=== PATIENT | female | born 1960 | race Caucasian/White ===

== ENCOUNTER 2016-09-30 20:45 | Emergency (ER) | payer BC ==
[~2016-09-30] VITALS: Ht 162.6 cm; Wt 61.2 kg
[~2016-09-30 20:45] MED LIST: ALPR0.5T PO; ALPR0.5T10; ALPR1TAB6 PO; BUTA1CAP29 PO; BYSTOLIC10 MG PO; CIPR500T94 PO; CLON1TAB3; CYCL1DRO; HYDR-2672; HYDR-2672 PO; HYDR-971 PO; LISI1TAB3 PO; LISI1TAB5; LISI1TAB7; ONDA4TAB10 PO; ONDA4TAB7 PO; OXYC-323 PO; OXYC20TA; PARO20TA2; PAXIL; PROAIR HFA8.5 GM INH; TEMA30CA PO
[2016-09-30 22:22] VITALS: BP 120/69
[2016-09-30 22:34] LABS: BILIRUBIN,URINE SMALL (NEG); GLUCOSE,URINE NEGATIVE (NEG); NITRITE,URINE NEGATIVE (NEG); PROTEIN,URINE NEGATIVE (NEG-TRACE); UROBILINOGEN,URINE 0.2 mg/dL (0.2 mg/dL)
[2016-09-30] MEDS ORDERED: CYCLOBENZAPRINE 10 MG TABLET. PO ONE (22:45)
[2016-09-30] MEDS ORDERED: OXYCODONE/APAP 5/325 TABLET. PO ONE (22:45)
[2016-09-30 22:51] LABS: BACTERIA,URINE 0 /HPF (0-FEW); RBC,URINE OCC /HPF (0-2); SQUAMOUS EPITHELIAL CELL,UR FEW /LPF; WBC,URINE OCC /HPF (0-4)
--- NOTE | 2016-09-30 23:31 | PHYS DOC ---
Past Medical History Past Medical History: Anxiety, Arthritis, Depression, Hypertension, Migraines, Other Additional Past Medical Histor: Chronic pain, hep C(treated), drug seeking behavior Past Surgical History: Cholecystectomy, Hysterectomy, Tonsillectomy, Other Additional Past Surgical Histo: PARTIAL KNEE REPLACEMENT, NECK SX, COMMON BILE DUCT CUT, L ARM SX Alcohol Use: None Drug Use: None Adult General Chief Complaint Chief Complaint: BACK PAIN - NO INJURY HPI HPI Patient is a 55 year old female who presents with 3 days of right low back pain and urinary hesitancy. States she feels she is emptying her bladder fully. Pain is constant, achy, worse with movement. States yesterday she cleaned her house which exacerbated her back pain. She denies hematuria, dysuria, vaginal bleeding or discharge,saddle anesthesia, bowel or bladder dysfunction. She denies rash. She denies injury. Review of Systems Review of Systems Constitutional: Denies fever or chills [] Eyes: Denies change in visual acuity, redness, or eye pain [] HENT: Denies nasal congestion or sore throat [] Respiratory: Denies cough or shortness of breath [] Cardiovascular: No additional information not addressed in HPI [] GI: Denies abdominal pain, nausea, vomiting, bloody stools or diarrhea [] : Denies dysuria or hematuria [] Musculoskeletal: Denies joint pain [] Integument: Denies rash or skin lesions [] Neurologic: Denies headache, focal weakness or sensory changes [] Endocrine: Denies polyuria or polydipsia [] Current Medications Current Medications Current Medications Medications (Trade) Dose Ordered Sig/[facility] Start Time Stop Time Status Last Admin Dose Admin Cyclobenzaprine HCl (Flexeril) 10 mg 1X ONCE 09/30/16 22:45 09/30/16 22:46 DC 09/30/16 22:45 10 MG Oxycodone/ Acetaminophen (Percocet 5/325) 2 tab 1X ONCE 09/30/16 22:45 09/30/16 22:46 DC 09/30/16 22:45 2 TAB Allergies Allergies Allergies Coded Allergies Type Severity Reaction Last Updated Verified Penicillins Allergy Intermediate Hives 04/10/15 Yes Physical Exam Physical Exam Constitutional: Well developed, well nourished, no acute distress, non-toxic appearance. [] HENT: Normocephalic, atraumatic, bilateral external ears normal, oropharynx moist, nose normal. [] Eyes: PERRLA, EOMI. [] Neck: Normal range of motion, supple. [] Cardiovascular:Heart rate regular rhythm [] Lungs & Thorax: Bilateral breath sounds clear to auscultation [] Abdomen: Bowel sounds normal, soft, no tenderness, no pulsatile masses. [] Skin: Warm, dry, no erythema, no rash. [] Back: No midline spinal tenderness, no CVA tenderness. Has mild right lumbar paraspinal tenderness with no visual or palpable abnormality [] Extremities: ROM intact, no edema. [] Neurologic: Alert and oriented X 3, normal motor function, normal sensory function, no focal deficits noted. [] Psychologic: Affect normal, judgement normal, mood normal. [] Current Patient Data Vital Signs Vital Signs Date Time Temp Pulse Resp B/P Pulse Ox O2 Delivery O2 Flow Rate FiO2 09/30/16 22:22 102 22 120/69 95 Room Air 09/30/16 20:59 98.0 98.0 Lab Values Laboratory Tests Test 09/30/16 20:55 Urine Collection Type Unknown Urine Color Selena Urine Clarity Clear Urine pH 6.0 Urine Specific [place] 1.020 Urine Protein Negativemg/dL (NEG-TRACE) Urine Glucose (UA) Negativemg/dL (NEG) Urine Ketones (Stick) Negativemg/dL (NEG) Urine Blood Negative (NEG) Urine Nitrite Negative (NEG) Urine Bilirubin Small (NEG) Urine Urobilinogen Dipstick 0.2mg/dL (0.2 mg/dL) Urine Leukocyte Esterase Small (NEG) Urine RBC Occ/HPF (0-2) Urine WBC Occ/HPF (0-4) Urine Squamous Epithelial Cells Few/LPF Urine Bacteria 0/HPF (0-FEW) Urine Hyaline Casts Moderate/HPF Urine Mucus Mod/LPF Course & Med Decision Making Course & Med Decision Making She received pain medications, but prior to urine returning she chose to leave the emergency department AGAINST MEDICAL ADVICE. I was notified by nursing. I was unable to speak with the patient prior to her departure. Her urine results are largely unremarkable. Dragon Disclaimer Dragon Disclaimer This electronic medical record was generated, in whole or in part, using a voice recognition dictation system. Departure Departure Impression: Primary Impression: Left against medical advice Additional Impression: Back pain Disposition: AGAINST MEDICAL ADVICE Condition: STABLE Problem Qualifiers Additional Impression: Back pain Back pain location: low back pain Chronicity: acute Back pain laterality: right Sciatica presence: without sciatica Qualified Code: M54.5 - Low back pain Adin STAHL MD Sep 30, 2016 23:31
== END 2016-09-30 23:01 | disposition left against medical advice (07) ==
LOC: ER 20:45
DX: M54.5 Low back pain (principal); R39.11 Hesitancy of micturition; I10 Essential (primary) hypertension; G43.909 Migraine, unspecified, not intractable, without status migrainosus; M19.90 Unspecified osteoarthritis, unspecified site; G89.29 Other chronic pain; B19.20 Unspecified viral hepatitis C without hepatic coma; Z90.49 Acquired absence of other specified parts of digestive tract; Z90.710 Acquired absence of both cervix and uterus; Z90.89 Acquired absence of other organs; Z96.659 Presence of unspecified artificial knee joint; Z88.0 Allergy status to penicillin
CPT/HCPCS: 81001; 87086; 99284

== ENCOUNTER 2017-01-08 04:27 | Emergency (ER) | payer BC ==
[~2017-01-08] VITALS: Ht 162.6 cm; Wt 54.4 kg
[~2017-01-08 04:27] MED LIST changes: -PARO20TA2; +PARO20TA3
[2017-01-08 05:04] LABS: BASO # 0.1 x10^3/uL (0.0-0.2); BASO % 1 % (0-3); EOS % 1 % (0-3); HEMATOCRIT 41.1 % (36.0-47.0); HEMOGLOBIN 14.2 g/dL (12.0-15.5); LYMPH # 3.1 x10^3/uL (1.0-4.8); LYMPH % 24 % (24-48); MEAN CORPUSCULAR HEMOGLOBIN 33 pg (25-35); MEAN CORPUSCULAR HGB CONC 35 g/dL (31-37); MEAN CORPUSCULAR VOLUME 95 fL (79-100); MONO % 6 % (0-9); NEUT % 70 % (31-73); PLATELET COUNT 348 x10^3/uL (140-400); RED BLOOD COUNT 4.33 x10^6/uL (3.50-5.40); RED CELL DISTRIBUTION WIDTH 12.5 % (11.5-14.5)
[2017-01-08] MEDS ORDERED: IV NORMAL SALINE 1000ML BAG 1,000 ML IV ONE (05:15)
[2017-01-08] MEDS ORDERED: ONDANSETRON PF 4 MG/2 ML VIAL. IV ONE (05:15)
[2017-01-08] MEDS ORDERED: KETOROLAC 15 MG/ML VIAL. IV ONE (05:15)
[2017-01-08 05:32] LABS: ALBUMIN 4.3 g/dL (3.4-5.0); CALCIUM 9.7 mg/dL (8.5-10.1); CREATININE 0.7 mg/dL (0.6-1.0); DIRECT BILIRUBIN 0.1 mg/dL (0.0-0.2); GFR 86.9; TOTAL BILIRUBIN 0.3 mg/dL (0.2-1.0); TOTAL PROTEIN 8.5 g/dL (6.4-8.2)
[2017-01-08] MEDS ORDERED: ALPRAZOLAM 0.5 MG TABLET. PO ONE ×2 (05:45→06:15)
[2017-01-08 05:52] VITALS: BP 150/89
[2017-01-08] MEDS ORDERED: POTASSIUM CHLORIDE 20 MEQ TABLET.ER. PO ONE (06:15)
[2017-01-08] MEDS ORDERED: ONDA4TAB10 SL (06:24)
[2017-01-08] MEDS ORDERED: TRAM-29 PO (06:30)
--- NOTE | 2017-01-08 06:31 | PHYS DOC ---
Past Medical History Past Medical History: Anxiety, Arthritis, Depression, Hypertension, Migraines, Other Additional Past Medical Histor: Chronic pain, hep C(treated), drug seeking behavior Past Surgical History: Cholecystectomy, Hysterectomy, Tonsillectomy, Other Additional Past Surgical Histo: PARTIAL KNEE REPLACEMENT, NECK SX, COMMON BILE DUCT CUT, L ARM SX Alcohol Use: None Drug Use: None Adult General Chief Complaint Chief Complaint: CHEST PAIN HPI HPI Patient is a 56 year old female who presents to the ER today complaining of chest pain on the left side of started since Saturday. Patient reports that she thinks that this is most likely secondary to anxiety. Patient reports that she stopped her oxycodone that she's been taking chronically for her left shoulder and left knee pain. Patient reports that the pain is been constant since Saturday morning. Patient denies any fevers shakes chills nausea vomiting diarrhea or shortness of breath. Patient denies any diaphoresis or radiating pain. Patient reports she been nauseous and having vomiting. Patient denies any URI symptoms. Patient reports that she threw away all her oxycodone on Saturday because she wants to quit taking a narcotic because her significant other to review of her and she did not like the way she was behaving on narcotics. Patient denies any history of coronary artery disease, patient does have a history of hypertension, patient denies any diabetes or CHF. Patient reports that she does have a history of COPD. Patient has had a cholecystectomy, hysterectomy, and appendectomy. Patient denies any bypass surgery in the past. Patient does smoke. No alcohol or drugs. Patient's physical exam the ER significant for 100% reproducible tenderness to palpation to her left anterior chest wall. Patient reports pain is reproduced Wannamaker take a deep breath and her cough. Patient's heart exam was normal. Patient was regular rate and rhythm without any appreciable murmurs. Patient's lungs are clear without any wheezing rales or rhonchi. Patient's abdomen was soft nontender no rebound or guarding. Patient had no signs or symptoms that would be consistent with an acute surgical abdomen. Patient had no calf tenderness or lower from edema. Patient's ER workup was negative for cardiac etiology for chest pain. Patient's chest x-ray was normal. Patient's EKG revealed normal sinus rhythm at a heart rate of 86 without any evidence of acute ST elevation NM. A/P #1 nonspecific chest pain most likely secondary to anxiety versus narcotic withdrawal versus nonspecific chest discomfort. I do not believe that the pain is secondary to dissection, coronary artery disease, PE. Patient's presentation would be very atypical for this. Patient had been given antiemetics here in the ED as well as medication for anxiety and her pain is currently resolved. Patient will be discharged home with Ultram to assist her with her pain until she is able to follow-up with her doctor for further management of her chronic shoulder pain. Patient also be given a prescription for Zofran to assist her with her nausea and withdrawal symptoms. Patient's clinically and hemodynamically stable for discharge to home. Results and plans been discussed with the patient and she is in complete agreement with the current plan. Review of Systems Review of Systems Constitutional: Denies fever or chills [] Eyes: Denies change in visual acuity, redness, or eye pain [] HENT: Denies nasal congestion or sore throat [] All other review systems are negative except as documented in the history of present illness. Current Medications Current Medications Current Medications Medications (Trade) Dose Ordered Sig/[facility] Start Time Stop Time Status Last Admin Dose Admin Alprazolam (Xanax) 0.5 mg 1X ONCE 01/08/17 06:15 01/08/17 06:16 DC Ketorolac Tromethamine (Toradol) 15 mg 1X ONCE 01/08/17 05:15 01/08/17 05:16 DC 01/08/17 05:34 15 MG Ondansetron HCl 4 mg 4 mg 1X ONCE 01/08/17 05:15 01/08/17 05:16 DC 01/08/17 05:34 4 MG Potassium Chloride (Klor-Con) 40 meq 1X ONCE 01/08/17 06:15 01/08/17 06:16 DC Sodium Chloride (Iv Sodium Chloride 0.9% 1000ml Bag) 1,000 ml @ 1,000 mls/hr 1X ONCE 01/08/17 05:15 01/08/17 06:14 DC 01/08/17 05:34 1,000 MLS/HR Allergies Allergies Allergies Coded Allergies Type Severity Reaction Last Updated Verified Penicillins Allergy Intermediate Hives 04/10/15 Yes Physical Exam Physical Exam Constitutional: Well developed, well nourished, no acute distress, non-toxic appearance. [] HENT: Normocephalic, atraumatic, bilateral external ears normal, oropharynx moist, no oral exudates, nose normal. [] Eyes: PERRLA, EOMI, conjunctiva normal, no discharge. [] Neck: Normal range of motion, no tenderness, supple, no stridor. [] Cardiovascular:Heart rate regular rhythm, no murmur [] Lungs & Thorax: Bilateral breath sounds clear to auscultation [] Abdomen: Bowel sounds normal, soft, no tenderness, no masses, no pulsatile masses. [] Skin: Warm, dry, no erythema, no rash. [] Back: No tenderness, no CVA tenderness. [] Extremities: No tenderness, no cyanosis, no clubbing, ROM intact, no edema. [] Neurologic: Alert and oriented X 3, normal motor function, normal sensory function, no focal deficits noted. [] Psychologic: Affect normal, judgement normal, mood normal. [] Current Patient Data Vital Signs Vital Signs Date Time Temp Pulse Resp B/P Pulse Ox O2 Delivery O2 Flow Rate FiO2 01/08/17 05:52 95 150/89 96 Room Air 01/08/17 04:30 97.5 18 97.5 Lab Values Laboratory Tests Test 01/08/17 04:45 01/08/17 05:08 White Blood Count 13.0x10^3/uL (4.0-11.0) H Red Blood Count 4.33x10^6/uL (3.50-5.40) Hemoglobin 14.2g/dL (12.0-15.5) Hematocrit 41.1% (36.0-47.0) Mean Corpuscular Volume 95fL (79-100) Mean Corpuscular Hemoglobin 33pg (25-35) Mean Corpuscular Hemoglobin Concent 35g/dL (31-37) Red Cell Distribution Width 12.5% (11.5-14.5) Platelet Count 348x10^3/uL (140-400) Neutrophils (%) (Auto) 70% (31-73) Lymphocytes (%) (Auto) 24% (24-48) Monocytes (%) (Auto) 6% (0-9) Eosinophils (%) (Auto) 1% (0-3) Basophils (%) (Auto) 1% (0-3) Neutrophils # (Auto) 9.0x10^3uL (1.8-7.7) H Lymphocytes # (Auto) 3.1x10^3/uL (1.0-4.8) Monocytes # (Auto) 0.7x10^3/uL (0.0-1.1) Eosinophils # (Auto) 0.1x10^3/uL (0.0-0.7) Basophils # (Auto) 0.1x10^3/uL (0.0-0.2) Sodium Level 140mmol/L (136-145) Potassium Level 3.0mmol/L (3.5-5.1) L Chloride Level 101mmol/L (98-107) Carbon Dioxide Level 28mmol/L (21-32) Anion Gap 11 (6-14) Blood Urea Nitrogen 7mg/dL (7-20) Creatinine 0.7mg/dL (0.6-1.0) Estimated GFR (Cockcroft-Gault) 86.9 Glucose Level 117mg/dL (70-99) H Calcium Level 9.7mg/dL (8.5-10.1) Total Bilirubin 0.3mg/dL (0.2-1.0) Direct Bilirubin 0.1mg/dL (0.0-0.2) Aspartate Amino Transferase (AST) 17U/L (15-37) Alanine Aminotransferase (ALT) 19U/L (14-59) Alkaline Phosphatase 98U/L (46-116) Troponin I Quantitative < 0.017ng/mL (0.000-0.055) SS-Krh-N-Type Natriuretic Peptide 215pg/mL (0-124) H Total Protein 8.5g/dL (6.4-8.2) H Albumin 4.3g/dL (3.4-5.0) Lipase 91U/L (73-393) Laboratory Tests 01/08/17 04:45 Laboratory Tests 01/08/17 05:08 EKG EKG [] Radiology/Procedures Radiology/Procedures [] Course & Med Decision Making Course & Med Decision Making Pertinent Labs and Imaging studies reviewed. (See chart for details) [] Dragon Disclaimer Dragon Disclaimer This electronic medical record was generated, in whole or in part, using a voice recognition dictation system. Problem #2 hypokalemia. Patient was given potassium here in the ED and will be discharged home with instructions Departure Departure Impression: Primary Impression: Chest pain Additional Impressions: Hypokalemia Narcotic withdrawal Anxiety Disposition: HOME, SELF-CARE Condition: IMPROVED Referrals: NO PCP (PCP) Patient Instructions: Anxiety and Panic Attacks, Hypokalemia, Narcotic Withdrawal Scripts Tramadol Hcl (Ultram)50 Mg Tablet1 Tab PO Q6HRS #14 TAB Prov:CHRISTIAN FITZGERALD MD 01/08/17 Ondansetron (Zofran Odt)4 Mg Tab.rapdis1 Tab SL Q6HRS PRN NAUSEA #12 TAB Prov:CHRISTIAN FITZGERALD MD 01/08/17 Problem Qualifiers CHRISTIAN FITZGERALD MD Jan 08, 2017 06:31
--- NOTE | 2017-01-08 06:42 | EKG ---
[facility] [address] [place] [address] Test Date: 2017-01-08 Test Time: 04:39:58 Pat Name: ANNY FORD Department: Room: Gender: F [employer]: : 1960 Requested By: CHRISTIAN FITZGERALD Order Number: [id number] Reading MD: Measurements Intervals Agness Rate: 86 P: 66 ID: [id number] QRS: 41 QRSD: 90 T: 48 QT: 370 QTc: 446 Interpretive Statements SINUS RHYTHM LEFT ATRIAL ABNORMALITY INCOMPLETE RIGHT BUNDLE BRANCH BLOCK QRS(T) CONTOUR ABNORMALITY CONSIDER ANTEROSEPTAL MYOCARDIAL DAMAGE ABNORMAL ECG RI6.01 No previous ECG available for comparison
--- NOTE | 2017-01-08 07:08 | RAD ---
Portable chest, 01/08/2017: History: Chest pain Comparison is made to a study from 09/23/2016. The heart size and pulmonary vascularity are normal. No pulmonary infiltrates are seen. There is no evidence of pleural fluid. IMPRESSION: No acute cardiopulmonary abnormality is detected.
== END 2017-01-08 06:39 | disposition home or self-care (01) ==
LOC: ER 04:27
DX: R07.89 Other chest pain (principal); F41.9 Anxiety disorder, unspecified; E87.6 Hypokalemia; F11.23 Opioid dependence with withdrawal; G89.29 Other chronic pain; M25.562 Pain in left knee; M25.512 Pain in left shoulder; F32.9 Major depressive disorder, single episode, unspecified; I10 Essential (primary) hypertension; G43.909 Migraine, unspecified, not intractable, without status migrainosus; J44.9 Chronic obstructive pulmonary disease, unspecified; Z88.0 Allergy status to penicillin
CPT/HCPCS: 36415; 71010; 80048; 80076; 83690; 83880; 84484; 85027; 93005; 96361; 96374; 96375; 99285; J1885; J2405; J7030

== ENCOUNTER 2017-01-22 04:26 | Emergency (ER) | payer BC ==
[~2017-01-22] VITALS: Ht 162.6 cm; Wt 56.7 kg
[~2017-01-22 04:26] MED LIST changes: +ONDA4TAB10 SL; +TRAM-29 PO
[2017-01-22 04:30] VITALS: BP 139/75
--- NOTE | 2017-01-22 04:38 | PHYS DOC ---
Past Medical History Past Medical History: Anxiety, Arthritis, Depression, Hypertension, Migraines, Other Additional Past Medical Histor: Chronic pain, hep C(treated), drug seeking behavior Past Surgical History: Cholecystectomy, Hysterectomy, Tonsillectomy, Other Additional Past Surgical Histo: PARTIAL KNEE REPLACEMENT, NECK SX, COMMON BILE DUCT CUT, L ARM SX Alcohol Use: None Drug Use: None Adult General Chief Complaint Chief Complaint: ANKLE PROBLEM HPI HPI Patient is a 56 year old female who presents with left lateral ankle pain since rolling ankle while walking yesterday evening. Constant pain, worse with walking, achy. Denies numbness, tingling, weakness, swelling, discoloration, other injury. Review of Systems Review of Systems Constitutional: Denies fever or chills [] Eyes: Denies change in visual acuity, redness, or eye pain [] HENT: Denies nasal congestion or sore throat [] Respiratory: Denies cough or shortness of breath [] Cardiovascular: No additional information not addressed in HPI [] GI: Denies abdominal pain, nausea, vomiting, bloody stools or diarrhea [] : Denies dysuria or hematuria [] Musculoskeletal: Denies back pain [] Integument: Denies rash or skin lesions [] Neurologic: Denies headache, focal weakness or sensory changes [] Endocrine: Denies polyuria or polydipsia [] Allergies Allergies Allergies Coded Allergies Type Severity Reaction Last Updated Verified Penicillins Allergy Intermediate Hives 04/10/15 Yes Physical Exam Physical Exam Constitutional: Well developed, well nourished, no acute distress, non-toxic appearance. [] HENT: Normocephalic, atraumatic, bilateral external ears normal, oropharynx moist, nose normal. [] Eyes: PERRLA, EOMI, . [] Neck: Normal range of motion, supple. [] Cardiovascular: Extremities warm and well perfused [] Lungs & Thorax: Respirations even and unlabored [] Skin: Warm, dry, no erythema, no rash. [] Back: Normal ROM. [] Extremities: Ambulatory with an antalgic but steady gait. LLE with no obvious deformity or discoloration; Can flex/ex toes; Can dorsiflex/plantar flex ankle; Has some tenderness about anterior lateral soft tissues of ankle with no palpable abnormality; No medial or lateral malleolar tenderness; No 5 th metatarsal base tenderness; SILT gonzalez/sa/sp/dp/tib distributions; good dp pulses Neurologic: Alert and oriented X 3, normal motor function, normal sensory function, no focal deficits noted. [] Psychologic: Affect normal, judgement normal, mood normal. [] Course & Med Decision Making Course & Med Decision Making No clinical signs of fracture. Imaging deferred at this time. Discussed symptomatic care. Return precautions given. She understands plan. Dragon Disclaimer Dragon Disclaimer This electronic medical record was generated, in whole or in part, using a voice recognition dictation system. Departure Departure Impression: Primary Impression: Left lateral ankle pain Disposition: HOME, SELF-CARE Condition: STABLE Referrals: NO PCP (PCP) Patient Instructions: Ankle Sprain, [id number] Additional Instructions: Take Tylenol or ibuprofen as needed for pain. Ice your ankle to help with pain. Follow-up with your primary care doctor. Return for any concerns. Adin STAHL MD Jan 22, 2017 04:37
== END 2017-01-22 04:45 | disposition home or self-care (01) ==
LOC: ER 04:26
DX: M25.572 Pain in left ankle and joints of left foot (principal); M19.90 Unspecified osteoarthritis, unspecified site; I10 Essential (primary) hypertension; G43.909 Migraine, unspecified, not intractable, without status migrainosus; F32.9 Major depressive disorder, single episode, unspecified; F41.9 Anxiety disorder, unspecified; G89.29 Other chronic pain; Z96.659 Presence of unspecified artificial knee joint; Z86.19 Personal history of other infectious and parasitic diseases; Z88.0 Allergy status to penicillin
CPT/HCPCS: 99281

== ENCOUNTER 2017-01-25 21:33 | Emergency (ER) | payer BC ==
[2017-01-25 21:47] VITALS: BP 164/101
--- NOTE | 2017-01-25 22:16 | PHYS DOC ---
Past Medical History Past Medical History: Anxiety, Arthritis, Depression, Hypertension, Migraines, Other Additional Past Medical Histor: Chronic pain, hep C(treated), drug seeking behavior Past Surgical History: Cholecystectomy, Hysterectomy, Tonsillectomy, Other Additional Past Surgical Histo: PARTIAL KNEE REPLACEMENT, NECK SX, COMMON BILE DUCT CUT, L ARM SX Alcohol Use: None Drug Use: None Adult General Chief Complaint Chief Complaint: FOOT INJURY PAIN [facility] HPI Patient is a 56 year old female presents emergency department stating that 3 days ago she was chasing her dog the house when she fell. She states that she has having right foot pain and discomfort as well as right ankle pain. She does have bruising and discoloration noted to the area along with the second third fourth and fifth metatarsal area. She has tenderness noted in the right medial ankle. Peripheral pulses 2+ cap refill brisk less than 2 seconds. Review of Systems Review of Systems Constitutional: Denies fever or chills [] Eyes: Denies change in visual acuity, redness, or eye pain [] HENT: Denies nasal congestion or sore throat [] Respiratory: Denies cough or shortness of breath [] Cardiovascular: No additional information not addressed in HPI [] GI: Denies abdominal pain, nausea, vomiting, bloody stools or diarrhea [] : Denies dysuria or hematuria [] Musculoskeletal: Denies back pain. C/o right foot and ankle pain Integument: Denies rash or skin lesions [] Neurologic: Denies headache, focal weakness or sensory changes [] Allergies Allergies Allergies Coded Allergies Type Severity Reaction Last Updated Verified Penicillins Allergy Intermediate Hives 04/10/15 Yes Physical Exam Physical Exam Constitutional: Well developed, well nourished, no acute distress, non-toxic appearance. [] HENT: Normocephalic, atraumatic, bilateral external ears normal, oropharynx moist, no oral exudates, nose normal. [] Eyes: PERRLA, EOMI, conjunctiva normal, no discharge. [] Neck: Normal range of motion, no tenderness, supple, no stridor. [] Cardiovascular:Heart rate regular rhythm, no murmur [] Lungs & Thorax: Bilateral breath sounds clear to auscultation [] Skin: Warm, dry, no erythema, no rash. [] Back: No tenderness Extremities: right foot and ankle tenderness, no cyanosis, no clubbing, ROM intact, no edema. Patient noted to have black and blue areas with swelling along the second through fifth metatarsal area on the right foot. Patient was noted to have tenderness on the right medial part of the ankle. Peripheral pulses 2+ cap refill brisk less than 2 seconds. Patient capable of moving the toes without difficulty. Neurologic: Alert and oriented X 3, normal motor function, normal sensory function, no focal deficits noted. [] Psychologic: Affect normal, judgement normal, mood normal. [] Current Patient Data Vital Signs Vital Signs Date Time Temp Pulse Resp B/P Pulse Ox O2 Delivery O2 Flow Rate FiO2 01/25/17 21:47 97.9 104 16 98 Room Air 97.9 EKG EKG [] Radiology/Procedures Radiology/Procedures [] Course & Med Decision Making Course & Med Decision Making Pertinent Labs and Imaging studies reviewed. (See chart for details) Ankle x-ray was negative for any bony abnormalities. Patient was noted to have a fracture along the fifth toe area. Shunt will have the toes taped together and will be placed in a postop shoe as well as a Paulino wrap in which the patient brought with her. Patient will be discharged home in stable condition was continue to recommended ibuprofen to help with pain and inflammation. She'll be provided with a few hydrocodone for severe pain. This medication will cause drowsiness do not take any be alert and oriented. She will be provided with Drs. Alvarez's name and number to follow up with. Signs symptoms to return back to emergency department as been provided. [] Dragon Disclaimer Dragon Disclaimer This electronic medical record was generated, in whole or in part, using a voice recognition dictation system. Departure Departure Impression: Primary Impression: Fracture of fifth toe, right, closed Additional Impression: Right ankle sprain Disposition: HOME, SELF-CARE Condition: STABLE Referrals: NO PCP (PCP) IVIS ORANTES MD Patient Instructions: Ankle Sprain, [id number], Toe Fracture, [id number] Additional Instructions: Activity as tolerated. Ice packs on 20 minutes off 20 minutes several times a day. Elevation as much as possible. Keep your little toe taped to your fourth toe. Ibuprofen 600 mg every 8 hours to help with pain and discomfort. This will also help with swelling. Hydrocodone for severe pain and discomfort this medication will cause drowsiness do not take any be alert and oriented. Wear the Paulino wrap for the next 3-5 days. Follow-up with Dr. Orantes orthopedic in the next week. Return back to emergency prior signs and symptoms of become worse. Scripts Hydrocodone/Apap 5-325 ([place] 5-325 Tablet)1 Each Tablet1 Tab PO PRN Q6HRS PRN PAIN #10 TAB Prov:VIKTORIYA SOUTH APRN 01/25/17 Problem Qualifiers VIKTORIYA SOUTH APRN Jan 25, 2017 22:16
[2017-01-25] MEDS ORDERED: HYDR-971 PO (23:14)
--- NOTE | 2017-01-26 08:33 | RAD ---
Three-view right ankle study History: Tripped and fell. Right ankle pain medially. Findings: No acute fracture or dislocation or osteolytic process is seen. The mortise ankle joint is intact. IMPRESSION: No acute fracture.
--- NOTE | 2017-01-26 08:34 | RAD ---
Three-view right foot study History: Tripped and fell. Right foot pain. Findings: There is a nondisplaced Y-shaped comminuted fracture of the proximal metaphysis and epiphysis of the fifth proximal phalanx with intra-articular extension. No articular surface offset is seen. No dislocation is seen. No osteolytic process is evident. IMPRESSION: Posttraumatic fracture of the fifth proximal phalanx.
== END 2017-01-25 23:29 | disposition home or self-care (01) ==
LOC: ER 21:33
DX: S92.511A Displaced fracture of proximal phalanx of right lesser toe(s), initial encounter for closed fracture (principal); S93.401A Sprain of unspecified ligament of right ankle, initial encounter; F32.9 Major depressive disorder, single episode, unspecified; F41.9 Anxiety disorder, unspecified; G89.29 Other chronic pain; I10 Essential (primary) hypertension; G43.909 Migraine, unspecified, not intractable, without status migrainosus; M19.90 Unspecified osteoarthritis, unspecified site; Z86.19 Personal history of other infectious and parasitic diseases; Z90.710 Acquired absence of both cervix and uterus; Z90.49 Acquired absence of other specified parts of digestive tract; Z88.0 Allergy status to penicillin; W19.XXXA Unspecified fall, initial encounter; Y93.89 Activity, other specified; Y92.098 Other place in other non-institutional residence as the place of occurrence of the external cause; Y99.8 Other external cause status
CPT/HCPCS: 73610; 73630; 99284

== ENCOUNTER 2017-02-21 19:11 | Emergency (ER) | payer BC ==
[~2017-02-21] VITALS: Ht 162.6 cm; Wt 52.2 kg
[2017-02-21 19:38] VITALS: BP 117/73
[2017-02-21 20:03] LABS: BASO # 0.1 x10^3/uL (0.0-0.2); BASO % 1 % (0-3); EOS % 7 % (0-3); HEMATOCRIT 38.8 % (36.0-47.0); LYMPH # 3.4 x10^3/uL (1.0-4.8); LYMPH % 48 % (24-48); MEAN CORPUSCULAR HEMOGLOBIN 33 pg (25-35); MEAN CORPUSCULAR HGB CONC 34 g/dL (31-37); MEAN CORPUSCULAR VOLUME 99 fL (79-100); MONO % 7 % (0-9); NEUT % 38 % (31-73); PLATELET COUNT 225 x10^3/uL (140-400); RED BLOOD COUNT 3.94 x10^6/uL (3.50-5.40); RED CELL DISTRIBUTION WIDTH 13.1 % (11.5-14.5); WHITE BLOOD COUNT 7.1 x10^3/uL (4.0-11.0)
[2017-02-21 20:09] LABS: CALCIUM 9.5 mg/dL (8.5-10.1); CREATININE 0.7 mg/dL (0.6-1.0); GFR 86.9; POTASSIUM 3.4 mmol/L (3.5-5.1)
[2017-02-21 20:15] LABS: ALBUMIN 3.8 g/dL (3.4-5.0); TOTAL BILIRUBIN 0.3 mg/dL (0.2-1.0); TOTAL PROTEIN 7.6 g/dL (6.4-8.2)
[2017-02-21 20:17] LABS: BILIRUBIN,URINE NEGATIVE (NEG); GLUCOSE,URINE NEGATIVE (NEG); NITRITE,URINE NEGATIVE (NEG); PH,URINE 5.5; PROTEIN,URINE NEGATIVE (NEG-TRACE); UROBILINOGEN,URINE 0.2 mg/dL (0.2 mg/dL)
[2017-02-21 20:21] LABS: BACTERIA,URINE FEW /HPF (0-FEW); RBC,URINE 0 /HPF (0-2); SQUAMOUS EPITHELIAL CELL,UR MOD /LPF
--- NOTE | 2017-02-21 20:26 | PHYS DOC ---
Past Medical History Past Medical History: Anxiety, Arthritis, Depression, Migraines, Other Additional Past Medical Histor: Chronic pain, hep C(treated), drug seeking behavior Past Surgical History: Cholecystectomy, Hysterectomy, Tonsillectomy, Other Additional Past Surgical Histo: PARTIAL KNEE REPLACEMENT, NECK SX, COMMON BILE DUCT CUT, L ARM SX Alcohol Use: None Drug Use: None Adult General Chief Complaint Chief Complaint: LOWER EXT PAIN HPI HPI Patient is a 56 year old female presents to the emergency department with a three-day history of lower extremity edema. She states that she thinks the swelling has gotten worse, and doesn't notice that it's better in the morning. She has no complaints of shortness of breath or cough. She has had no chest pain. No abdominal pain. She reports no nausea, no vomiting, no lightheadedness. She does report that she eats processed foods and can goods. Review of Systems Review of Systems Constitutional: Denies fever or chills [] Eyes: Denies change in visual acuity, redness, or eye pain [] HENT: Denies nasal congestion or sore throat [] Respiratory: Denies cough or shortness of breath [] Cardiovascular: Lower extremity swelling, denies chest pain, shortness of breath GI: Denies abdominal pain, nausea, vomiting, bloody stools or diarrhea denies bloating [] : Denies dysuria or hematuria [] Musculoskeletal: Denies back pain or joint pain [] Integument: Denies rash or skin lesions [] Neurologic: Denies headache, focal weakness or sensory changes [] Endocrine: Denies polyuria or polydipsia [] Allergies Allergies Allergies Coded Allergies Type Severity Reaction Last Updated Verified Penicillins Allergy Intermediate Hives 04/10/15 Yes Physical Exam Physical Exam Constitutional: Well developed, well nourished, no acute distress, non-toxic appearance. [] HENT: Normocephalic, atraumatic, bilateral external ears normal, oropharynx moist, no oral exudates, nose normal. [] Eyes: PERRLA, EOMI, conjunctiva normal, no discharge. [] Neck: Normal range of motion, no tenderness, supple, no stridor. [] Cardiovascular:Heart rate regular rhythm, no murmur [] Lungs & Thorax: Bilateral breath sounds clear to auscultation [] Abdomen: Bowel sounds normal, soft, no tenderness, no masses, no pulsatile masses. [] Skin: Warm, dry, no erythema, no rash. [] Back: No tenderness, no CVA tenderness. [] Extremities: No tenderness, no cyanosis, trace edema bilateral lower extremities. The calves are supple, nontender, negative Homans sign. Neurologic: Alert and oriented X 3, normal motor function, normal sensory function, no focal deficits noted. [] Psychologic: Affect normal, judgement normal, mood normal. [] Current Patient Data Vital Signs Vital Signs Date Time Temp Pulse Resp B/P (MAP) Pulse Ox O2 Delivery O2 Flow Rate FiO2 02/21/17 19:38 98.1 94 20 92 Room Air 98.1 Lab Values Laboratory Tests Test 02/21/17 19:35 02/21/17 20:00 White Blood Count 7.1 x10^3/uL (4.0-11.0) Red Blood Count 3.94 x10^6/uL (3.50-5.40) Hemoglobin 13.0 g/dL (12.0-15.5) Hematocrit 38.8 % (36.0-47.0) Mean Corpuscular Volume 99 fL (79-100) Mean Corpuscular Hemoglobin 33 pg (25-35) Mean Corpuscular Hemoglobin Concent 34 g/dL (31-37) Red Cell Distribution Width 13.1 % (11.5-14.5) Platelet Count 225 x10^3/uL (140-400) Neutrophils (%) (Auto) 38 % (31-73) Lymphocytes (%) (Auto) 48 % (24-48) Monocytes (%) (Auto) 7 % (0-9) Eosinophils (%) (Auto) 7 % (0-3) H Basophils (%) (Auto) 1 % (0-3) Neutrophils # (Auto) 2.7 x10^3uL (1.8-7.7) Lymphocytes # (Auto) 3.4 x10^3/uL (1.0-4.8) Monocytes # (Auto) 0.5 x10^3/uL (0.0-1.1) Eosinophils # (Auto) 0.5 x10^3/uL (0.0-0.7) Basophils # (Auto) 0.1 x10^3/uL (0.0-0.2) Sodium Level 143 mmol/L (136-145) Potassium Level 3.4 mmol/L (3.5-5.1) L Chloride Level 105 mmol/L (98-107) Carbon Dioxide Level 31 mmol/L (21-32) Anion Gap 7 (6-14) Blood Urea Nitrogen 11 mg/dL (7-20) Creatinine 0.7 mg/dL (0.6-1.0) Estimated GFR (Cockcroft-Gault) 86.9 BUN/Creatinine Ratio 16 (6-20) Glucose Level 109 mg/dL (70-99) H Calcium Level 9.5 mg/dL (8.5-10.1) Total Bilirubin 0.3 mg/dL (0.2-1.0) Aspartate Amino Transferase (AST) 26 U/L (15-37) Alanine Aminotransferase (ALT) 30 U/L (14-59) Alkaline Phosphatase 112 U/L (46-116) Total Protein 7.6 g/dL (6.4-8.2) Albumin 3.8 g/dL (3.4-5.0) Albumin/Globulin Ratio 1.0 (1.0-1.7) Urine Collection Type Unknown Urine Color Yellow Urine Clarity Clear Urine pH 5.5 Urine Specific [place] 1.010 Urine Protein Negative mg/dL (NEG-TRACE) Urine Glucose (UA) Negative mg/dL (NEG) Urine Ketones (Stick) Negative mg/dL (NEG) Urine Blood Negative (NEG) Urine Nitrite Negative (NEG) Urine Bilirubin Negative (NEG) Urine Urobilinogen Dipstick 0.2 mg/dL (0.2 mg/dL) Urine Leukocyte Esterase Trace (NEG) Urine RBC 0 /HPF (0-2) Urine WBC 1-4 /HPF (0-4) Urine Squamous Epithelial Cells Mod /LPF Urine Bacteria Few /HPF (0-FEW) Laboratory Tests 02/21/17 19:35 Laboratory Tests 02/21/17 19:35 EKG EKG [] Radiology/Procedures Radiology/Procedures [] Course & Med Decision Making Course & Med Decision Making As I was discussing the patient's lab results with her in the clinic here, she asked for a Percocet. I declined this request she had no complaints of pain. In review of medical record, and appears patient has a history of drug-seeking behavior. Pertinent Labs and Imaging studies reviewed. (See chart for details) [] Carmenon Disclaimer Dragon Disclaimer This electronic medical record was generated, in whole or in part, using a voice recognition dictation system. Departure Departure Impression: Primary Impression: Dependent edema Disposition: 01 HOME, SELF-CARE Condition: STABLE Referrals: NO PCP (PCP) Patient Instructions: Diet - 1.5 Gram Low Sodium, [id number], Edema DENNY ACOSTA APRN February 21, 2017 20:26
== END 2017-02-21 20:45 | disposition home or self-care (01) ==
LOC: ER 19:11
DX: R60.0 Localized edema (principal); M19.90 Unspecified osteoarthritis, unspecified site; G43.909 Migraine, unspecified, not intractable, without status migrainosus; G89.29 Other chronic pain; Z88.0 Allergy status to penicillin
CPT/HCPCS: 36415; 80053; 81001; 85027; 87086; 99284

== ENCOUNTER 2017-04-05 16:31 | Emergency (ER) | payer BC ==
[~2017-04-05 16:31] MED LIST changes: -HYDR-2672; -HYDR-2672 PO; +HYDR-2766; +HYDR-2766 PO; -TRAM-29 PO; +TRAM-48 PO
--- NOTE | 2017-04-05 17:08 | PHYS DOC ---
Past Medical History Past Medical History: Anxiety, Arthritis, Depression, Migraines, Other Additional Past Medical Histor: Chronic pain, hep C(treated), drug seeking behavior Past Surgical History: Cholecystectomy, Hysterectomy, Tonsillectomy, Other Additional Past Surgical Histo: PARTIAL KNEE REPLACEMENT, NECK SX, COMMON BILE DUCT CUT, L ARM SX Alcohol Use: None Drug Use: None Adult General Chief Complaint Chief Complaint: BACK PAIN OR INJURY [facility] HPI Patient is a 56 year old male presents to the emergency department with request for refill on her hydrocodone or oxycodone. Patient has chronic back and knee complaints and is under the care of a chiropractor orthopedic physician. She has no new complaints. Review of Systems Review of Systems Constitutional: Denies fever or chills [] Eyes: Denies change in visual acuity, redness, or eye pain [] HENT: Denies nasal congestion or sore throat [] Respiratory: Denies cough or shortness of breath [] Cardiovascular: No additional information not addressed in HPI [] GI: Denies abdominal pain, nausea, vomiting, bloody stools or diarrhea [] : Denies dysuria or hematuria [] Musculoskeletal: Chronic back, left knee pain Integument: Denies rash or skin lesions [] Neurologic: Denies headache, focal weakness or sensory changes [] Endocrine: Denies polyuria or polydipsia [] Allergies Allergies Allergies Coded Allergies Type Severity Reaction Last Updated Verified Penicillins Allergy Intermediate Hives 04/10/15 Yes Physical Exam Physical Exam Constitutional: Well developed, well nourished, no acute distress, non-toxic appearance. [] HENT: Normocephalic, atraumatic, bilateral external ears normal, oropharynx moist, no oral exudates, nose normal. [] Eyes: PERRLA, EOMI, conjunctiva normal, no discharge. [] Neck: Normal range of motion, no tenderness, supple, no stridor. [] Cardiovascular:Heart rate regular rhythm, no murmur [] Lungs & Thorax: Bilateral breath sounds clear to auscultation [] Abdomen: Bowel sounds normal, soft, no tenderness, no masses, no pulsatile masses. [] Skin: Warm, dry, no erythema, no rash. [] Back: Diffuse tenderness without midline tenderness. Extremities: No tenderness, no cyanosis, no clubbing, ROM intact, no edema. [] Neurologic: Alert and oriented X 3, normal motor function, normal sensory function, no focal deficits noted. [] Psychologic: Affect normal, judgement normal, mood normal. [] EKG EKG [] Radiology/Procedures Radiology/Procedures [] Course & Med Decision Making Course & Med Decision Making Pertinent Labs and Imaging studies reviewed. (See chart for details) Patient made multiple attempts to negotiate for a variety of pain medications, refusing tramadol and Toradol. Patient reports no allergies medications but states "they don't work for me". She attempted to negotiate for hydrocodone, oxycodone, Percocet, Vicodin, Tylenol No. 4. I explained to her that acute conditions were treated with narcotics as appropriate by the emergency provider. I did explain to the patient that chronic conditions and medication refills for narcotics are not prescribed in the emergency department. [] spoke with the patient and/or care givers. I've explained the patient's condition, diagnosis and treatment plan based on the information available to me at this time. I've answered the patient's and/or care givers questions and a dressing concerns. The patient and/or care givers have as good an understanding of the patient's diagnosis, condition and treatment plan as can be expected at this time. Vital signs stable. The patient's condition is stable and appropriate for discharge from the emergency department. The patient will pursue further outpatient evaluation with the primary care physician or other designated or consulting physician as outlined in the discharge instructions. The patient and/or care givers are agreeable to this plan of care and follow-up instructions and explained in detail. The patient and /or care givers have received these instructions in written format and have expressed an understanding of the discharge instructions. The patient and/or caregivers are aware that any significant change in condition or worsening of symptoms should prompt immediate return to this closest emergency department or call to 911. Kimberlee Disclaimer Dragon Disclaimer This electronic medical record was generated, in whole or in part, using a voice recognition dictation system. Departure Departure Impression: Primary Impression: Back pain Additional Impression: Drug-seeking behavior Referrals: NO PCP (PCP) Patient Instructions: Chronic Pain Problem Qualifiers Primary Impression: Back pain Back pain location: low back pain Chronicity: chronic Back pain laterality : bilateral Sciatica presence: without sciatica Qualified Codes: M54.5 - Low back pain; G89.29 - Other chronic pain DENNY ACOSTA APRN Apr 05, 2017 17:08
[2017-04-05] MEDS ORDERED: ONDA4TAB7 PO (17:12)
[2017-04-05] MEDS ORDERED: ACETAMINOPHEN/CODEINE 300/30MG TABLET. PO ONE (17:15)
[2017-04-05] MEDS ORDERED: ONDANSETRON ODT 4 MG TAB.RAPDIS. PO ONE (17:45)
[2017-04-05 18:11] VITALS: BP 158/104
== END 2017-04-05 17:35 | disposition home or self-care (01) ==
LOC: ER 16:31
DX: M54.5 Low back pain (principal); M25.562 Pain in left knee; Z76.5 Malingerer [conscious simulation]; G89.29 Other chronic pain; F41.9 Anxiety disorder, unspecified; M19.90 Unspecified osteoarthritis, unspecified site; F32.9 Major depressive disorder, single episode, unspecified; G43.909 Migraine, unspecified, not intractable, without status migrainosus; Z90.710 Acquired absence of both cervix and uterus; Z96.659 Presence of unspecified artificial knee joint; Z90.49 Acquired absence of other specified parts of digestive tract; Z86.19 Personal history of other infectious and parasitic diseases; Z88.0 Allergy status to penicillin
CPT/HCPCS: 99283; Q0162

== ENCOUNTER 2017-06-03 14:46 | Emergency (ER) | payer BC ==
[~2017-06-03] VITALS: Ht 162.6 cm; Wt 52.2 kg
--- NOTE | 2017-06-03 15:13 | PHYS DOC ---
Past Medical History Past Medical History: Anxiety, Arthritis, Depression, Migraines, Seizure, Other Additional Past Medical Histor: Chronic pain, hep C(treated), drug seeking behavior Past Surgical History: Cholecystectomy, Hysterectomy, Tonsillectomy, Other Additional Past Surgical Histo: PARTIAL KNEE REPLACEMENT, NECK SX, COMMON BILE DUCT CUT, L ARM SX Alcohol Use: None Drug Use: None Adult General Chief Complaint Chief Complaint: SEIZURE HPI HPI Patient is a 56 year old F who presents with seizure. Patient states she takes Klonopin every day and write out 3 days ago and has a seizure today. Patient states she's been having seizures for the past year however does not have a history of epilepsy. Patient does admit to being addicted to benzodiazepines. Patient states she ran out of her Klonopin because he took too much this month and thought she could make it another week without it. Patient states she was walking out of a driveway when she had a seizure and fell and hit a flowerpot and sustained injury to the right side of her face. Patient denies any other injuries. Patient denies any fevers. Patient denies any chest pain returns of breath. Patient denies any nausea/vomiting/diarrhea. Patient is no other complaints. Review of Systems Review of Systems GEN: Denies fevers, chills, sweats HEENT: Denies blurred vision, sore throat CV: Denies chest pain RESP: Denies shortness of air, cough GI: Denies n/v/d NEURO: Headache MSK: Denies weakness, joint pain/swelling Current Medications Current Medications Current Medications Medications (Trade) Dose Ordered Sig/Terrance Start Time Stop Time Status Last Admin Dose Admin Clonidine HCl (Catapres) 0.1 mg 1X ONCE 06/03/17 15:15 06/03/17 15:16 DC Ibuprofen (Motrin) 800 mg 1X ONCE 06/03/17 17:15 06/03/17 17:16 DC 06/03/17 17:07 800 MG Levetiracetam 1000 mg/Sodium Chloride 110 ml @ 440 mls/hr 1X ONCE 06/03/17 16:00 06/03/17 16:14 DC 06/03/17 15:54 440 MLS/HR Sodium Chloride 1,000 ml @ 1,000 mls/hr 1X ONCE 06/03/17 15:15 06/03/17 16:14 DC 06/03/17 15:20 1,000 MLS/HR Allergies Allergies Allergies Coded Allergies Type Severity Reaction Last Updated Verified Penicillins Allergy Intermediate Hives 04/10/15 Yes Physical Exam Physical Exam GEN.: No apparent distress. Alert and oriented. HEENT: Abrasions to the right side of the face, superficial NECK: Supple. LUNGS: CTAB, chest wall tenderness palpation over the sternum HEART: Tachycardia, S1, S2 present. Peripheral pulses intact ABDOMEN: Soft, nontender. Positive bowel sounds. EXTREMITIES: Without any cyanosis. NEUROLOGIC: Normal speech, normal tone PSYCHIATRIC: Normal affect, normal mood. SKIN: No ulcerations Current Patient Data Vital Signs Vital Signs Date Time Temp Pulse Resp B/P (MAP) Pulse Ox O2 Delivery O2 Flow Rate FiO2 06/03/17 16:56 95 19 162/95 (117) 96 Room Air 06/03/17 14:49 98.7 98.7 Lab Values Laboratory Tests Test 06/03/17 15:33 06/03/17 16:45 White Blood Count 13.2 x10^3/uL (4.0-11.0) H Red Blood Count 4.24 x10^6/uL (3.50-5.40) Hemoglobin 14.7 g/dL (12.0-15.5) Hematocrit 42.8 % (36.0-47.0) Mean Corpuscular Volume 101 fL (79-100) H Mean Corpuscular Hemoglobin 35 pg (25-35) Mean Corpuscular Hemoglobin Concent 34 g/dL (31-37) Red Cell Distribution Width 14.2 % (11.5-14.5) Platelet Count 366 x10^3/uL (140-400) Neutrophils (%) (Auto) 60 % (31-73) Lymphocytes (%) (Auto) 27 % (24-48) Monocytes (%) (Auto) 6 % (0-9) Eosinophils (%) (Auto) 5 % (0-3) H Basophils (%) (Auto) 1 % (0-3) Neutrophils # (Auto) 7.9 x10^3uL (1.8-7.7) H Lymphocytes # (Auto) 3.6 x10^3/uL (1.0-4.8) Monocytes # (Auto) 0.8 x10^3/uL (0.0-1.1) Eosinophils # (Auto) 0.7 x10^3/uL (0.0-0.7) Basophils # (Auto) 0.2 x10^3/uL (0.0-0.2) Sodium Level 141 mmol/L (136-145) Potassium Level 3.3 mmol/L (3.5-5.1) L Chloride Level 102 mmol/L (98-107) Carbon Dioxide Level 27 mmol/L (21-32) Anion Gap 12 (6-14) Blood Urea Nitrogen 13 mg/dL (7-20) Creatinine 0.9 mg/dL (0.6-1.0) Estimated GFR (Cockcroft-Gault) 65.0 Glucose Level 124 mg/dL (70-99) H Calcium Level 9.9 mg/dL (8.5-10.1) Urine Collection Type Unknown Urine Color Yellow Urine Clarity Clear Urine pH 6.0 Urine Specific [place] 1.010 Urine Protein Negative mg/dL (NEG-TRACE) Urine Glucose (UA) Negative mg/dL (NEG) Urine Ketones (Stick) Negative mg/dL (NEG) Urine Blood Negative (NEG) Urine Nitrite Negative (NEG) Urine Bilirubin Negative (NEG) Urine Urobilinogen Dipstick 0.2 mg/dL (0.2 mg/dL) Urine Leukocyte Esterase Negative (NEG) Urine RBC 0 /HPF (0-2) Urine WBC 1-4 /HPF (0-4) Urine Squamous Epithelial Cells Mod /LPF Urine Bacteria Moderate /HPF (0-FEW) Urine Mucus Mod /LPF Urine Opiates Screen Neg (NEG) Urine Methadone Screen Neg (NEG) Urine Barbiturates Neg (NEG) Urine Phencyclidine Screen Neg (NEG) Urine Amphetamine/Methamphetamine Neg (NEG) Urine Benzodiazepines Screen Neg (NEG) Urine Cocaine Screen Neg (NEG) Urine Cannabinoids Screen Neg (NEG) Urine Ethyl Alcohol Neg (NEG) Laboratory Tests 06/03/17 15:33 Laboratory Tests 06/03/17 15:33 EKG EKG 1452: EKG shows sinus tach rate of 122 no STEMI[] Radiology/Procedures Radiology/Procedures [] Course & Med Decision Making Course & Med Decision Making Pertinent Labs and Imaging studies reviewed. (See chart for details) ED course: Patient was seen and examined emergency room CT scan of the head and neck, CBC, BMP, UA were ordered along with 1 L normal saline bolus 1605: KTRACs was discussed with the patient who receives 120 of clonazepam on along with 120 of hydrocodone on 05/24/2017 and 30 of temazepam on 2016, we discussed with the patient is most likely withdrawing from benzos and discussed my reluctance to keep prescribing her benzodiazepines therefore we decided on giving her 1 g of Keppra and recommend she follow up with her PCP or psychiatrist discuss further management of these seizures. 1656: Patient complains of sternal pain therefore we'll x-ray her sternum [] Dragon Disclaimer Dragon Disclaimer This electronic medical record was generated, in whole or in part, using a voice recognition dictation system. Departure Departure Impression: Primary Impression: Withdrawal seizures Additional Impressions: Closed head injury Chest wall pain Disposition: HOME, SELF-CARE Condition: IMPROVED Referrals: NON,STAFF (PCP) Patient Instructions: Seizure Disorder, Child, Generalized Tonic-Clonic Additional Instructions: Please follow up with your family physician in the next one to 2 days and return symptoms increase Problem Qualifiers KUNAL CHAWLA DO Jun 03, 2017 15:13
[2017-06-03] MEDS ORDERED: cloNIDine HCL 0.1 MG TABLET PO ONE (15:15)
[2017-06-03] MEDS ORDERED: IV NORMAL SALINE 1000ML BAG 1,000 ML IV ONE (15:15)
[2017-06-03 15:50] LABS: BASO # 0.2 x10^3/uL (0.0-0.2); BASO % 1 % (0-3); EOS % 5 % (0-3); HEMATOCRIT 42.8 % (36.0-47.0); HEMOGLOBIN 14.7 g/dL (12.0-15.5); LYMPH # 3.6 x10^3/uL (1.0-4.8); LYMPH % 27 % (24-48); MEAN CORPUSCULAR HEMOGLOBIN 35 pg (25-35); MEAN CORPUSCULAR HGB CONC 34 g/dL (31-37); MEAN CORPUSCULAR VOLUME 101 fL (79-100); MONO % 6 % (0-9); NEUT % 60 % (31-73); PLATELET COUNT 366 x10^3/uL (140-400); RED BLOOD COUNT 4.24 x10^6/uL (3.50-5.40); RED CELL DISTRIBUTION WIDTH 14.2 % (11.5-14.5); WHITE BLOOD COUNT 13.2 x10^3/uL (4.0-11.0)
--- NOTE | 2017-06-03 15:54 | EKG ---
[facility] [address] [place] [address] Test Date: 2017-06-03 Test Time: 14:48:56 Pat Name: ANNY FORD Department: Room: Gender: F [employer]: : 1960 Requested By: KUNAL CHAWLA Order Number: [id number] Reading MD: Measurements Intervals [place] Rate: 122 P: 50 NV: 122 QRS: 62 QRSD: 88 T: 72 QT: 314 QTc: 449 Interpretive Statements SINUS TACHYCARDIA LEFT ATRIAL ABNORMALITY INCOMPLETE RIGHT BUNDLE BRANCH BLOCK QRS(T) CONTOUR ABNORMALITY CONSIDER ANTEROLATERAL MYOCARDIAL DAMAGE ABNORMAL ECG RI6.01 No previous ECG available for comparison
[2017-06-03 16:00] LABS: CALCIUM 9.9 mg/dL (8.5-10.1); CREATININE 0.9 mg/dL (0.6-1.0); POTASSIUM 3.3 mmol/L (3.5-5.1)
--- NOTE | 2017-06-03 16:44 | RAD ---
Examination: CT head and cervical spine without contrast CT head without contrast History: History: Fall, seizure. Comparison: None. Procedure: Axial images are obtained of the head from the skull base through the vertex without IV contrast. Findings: The ventricles and sulci are normal for the patient's age. No mass-effect, intracranial mass, midline shift, hemorrhage or obvious acute infarction is identified. Basilar cisterns are patent. Bone windows demonstrate no significant calvarial abnormality. The visualized paranasal sinuses appear clear. Mild soft tissue swelling identified in the left lateral frontoparietal region likely scalp contusion Impression: 1. No acute intracranial process. 2. Mild soft tissue swelling identified in the left lateral frontoparietal region likely scalp contusion PQRS Compliance Statement: One or more of the following individualized dose reduction techniques were utilized for this examination: 1. Automated exposure control 2. Adjustment of the mA and/or kV according to patient size 3. Use of iterative reconstruction technique CT cervical spine without contrast Technique: Noncontrast helical CT of the cervical spine was performed, sagittal, and coronal reconstructions were obtained. Findings: Alignment of the cervical spine appears anatomic. There is no evidence of acute fracture or acute malalignment. No prevertebral soft tissue swelling is identified. Lateral masses of C1 are aligned with C2 vertebra. There is moderate intervertebral disc height loss identified at C5-C6, C6-C7 vertebral levels. The bilateral facets are well aligned. Visualized soft tissues of the neck demonstrate no significant abnormalities. Mild apical lung emphysematous changes. Impression: 1. No acute fracture the cervical spine. Correlate clinically. 2. Moderate degenerative changes cervical spine particularly at C5-C6, C6-C7 vertebral levels.
[2017-06-03 16:56] VITALS: BP 162/95
[2017-06-03] MEDS ORDERED: IBUPROFEN 800 MG TABLET. PO ONE (17:15)
[2017-06-03 17:16] LABS: BILIRUBIN,URINE NEGATIVE (NEG); GLUCOSE,URINE NEGATIVE (NEG); NITRITE,URINE NEGATIVE (NEG); PROTEIN,URINE NEGATIVE (NEG-TRACE); UROBILINOGEN,URINE 0.2 mg/dL (0.2 mg/dL)
[2017-06-03 17:23] LABS: BARBITURATES NEG (NEG); BENZODIAZEPINES NEG (NEG); CANNABINOIDS NEG (NEG); COCAINE NEG (NEG); METHADONE NEG (NEG); OPIATES NEG (NEG); PHENCYCLIDINE NEG (NEG)
[2017-06-03 17:31] LABS: BACTERIA,URINE MODERATE /HPF (0-FEW); RBC,URINE 0 /HPF (0-2); SQUAMOUS EPITHELIAL CELL,UR MOD /LPF
--- NOTE | 2017-06-03 19:31 | RAD ---
EXAM: Sternum 2 views. HISTORY: Sternal pain after a seizure. COMPARISON: None. FINDINGS: There is no displaced sternal fracture. Calcified mediastinal lymph nodes are likely secondary to old granulomatous disease. IMPRESSION: 1. No displaced sternal fracture. Electronically signed by: Madan Bowie MD (06/03/2017 7:28 PM) [facility]
== END 2017-06-03 19:55 | disposition home or self-care (01) ==
LOC: ER 14:46
DX: R56.9 Unspecified convulsions (principal); S09.90XA Unspecified injury of head, initial encounter; F13.239 Sedative, hypnotic or anxiolytic dependence with withdrawal, unspecified; F41.9 Anxiety disorder, unspecified; M19.90 Unspecified osteoarthritis, unspecified site; F32.9 Major depressive disorder, single episode, unspecified; G43.909 Migraine, unspecified, not intractable, without status migrainosus; G89.29 Other chronic pain; R07.89 Other chest pain; Z79.899 Other long term (current) drug therapy; Z88.0 Allergy status to penicillin; W01.198A Fall on same level from slipping, tripping and stumbling with subsequent striking against other object, initial encounter; Y93.01 Activity, walking, marching and hiking; Y92.89 Other specified places as the place of occurrence of the external cause; Y99.8 Other external cause status
CPT/HCPCS: 36415; 70450; 71120; 72125; 80048; 80307; 81001; 85025; 87086; 93005; 96361; 96365; 99285; J1953; J7030; G0479

== ENCOUNTER 2017-08-13 14:39 | Emergency (ER) | payer BC ==
[~2017-08-13] VITALS: Ht 162.6 cm; Wt 52.2 kg
[~2017-08-13 14:39] MED LIST changes: +ACET-1550 PO
[2017-08-13 15:05] VITALS: BP 116/78
[2017-08-13 15:31] LABS: GLUCOSE,URINE NEGATIVE (NEG); PROTEIN,URINE NEGATIVE (NEG-TRACE)
[2017-08-13 15:52] LABS: RBC,URINE OCC /HPF (0-2)
[2017-08-13 15:53] LABS: BACTERIA,URINE FEW /HPF (0-FEW); SQUAMOUS EPITHELIAL CELL,UR MOD /LPF
[2017-08-13] MEDS ORDERED: CIPR500T94 PO (16:04)
--- NOTE | 2017-08-13 16:05 | PHYS DOC ---
Past Medical History Past Medical History: Anxiety, Arthritis, Depression, Hypertension, Hepatitis, Migraines, Seizure, Other Additional Past Medical Histor: Chronic pain, hep C(treated), drug seeking behavior Past Surgical History: Cholecystectomy, Hysterectomy, Knee Replacement, Tonsillectomy, Other Additional Past Surgical Histo: BX KNEE REPLACEMENT, NECK SX, COMMON BILE DUCT CUT, L ARM SX Alcohol Use: None Drug Use: None Adult General Chief Complaint Chief Complaint: PAIN ON URINATION [facility] HPI Patient is a 56 year old female presents to the emergency department with a history of dysuria for the last 8 days. Patient states she was seen 8 days ago at and was placed on Macrobid with no relief. Patient states she has been taking azos and hydrocodone with out relief. She states she has left flank pain. Denies fever, chills, nausea or vomiting. Review of Systems Review of Systems Constitutional: Denies fever or chills [] Eyes: Denies change in visual acuity, redness, or eye pain [] HENT: Denies nasal congestion or sore throat [] Respiratory: Denies cough or shortness of breath [] Cardiovascular: No additional information not addressed in HPI [] GI: Denies abdominal pain, nausea, vomiting, bloody stools or diarrhea [] : dysuria denies hematuria [] Musculoskeletal: Denies back pain or joint pain [] Integument: Denies rash or skin lesions [] Neurologic: Denies headache, focal weakness or sensory changes [] Endocrine: Denies polyuria or polydipsia [] All other systems were reviewed and found to be within normal limits, except as documented in this note. Allergies Allergies Allergies Coded Allergies Type Severity Reaction Last Updated Verified Penicillins Allergy Intermediate Hives 04/10/15 Yes Physical Exam Physical Exam Constitutional: Well developed, well nourished, no acute distress, non-toxic appearance. [] HENT: Normocephalic, atraumatic, bilateral external ears normal, oropharynx moist, no oral exudates, nose normal. [] Eyes: PERRLA, EOMI, conjunctiva normal, no discharge. [] Neck: Normal range of motion, no tenderness, supple, no stridor. [] Cardiovascular:Heart rate regular rhythm, no murmur [] Lungs & Thorax: Bilateral breath sounds clear to auscultation [] Skin: Warm, dry, no erythema, no rash. [] Back: No tenderness, left CVA tenderness. [] Extremities: No tenderness, no cyanosis, no clubbing, ROM intact, no edema. [] Neurologic: Alert and oriented X 3, normal motor function, normal sensory function, no focal deficits noted. [] Psychologic: Affect normal, judgement normal, mood normal. [] Current Patient Data Vital Signs Vital Signs Date Time Temp Pulse Resp B/P (MAP) Pulse Ox O2 Delivery O2 Flow Rate FiO2 08/13/17 15:05 98.1 120 18 92 Room Air 98.1 Lab Values Laboratory Tests Test 08/13/17 15:00 Urine Collection Type Unknown Urine Color Red Urine Clarity Clear Urine pH 5.0 Urine Specific [place] 1.025 Urine Protein Negative mg/dL (NEG-TRACE) Urine Glucose (UA) Negative mg/dL (NEG) Urine Ketones (Stick) 40 mg/dL (NEG) Urine Blood Negative (NEG) Urine Nitrite Positive (NEG) Urine Bilirubin Large (NEG) Urine Urobilinogen Dipstick 4.0 mg/dL (0.2 mg/dL) Urine Leukocyte Esterase Moderate (NEG) Urine RBC Occ /HPF (0-2) Urine WBC 1-4 /HPF (0-4) Urine Squamous Epithelial Cells Mod /LPF Urine Bacteria Few /HPF (0-FEW) EKG EKG [] Radiology/Procedures Radiology/Procedures [] Course & Med Decision Making Course & Med Decision Making Pertinent Labs and Imaging studies reviewed. (See chart for details) Patient urine was positive for nitrates and leukocyte esterase. Culture and sensitivity will be obtained. Patient will be discharged home on Cipro with recommendations to drink plenty of fluids such as water and cranberry juice. Recommended avoiding [place]'s cocktail, coronary beverages, citrus fruits of alcohol and is a considered urgency of the bladder. Recommended that she follow up with her primary care physician in the next 7-10 days. [I've spoken with the patient and/or caregivers. I've explained the patient's condition, diagnosis and treatment plan based on information available to me at this time. I've answered the patient's and/or caregivers questions and addressed any concerns. The patient and/or caregivers have a good understanding the patient's diagnosis, condition and treatment plan as can be expected at this point. Vital signs have been stabilized. The patient's condition is stable for discharge from the emergency department. The patient will pursue further outpatient evaluation with her primary care provider or other designated consulting physician as outlined in the discharge instructions. Patient and/or caregivers are agreeable to this plan of care and follow-up instructions have been explained in detail. The patient and/or caregivers have received these instructions in written format and expressed understanding of these discharge instructions. The patient and her caregivers are aware that if any significant change in condition or worsening of symptoms should prompt him to immediately return to this of the closest emergency department. If an emergent department is not readily available I would encourage him to call 911.] Dragon Disclaimer Dragon Disclaimer This electronic medical record was generated, in whole or in part, using a voice recognition dictation system. Departure Departure Impression: Primary Impression: Urinary tract infection Disposition: HOME, SELF-CARE Condition: STABLE Referrals: NO PCP (PCP) Patient Instructions: Urinary Tract Infection, [id number] Additional Instructions: Activity as tolerated Medication as directed Drink plenty of fluids such as water and cranberry Followup with primary care provider in 7-10 days to make sure you have cleared the infection Return to emergency department for signs and symptoms that become worse. Scripts Ciprofloxacin Hcl (CIPRO) 500 Mg Tablet 1 TAB PO BID, #14 TAB Prov: VIKTORIYA SOUTH APRN 08/13/17 Problem Qualifiers Primary Impression: Urinary tract infection Urinary tract infection type: site unspecified Hematuria presence: without hematuria Qualified Codes: N39.0 - Urinary tract infection, site not specified VIKTORIYA SOUTH APRN Aug 13, 2017 16:05
[2017-08-13] MEDS ORDERED: KETOROLAC TROMETHAMINE 10 MG TABLET PO ONE (16:15)
== END 2017-08-13 16:25 | disposition home or self-care (01) ==
LOC: ER 14:39
DX: N39.0 Urinary tract infection, site not specified (principal); G89.29 Other chronic pain; I10 Essential (primary) hypertension; G43.909 Migraine, unspecified, not intractable, without status migrainosus; M19.90 Unspecified osteoarthritis, unspecified site; Z86.19 Personal history of other infectious and parasitic diseases; Z90.710 Acquired absence of both cervix and uterus; Z90.49 Acquired absence of other specified parts of digestive tract; Z88.0 Allergy status to penicillin
CPT/HCPCS: 81001; 87086; 99284

== ENCOUNTER 2017-08-17 14:18 | Emergency (ER) | payer BC ==
[~2017-08-17] VITALS: Ht 162.6 cm; Wt 52.2 kg
[2017-08-17 14:25] VITALS: BP 113/70
[2017-08-17 14:53] LABS: GLUCOSE,URINE NEGATIVE (NEG); PH,URINE 5.5; PROTEIN,URINE NEGATIVE (NEG-TRACE)
[2017-08-17 15:01] LABS: BILIRUBIN,URINE NEGATIVE (NEG); NITRITE,URINE NEGATIVE (NEG)
[2017-08-17 15:03] LABS: BACTERIA,URINE MODERATE /HPF (0-FEW); RBC,URINE RARE /HPF (0-2)
[2017-08-17 15:04] LABS: SQUAMOUS EPITHELIAL CELL,UR MANY /LPF
[2017-08-17] MEDS ORDERED: SULF1TAB24 PO (15:19)
--- NOTE | 2017-08-17 15:19 | PHYS DOC ---
Past Medical History Past Medical History: Anxiety, Arthritis, Depression, Hypertension, Hepatitis, Migraines, Seizure, UTI, Other Additional Past Medical Histor: Chronic pain, hep C(treated), drug seeking behavior Past Surgical History: Cholecystectomy, Hysterectomy, Knee Replacement, Tonsillectomy, Other Additional Past Surgical Histo: BX KNEE REPLACEMENT, NECK SX, COMMON BILE DUCT CUT, L ARM SX Alcohol Use: None Drug Use: None Adult General Chief Complaint Chief Complaint: FEMALE UROGENTIAL PROBLEMS HPI HPI Patient is a 56 year old female presents to the emergency department with complaints of dysuria. Patient states this is her fourth round of antibiotics that she has been on. She states that she has been on Macrobid, Cipro, and Levaquin without any relief. She states that she was placed on Macrobid approximately 2 weeks ago. On the she was placed on the Cipro and on the she was placed on Levaquin. Patient presents today stating that she has completed the full dose of the Cipro and has taken 3 doses of the Levaquin until it has caused her to be nauseated. She states that she still has pain with urination is complaining of lower back pain and discomfort. She denies any vaginal discharge. Patient states she has not taken anything for pain and discomfort. Patient then states I have left knee pain and discomfort and some chronic knee pain and I have. She states that I'm supposed to have a knee replacement however my daughter had a baby and I cannot make arrangements to have the knee replacement completed. Patient is requesting Tylenol 3 prescription for the pain and discomfort. Review of Systems Review of Systems Constitutional: Denies fever or chills [] Eyes: Denies change in visual acuity, redness, or eye pain [] HENT: Denies nasal congestion or sore throat [] Respiratory: Denies cough or shortness of breath [] Cardiovascular: No additional information not addressed in HPI [] GI: Denies abdominal pain, nausea, vomiting, bloody stools or diarrhea [] : dysuria denies hematuria [] Musculoskeletal: Denies back pain. C/o left knee pain Integument: Denies rash or skin lesions [] Neurologic: Denies headache, focal weakness or sensory changes [] Endocrine: Denies polyuria or polydipsia [] All other systems were reviewed and found to be within normal limits, except as documented in this note. Allergies Allergies Allergies Coded Allergies Type Severity Reaction Last Updated Verified Penicillins Allergy Intermediate Hives 04/10/15 Yes Physical Exam Physical Exam Constitutional: Well developed, well nourished, no acute distress, non-toxic appearance. [] HENT: Normocephalic, atraumatic, bilateral external ears normal, oropharynx moist, no oral exudates, nose normal. [] Eyes: PERRLA, EOMI, conjunctiva normal, no discharge. [] Neck: Normal range of motion, no tenderness, supple, no stridor. [] Cardiovascular:Heart rate regular rhythm, no murmur [] Lungs & Thorax: Bilateral breath sounds clear to auscultation []] Skin: Warm, dry, no erythema, no rash. [] Back: No tenderness, no CVA tenderness. [] Extremities: No tenderness, no cyanosis, no clubbing, ROM intact, no edema. [] Neurologic: Alert and oriented X 3, normal motor function, normal sensory function, no focal deficits noted. [] Psychologic: Affect normal, judgement normal, mood normal. [] Current Patient Data Vital Signs Vital Signs Date Time Temp Pulse Resp B/P (MAP) Pulse Ox O2 Delivery O2 Flow Rate FiO2 08/17/17 14:25 97.7 102 16 113/70 (84) 96 Room Air 97.7 Lab Values Laboratory Tests Test 08/17/17 14:49 Urine Collection Type Unknown Urine Color [place] Urine Clarity Clear Urine pH 5.5 Urine Specific [place] 1.015 Urine Protein Negative mg/dL (NEG-TRACE) Urine Glucose (UA) Negative mg/dL (NEG) Urine Ketones (Stick) Negative mg/dL (NEG) Urine Blood Negative (NEG) Urine Nitrite Negative (NEG) Urine Bilirubin Negative (NEG) Urine Urobilinogen Dipstick 1.0 mg/dL (0.2 mg/dL) Urine Leukocyte Esterase Small (NEG) Urine RBC Rare /HPF (0-2) Urine WBC 1-4 /HPF (0-4) Urine Squamous Epithelial Cells Many /LPF Urine Bacteria Moderate /HPF (0-FEW) EKG EKG [] Radiology/Procedures Radiology/Procedures [] Course & Med Decision Making Course & Med Decision Making Pertinent Labs and Imaging studies reviewed. (See chart for details) Spoke with the patient regards to dysuria and cystitis. Spoke with her in regards to following up with urologist as she has been on multiple different antibiotics with no relief. Urine culture that was obtained on the when she was here was negative for any growth. Provided patient with this result as well. Explained to patient that we should try Bactrim however with there not being any growth in the urine I suspect this will not provide any relief either. Patient has requested to try the Bactrim. She is then requested Tylenol for her knee pain. I offered to prescribe her Tylenol here in the emergency department when she stated no she wanted Tylenol No. 3 instead. Patient continues to state that she needs to have a knee replacement, left. Explained to patient with chronic pain she would need to contact her PCP for pain management. Patient was encouraged to followup with urology either at [facility] or [facility]. Patient was being discharged when she requested Toradol for her knee pain. Toradol PO was provided. I've spoken with the patient and/or caregivers. I've explained the patient's condition, diagnosis and treatment plan based on information available to me at this time. I've answered the patient's and/or caregivers questions and addressed any concerns. The patient and/or caregivers have a good understanding the patient's diagnosis, condition and treatment plan as can be expected at this point. Vital signs have been stabilized. The patient's condition is stable for discharge from the emergency department. The patient will pursue further outpatient evaluation with her primary care provider or other designated consulting physician as outlined in the discharge instructions. Patient and/or caregivers are agreeable to this plan of care and follow-up instructions have been explained in detail. The patient and/or caregivers have received these instructions in written format and expressed understanding of these discharge instructions. The patient and her caregivers are aware that if any significant change in condition or worsening of symptoms should prompt him to immediately return to this of the closest emergency department. If an emergent department is not readily available I would encourage him to call 911. [] [place] Disclaimer Dragon Disclaimer This electronic medical record was generated, in whole or in part, using a voice recognition dictation system. Departure Departure Impression: Primary Impression: Cystitis Disposition: HOME, SELF-CARE Condition: STABLE Referrals: NO PCP (PCP) Patient Instructions: Interstitial Cystitis Additional Instructions: Activity as tolerated Medication as prescribed Tylenol or ibuprofen for your knee pain Drink plenty of fluids, water, cranberry juice Avoid cranberry juice cocktail, carbonated beverages, citrus fruits, caffeine and alcohol Followup with Urology either at or [facility] Return to emergency department as needed for signs and symptoms that become worse. Scripts Sulfamethoxazole/Trimethoprim (BACTRIM DS TABLET) 1 Each Tablet 1 TAB PO BID, #6 TAB Prov: VIKTORIYA SOUTH APRN 08/17/17 VIKTORIYA SOUTH APRN Aug 17, 2017 15:19
[2017-08-17] MEDS ORDERED: KETOROLAC TROMETHAMINE 10 MG TABLET PO ONE (15:30)
== END 2017-08-17 15:25 | disposition home or self-care (01) ==
LOC: ER 14:18
DX: N30.90 Cystitis, unspecified without hematuria (principal); G89.29 Other chronic pain; I10 Essential (primary) hypertension; G43.909 Migraine, unspecified, not intractable, without status migrainosus; Z87.440 Personal history of urinary (tract) infections; Z90.49 Acquired absence of other specified parts of digestive tract; Z90.710 Acquired absence of both cervix and uterus; Z96.653 Presence of artificial knee joint, bilateral; Z88.0 Allergy status to penicillin
CPT/HCPCS: 81001; 87086; 99284

== ENCOUNTER 2017-09-02 08:16 | Emergency (ER) | payer BC ==
[~2017-09-02] VITALS: Ht 162.6 cm; Wt 49.9 kg
[~2017-09-02 08:16] MED LIST changes: +SULF1TAB24 PO
--- NOTE | 2017-09-02 08:34 | PHYS DOC ---
Past Medical History Past Medical History: Anxiety, Arthritis, Depression, Hypertension, Hepatitis, Migraines, Seizure, UTI, Other Additional Past Medical Histor: Chronic pain, hep C(treated), drug seeking behavior Past Surgical History: Cholecystectomy, Hysterectomy, Knee Replacement, Tonsillectomy, Other Additional Past Surgical Histo: BX KNEE REPLACEMENT, NECK SX, COMMON BILE DUCT CUT, L ARM SX Alcohol Use: None Drug Use: None Adult General Chief Complaint Chief Complaint: FLANK PAIN HPI HPI Patient is a 56 year old female presents to the ED complaining of dysuria x 3 days. States last week she was discharged from after receiving IV antibiotics for a UTI. States she was discharged with bactrim and she has since then had a yeast infection. Describes the pain as burning and rates the pain as 6/10. Associated symptoms include mild left flank pain. Denies fever, hematuria , n/v, dizziness, weakness, chest pain, shortness of breath, dizziness or syncope. Review of Systems Review of Systems Constitutional: Denies fever or chills [] Eyes: Denies change in visual acuity, redness, or eye pain [] HENT: Denies nasal congestion or sore throat [] Respiratory: Denies cough or shortness of breath [] Cardiovascular: No additional information not addressed in HPI [] GI: Denies abdominal pain, nausea, vomiting, bloody stools or diarrhea [] : Complains of dysuria. Denies hematuria [] Musculoskeletal: Denies back pain or joint pain [] Integument: Denies rash or skin lesions [] Neurologic: Denies headache, focal weakness or sensory changes [] Endocrine: Denies polyuria or polydipsia [] All other systems were reviewed and found to be within normal limits, except as documented in this note. Allergies Allergies Allergies Coded Allergies Type Severity Reaction Last Updated Verified Penicillins Allergy Intermediate Hives 04/10/15 Yes Physical Exam Physical Exam Constitutional: Well developed, well nourished, no acute distress, non-toxic appearance. [] HENT: Normocephalic, atraumatic [] Eyes: PERRLA, EOMI, conjunctiva normal, no discharge. [] Cardiovascular:Heart rate regular rhythm, no murmur [] Lungs & Thorax: Bilateral breath sounds clear to auscultation [] Abdomen: Bowel sounds normal, soft, no tenderness, no masses, no pulsatile masses. [] Skin: Warm, dry, no erythema, no rash. [] Back: No tenderness, no CVA tenderness. [] Neurologic: Alert and oriented X 3, normal motor function, normal sensory function, no focal deficits noted. [] Psychologic: Affect normal, judgement normal, mood normal. [] Current Patient Data Vital Signs Vital Signs Date Time Temp Pulse Resp B/P (MAP) Pulse Ox O2 Delivery O2 Flow Rate FiO2 09/02/17 09:55 98 14 122/81 (95) 98 Room Air 09/02/17 08:35 98.0 98.0 Lab Values Laboratory Tests Test 09/02/17 08:21 09/02/17 09:00 Urine Collection Type Unknown Urine Color [place] Urine Clarity [place] Urine pH 6.0 Urine Specific [place] 1.025 Urine Protein Negative mg/dL (NEG-TRACE) Urine Glucose (UA) Negative mg/dL (NEG) Urine Ketones (Stick) Trace mg/dL (NEG) Urine Blood Small (NEG) Urine Nitrite Negative (NEG) Urine Bilirubin Small (NEG) Urine Urobilinogen Dipstick 1.0 mg/dL (0.2 mg/dL) Urine Leukocyte Esterase Trace (NEG) Urine RBC Occ /HPF (0-2) Urine WBC 1-4 /HPF (0-4) Urine Squamous Epithelial Cells Mod /LPF Urine Bacteria Few /HPF (0-FEW) Urine Mucus Marked /LPF White Blood Count 9.8 x10^3/uL (4.0-11.0) Red Blood Count 3.80 x10^6/uL (3.50-5.40) Hemoglobin 13.3 g/dL (12.0-15.5) Hematocrit 38.8 % (36.0-47.0) Mean Corpuscular Volume 102 fL (79-100) H Mean Corpuscular Hemoglobin 35 pg (25-35) Mean Corpuscular Hemoglobin Concent 34 g/dL (31-37) Red Cell Distribution Width 13.8 % (11.5-14.5) Platelet Count 390 x10^3/uL (140-400) Sodium Level 139 mmol/L (136-145) Potassium Level 3.8 mmol/L (3.5-5.1) Chloride Level 102 mmol/L (98-107) Carbon Dioxide Level 29 mmol/L (21-32) Anion Gap 8 (6-14) Blood Urea Nitrogen 13 mg/dL (7-20) Creatinine 0.7 mg/dL (0.6-1.0) Estimated GFR (Cockcroft-Gault) 86.9 BUN/Creatinine Ratio 19 (6-20) Glucose Level 123 mg/dL (70-99) H Calcium Level 10.0 mg/dL (8.5-10.1) Total Bilirubin 0.4 mg/dL (0.2-1.0) Aspartate Amino Transferase (AST) 15 U/L (15-37) Alanine Aminotransferase (ALT) 18 U/L (14-59) Alkaline Phosphatase 116 U/L (46-116) Total Protein 8.8 g/dL (6.4-8.2) H Albumin 4.3 g/dL (3.4-5.0) Albumin/Globulin Ratio 1.0 (1.0-1.7) Lipase 80 U/L (73-393) Laboratory Tests 09/02/17 09:00 Laboratory Tests 09/02/17 09:00 EKG EKG [] Radiology/Procedures Radiology/Procedures [] Course & Med Decision Making Course & Med Decision Making Pertinent Labs and Imaging studies reviewed. (See chart for details) []Normal exam. Patient laying in bed comfortably. Discussed lab findings with patient. With patients symptoms and history will treat patient with antibiotics , cipro (states she has taken with improvement in the past). Requesting prescription for Diflucan because it gives her yeast infections. On reexamination, abdomen is soft nontender nondistended. No peritoneal signs. Tolerating by mouth. Patient has a history of opioid abuse. No narcotics prescribed for patient. Discussed follow-up with PCP this week. Discussed reasons to return to the ED. Patient understands and agrees with plan. Dragon Disclaimer Dragon Disclaimer This electronic medical record was generated, in whole or in part, using a voice recognition dictation system. Departure Departure Impression: Primary Impression: Urinary tract infection Disposition: 01 HOME, SELF-CARE Condition: STABLE Referrals: NO PCP (PCP) BRIANA RAPP MD Patient Instructions: Urinary Tract Infection Scripts Ondansetron (ZOFRAN ODT) 4 Mg Tab.rapdis 1 TAB SL Q8HRS, #10 TAB Prov: ISAIAH GARCIA 09/02/17 Fluconazole (DIFLUCAN) 150 Mg Tablet 1 TAB PO ONCE, #2 TAB 1 Refill Prov: ISAIAH GARCIA 09/02/17 Ciprofloxacin Hcl (CIPRO) 500 Mg Tablet 1 TAB PO BID, #14 TAB Prov: ISAIAH GARCIA 09/02/17 Phenazopyridine Hcl (PYRIDIUM) 100 Mg Tablet 100 MG PO TID, #14 TAB Prov: ISAIAH GARCIA 09/02/17 ISAIAH GARCIA Sep 02, 2017 08:33
[2017-09-02 08:44] LABS: BILIRUBIN,URINE SMALL (NEG); GLUCOSE,URINE NEGATIVE (NEG); NITRITE,URINE NEGATIVE (NEG); PROTEIN,URINE NEGATIVE (NEG-TRACE)
[2017-09-02 08:57] LABS: BACTERIA,URINE FEW /HPF (0-FEW); RBC,URINE OCC /HPF (0-2); SQUAMOUS EPITHELIAL CELL,UR MOD /LPF
[2017-09-02 09:18] LABS: HEMATOCRIT 38.8 % (36.0-47.0); HEMOGLOBIN 13.3 g/dL (12.0-15.5); RED BLOOD COUNT 3.8 x10^6/uL (3.50-5.40); RED CELL DISTRIBUTION WIDTH 13.8 % (11.5-14.5); WHITE BLOOD COUNT 9.8 x10^3/uL (4.0-11.0)
[2017-09-02 09:23] LABS: CREATININE 0.7 mg/dL (0.6-1.0); GFR 86.9; POTASSIUM 3.8 mmol/L (3.5-5.1)
[2017-09-02 09:29] LABS: ALBUMIN 4.3 g/dL (3.4-5.0); TOTAL BILIRUBIN 0.4 mg/dL (0.2-1.0); TOTAL PROTEIN 8.8 g/dL (6.4-8.2)
[2017-09-02] MEDS ORDERED: PHEN100T82 PO (09:41)
[2017-09-02] MEDS ORDERED: CIPR500T94 PO (09:41)
[2017-09-02] MEDS ORDERED: ONDA4TAB10 SL (09:51)
[2017-09-02] MEDS ORDERED: FLUC150T PO (09:51)
[2017-09-02 09:55] VITALS: BP 122/81
== END 2017-09-02 09:56 | disposition home or self-care (01) ==
LOC: ER 08:16
DX: N39.0 Urinary tract infection, site not specified (principal); F41.9 Anxiety disorder, unspecified; F32.9 Major depressive disorder, single episode, unspecified; G89.29 Other chronic pain; G43.909 Migraine, unspecified, not intractable, without status migrainosus; B19.20 Unspecified viral hepatitis C without hepatic coma; I10 Essential (primary) hypertension; Z90.49 Acquired absence of other specified parts of digestive tract; Z90.710 Acquired absence of both cervix and uterus; Z88.0 Allergy status to penicillin
CPT/HCPCS: 36415; 80053; 81001; 83690; 85027; 99284

== ENCOUNTER 2017-09-25 15:42 | Emergency (ER) | payer BC ==
[2017-09-25 16:26] LABS: POC GLUCOSE 92 mg/dL (70-99)
[2017-09-25] MEDS: LORazepam 1 MG TABLET PO (16:34)
== END 2017-09-25 17:00 | disposition home or self-care (01) ==
LOC: ER 15:42
DX: F13.239 Sedative, hypnotic or anxiolytic dependence with withdrawal, unspecified (principal); R56.9 Unspecified convulsions; R00.0 Tachycardia, unspecified; T42.4X5A Adverse effect of benzodiazepines, initial encounter; F41.9 Anxiety disorder, unspecified; M19.90 Unspecified osteoarthritis, unspecified site; F32.9 Major depressive disorder, single episode, unspecified; I10 Essential (primary) hypertension; G89.29 Other chronic pain; G43.909 Migraine, unspecified, not intractable, without status migrainosus; Z88.0 Allergy status to penicillin; Z96.653 Presence of artificial knee joint, bilateral; Z90.49 Acquired absence of other specified parts of digestive tract; Z90.710 Acquired absence of both cervix and uterus; Y92.89 Other specified places as the place of occurrence of the external cause
CPT/HCPCS: 82962; 93005; 99283; 99285-25

== ENCOUNTER 2017-10-28 17:13 | Emergency (ER) | payer BC, OTHER ==
[2017-10-28] MEDS: NAPROXEN 500 MG TABLET PO ×2 (18:15)
[2017-10-28] MEDS: HYDROcodone/APAP 5/325MG 1 TAB TABLET PO ×2 (18:27)
== END 2017-10-28 18:25 | disposition home or self-care (01) ==
LOC: ER 17:13
DX: M25.562 Pain in left knee (principal); F11.20 Opioid dependence, uncomplicated; F41.9 Anxiety disorder, unspecified; M19.90 Unspecified osteoarthritis, unspecified site; F32.9 Major depressive disorder, single episode, unspecified; I10 Essential (primary) hypertension; G43.909 Migraine, unspecified, not intractable, without status migrainosus; G89.29 Other chronic pain; Z96.653 Presence of artificial knee joint, bilateral; Z90.49 Acquired absence of other specified parts of digestive tract; Z90.710 Acquired absence of both cervix and uterus; Z87.440 Personal history of urinary (tract) infections; Z88.0 Allergy status to penicillin; W18.39XA Other fall on same level, initial encounter; Y93.89 Activity, other specified; Y92.89 Other specified places as the place of occurrence of the external cause; Y99.8 Other external cause status
CPT/HCPCS: 99282

== ENCOUNTER → 2017-11-05 | Outpatient (CLI) | payer OTHER ==
[2017-11-05] MEDS: ALBUTEROL SULFATE 2.5 MG/3 ML NEBU. NEB ×2 (10:16)
== END | disposition home or self-care (01) ==
LOC: PF 09:37
DX: J44.9 Chronic obstructive pulmonary disease, unspecified (principal); Z87.891 Personal history of nicotine dependence
CPT/HCPCS: 94060; 94640; J7613

== ENCOUNTER 2018-01-21 00:51 | Emergency (ER) | payer BC, OTHER ==
[2018-01-21 01:22] LABS: ADD MAN DIFF? NO
[2018-01-21 01:26] LABS: BASO # 0.1 x10^3/uL (0.0-0.2); BASO % 1 % (0-3); EOS # 0.3 x10^3/uL (0.0-0.7); EOS % 2 % (0-3); HEMATOCRIT 39.1 % (36.0-47.0); HEMOGLOBIN 13.6 g/dL (12.0-15.5); LYMPH % 33 % (24-48); MEAN CORPUSCULAR HEMOGLOBIN 34 pg (25-35); MEAN CORPUSCULAR HGB CONC 35 g/dL (31-37); MEAN CORPUSCULAR VOLUME 98 fL (79-100); MONO # 0.6 x10^3/uL (0.0-1.1); MONO % 5 % (0-9); NEUT # 7.1 x10^3uL (1.8-7.7); NEUT % 58 % (31-73); PLATELET COUNT 410 x10^3/uL (140-400); RED BLOOD COUNT 3.98 x10^6/uL (3.50-5.40); RED CELL DISTRIBUTION WIDTH 14.5 % (11.5-14.5); WHITE BLOOD COUNT 12.2 x10^3/uL (4.0-11.0)
[2018-01-21] MEDS: IPRATRPIUM/ALBUTEROL 0.5/2.5MG 3 ML NEBU. NEB (01:26)
[2018-01-21 01:35] LABS: D-DIMER < 0.27 ug/mlFEU (0.00-0.50)
[2018-01-21] MEDS: ASPIRIN CHEWABLE 81 MG TABLET. PO (01:37)
[2018-01-21 01:42] LABS: ALBUMIN 3.8 g/dL (3.4-5.0); ALK PHOS 98 U/L (46-116); ALT (SGPT) 28 U/L (14-59); ANION GAP 8 (6-14); AST (SGOT) 21 U/L (15-37); BLOOD UREA NITROGEN 17 mg/dL (7-20); BUN/CREATININE RATIO 24 (6-20); CALCIUM 9.3 mg/dL (8.5-10.1); CARBON DIOXIDE 27 mmol/L (21-32); CHLORIDE 104 mmol/L (98-107); CREATININE 0.7 mg/dL (0.6-1.0); GFR 86.6; GLUCOSE 126 mg/dL (70-99); LIPASE 63 U/L (73-393); SODIUM 139 mmol/L (136-145); TOTAL BILIRUBIN 0.3 mg/dL (0.2-1.0); TOTAL PROTEIN 7.8 g/dL (6.4-8.2)
[2018-01-21 01:44] LABS: TROPONINI < 0.017 ng/mL (0.000-0.055)
[2018-01-21 01:44] LABS: POTASSIUM 2.9 mmol/L (3.5-5.1)
[2018-01-21 01:49] LABS: CKMB INDEX 1.1 % (0-4); CKMB MASS 0.9 ng/mL (0.0-3.6); CREATINE KINASE 82 U/L (26-192)
[2018-01-21] MEDS: ONDANSETRON PF 4 MG/2 ML VIAL. IV (02:23)
[2018-01-21] MEDS: POTASSIUM CHLORIDE 20 MEQ TABLET.ER. PO (02:23)
[2018-01-21] MEDS: AZITHROMYCIN 250 MG TABLET. PO (02:23)
[2018-01-21] MEDS ORDERED: KETOROLAC 30 MG/ML INJ. (02:33)
[2018-01-21] MEDS: KETOROLAC 30 MG/ML INJ. IV (02:34)
== END 2018-01-21 03:32 | disposition home or self-care (01) ==
LOC: ER 00:51
DX: J44.1 Chronic obstructive pulmonary disease with (acute) exacerbation (principal); F41.9 Anxiety disorder, unspecified; F32.9 Major depressive disorder, single episode, unspecified; M19.90 Unspecified osteoarthritis, unspecified site; I10 Essential (primary) hypertension; F17.210 Nicotine dependence, cigarettes, uncomplicated; G43.909 Migraine, unspecified, not intractable, without status migrainosus; G89.29 Other chronic pain; Z90.49 Acquired absence of other specified parts of digestive tract; Z90.710 Acquired absence of both cervix and uterus; Z86.19 Personal history of other infectious and parasitic diseases; Z96.653 Presence of artificial knee joint, bilateral; Z88.0 Allergy status to penicillin
CPT/HCPCS: 36415; 71045; 80053; 82553; 83690; 84484; 85025; 85379; 93005; 94640; 96365; 96375; 99285-25; J0690; J1885; J2405; J7620; Q0144

== ENCOUNTER 2019-03-16 21:44 | Emergency (ER) | payer BC ==
[~2019-03-16] VITALS: Ht 162.6 cm; Wt 47.6 kg
[~2019-03-16 21:44] MED LIST changes: +ALBU2.5V8 INH; +AZIT250T6 PO; +CLON1TAB11; -CLON1TAB3; +FLUC150T PO; -HYDR-2766; -HYDR-2766 PO; +HYDR-2769; +HYDR-2769 PO; +HYDR-3164 PO; -HYDR-971 PO; +METH4TAB2 PO; -OXYC-323 PO; +OXYC1TAB15 PO; +PHEN100T82 PO; -PROAIR HFA8.5 GM INH
--- NOTE | 2019-03-16 22:51 | PHYS DOC ---
Past Medical History Past Medical History: Anxiety, Arthritis, COPD, Depression, Hypertension, Hepatitis, Migraines, Seizure, UTI, Other Additional Past Medical Histor: Chronic pain, hep C(treated), drug seeking behavior (ISAIAH SMITH APRN) Past Surgical History: Cholecystectomy, Hysterectomy, Knee Replacement, Tonsillectomy, Other Additional Past Surgical Histo: BX KNEE REPLACEMENT, NECK SX, COMMON BILE DUCT CUT, L ARM SX (ISAIAH SMITH APRN) Alcohol Use: None Drug Use: None (ISAIAH SMITH APRN) Adult General Chief Complaint Chief Complaint: NAUSEA/VOMITING/DIARRHA HPI HPI Patient is a 58 year old [female] who presents with [nausea, vomiting, patient reports she did feel nauseous, and vomiting constantly for the last 1-2 days. Patient reports that she has been taking Suboxone for the past several months, after withdrawing from her hydrocodone. States she does have a follow-up with her psychiatrist on Saturday to refill her Suboxone, later says it is Saturday. Also states she has a follow-up with her primary care provider next Saturday. Reports she had been taking hydrocodone and oxycodone for her left knee discomfort. Reports she had surgery on that knee pressing one year ago, she was concerned because it does not seem to be functioning properly. Reports she had followed up with [facility] and this fondled her primary care provider to have additional testing done on her knee. Reports today she thinks she just withdrawing from her Suboxone feels nauseous and anxious and vomiting.] (ISAIAH SMITH APRN) Review of Systems Review of Systems Constitutional: Denies fever or chills [] Eyes: Denies change in visual acuity, redness, or eye pain [] HENT: Denies nasal congestion or sore throat [] Respiratory: Denies cough or shortness of breath [] Cardiovascular: No additional information not addressed in HPI [] GI: Denies abdominal pain, Reports nausea & vomiting, Denies bloody stools or diarrhea [] : Denies dysuria or hematuria [] Musculoskeletal: Denies back pain or joint pain [] Integument: Denies rash or skin lesions [] Neurologic: Denies headache, focal weakness or sensory changes [] Endocrine: Denies polyuria or polydipsia [] All other systems were reviewed and found to be within normal limits, except as documented in this note. (ISAIAH SMITH APRN) Current Medications Current Medications Current Medications Medications (Trade) Dose Ordered Sig/Terrance Start Time Stop Time Status Last Admin Dose Admin Hydroxyzine HCl (Atarax) 10 mg 1X ONCE 03/17/19 00:20 03/17/19 00:21 DC 03/17/19 00:25 10 MG Ondansetron HCl (Zofran) 4 mg 1X ONCE 03/16/19 23:00 03/16/19 23:01 DC 03/16/19 23:08 4 MG Sodium Chloride 1,000 ml @ 1,000 mls/hr 1X ONCE 03/16/19 23:00 03/16/19 23:59 DC 03/16/19 23:00 1,000 MLS/HR (BRIANA MIRANDA DO) Allergies Allergies Allergies Coded Allergies Type Severity Reaction Last Updated Verified Penicillins Allergy Intermediate Hives 04/10/15 Yes (BRIANA MIRANDA DO) Physical Exam Physical Exam Constitutional: Well developed, frail, no acute distress, non-toxic appearance. [] HENT: Normocephalic, atraumatic, bilateral external ears normal, oropharynx moist, no oral exudates, nose normal. [] Eyes: PERRLA, EOMI, conjunctiva normal, no discharge. [] Neck: Normal range of motion, no tenderness, supple, no stridor. [] Cardiovascular:Heart rate regular rhythm, no murmur [] Lungs & Thorax: Bilateral breath sounds clear to auscultation [] Abdomen: Bowel sounds normal, soft, no tenderness, no masses, no pulsatile masses. [] Skin: Warm, dry, no erythema, no rash. [] Back: No tenderness, no CVA tenderness. [] Extremities: No tenderness, no cyanosis, no clubbing, ROM intact, no edema. Left knee old surgical incision, well healed, no erythema, no tenderness, no mass, no decreased ROM, no warmth noted.[] Neurologic: Alert and oriented X 3, normal motor function, normal sensory function, no focal deficits noted. [] Psychologic: Affect normal, judgement normal, mood normal. [] (ISAIAH SMITH APRN) Current Patient Data Vital Signs Vital Signs Date Time Temp Pulse Resp B/P (MAP) Pulse Ox O2 Delivery O2 Flow Rate FiO2 03/17/19 00:15 98.0 98 18 166/83 (110) 98 Room Air 98.0 (MIRANDA,BRIANA R DO) Lab Values Laboratory Tests Test 03/16/19 23:20 White Blood Count 14.3 x10^3/uL (4.0-11.0) H Red Blood Count 4.26 x10^6/uL (3.50-5.40) Hemoglobin 14.7 g/dL (12.0-15.5) Hematocrit 42.0 % (36.0-47.0) Mean Corpuscular Volume 99 fL (79-100) Mean Corpuscular Hemoglobin 34 pg (25-35) Mean Corpuscular Hemoglobin Concent 35 g/dL (31-37) Red Cell Distribution Width 13.3 % (11.5-14.5) Platelet Count 309 x10^3/uL (140-400) Neutrophils (%) (Auto) 73 % (31-73) Lymphocytes (%) (Auto) 19 % (24-48) L Monocytes (%) (Auto) 6 % (0-9) Eosinophils (%) (Auto) 1 % (0-3) Basophils (%) (Auto) 1 % (0-3) Neutrophils # (Auto) 10.5 x10^3uL (1.8-7.7) H Lymphocytes # (Auto) 2.7 x10^3/uL (1.0-4.8) Monocytes # (Auto) 0.8 x10^3/uL (0.0-1.1) Eosinophils # (Auto) 0.2 x10^3/uL (0.0-0.7) Basophils # (Auto) 0.1 x10^3/uL (0.0-0.2) Sodium Level 141 mmol/L (136-145) Potassium Level 4.0 mmol/L (3.5-5.1) Chloride Level 103 mmol/L (98-107) Carbon Dioxide Level 27 mmol/L (21-32) Anion Gap 11 (6-14) Blood Urea Nitrogen 13 mg/dL (7-20) Creatinine 0.6 mg/dL (0.6-1.0) Estimated GFR (Cockcroft-Gault) 103.0 Glucose Level 126 mg/dL (70-99) H Calcium Level 9.6 mg/dL (8.5-10.1) Laboratory Tests 03/16/19 23:20 Laboratory Tests 03/16/19 23:20 (BRIANA MIRANDA DO) Lab Values Laboratory Tests Test 03/16/19 23:20 White Blood Count 14.3 x10^3/uL (4.0-11.0) H Red Blood Count 4.26 x10^6/uL (3.50-5.40) Hemoglobin 14.7 g/dL (12.0-15.5) Hematocrit 42.0 % (36.0-47.0) Mean Corpuscular Volume 99 fL (79-100) Mean Corpuscular Hemoglobin 34 pg (25-35) Mean Corpuscular Hemoglobin Concent 35 g/dL (31-37) Red Cell Distribution Width 13.3 % (11.5-14.5) Platelet Count 309 x10^3/uL (140-400) Neutrophils (%) (Auto) 73 % (31-73) Lymphocytes (%) (Auto) 19 % (24-48) L Monocytes (%) (Auto) 6 % (0-9) Eosinophils (%) (Auto) 1 % (0-3) Basophils (%) (Auto) 1 % (0-3) Neutrophils # (Auto) 10.5 x10^3uL (1.8-7.7) H Lymphocytes # (Auto) 2.7 x10^3/uL (1.0-4.8) Monocytes # (Auto) 0.8 x10^3/uL (0.0-1.1) Eosinophils # (Auto) 0.2 x10^3/uL (0.0-0.7) Basophils # (Auto) 0.1 x10^3/uL (0.0-0.2) Sodium Level 141 mmol/L (136-145) Potassium Level 4.0 mmol/L (3.5-5.1) Chloride Level 103 mmol/L (98-107) Carbon Dioxide Level 27 mmol/L (21-32) Anion Gap 11 (6-14) Blood Urea Nitrogen 13 mg/dL (7-20) Creatinine 0.6 mg/dL (0.6-1.0) Estimated GFR (Cockcroft-Gault) 103.0 Glucose Level 126 mg/dL (70-99) H Calcium Level 9.6 mg/dL (8.5-10.1) Laboratory Tests 03/16/19 23:20 Laboratory Tests 03/16/19 23:20 (ISAIAH SMITH APRN) EKG EKG [] (ISAIAH SMITH APRN) Radiology/Procedures Radiology/Procedures [] (ISAIAH SMITH APRN) Course & Med Decision Making Course & Med Decision Making Pertinent Labs and Imaging studies reviewed. (See chart for details) [@ 0010 Patient reports she feels much better at this time, Does state she has some anxiety because her PCP has cut her back on her anxiety medications. Advise patient we will not be administering controlled anxiety medications here. will offer her a Hydroxyzine, which she accepts. discussed follow up with PCP, patient in agreement with plan with no further questions or concerns (ISAIAH SMITH APRN) Dragon Disclaimer Dragon Disclaimer This electronic medical record was generated, in whole or in part, using a voice recognition dictation system. (ISAIAH SMITH APRN) Departure Departure Impression: Primary Impression: Nausea & vomiting Additional Impression: Narcotic withdrawal Disposition: HOME, SELF-CARE Condition: GOOD Referrals: GERALDINE HINOJOSA (PCP) Patient Instructions: Nausea and Vomiting Additional Instructions: Follow up with your primary care provider and your psychologist to get back on your medications as you need Attending Signature Attending Signature I have reviewed the PA/FORENSIC EXAMINER's note and plan of care. I was available for consultation as needed during the patient's visit in the emergency department. I agree with the clinical impression, plan, and disposition. (BRIANA MIRANDA DO) Problem Qualifiers Primary Impression: Nausea & vomiting Vomiting type: unspecified Vomiting Intractability: non-intractable Qualified Codes: R11.2 - Nausea with vomiting, unspecified ISAIAH SMITH APRN Mar 16, 2019 22:51 BRIANA MIRANDA DO Mar 18, 2019 20:36
[2019-03-16] MEDS ORDERED: IV NORMAL SALINE 1000ML BAG 1,000 ML IV ONE (23:00)
[2019-03-16] MEDS ORDERED: ONDANSETRON PF 4 MG/2 ML VIAL. IV ONE (23:00)
[2019-03-16 23:35] LABS: BASO # 0.1 x10^3/uL (0.0-0.2); BASO % 1 % (0-3); EOS # 0.2 x10^3/uL (0.0-0.7); EOS % 1 % (0-3); HEMOGLOBIN 14.7 g/dL (12.0-15.5); LYMPH # 2.7 x10^3/uL (1.0-4.8); LYMPH % 19 % (24-48); MEAN CORPUSCULAR HEMOGLOBIN 34 pg (25-35); MEAN CORPUSCULAR HGB CONC 35 g/dL (31-37); MEAN CORPUSCULAR VOLUME 99 fL (79-100); MONO # 0.8 x10^3/uL (0.0-1.1); MONO % 6 % (0-9); NEUT # 10.5 x10^3uL (1.8-7.7); NEUT % 73 % (31-73); PLATELET COUNT 309 x10^3/uL (140-400); RED BLOOD COUNT 4.26 x10^6/uL (3.50-5.40); RED CELL DISTRIBUTION WIDTH 13.3 % (11.5-14.5); WHITE BLOOD COUNT 14.3 x10^3/uL (4.0-11.0)
[2019-03-16 23:43] LABS: CALCIUM 9.6 mg/dL (8.5-10.1); CREATININE 0.6 mg/dL (0.6-1.0)
[2019-03-17 00:15] VITALS: BP 166/83
[2019-03-17] MEDS ORDERED: hydrOXYzine 10 MG TABLET PO ONE (00:20)
--- NOTE | 2019-03-19 11:31 | NUR ---
Late entry made to Medical Record. IV Stop time transcribed from eMAR to IV spreadsheet
== END 2019-03-17 00:28 | disposition home or self-care (01) ==
LOC: ER 21:44
DX: R11.2 Nausea with vomiting, unspecified (principal); F11.23 Opioid dependence with withdrawal; F41.9 Anxiety disorder, unspecified; M19.90 Unspecified osteoarthritis, unspecified site; J44.9 Chronic obstructive pulmonary disease, unspecified; I10 Essential (primary) hypertension; G43.909 Migraine, unspecified, not intractable, without status migrainosus; G89.29 Other chronic pain; Z90.49 Acquired absence of other specified parts of digestive tract; Z90.710 Acquired absence of both cervix and uterus; Z90.89 Acquired absence of other organs; Z96.659 Presence of unspecified artificial knee joint; Z88.0 Allergy status to penicillin
CPT/HCPCS: 36415; 80048; 85025; 96361; 96374; 99284; J2405; J7030

== ENCOUNTER 2019-05-20 21:39 | Inpatient (IN) | payer BC, MEDICARE ==
[~2019-05-20] VITALS: Ht 162.6 cm; Wt 47.6 kg
[2019-05-20 22:09] LABS: BASO # 0.2 x10^3/uL (0.0-0.2); BASO % 1 % (0-3); EOS # 0.3 x10^3/uL (0.0-0.7); EOS % 2 % (0-3); HEMATOCRIT 43.9 % (36.0-47.0); HEMOGLOBIN 15.3 g/dL (12.0-15.5); LYMPH # 3.8 x10^3/uL (1.0-4.8); LYMPH % 27 % (24-48); MEAN CORPUSCULAR HEMOGLOBIN 34 pg (25-35); MEAN CORPUSCULAR HGB CONC 35 g/dL (31-37); MEAN CORPUSCULAR VOLUME 98 fL (79-100); MONO % 7 % (0-9); NEUT % 63 % (31-73); PLATELET COUNT 403 x10^3/uL (140-400); RED BLOOD COUNT 4.47 x10^6/uL (3.50-5.40); WHITE BLOOD COUNT 14.4 x10^3/uL (4.0-11.0)
[2019-05-20] MEDS ORDERED: NITROGLYCERIN SUBLINGUAL 0.4 MG BOTTLE OF 25. SL PRN (22:15)
[2019-05-20] MEDS ORDERED: ASPIRIN CHEWABLE 81 MG TABLET. PO ONE (22:15)
--- NOTE | 2019-05-20 22:22 | PHYS DOC ---
Past Medical History Past Medical History: Anxiety, Arthritis, COPD, Depression, Hypertension, Hepatitis, Migraines, Seizure, UTI, Other Additional Past Medical Histor: Chronic pain, hep C(treated), drug seeking behavior Past Surgical History: Cholecystectomy, Hysterectomy, Knee Replacement, Tonsillectomy, Other Additional Past Surgical Histo: BX KNEE REPLACEMENT, NECK SX, COMMON BILE DUCT CUT, L ARM SX Alcohol Use: None Drug Use: None Adult General Chief Complaint Chief Complaint: CHEST PAIN-CARDIAC NATURE HPI HPI Patient is a 58 year old female who presents with complaining of chest pain. Patient complaining of sudden onset of substernal pressure pain 4 days ago as a constant pain with radiation to her back and associated with shortness of breath, dizziness, palpitation, nausea and one episode of vomiting this afternoon. She rated her pain 8/10 and states he did not get better with taking baby aspirin and [id number] Tylenol. Patient denies new cough, fever and chills, diarrhea and constipation, urinary symptom, history of PE and DVT, recent immobilization. Patient states she had history of mild chest pain but never had chest pain like time. Patient states she had a ct of chest and was told she had clogged heart vessel. Patient had elevation of blood pressure without diagnosis of hypertension and currently recording her blood pressure per recommendation of her primary care physician and had blood pressure of 170s. Review of Systems Review of Systems Constitutional: Denies fever or chills [] Eyes: Denies change in visual acuity, redness, or eye pain [] HENT: Denies nasal congestion or sore throat [] Respiratory: Reports cough and shortness of breath Cardiovascular: No additional information not addressed in HPI [] GI: Denies abdominal pain, bloody stools or diarrhea, reports nausea and vomiting[] : Denies dysuria or hematuria [] Musculoskeletal: Denies back pain or joint pain [] Integument: Denies rash or skin lesions [] Neurologic: Denies headache, focal weakness or sensory changes [] Endocrine: Denies polyuria or polydipsia [] All other systems were reviewed and found to be within normal limits, except as documented in this note. Current Medications Current Medications Allergies Allergies Allergies Coded Allergies Type Severity Reaction Last Updated Verified Penicillins Allergy Intermediate Hives 04/10/15 Yes Physical Exam Physical Exam Constitutional: Well developed, well nourished, mild distress, non-toxic appe arance. [] HENT: Normocephalic, atraumatic. Eyes: PERRLA, EOMI, conjunctiva normal, no discharge. [] Neck: Normal range of motion, no tenderness, supple, no stridor. [] Cardiovascular: Cardiac, no murmur [] Lungs & Thorax: Bilateral breath sounds clear to auscultation, reproducible substernal pain [] Abdomen: Bowel sounds normal, soft, no tenderness, no masses, no pulsatile masses. [] Skin: Warm, dry, no erythema, no rash. [] Back: No tenderness, no CVA tenderness. [] Extremities: No tenderness, no cyanosis, no clubbing, ROM intact, no edema. [] Neurologic: Alert and oriented X 3, no focal deficits noted. [] Psychologic: Affect anxious, judgement normal, mood normal. [] Current Patient Data Vital Signs Vital Signs Date Time Temp Pulse Resp B/P (MAP) Pulse Ox O2 Delivery O2 Flow Rate FiO2 05/20/19 21:42 102 20 205/110 (141) 96 Room Air 05/20/19 21:40 98.0 98.0 Lab Values Laboratory Tests Test 05/20/19 21:50 White Blood Count 14.4 x10^3/uL (4.0-11.0) H Red Blood Count 4.47 x10^6/uL (3.50-5.40) Hemoglobin 15.3 g/dL (12.0-15.5) Hematocrit 43.9 % (36.0-47.0) Mean Corpuscular Volume 98 fL (79-100) Mean Corpuscular Hemoglobin 34 pg (25-35) Mean Corpuscular Hemoglobin Concent 35 g/dL (31-37) Red Cell Distribution Width 13.0 % (11.5-14.5) Platelet Count 403 x10^3/uL (140-400) H Neutrophils (%) (Auto) 63 % (31-73) Lymphocytes (%) (Auto) 27 % (24-48) Monocytes (%) (Auto) 7 % (0-9) Eosinophils (%) (Auto) 2 % (0-3) Basophils (%) (Auto) 1 % (0-3) Neutrophils # (Auto) 9.0 x10^3/uL (1.8-7.7) H Lymphocytes # (Auto) 3.8 x10^3/uL (1.0-4.8) Monocytes # (Auto) 1.0 x10^3/uL (0.0-1.1) Eosinophils # (Auto) 0.3 x10^3/uL (0.0-0.7) Basophils # (Auto) 0.2 x10^3/uL (0.0-0.2) Laboratory Tests 05/20/19 21:50 EKG EKG EKG interpreted by me. EKG at 105 showed sinus tachycardia at rate of 105, bi atrial enlargement, right bundle branch block, no acute ST and T-wave elevation. Radiology/Procedures Radiology/Procedures [][facility] [address] [place] [address] IMAGING REPORT Signed PATIENT: ANNY FORD ACCOUNT: [id number] : 1960 LOCATION: [address] [place] [address] AGE: 58 SEX: F EXAM STATUS: ADM IN ORD. PHYSICIAN: JEWELS OVGT MD REASON: chest pain PROCEDURE: PORTABLE CHEST 1V Exam: Chest one view INDICATION: Chest pain TECHNIQUE: Frontal view of the chest Comparisons: 09/19/2018 FINDINGS: The cardiomediastinal silhouette and pulmonary vessels are within normal limits. The lung and pleural spaces are clear. IMPRESSION: No acute cardiopulmonary process. Electronically signed by: Gilmer Mullen MD (05/20/2019 11:09 PM) [facility] DICTATED and SIGNED BY: GILMER MULLEN MD DATE: 05/20/19 3318 Course & Med Decision Making Course & Med Decision Making Pertinent Labs and Imaging studies reviewed. (See chart for details) Evaluation of patient in ER showed 58-year-old female patient with history of COPD and narcotic dependency and complaining of constant pressure chest pain for 4 days. Patient didn't want to have nitroglycerin complaining of severe pain and asking for stronger pain medication. Patient had morphine and felt better. Heart score was 5 and patient was admitted for more evaluation but patient refused admission and signed AGAINST MEDICAL ADVICE. Dragon Disclaimer Dragon Disclaimer This electronic medical record was generated, in whole or in part, using a voice recognition dictation system. Departure Departure Impression: Primary Impression: Acute chest pain Additional Impressions: Tobacco abuse Left against medical advice Anxiety Drug-seeking behavior Disposition: AGAINST MEDICAL ADVICE Condition: IMPROVED Referrals: GERALDINE HINOJOSA (PCP) The HEART Score for CP Pts HEART Score for Chest Pain: HEART Score for Chest Pain Response (Comments) Value History Moderately Suspicious 1 ECG Nonspecific Repolarizatio 1 Age >45 - < 65 1 Risk Factors >3 Risk Factors or Hx CAD 2 Troponin < Normal Limit 0 Total 5 Risk Factors: Risk Factors: DM, Current or recent (<one month) smoker, HTN, HLP, family history of CAD, obesity. Risk Scores: Score 0 - 3: 2.5% MACE over next 6 weeks - Discharge Home Score 4 - 6: 20.3% MACE over next 6 weeks - Admit for Clinical Observation Score 7 - 10: 72.7% MACE over next 6 weeks - Early Invasive Strategies Problem Qualifiers JEWELS VOGT MD May 20, 2019 22:21
[2019-05-20 22:57] LABS: CALCIUM 9.4 mg/dL (8.5-10.1); CREATININE 1.1 mg/dL (0.6-1.0); GFR 51.2; POTASSIUM 3.3 mmol/L (3.5-5.1)
[2019-05-20] MEDS ORDERED: MORPHINE SULFATE 4 MG/ML VIAL. IV ONE (23:00)
[2019-05-20] MEDS ORDERED: ONDANSETRON PF 4 MG/2 ML VIAL. IV ONE (23:00)
[2019-05-20 23:03] LABS: ALBUMIN 3.8 g/dL (3.4-5.0); ALBUMIN/GLOBULIN RATIO 0.9 (1.0-1.7); MAGNESIUM 1.9 mg/dL (1.8-2.4); TOTAL BILIRUBIN 0.2 mg/dL (0.2-1.0); TOTAL PROTEIN 8.2 g/dL (6.4-8.2)
[2019-05-20 23:12] VITALS: BP 151/92
--- NOTE | 2019-05-20 23:12 | RAD ---
Exam: Chest one view INDICATION: Chest pain TECHNIQUE: Frontal view of the chest Comparisons: 09/19/2018 FINDINGS: The cardiomediastinal silhouette and pulmonary vessels are within normal limits. The lung and pleural spaces are clear. IMPRESSION: No acute cardiopulmonary process. Electronically signed by: Gilmer Bowden MD (05/20/2019 11:09 PM) [facility]
--- NOTE | 2019-05-21 06:14 | EKG ---
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
== END 2019-05-20 23:30 | disposition left against medical advice (07) | DRG 313 ==
LOC: ER 21:39 → 2 SOUTH 22:09
PROVIDERS: ADMIT Internal Medicine; ATTEND Internal Medicine
DX: R07.89 Other chest pain (principal); F41.9 Anxiety disorder, unspecified; M19.90 Unspecified osteoarthritis, unspecified site; G43.909 Migraine, unspecified, not intractable, without status migrainosus; F32.9 Major depressive disorder, single episode, unspecified; G89.29 Other chronic pain; I10 Essential (primary) hypertension; J44.9 Chronic obstructive pulmonary disease, unspecified; Z53.21 Procedure and treatment not carried out due to patient leaving prior to being seen by health care provider; Z96.659 Presence of unspecified artificial knee joint; Z90.710 Acquired absence of both cervix and uterus; Z90.49 Acquired absence of other specified parts of digestive tract; Z88.0 Allergy status to penicillin; Z72.0 Tobacco use; Z76.5 Malingerer [conscious simulation]; I45.10 Unspecified right bundle-branch block
CPT/HCPCS: 36415; 71045; 80053; 82550; 83690; 83735; 83880; 84484; 85025; 85379; 93005; J2270; J2405; G0378

== ENCOUNTER 2019-06-12 11:30 | Emergency (ER) | payer BC, MEDICARE ==
[~2019-06-12] VITALS: Ht 162.6 cm; Wt 47.6 kg
[~2019-06-12 11:30] MED LIST changes: -CLON1TAB11; +CLONAZEPAM1 MG; +LISI1TAB19; +LISI1TAB20; +LISI1TAB23 PO; -LISI1TAB3 PO; -LISI1TAB5; -LISI1TAB7
--- NOTE | 2019-06-12 11:56 | PHYS DOC ---
Past Medical History Past Medical History: Anxiety, Arthritis, COPD, Depression, Hypertension, Hepatitis, Migraines, Seizure, UTI, Other Additional Past Medical Histor: Chronic pain, hep C(treated), drug seeking behavior Past Surgical History: Cholecystectomy, Hysterectomy, Knee Replacement, Tonsillectomy, Other Additional Past Surgical Histo: BX KNEE REPLACEMENT, NECK SX, COMMON BILE DUCT CUT, L ARM SX Alcohol Use: None Drug Use: None Adult General Chief Complaint Chief Complaint: DIZZY/LIGHT HEADED HPI HPI Patient is a 58 year old female that presents with chest pain and dizziness that is worse when she stands his been ongoing for 6-7 weeks. The patient states she took an 81 mg aspirin this morning and states her blood pressure is also been running high. The patient's been seen by her primary care doctor for blood pressure however he is not started on any medicine yet disease just wanted record her blood pressure at home. The patient states her pain is 8 out of 10 in severity and sharp. Denies fever, vomiting, nausea. Her blood pressure on arrival was 185/117. Review of Systems Review of Systems Constitutional: Reports dizziness/lightheadedness. Denies fever or chills [] Eyes: Denies change in visual acuity, redness, or eye pain [] HENT: Denies nasal congestion or sore throat [] Respiratory: Denies cough or shortness of breath [] Cardiovascular: No additional information not addressed in HPI [] GI: Denies abdominal pain, nausea, vomiting, bloody stools or diarrhea [] : Denies dysuria or hematuria [] Musculoskeletal: Denies back pain or joint pain [] Integument: Denies rash or skin lesions [] Neurologic: Denies headache, focal weakness or sensory changes [] Endocrine: Denies polyuria or polydipsia [] Complete systems were reviewed and found to be within normal limits, except as documented in this note. Current Medications Current Medications Current Medications Medications (Trade) Dose Ordered Sig/Terrance Start Time Stop Time Status Last Admin Dose Admin Aspirin (Children'S Aspirin) 243 mg 1X ONCE 06/12/19 12:00 06/12/19 12:01 DC 06/12/19 12:34 243 MG Labetalol HCl (Normodyne Iv Push) 10 mg 1X ONCE 06/12/19 12:00 06/12/19 12:01 DC 06/12/19 12:34 10 MG Nitroglycerin (Nitrostat) 0.4 mg PRN Q5MIN PRN 06/12/19 13:15 06/12/19 13:32 0.4 MG Sodium Chloride 1,000 ml @ 1,000 mls/hr 1X ONCE 06/12/19 13:15 06/12/19 14:14 DC Allergies Allergies Allergies Coded Allergies Type Severity Reaction Last Updated Verified Penicillins Allergy Intermediate Hives 04/10/15 Yes Physical Exam Physical Exam Constitutional: Well developed, well nourished, no acute distress, non-toxic appearance. [] HENT: Normocephalic, atraumatic, bilateral external ears normal, oropharynx moist, no oral exudates, nose normal. [] Eyes: PERRLA, EOMI, conjunctiva normal, no discharge. [] Neck: Normal range of motion, no tenderness, supple, no stridor. [] Cardiovascular:Heart rate regular rhythm, no murmur [] Lungs & Thorax: Bilateral breath sounds clear to auscultation [] Abdomen: Bowel sounds normal, soft, no tenderness, no masses, no pulsatile masses. [] Skin: Warm, dry, no erythema, no rash. [] Back: No tenderness, no CVA tenderness. [] Extremities: No tenderness, no cyanosis, no clubbing, ROM intact, no edema. [] Neurologic: Alert and oriented X 3, normal motor function, normal sensory function, no focal deficits noted. [] Psychologic: Affect normal, judgement normal, mood normal. [] Current Patient Data Vital Signs Vital Signs Date Time Temp Pulse Resp B/P (MAP) Pulse Ox O2 Delivery O2 Flow Rate FiO2 06/12/19 13:32 81 163/91 06/12/19 12:26 20 96 06/12/19 11:35 98.4 Room Air 98.4 Lab Values Laboratory Tests Test 06/12/19 11:50 06/12/19 12:25 White Blood Count 12.0 x10^3/uL (4.0-11.0) H Red Blood Count 4.68 x10^6/uL (3.50-5.40) Hemoglobin 16.0 g/dL (12.0-15.5) H Hematocrit 45.6 % (36.0-47.0) Mean Corpuscular Volume 98 fL (79-100) Mean Corpuscular Hemoglobin 34 pg (25-35) Mean Corpuscular Hemoglobin Concent 35 g/dL (31-37) Red Cell Distribution Width 14.4 % (11.5-14.5) Platelet Count 567 x10^3/uL (140-400) H Neutrophils (%) (Auto) 72 % (31-73) Lymphocytes (%) (Auto) 21 % (24-48) L Monocytes (%) (Auto) 5 % (0-9) Eosinophils (%) (Auto) 1 % (0-3) Basophils (%) (Auto) 1 % (0-3) Neutrophils # (Auto) 8.7 x10^3/uL (1.8-7.7) H Lymphocytes # (Auto) 2.5 x10^3/uL (1.0-4.8) Monocytes # (Auto) 0.6 x10^3/uL (0.0-1.1) Eosinophils # (Auto) 0.1 x10^3/uL (0.0-0.7) Basophils # (Auto) 0.1 x10^3/uL (0.0-0.2) Sodium Level 141 mmol/L (136-145) Potassium Level 3.5 mmol/L (3.5-5.1) Chloride Level 102 mmol/L (98-107) Carbon Dioxide Level 28 mmol/L (21-32) Anion Gap 11 (6-14) Blood Urea Nitrogen 11 mg/dL (7-20) Creatinine 0.7 mg/dL (0.6-1.0) Estimated GFR (Cockcroft-Gault) 86.2 BUN/Creatinine Ratio 16 (6-20) Glucose Level 104 mg/dL (70-99) H Calcium Level 9.9 mg/dL (8.5-10.1) Total Bilirubin 0.6 mg/dL (0.2-1.0) Aspartate Amino Transferase (AST) 35 U/L (15-37) Alanine Aminotransferase (ALT) 215 U/L (14-59) H Alkaline Phosphatase 158 U/L (46-116) H Troponin I Quantitative < 0.017 ng/mL (0.000-0.055) Total Protein 8.9 g/dL (6.4-8.2) H Albumin 4.1 g/dL (3.4-5.0) Albumin/Globulin Ratio 0.9 (1.0-1.7) L Laboratory Tests 06/12/19 11:50 Laboratory Tests 06/12/19 12:25 EKG EKG EKG interpreted by Dr. Yasmine Mcgee with rate of 96. No STEMI.[] Radiology/Procedures Radiology/Procedures [][facility] [address] [place] [address] IMAGING REPORT Signed PATIENT: ANNY FORD ACCOUNT: [id number] : 1960 LOCATION: ER AGE: 58 SEX: F EXAM STATUS: REG ER ORD. PHYSICIAN: BRIANA STEARNS APRN REASON: elevated liver enzymes with upper abdominal pain. PROCEDURE: ABDOMEN LTD ABDOMEN LTD History: Elevated liver enzymes, elevated liver function tests Comparison: None. Findings: Multiple sonographic images of the abdomen are submitted. There is segmental visualization of the inferior vena cava. There has been cholecystectomy. Hepatic echotexture is within normal limits, no focal hepatic lesion demonstrated. Right lobe of liver measured 15 cm longitudinal. Right kidney measured 11.5 x 4.7 x 4.4 cm, no hydronephrosis. Common bile duct is within normal limits at 0.2 cm. There is no abnormality of the visualized pancreas. Impression: 1. No significant abnormality is demonstrated. There has been cholecystectomy. Electronically signed by: Bud Foreman MD (06/12/2019 2:04 PM) [facility] DICTATED and SIGNED BY: BUD FOREMAN MD DATE: 06/12/19 1404 Course & Med Decision Making Course & Med Decision Making Pertinent Labs and Imaging studies reviewed. (See chart for details) Will get ekg, chest x-ray, labs, ua. Will also give 243 mg ASA. Patient had 81 mg this AM. Will give Labetalol for blood pressure (HR is 96) as blood pressure is high in room. I am concerned that patient is having Hypertensive Urgency. After Labetalol patient BP is still 166/102. Patient is still complaining of Chest Pain, will give Nitro to evaluate CP. Patient states that nitro relieved the CP "some". Liver enzymes are elevated. Patient does not have Gallbladder but still states she has RUQ pain sometimes. Will obtain ultrasound. Will page Dr. Lau for admission. Discussed with Dr. Lau who agrees to admission ([id number]). Dragon Disclaimer Dragon Disclaimer This electronic medical record was generated, in whole or in part, using a voice recognition dictation system. Departure Departure Impression: Primary Impression: Acute chest pain Additional Impression: Hypertensive urgency Disposition: ADMITTED INPATIENT Admitting Physician: HIMS Condition: GUARDED Referrals: GERALDINE HINOJOSA (PCP) The HEART Score for CP Pts HEART Score for Chest Pain: HEART Score for Chest Pain Response (Comments) Value History Slighlty/Non-Suspicious 0 ECG Nonspecific Repolarizatio 1 Age >45 - < 65 1 Risk Factors >3 Risk Factors or Hx CAD 2 Troponin < Normal Limit 0 Total 4 Risk Factors: Risk Factors: DM, Current or recent (<one month) smoker, HTN, HLP, family history of CAD, obesity. Risk Scores: Score 0 - 3: 2.5% MACE over next 6 weeks - Discharge Home Score 4 - 6: 20.3% MACE over next 6 weeks - Admit for Clinical Observation Score 7 - 10: 72.7% MACE over next 6 weeks - Early Invasive Strategies Problem Qualifiers BRIANA STEARNS APRN Jun 12, 2019 11:56
[2019-06-12 12:00] LABS: BASO # 0.1 x10^3/uL (0.0-0.2); BASO % 1 % (0-3); EOS # 0.1 x10^3/uL (0.0-0.7); EOS % 1 % (0-3); HEMATOCRIT 45.6 % (36.0-47.0); LYMPH # 2.5 x10^3/uL (1.0-4.8); LYMPH % 21 % (24-48); MEAN CORPUSCULAR HEMOGLOBIN 34 pg (25-35); MEAN CORPUSCULAR HGB CONC 35 g/dL (31-37); MEAN CORPUSCULAR VOLUME 98 fL (79-100); MONO # 0.6 x10^3/uL (0.0-1.1); MONO % 5 % (0-9); NEUT # 8.7 x10^3/uL (1.8-7.7); NEUT % 72 % (31-73); PLATELET COUNT 567 x10^3/uL (140-400); RED BLOOD COUNT 4.68 x10^6/uL (3.50-5.40); RED CELL DISTRIBUTION WIDTH 14.4 % (11.5-14.5)
[2019-06-12] MEDS ORDERED: ASPIRIN CHEWABLE 81 MG TABLET. PO ONE (12:00)
[2019-06-12] MEDS ORDERED: LABETALOL 20 MG/4 ML DISP.SYRIN. IVP ONE (12:00)
--- NOTE | 2019-06-12 12:59 | RAD ---
CHEST PA LATERAL History: Dizziness, chest pain Comparison: 05/20/2019 portable chest x-ray exam. Findings: The cardiomediastinal silhouette is normal. Pulmonary vasculature is normal. The lungs are clear. No pleural effusion or pneumothorax is seen. There is no acute bone abnormality. IMPRESSION: No acute cardiopulmonary process. Electronically signed by: Constantin Lara MD (06/12/2019 12:56 PM) [facility]
[2019-06-12 13:13] LABS: ALBUMIN 4.1 g/dL (3.4-5.0); ALBUMIN/GLOBULIN RATIO 0.9 (1.0-1.7); CALCIUM 9.9 mg/dL (8.5-10.1); CREATININE 0.7 mg/dL (0.6-1.0); GFR 86.2; POTASSIUM 3.5 mmol/L (3.5-5.1); TOTAL BILIRUBIN 0.6 mg/dL (0.2-1.0); TOTAL PROTEIN 8.9 g/dL (6.4-8.2)
[2019-06-12] MEDS ORDERED: IV NORMAL SALINE 1000ML BAG 1,000 ML IV ONE (13:15)
[2019-06-12] MEDS ORDERED: NITROGLYCERIN SUBLINGUAL 0.4 MG BOTTLE OF 25. SL PRN ×2 (13:15→14:30)
--- NOTE | 2019-06-12 13:37 | EKG ---
[facility] [address] [place] [address] Test Date: 2019-06-12 Test Time: 11:38:12 Pat Name: ANNY FORD Department: Room: Gender: F Registered Nurse Nursery: : 1960 Requested By: BRIANA STEARNS Order Number: [id number] Reading MD: Measurements Intervals [place] Rate: 96 P: 73 [place]: 164 QRS: 48 QRSD: 88 T: 61 QT: 346 QTc: 438 Interpretive Statements SINUS RHYTHM BIATRIAL ENLARGEMENT INCOMPLETE RIGHT BUNDLE BRANCH BLOCK ABNORMAL ECG RI6.01 Unconfirmed report No previous ECG available for comparison
--- NOTE | 2019-06-12 14:07 | RAD ---
ABDOMEN LTD History: Elevated liver enzymes, elevated liver function tests Comparison: None. Findings: Multiple sonographic images of the abdomen are submitted. There is segmental visualization of the inferior vena cava. There has been cholecystectomy. Hepatic echotexture is within normal limits, no focal hepatic lesion demonstrated. Right lobe of liver measured 15 cm longitudinal. Right kidney measured 11.5 x 4.7 x 4.4 cm, no hydronephrosis. Common bile duct is within normal limits at 0.2 cm. There is no abnormality of the visualized pancreas. Impression: 1. No significant abnormality is demonstrated. There has been cholecystectomy. Electronically signed by: Dm Baker MD (06/12/2019 2:04 PM) [facility]
[2019-06-12 14:18] VITALS: BP 141/80
[2019-06-12] MEDS ORDERED: KETOROLAC 15 MG/ML VIAL. IV STA (14:22)
[2019-06-12] MEDS ORDERED: ONDANSETRON PF 4 MG/2 ML VIAL. IV PRN (14:30)
[2019-06-12] MEDS ORDERED: ACETAMINOPHEN 325 MG TABLET. PO PRN (14:30)
== END 2019-06-12 14:36 | disposition other institution (70) ==
LOC: ER 11:30
DX: I16.0 Hypertensive urgency (principal); R07.89 Other chest pain; R42 Dizziness and giddiness; F41.9 Anxiety disorder, unspecified; M19.90 Unspecified osteoarthritis, unspecified site; J44.9 Chronic obstructive pulmonary disease, unspecified; F32.9 Major depressive disorder, single episode, unspecified; I10 Essential (primary) hypertension; G43.909 Migraine, unspecified, not intractable, without status migrainosus; G89.29 Other chronic pain; Z90.49 Acquired absence of other specified parts of digestive tract; Z90.710 Acquired absence of both cervix and uterus; Z96.653 Presence of artificial knee joint, bilateral; Z79.82 Long term (current) use of aspirin; Z88.0 Allergy status to penicillin
CPT/HCPCS: 36415; 71046; 76705; 80053; 84484; 85025; 93005; 96361; 96374; 99285; J3490; J7030

== ENCOUNTER 2019-08-10 17:44 | Emergency (ER) | payer BC ==
[~2019-08-10] VITALS: Ht 162.6 cm; Wt 47.6 kg
[~2019-08-10 17:44] MED LIST changes: -ACET-1550 PO; +ACET-1797 PO
[2019-08-10 18:33] VITALS: BP 143/95
[2019-08-10] MEDS ORDERED: HYDR-2765 PO (19:02)
[2019-08-10] MEDS ORDERED: KETOROLAC 30 MG/ML VIAL. IM ONE (19:15)
--- NOTE | 2019-08-10 19:15 | RAD ---
Exam: Left foot 3 views INDICATION: Hallux trauma TECHNIQUE: Frontal, lateral and oblique views of the left foot Comparisons: None FINDINGS: Comminuted fracture involving the distal phalanx of the first digit. Surrounding soft tissue swelling is noted. Bone mineralization is normal. Joint spaces are well-maintained. IMPRESSION: Comminuted fracture of the distal phalanx of the first digit. Electronically signed by: Gilmer Bowden MD (08/10/2019 7:12 PM) [facility]
--- NOTE | 2019-08-10 19:49 | PHYS DOC ---
Past Medical History Past Medical History: Anxiety, Arthritis, COPD, Depression, Hypertension, Hepatitis, Migraines, Seizure, UTI, Other Additional Past Medical Histor: Chronic pain,hep C(treated),drug seeking behavior Past Surgical History: Cholecystectomy, Hysterectomy, Knee Replacement, Tonsillectomy, Other Additional Past Surgical Histo: BX KNEE REPLACEMENT, NECK SX, COMMON BILE DUCT CUT, L ARM SX Additional Information: 0.5 PPD Alcohol Use: None Drug Use: None Adult General Chief Complaint Chief Complaint: TOE PROBLEM HPI HPI Patient is a 58 year old female presents with chief complaint of toe problem. great toe 40 pound thing fell on it while she was moving something at home. Moderate pain nonradiating also feels pain in the affected second toe as well. Has not tried anything for relief denies any past medical history Current Medications Current Medications Current Medications Medications (Trade) Dose Ordered Sig/Terrance Start Time Stop Time Status Last Admin Dose Admin Ketorolac Tromethamine (Toradol 30mg Vial) 30 mg 1X ONCE 08/10/19 19:15 08/10/19 19:16 DC 08/10/19 19:32 30 MG Allergies Allergies Allergies Coded Allergies Type Severity Reaction Last Updated Verified Penicillins Allergy Intermediate Hives 04/10/15 Yes Physical Exam Physical Exam Constitutional: Well developed, well nourished, no acute distress, non-toxic appearance. [] HENT: Normocephalic, atraumatic, bilateral external ears normal, oropharynx moist, no oral exudates, nose normal. [] Eyes: PERRLA, EOMI, conjunctiva normal, no discharge. [] Neck: Normal range of motion, no tenderness, supple, no stridor. [] Normal respiratory effort no increased work of breathing. There is no significant some ungual hematoma Abdomen: Bowel sounds normal, soft, no tenderness, no masses, no pulsatile masses. [] Skin: Warm, dry, no erythema, no rash. [] Back: No tenderness, no CVA tenderness. [] Extremities there is tenderness to palpation ecchymosis noted to the great toe. Current Patient Data Vital Signs Vital Signs Date Time Temp Pulse Resp B/P (MAP) Pulse Ox O2 Delivery O2 Flow Rate FiO2 08/10/19 18:33 97.5 98 18 143/95 (111) 98 Room Air 97.5 EKG EKG [] Radiology/Procedures Radiology/Procedures [] Impressions: Comparisons: None FINDINGS: Comminuted fracture involving the distal phalanx of the first digit. Surrounding soft tissue swelling is noted. Bone mineralization is normal. Joint spaces are well-maintained. IMPRESSION: Comminuted fracture of the distal phalanx of the first digit. Electronically signed by: Gilmer Mullen MD (08/10/2019 7:12 PM) [facility] DICTATED and SIGNED BY: GILMER MULLEN MD DATE: 08/10/191911 Course & Med Decision Making Course & Med Decision Making Pertinent Labs and Imaging studies reviewed. (See chart for details) []Toes were farrah tape her prescription was provided for temporary dose of pain medication recommend a follow-up as needed in 2 weeks with orthopedics if symptoms are not improving. Dragon Disclaimer Dragon Disclaimer This electronic medical record was generated, in whole or in part, using a voice recognition dictation system. Departure Departure Impression: Primary Impression: Toe fracture Disposition: 01 HOME, SELF-CARE Condition: STABLE Patient Instructions: Toe Fracture-Brief Scripts Hydrocodone Bit/Acetaminophen (HYDROCODONE-APAP 7.5-325 ) 1 Tab Tablet 1 TAB PO PRN Q6HRS PRN for PAIN, #8 TAB 0 Refills Prov: MARCELO JARRETT MD 08/10/19 MARCELO JARRETT MD Aug 10, 2019 19:49
== END 2019-08-10 19:35 | disposition home or self-care (01) ==
LOC: ER 17:44
DX: S92.422A Displaced fracture of distal phalanx of left great toe, initial encounter for closed fracture (principal); F41.9 Anxiety disorder, unspecified; M19.90 Unspecified osteoarthritis, unspecified site; J44.9 Chronic obstructive pulmonary disease, unspecified; F32.9 Major depressive disorder, single episode, unspecified; I10 Essential (primary) hypertension; K75.9 Inflammatory liver disease, unspecified; G43.909 Migraine, unspecified, not intractable, without status migrainosus; G89.29 Other chronic pain; W19.XXXA Unspecified fall, initial encounter; Y93.01 Activity, walking, marching and hiking; Y92.009 Unspecified place in unspecified non-institutional (private) residence as the place of occurrence of the external cause; Y99.8 Other external cause status; Z96.659 Presence of unspecified artificial knee joint; Z90.49 Acquired absence of other specified parts of digestive tract; Z90.710 Acquired absence of both cervix and uterus
CPT/HCPCS: 73630; 96372; 99284; J1885

== ENCOUNTER 2019-09-22 10:54 | Emergency (ER) | payer BC, MEDICARE ==
[~2019-09-22] VITALS: Ht 162.6 cm; Wt 45.9 kg
[~2019-09-22 10:54] MED LIST changes: +HYDR-2765 PO
[2019-09-22] MEDS ORDERED: ASPIRIN CHEWABLE 81 MG TABLET. PO ONE (11:15)
[2019-09-22] MEDS ORDERED: fentaNYL PF VIAL 100 MCG/2 ML VIAL IVP ONE ×2 (11:15→12:30)
--- NOTE | 2019-09-22 11:22 | PHYS DOC ---
Past Medical History Past Medical History: Anxiety, Arthritis, COPD, Depression, Hypertension, Hepatitis, Migraines, Seizure, UTI, Other Additional Past Medical Histor: Chronic pain,hep C(treated),drug seeking behavior Past Surgical History: Cholecystectomy, Hysterectomy, Knee Replacement, Tonsillectomy, Other Additional Past Surgical Histo: BX KNEE REPLACEMENT, NECK SX, COMMON BILE DUCT CUT, L ARM SX Alcohol Use: None Drug Use: None Adult General Chief Complaint Chief Complaint: CHEST PAIN HPI HPI Patient is a 58 year old female patient with history of hypertension, COPD without home oxygen, anxiety, hepatitis C, chronic pain, migraine headache, drug-seeking behavior who presents with chest pain. Patient complaining of sudden onset of left-sided chest pain that woke her up at 5 AM as a constant pain with radiation to left shoulder and associated with shortness of breath, nausea and dizziness and rated her pain as severe pain. Patient denies increasing chronic cough, fever and chills, URI symptoms, vomiting. Patient complaining of one episode of diarrhea today. Patient states she has had episodes of the same pain frequently. According to EMR patient had frequent emergency room visits and drug-seeking behavior. Review of Systems Review of Systems Constitutional: Denies fever or chills [] Eyes: Denies change in visual acuity, redness, or eye pain [] HENT: Denies nasal congestion or sore throat [] Respiratory: Reports cough and shortness of breath Cardiovascular: No additional information not addressed in HPI [] GI: Denies abdominal pain, vomiting, bloody stools , reports nausea and diarr hea : Denies dysuria or hematuria [] Musculoskeletal: Denies back pain or joint pain [] Integument: Denies rash or skin lesions [] Neurologic: Denies headache, focal weakness or sensory changes [] Endocrine: Denies polyuria or polydipsia [] All other systems were reviewed and found to be within normal limits, except as documented in this note. Current Medications Current Medications Current Medications Medications (Trade) Dose Ordered Sig/Terrance Start Time Stop Time Status Last Admin Dose Admin Aspirin (Children'S Aspirin) 324 mg 1X ONCE 09/22/19 11:15 09/22/19 11:20 DC 09/22/19 11:35 162 MG Fentanyl Citrate (Fentanyl 2ml Vial) 50 mcg 1X ONCE 09/22/19 12:30 09/22/19 12:31 DC 09/22/19 12:36 50 MCG Lorazepam (Ativan Inj) 1 mg 1X ONCE 09/22/19 11:30 09/22/19 11:31 DC 09/22/19 11:35 1 MG Allergies Allergies Allergies Coded Allergies Type Severity Reaction Last Updated Verified Penicillins Allergy Intermediate Hives 04/10/15 Yes Physical Exam Physical Exam Constitutional: Well nourished, mild distress, non-toxic appearance, very anxious. [] HENT: Normocephalic, atraumatic. Eyes: PERRLA, EOMI, conjunctiva normal, no discharge. [] Neck: Normal range of motion, no tenderness, supple, no stridor. [] Cardiovascular: Tachycardia, no murmur [] Lungs & Thorax: Bilateral breath sounds clear to auscultation [] Abdomen: Bowel sounds normal, soft, no tenderness, no masses, no pulsatile masses. [] Skin: Warm, dry, no erythema, no rash. [] Back: No tenderness, no CVA tenderness. [] Extremities: No tenderness, no cyanosis, no clubbing, ROM intact, no edema. [] Neurologic: Alert and oriented X 3, no focal deficits noted. [] Psychologic: Affect anxious,, mood normal. [] Current Patient Data Vital Signs Vital Signs Date Time Temp Pulse Resp B/P (MAP) Pulse Ox O2 Delivery O2 Flow Rate FiO2 09/22/19 12:36 18 97 Room Air 09/22/19 12:32 108 130/77 (94) 09/22/19 10:57 98.7 98.7 Lab Values Laboratory Tests Test 09/22/19 11:10 White Blood Count 11.1 x10^3/uL (4.0-11.0) H Red Blood Count 4.67 x10^6/uL (3.50-5.40) Hemoglobin 16.3 g/dL (12.0-15.5) H Hematocrit 47.5 % (36.0-47.0) H Mean Corpuscular Volume 102 fL (79-100) H Mean Corpuscular Hemoglobin 35 pg (25-35) Mean Corpuscular Hemoglobin Concent 34 g/dL (31-37) Red Cell Distribution Width 13.0 % (11.5-14.5) Platelet Count 490 x10^3/uL (140-400) H Neutrophils (%) (Auto) 51 % (31-73) Lymphocytes (%) (Auto) 39 % (24-48) Monocytes (%) (Auto) 6 % (0-9) Eosinophils (%) (Auto) 2 % (0-3) Basophils (%) (Auto) 2 % (0-3) Neutrophils # (Auto) 5.6 x10^3/uL (1.8-7.7) Lymphocytes # (Auto) 4.4 x10^3/uL (1.0-4.8) Monocytes # (Auto) 0.7 x10^3/uL (0.0-1.1) Eosinophils # (Auto) 0.2 x10^3/uL (0.0-0.7) Basophils # (Auto) 0.2 x10^3/uL (0.0-0.2) Prothrombin Time 13.1 SEC (11.7-14.0) Prothrombin Time INR 1.0 (0.8-1.1) D-Dimer (Hazel) 0.29 ug/mlFEU (0.00-0.50) Sodium Level 138 mmol/L (136-145) Potassium Level 3.9 mmol/L (3.5-5.1) Chloride Level 97 mmol/L (98-107) L Carbon Dioxide Level 27 mmol/L (21-32) Anion Gap 14 (6-14) Blood Urea Nitrogen 15 mg/dL (7-20) Creatinine 0.9 mg/dL (0.6-1.0) Estimated GFR (Cockcroft-Gault) 64.5 BUN/Creatinine Ratio 17 (6-20) Glucose Level 105 mg/dL (70-99) H Calcium Level 10.8 mg/dL (8.5-10.1) H Magnesium Level 1.9 mg/dL (1.8-2.4) Total Bilirubin 0.5 mg/dL (0.2-1.0) Aspartate Amino Transferase (AST) 17 U/L (15-37) Alanine Aminotransferase (ALT) 16 U/L (14-59) Alkaline Phosphatase 112 U/L (46-116) Creatine Kinase 51 U/L (26-192) Troponin I Quantitative < 0.017 ng/mL (0.000-0.055) CF-Hgg-M-Type Natriuretic Peptide 52 pg/mL (0-124) Total Protein 9.1 g/dL (6.4-8.2) H Albumin 4.9 g/dL (3.4-5.0) Albumin/Globulin Ratio 1.2 (1.0-1.7) Lipase 128 U/L (73-393) Laboratory Tests 09/22/19 11:10 Laboratory Tests 09/22/19 11:10 EKG EKG EKG interpreted by me. EKG at 1102 showed sinus tachycardia at rate of 118, bilateral atrial enlargement, normal CT and QT intervals, no acute ST and T-wave elevation Radiology/Procedures Radiology/Procedures [][facility] [address] [place] [address] IMAGING REPORT Signed PATIENT: ANNY FORD ACCOUNT: [id number] : 1960 LOCATION: ER AGE: 58 SEX: F EXAM STATUS: REG ER ORD. PHYSICIAN: JEWELS VOGT MD REASON: chest pain PROCEDURE: PORTABLE CHEST 1V EXAM: CHEST ONE VIEW. HISTORY: Chest pain. COMPARISON: 06/12/2019. FINDINGS: A frontal view of the chest is obtained. The lungs are expanded to the 11th posterior ribs. There are no confluent infiltrates. There is no pneumothorax or pleural effusion. The heart is not enlarged. Calcified lymph nodes likely reflect old granulomatous disease. IMPRESSION: 1. Hyperinflation. Correlate for air trapping. No confluent infiltrates. Electronically signed by: Madan Bowie MD (09/22/2019 11:46 AM) [facility] DICTATED and SIGNED BY: MOIRA BOWIE MD DATE: 09/22/19 1146 Course & Med Decision Making Course & Med Decision Making Pertinent Labs and Imaging studies reviewed. (See chart for details) Evaluation of patient in ER showed 58-year-old male patient with heart score of 4 and history of frequent emergency room visits with chest pain and drug-seeking behavior presented with complaining of chest pain patient was very anxious and treated with Ativan and asking for pain medication and treated with fentanyl with improvement of her condition. Cardiac enzyme and d-dimer was negative. Patient ambulated without problem. Patient was advised to follow up with her primary care physician and quit smoking. I've spoken with the patient and/or caregivers. I've explained the patient's condition, diagnosis and treatment plan based on information available to me at this time. I've answered the patient's and/or caregivers questions and addressed any concerns. The patient and/or caregivers have a good understanding the patient's diagnosis, condition and treatment plan as can be expected at this point. Vital signs have been stabilized. The patient's condition is stable for discharge from the emergency department. The patient will pursue further outpatient evaluation with her primary care provider or other designated consulting physician as outlined in the discharge instructions. Patient and/or caregivers are agreeable to this plan of care and follow-up instructions have been explained in detail. The patient and/or caregivers have received these instructions in written format and expressed understanding of these discharge instructions. The patient and her caregivers are aware that if any significant change in condition or worsening of symptoms should prompt him to immediately return to this of the closest emergency department. If an emergent department is not readily available I would encourage him to call 911. Kimberlee Disclaimer Carmenon Disclaimer This electronic medical record was generated, in whole or in part, using a voice recognition dictation system. Departure Departure Impression: Primary Impression: Non-cardiac chest pain Additional Impressions: Anxiety about health Tobacco abuse Tobacco abuse counseling Disposition: HOME, SELF-CARE (131) Referrals: ANGELITA WINCHESTER (PCP) Patient Instructions: Anxiety and Panic Attacks, Chest Wall Pain, Smoking Cessation, Tips For Success Additional Instructions: Drink plenty of liquids Follow-up with your primary care physician in 3-5 days Return to ER if not getting better Continue home medication Thank you for visiting [facility]. We appreciate you trusting us with your care. If any additional problems come up don't hesitate to return to visit us. Please follow up with your primary care provider so they can plan additional care if needed and know about the problem that you had. If symptoms w orsen come back to the Emergency Department. Any concerning symptoms that start such as chest pain, shortness of air, weakness or numbness on one side of the body, running high fevers or any other concerning symptoms return to the ER. The HEART Score for CP Pts HEART Score for Chest Pain: HEART Score for Chest Pain Response (Comments) Value History Moderately Suspicious 1 ECG Normal 0 Age >45 - < 65 1 Risk Factors >3 Risk Factors or Hx CAD 2 Troponin < Normal Limit 0 Total 4 Risk Factors: Risk Factors: DM, Current or recent (<one month) smoker, HTN, HLP, family history of CAD, obesity. Risk Scores: Score 0 - 3: 2.5% MACE over next 6 weeks - Discharge Home Score 4 - 6: 20.3% MACE over next 6 weeks - Admit for Clinical Observation Score 7 - 10: 72.7% MACE over next 6 weeks - Early Invasive Strategies Critical Care Time Critical care time was 60 minutes exclusive of procedures. Problem Qualifiers JEWELS VOGT MD Sep 22, 2019 11:22
--- NOTE | 2019-09-22 11:29 | EKG ---
[facility] [address] [place] [address] Test Date: 2019-09-22 Test Time: 11:02:23 Pat Name: ANNY FORD Department: Room: Gender: F [place] Re[employer]: : 1960 Requested By: JEWELS VOGT Order Number: [id number] Reading MD: Measurements Intervals [place] Rate: 118 P: 94 WI: 158 QRS: 64 QRSD: 84 T: 70 QT: 314 QTc: 442 Interpretive Statements SINUS TACHYCARDIA BIATRIAL ENLARGEMENT ABNORMAL ECG No previous ECG available for comparison
[2019-09-22 11:32] LABS: BASO # 0.2 x10^3/uL (0.0-0.2); BASO % 2 % (0-3); EOS # 0.2 x10^3/uL (0.0-0.7); EOS % 2 % (0-3); HEMATOCRIT 47.5 % (36.0-47.0); HEMOGLOBIN 16.3 g/dL (12.0-15.5); LYMPH # 4.4 x10^3/uL (1.0-4.8); LYMPH % 39 % (24-48); MEAN CORPUSCULAR HEMOGLOBIN 35 pg (25-35); MEAN CORPUSCULAR HGB CONC 34 g/dL (31-37); MEAN CORPUSCULAR VOLUME 102 fL (79-100); MONO # 0.7 x10^3/uL (0.0-1.1); MONO % 6 % (0-9); NEUT # 5.6 x10^3/uL (1.8-7.7); NEUT % 51 % (31-73); PLATELET COUNT 490 x10^3/uL (140-400); RED BLOOD COUNT 4.67 x10^6/uL (3.50-5.40); WHITE BLOOD COUNT 11.1 x10^3/uL (4.0-11.0)
[2019-09-22 11:46] LABS: CALCIUM 10.8 mg/dL (8.5-10.1); CREATININE 0.9 mg/dL (0.6-1.0); GFR 64.5; POTASSIUM 3.9 mmol/L (3.5-5.1)
--- NOTE | 2019-09-22 11:48 | RAD ---
EXAM: CHEST ONE VIEW. HISTORY: Chest pain. COMPARISON: 06/12/2019. FINDINGS: A frontal view of the chest is obtained. The lungs are expanded to the 11th posterior ribs. There are no confluent infiltrates. There is no pneumothorax or pleural effusion. The heart is not enlarged. Calcified lymph nodes likely reflect old granulomatous disease. IMPRESSION: 1. Hyperinflation. Correlate for air trapping. No confluent infiltrates. Electronically signed by: Madan Bowie MD (09/22/2019 11:46 AM) [facility]
[2019-09-22 11:52] LABS: ALBUMIN 4.9 g/dL (3.4-5.0); ALBUMIN/GLOBULIN RATIO 1.2 (1.0-1.7); MAGNESIUM 1.9 mg/dL (1.8-2.4); TOTAL BILIRUBIN 0.5 mg/dL (0.2-1.0); TOTAL PROTEIN 9.1 g/dL (6.4-8.2)
[2019-09-22 11:53] LABS: PROTHROMBIN TIME PATIENT 13.1 SEC (11.7-14.0)
[2019-09-22 12:16] LABS: D-DIMER 0.29 ug/mlFEU (0.00-0.50)
[2019-09-22 12:32] VITALS: BP 130/77
== END 2019-09-22 13:30 | disposition home or self-care (01) ==
LOC: ER 10:54
DX: R07.89 Other chest pain (principal); R11.0 Nausea; R42 Dizziness and giddiness; R19.7 Diarrhea, unspecified; F41.9 Anxiety disorder, unspecified; M19.90 Unspecified osteoarthritis, unspecified site; F32.9 Major depressive disorder, single episode, unspecified; I10 Essential (primary) hypertension; G43.909 Migraine, unspecified, not intractable, without status migrainosus; J44.9 Chronic obstructive pulmonary disease, unspecified; G89.29 Other chronic pain; F17.200 Nicotine dependence, unspecified, uncomplicated; Z90.49 Acquired absence of other specified parts of digestive tract; Z90.89 Acquired absence of other organs; Z90.710 Acquired absence of both cervix and uterus; Z98.890 Other specified postprocedural states; Z79.82 Long term (current) use of aspirin; Z79.899 Other long term (current) drug therapy; Z88.0 Allergy status to penicillin
CPT/HCPCS: 36415; 71045; 80053; 82550; 83690; 83735; 83880; 84484; 85025; 85379; 85610; 93005; 96374; 96375; 99285; J2060; J3010

== ENCOUNTER 2019-10-17 12:16 | Emergency (ER) | payer BC, MEDICARE ==
[2019-10-17] MEDS ORDERED: IV NORMAL SALINE 1000ML BAG 1,000 ML IV SCH (12:30)
[2019-10-17] MEDS ORDERED: ASPIRIN CHEWABLE 81 MG TABLET. PO ONE (12:30)
--- NOTE | 2019-10-17 12:34 | PHYS DOC ---
Past Medical History Past Medical History: Anxiety, Arthritis, COPD, Depression, Hypertension, Hepatitis, Migraines, Seizure, UTI, Other Additional Past Medical Histor: Chronic pain,hep C(treated),drug seeking behavior Past Surgical History: Cholecystectomy, Hysterectomy, Knee Replacement, Tonsillectomy, Other Additional Past Surgical Histo: BX KNEE REPLACEMENT, NECK SX, COMMON BILE DUCT CUT, L ARM SX Alcohol Use: None Drug Use: None Adult General Chief Complaint Chief Complaint: CHEST PAIN HPI HPI Patient is a 58-year-old female who presents with complaint of left-sided chest discomfort that started this morning at about 9 to 9:30 AM. She states the pain is sharp and stabbing in nature and rates it at a 7 out of 10. Patient states that it is worsened with deep respirations. She does admit some nausea but is had no vomiting. She denies any diaphoresis. Patient states that pain is present at rest. She denies any recent increasing cough and has no shortness of perla ath.[] Review of Systems Review of Systems Constitutional: Denies fever or chills [] Respiratory: Denies cough or shortness of breath [] Cardiovascular: No additional information not addressed in HPI [] Integument: Denies rash or skin lesions [] Neurologic: Denies headache, focal weakness or sensory changes [] All other systems were reviewed and found to be within normal limits, except as documented in this note. Current Medications Current Medications Current Medications Medications (Trade) Dose Ordered Sig/[facility] Start Time Stop Time Status Last Admin Dose Admin Aspirin (Children'S Aspirin) 243 mg 1X ONCE 10/17/19 12:30 10/17/19 12:38 DC 10/17/19 12:40 243 MG Ketorolac Tromethamine (Toradol 30mg Vial) 30 mg 1X ONCE 10/17/19 13:45 10/17/19 13:46 DC 10/17/19 13:56 30 MG Morphine Sulfate (Morphine Sulfate) 4 mg 1X ONCE 10/17/19 15:00 10/17/19 15:01 DC 10/17/19 15:09 4 MG Nitroglycerin (Nitrostat) 0.4 mg PRN Q5MIN PRN 10/17/19 12:30 10/18/19 12:29 10/17/19 13:02 0.4 MG Sodium Chloride 1,000 ml @ 1,000 mls/hr Q1H 10/17/19 12:30 10/17/19 13:29 DC 10/17/19 12:42 1,000 MLS/HR Allergies Allergies Allergies Coded Allergies Type Severity Reaction Last Updated Verified Penicillins Allergy Intermediate Hives 10/17/19 Yes Physical Exam Physical Exam Constitutional: Well developed, well nourished, no acute distress, non-toxic a ppearance. [] HENT: Normocephalic, atraumatic, bilateral external ears normal, oropharynx moist, no oral exudates, nose normal. [] Eyes: PERRLA, EOMI, conjunctiva normal, no discharge. [] Neck: Normal range of motion, no tenderness, supple. [] Cardiovascular: Regular rate and rhythm. Pain is reproducible along the left sternal border[] Lungs & Thorax: Bilateral breath sounds clear to auscultation [] Abdomen: Bowel sounds normal, soft, no tenderness. [] Skin: Warm, dry, no erythema, no rash. [] Extremities: No tenderness, no cyanosis, no clubbing, ROM intact, no edema. [] Neurologic: Alert and oriented X 3, no focal deficits noted. [] Current Patient Data Vital Signs Vital Signs Date Time Temp Pulse Resp B/P (MAP) Pulse Ox O2 Delivery O2 Flow Rate FiO2 10/17/19 15:09 Room Air 10/17/19 13:02 96 136/78 10/17/19 12:26 18 98 Lab Values Laboratory Tests Test 10/17/19 12:47 White Blood Count 8.4 x10^3/uL (4.0-11.0) Red Blood Count 4.39 x10^6/uL (3.50-5.40) Hemoglobin 15.3 g/dL (12.0-15.5) Hematocrit 44.0 % (36.0-47.0) Mean Corpuscular Volume 100 fL (79-100) Mean Corpuscular Hemoglobin 35 pg (25-35) Mean Corpuscular Hemoglobin Concent 35 g/dL (31-37) Red Cell Distribution Width 12.8 % (11.5-14.5) Platelet Count 357 x10^3/uL (140-400) Neutrophils (%) (Auto) 58 % (31-73) Lymphocytes (%) (Auto) 33 % (24-48) Monocytes (%) (Auto) 5 % (0-9) Eosinophils (%) (Auto) 4 % (0-3) H Basophils (%) (Auto) 0 % (0-3) Neutrophils # (Auto) 4.8 x10^3/uL (1.8-7.7) Lymphocytes # (Auto) 2.8 x10^3/uL (1.0-4.8) Monocytes # (Auto) 0.4 x10^3/uL (0.0-1.1) Eosinophils # (Auto) 0.3 x10^3/uL (0.0-0.7) Basophils # (Auto) 0.0 x10^3/uL (0.0-0.2) D-Dimer (Hazel) < 0.27 ug/mlFEU Sodium Level 141 mmol/L (136-145) Potassium Level 3.5 mmol/L (3.5-5.1) Chloride Level 100 mmol/L (98-107) Carbon Dioxide Level 29 mmol/L (21-32) Anion Gap 12 (6-14) Blood Urea Nitrogen 15 mg/dL (7-20) Creatinine 0.6 mg/dL (0.6-1.0) Estimated GFR (Cockcroft-Gault) 103.0 BUN/Creatinine Ratio 25 (6-20) H Glucose Level 135 mg/dL (70-99) H Calcium Level 9.3 mg/dL (8.5-10.1) Magnesium Level 2.0 mg/dL (1.8-2.4) Total Bilirubin 0.6 mg/dL (0.2-1.0) Aspartate Amino Transferase (AST) 24 U/L (15-37) Alanine Aminotransferase (ALT) 16 U/L (14-59) Alkaline Phosphatase 93 U/L (46-116) Troponin I Quantitative < 0.017 ng/mL (0.000-0.055) GR-Dgi-E-Type Natriuretic Peptide 37 pg/mL (0-124) Total Protein 7.9 g/dL (6.4-8.2) Albumin 4.2 g/dL (3.4-5.0) Albumin/Globulin Ratio 1.1 (1.0-1.7) Lipase 100 U/L (73-393) Laboratory Tests 10/17/19 12:47 Laboratory Tests 10/17/19 12:47 EKG EKG EKG demonstrates normal sinus rhythm with rate of 89.[] Radiology/Procedures Radiology/Procedures [] Impressions: PROCEDURE: PORTABLE CHEST 1V Single view chest dated 10/17/2019: Comparison: 09/22/2019 Clinical Indication: Chest pain. Findings: Single upright portable exam of the chest was performed. Heart size and mediastinal contours are within normal limits given technique. The lungs are clear without evidence of focal consolidation. Vascular interstitium is within normal limits. Impression:: No acute radiographic abnormality. Electronically signed by: Francis Andres MD (10/17/2019 1:01 PM) [facility] Course & Med Decision Making Course & Med Decision Making Pertinent Labs and Imaging studies reviewed. (See chart for details) [] Dragon Disclaimer Dragon Disclaimer This electronic medical record was generated, in whole or in part, using a voice recognition dictation system. Departure Departure Impression: Primary Impression: Costochondritis Disposition: 01 HOME, SELF-CARE Condition: STABLE Referrals: ANGELITA WINCHESTER (PCP) Patient Instructions: Costochondritis Scripts Methylprednisolone (MEDROL) 4 Mg Tab.ds.pk 1 PKG PO UD, #1 PKG Prov: JUDY PAYNE Jr. DO 10/17/19 Diclofenac Sodium (DICLOFENAC SODIUM) 50 Mg Tablet.dr 1 TAB PO BID PRN for PAIN, #20 TAB Prov: JUDY PAYNE Jr. DO 10/17/19 JUDY PAYNE Jr. DO Oct 17, 2019 12:34
[2019-10-17] MEDS: NITROGLYCERIN SUBLINGUAL 0.4 MG BOTTLE OF 25. SL PRN ×3 (12:43→13:02)
[2019-10-17 13:04] LABS: BASO % 0 % (0-3); EOS # 0.3 x10^3/uL (0.0-0.7); EOS % 4 % (0-3); HEMOGLOBIN 15.3 g/dL (12.0-15.5); LYMPH # 2.8 x10^3/uL (1.0-4.8); LYMPH % 33 % (24-48); MEAN CORPUSCULAR HEMOGLOBIN 35 pg (25-35); MEAN CORPUSCULAR HGB CONC 35 g/dL (31-37); MEAN CORPUSCULAR VOLUME 100 fL (79-100); MONO # 0.4 x10^3/uL (0.0-1.1); MONO % 5 % (0-9); NEUT # 4.8 x10^3/uL (1.8-7.7); NEUT % 58 % (31-73); PLATELET COUNT 357 x10^3/uL (140-400); RED BLOOD COUNT 4.39 x10^6/uL (3.50-5.40); RED CELL DISTRIBUTION WIDTH 12.8 % (11.5-14.5); WHITE BLOOD COUNT 8.4 x10^3/uL (4.0-11.0)
--- NOTE | 2019-10-17 13:04 | RAD ---
Single view chest dated 10/17/2019: Comparison: 09/22/2019 Clinical Indication: Chest pain. Findings: Single upright portable exam of the chest was performed. Heart size and mediastinal contours are within normal limits given technique. The lungs are clear without evidence of focal consolidation. Vascular interstitium is within normal limits. Impression:: No acute radiographic abnormality. Electronically signed by: Francis Andres MD (10/17/2019 1:01 PM) [facility]
[2019-10-17 13:16] LABS: CALCIUM 9.3 mg/dL (8.5-10.1); CREATININE 0.6 mg/dL (0.6-1.0); POTASSIUM 3.5 mmol/L (3.5-5.1)
[2019-10-17 13:22] LABS: ALBUMIN 4.2 g/dL (3.4-5.0); ALBUMIN/GLOBULIN RATIO 1.1 (1.0-1.7); TOTAL BILIRUBIN 0.6 mg/dL (0.2-1.0); TOTAL PROTEIN 7.9 g/dL (6.4-8.2)
[2019-10-17] MEDS ORDERED: KETOROLAC 30 MG/ML VIAL. IVP ONE (13:45)
[2019-10-17] MEDS ORDERED: MORPHINE SULFATE 4 MG/ML VIAL. IV ONE (15:00)
[2019-10-17 15:50] VITALS: BP 160/90
[2019-10-17] MEDS ORDERED: METH4TAB2 PO (15:53)
[2019-10-17] MEDS ORDERED: DICL50TA4 PO (15:53)
--- NOTE | 2019-10-19 11:08 | EKG ---
[facility] [address] [place] [address] Test Date: 2019-10-17 Test Time: 12:26:58 Pat Name: ANNY FORD Department: Room: Gender: F [employer] Developer: : 1960 Requested By: JUDY PAYNE Order Number: [id number] Reading MD: Measurements Intervals Lena Rate: 88 P: 74 MI: 152 QRS: 70 QRSD: 98 T: 76 QT: 376 QTc: 458 Interpretive Statements SINUS RHYTHM RIGHT ATRIAL ENLARGEMENT POSSIBLY ABNORMAL ECG No previous ECG available for comparison
== END 2019-10-17 16:00 | disposition home or self-care (01) ==
LOC: ER 12:16
DX: M94.0 Chondrocostal junction syndrome [Tietze] (principal); R07.89 Other chest pain; R11.0 Nausea; F41.9 Anxiety disorder, unspecified; M19.90 Unspecified osteoarthritis, unspecified site; J44.9 Chronic obstructive pulmonary disease, unspecified; F32.9 Major depressive disorder, single episode, unspecified; I10 Essential (primary) hypertension; G43.909 Migraine, unspecified, not intractable, without status migrainosus; G89.29 Other chronic pain; Z90.710 Acquired absence of both cervix and uterus; Z90.49 Acquired absence of other specified parts of digestive tract; Z90.89 Acquired absence of other organs; Z98.890 Other specified postprocedural states; Z88.0 Allergy status to penicillin
CPT/HCPCS: 36415; 71045; 80053; 83690; 83735; 83880; 84484; 85025; 85379; 93005; 96374; 96375; 99285; J1885; J2270; J7030

== ENCOUNTER → 2019-11-03 | Outpatient (CLI) | payer BC, MEDICARE ==
[2019-10-17 15:50] VITALS: BP 160/90
[~2019-11-03] MED LIST changes: +DICL50TA4 PO
--- NOTE | 2019-11-03 14:52 | RAD ---
NM SCANNING RESOURCE, NM INJECTION, BONE SCAN 3 PHASE Clinical Indication: Left knee replacement. Left knee pain x2 years. Comparison: Left knee radiographs October 22, 2019. TECHNIQUE: Patient is injected with 25.5 mCi of technetium 99m MDP. Angiographic phase images of the knees. Immediate static images of the knees. After routine delay, multiple projection static images of the knees. Findings: No hyperemia is identified on the angiographic phase images. Faint tracer uptake of the left knee joint is seen on the blood pool image. Unexpected increased tracer uptake on the delay image near the left knee prosthesis is not appreciated. Correlate to time since surgery. There is mild tracer uptake that may be normal. IMPRESSION: Scintigraphic findings are not suggestive of loosening. Electronically signed by: Jonnie Johnston MD (11/03/2019 2:49 PM) [id number]
== END | disposition home or self-care (01) ==
LOC: NM 09:41
PROVIDERS: ATTEND Orthopaedic Surgery
DX: Z96.652 Presence of left artificial knee joint (principal)
CPT/HCPCS: 78315; A9503

== ENCOUNTER 2019-11-21 11:04 | Emergency (ER) | payer BC, MEDICARE ==
[~2019-11-21] VITALS: Ht 162.6 cm; Wt 47.7 kg
[2019-11-21 11:29] VITALS: BP 158/100
[2019-11-21] MEDS ORDERED: HYDROcodone/APAP 5/325MG 1 TAB TABLET PO ONE (11:45)
--- NOTE | 2019-11-21 11:46 | PHYS DOC ---
Past Medical History Past Medical History: Anxiety, Arthritis, COPD, Depression, Hypertension, Hepatitis, Migraines, Seizure, UTI, Other Additional Past Medical Histor: Chronic pain,hep C(treated),drug seeking behavior Past Surgical History: Cholecystectomy, Hysterectomy, Knee Replacement, Tonsillectomy, Other Additional Past Surgical Histo: BX KNEE REPLACEMENT, NECK SX, COMMON BILE DUCT CUT, L ARM SX Smoking Status: Current Every Day Smoker Alcohol Use: None Drug Use: None Adult General Chief Complaint Chief Complaint: PAIN CONTROL HPI HPI Patient is a 58 year old female well known to this ED for chronic pain presenting today complaining of chronic left knee pain rated at 9 out of 10. Patient reports she was seen by Dr. Orantes on November 12, 2019 and was given oxycodone. She states she is allergic to the oxycodone and would like hydrocodone. She states when she takes the oxycodone she has a rash. She states she already reported this to Dr. Orantes who requested her to take the oxycodone with Benadryl. She states it's not working she would like to be switched to hydrocodone. Review of Systems Review of Systems Constitutional: Denies fever or chills [] Musculoskeletal: Reports chronic left knee pain Integument: Denies rash or skin lesions [] Neurologic: Denies headache, focal weakness or sensory changes [] All other systems were reviewed and found to be within normal limits, except as documented in this note. Current Medications Current Medications Current Medications Medications (Trade) Dose Ordered Sig/Terrance Start Time Stop Time Status Last Admin Dose Admin Acetaminophen/ Hydrocodone Bitart (Lortab 5/325) 1 tab 1X ONCE 11/21/19 11:45 11/21/19 11:46 DC 11/21/19 11:45 1 TAB Allergies Allergies Allergies Coded Allergies Type Severity Reaction Last Updated Verified Penicillins Allergy Intermediate Hives 10/17/19 Yes Physical Exam Physical Exam Constitutional: Well developed, well nourished, no acute distress, non-toxic appearance. [] Skin: Warm, dry, no erythema, no rash. [] Back: No tenderness, no CVA tenderness. [] Extremities: No tenderness, no cyanosis, no clubbing, ROM intact, no edema. [] Neurologic: Alert and oriented X 3, normal motor function, normal sensory function, no focal deficits noted. [] Psychologic: Affect normal, judgement normal, mood normal. [] Current Patient Data Vital Signs Vital Signs Date Time Temp Pulse Resp B/P (MAP) Pulse Ox O2 Delivery O2 Flow Rate FiO2 11/21/19 11:45 14 Room Air 11/21/19 11:29 98.0 109 158/100 (119) 98 98.0 EKG EKG [] Radiology/Procedures Radiology/Procedures [] Course & Med Decision Making Course & Med Decision Making Pertinent Labs and Imaging studies reviewed. (See chart for details) This is a 58-year-old female patient presenting to the ED today requesting hydrocodone. Patient has chronic left knee pain. Was seen by Dr. Orantes and given 80 tablets of oxycodone 11/12/2019 to last for 2 weeks. She is reporting the oxycodone is making her have an itch and would like to switch to hydrocodone. Patient is well known to this ED for drug seeking behavior. Ktracs shows her overdose risk score is 930 (range 000-999). She is also on Tamezapam, clonazepam and Gabapentin. Informed patient we will not give her any prescription for narcotic medicine. Requested her to contact her orthopedic doctor's office and follow-up with them as soon as she can. Dragon Disclaimer Dragon Disclaimer This electronic medical record was generated, in whole or in part, using a voice recognition dictation system. Departure Departure Impression: Primary Impression: Left knee pain Additional Impression: Drug-seeking behavior Disposition: HOME, SELF-CARE Condition: STABLE Referrals: NO PCP (PCP) IVIS ORANTES MD follow up with your doctor on Saturday Patient Instructions: Knee Pain, [id number] Additional Instructions: You were seen for chronic left knee pain. We will not give you a prescription for hydrocodone considering you filled a prescription of oxycodone 02/21 a total of 80 tablets on November 12, 2019 14 day supply. Please follow-up with your doctor on Saturday. Problem Qualifiers Primary Impression: Left knee pain Chronicity: acute Qualified Codes: M25.562 - Pain in left knee ANIL RICHARDSON ROZINA Nov 21, 2019 11:46
== END 2019-11-21 11:55 | disposition home or self-care (01) ==
LOC: ER 11:04
DX: M25.562 Pain in left knee (principal); F41.9 Anxiety disorder, unspecified; M19.90 Unspecified osteoarthritis, unspecified site; J44.9 Chronic obstructive pulmonary disease, unspecified; F32.9 Major depressive disorder, single episode, unspecified; I10 Essential (primary) hypertension; G43.909 Migraine, unspecified, not intractable, without status migrainosus; G89.29 Other chronic pain; F17.200 Nicotine dependence, unspecified, uncomplicated; Z90.49 Acquired absence of other specified parts of digestive tract; Z90.89 Acquired absence of other organs; Z90.710 Acquired absence of both cervix and uterus; Z98.890 Other specified postprocedural states; Z88.0 Allergy status to penicillin; Z76.5 Malingerer [conscious simulation]
CPT/HCPCS: 99282; 99283

== ENCOUNTER 2019-11-29 11:31 | Emergency (ER) | payer BC, MEDICARE ==
[~2019-11-29] VITALS: Ht 157.5 cm; Wt 47.0 kg
[2019-11-29] MEDS ORDERED: IV NORMAL SALINE 1000ML BAG 1,000 ML IV SCH (12:21)
[2019-11-29] MEDS ORDERED: IPRATRPIUM/ALBUTEROL 0.5/2.5MG 3 ML NEBU. NEB ONE (12:30)
[2019-11-29 12:34] LABS: BASO # 0.1 x10^3/uL (0.0-0.2); BASO % 1 % (0-3); EOS % 0 % (0-3); HEMATOCRIT 43.1 % (36.0-47.0); HEMOGLOBIN 15.3 g/dL (12.0-15.5); LYMPH # 1.1 x10^3/uL (1.0-4.8); LYMPH % 12 % (24-48); MEAN CORPUSCULAR HEMOGLOBIN 35 pg (25-35); MEAN CORPUSCULAR HGB CONC 36 g/dL (31-37); MEAN CORPUSCULAR VOLUME 99 fL (79-100); MONO # 0.7 x10^3/uL (0.0-1.1); MONO % 7 % (0-9); NEUT # 7.6 x10^3/uL (1.8-7.7); NEUT % 81 % (31-73); PLATELET COUNT 264 x10^3/uL (140-400); RED BLOOD COUNT 4.36 x10^6/uL (3.50-5.40); RED CELL DISTRIBUTION WIDTH 13.5 % (11.5-14.5); WHITE BLOOD COUNT 9.4 x10^3/uL (4.0-11.0)
[2019-11-29] MEDS ORDERED: ONDANSETRON PF 4 MG/2 ML VIAL. IVP ONE (12:45)
[2019-11-29 12:46] LABS: CALCIUM 9.9 mg/dL (8.5-10.1); CREATININE 0.8 mg/dL (0.6-1.0); GFR 73.7
[2019-11-29 12:48] VITALS: BP 134/73
[2019-11-29 12:59] LABS: INFLUENZA A PATIENT NEGATIVE (NEGATIVE); INFLUENZA B PATIENT NEGATIVE (NEGATIVE)
[2019-11-29 13:00] LABS: ALBUMIN/GLOBULIN RATIO 0.9 (1.0-1.7); TOTAL BILIRUBIN 0.4 mg/dL (0.2-1.0); TOTAL PROTEIN 8.4 g/dL (6.4-8.2)
[2019-11-29 13:03] LABS: BILIRUBIN,URINE SMALL (NEG); CLARITY,URINE CLEAR; COLOR,URINE YELLOW; NITRITE,URINE NEGATIVE (NEG); PH,URINE 5.5; PROTEIN,URINE NEGATIVE (NEG-TRACE); UROBILINOGEN,URINE 0.2 mg/dL (0.2 mg/dL)
--- NOTE | 2019-11-29 13:03 | RAD ---
PA and lateral chest x-ray HISTORY: Cough and fever. COMPARISON: Chest x-ray October 17, 2019. FINDINGS: Heart size is normal. Mediastinal silhouette is normal. Left hilar calcified granuloma stable. No pneumothorax, pulmonary opacities or pleural effusions. Bones are unremarkable. IMPRESSION: No acute process. Electronically signed by: Enrico Hall MD (11/29/2019 1:00 PM) [id number]
[2019-11-29] MEDS ORDERED: METOCLOPRAMIDE HCL 10 MG/2 ML VIAL. IVP ONE (13:30)
[2019-11-29] MEDS ORDERED: BENZONATATE 100 MG CAPSULE. PO ONE (13:30)
[2019-11-29] MEDS ORDERED: methylPREDNISolone SOD SUCC PF 125 MG/2 ML VIAL. IV ONE (13:30)
[2019-11-29 13:39] LABS: HYALINE CASTS, URINE MODERATE /HPF; SQUAMOUS EPITHELIAL CELL,UR MOD /LPF
[2019-11-29 13:40] LABS: BACTERIA,URINE FEW /HPF (0-FEW); WBC,URINE 0 /HPF (0-4)
--- NOTE | 2019-11-29 13:52 | PHYS DOC ---
Past Medical History Past Medical History: Anxiety, Arthritis, COPD, Depression, Hypertension, Hepatitis, Migraines, Seizure, UTI, Other Additional Past Medical Histor: Chronic pain,hep C(treated),drug seeking behavior Past Surgical History: Cholecystectomy, Hysterectomy, Knee Replacement, Tonsillectomy, Other Additional Past Surgical Histo: BX KNEE REPLACEMENT, NECK SX, COMMON BILE DUCT CUT, L ARM SX Smoking Status: Current Every Day Smoker Alcohol Use: None Drug Use: None Adult General Chief Complaint Chief Complaint: NAUSEA/VOMITING/DIARRHA HPI HPI Patient is a 59 year old smoker female with history of hypertension, arthritis, anxiety and depression, Chronic pain,hep C(treated),drug seeking behavior who presents with complaint of nausea and vomiting. Patient complaining of nonproductive cough that started since yesterday associated with nausea and several episodes of vomiting that started today. Patient complaining of temperature of 102 last night and generalized weakness, nasal congestion, sore throat and denies myalgia, diarrhea, urinary symptoms, sick contact, abdominal pain. Review of Systems Review of Systems Constitutional: Reports fever Eyes: Denies change in visual acuity, redness, or eye pain [] HENT: Force nasal congestion or sore throat Respiratory: Reports cough, denies shortness of breath Cardiovascular: No additional information not addressed in HPI [] GI: Denies abdominal pain, bloody stools or diarrhea, reports nausea and vomiting [] : Denies dysuria or hematuria [] Musculoskeletal: Denies back pain or joint pain [] Integument: Denies rash or skin lesions [] Neurologic: Denies headache, focal weakness or sensory changes [] Endocrine: Denies polyuria or polydipsia [] All other systems were reviewed and found to be within normal limits, except as documented in this note. Current Medications Current Medications Current Medications Medications (Trade) Dose Ordered Sig/Terrance Start Time Stop Time Status Last Admin Dose Admin Albuterol/ Ipratropium (Duoneb) 3 ml 1X ONCE 11/29/19 12:30 11/29/19 12:31 DC 11/29/19 12:29 3 ML Benzonatate (Tessalon Perle) 100 mg 1X ONCE 11/29/19 13:30 11/29/19 13:31 DC 11/29/19 13:29 100 MG Methylprednisolone Sodium Succinate (SOLU-Medrol 125MG VIAL) 125 mg 1X ONCE 11/29/19 13:30 3/1/20 13:31 DC 11/29/19 13:29 125 MG Metoclopramide HCl (Reglan Vial) 10 mg 1X ONCE 11/29/19 13:30 11/29/19 13:31 DC 11/29/19 13:29 10 MG Ondansetron HCl (Zofran) 4 mg 1X ONCE 11/29/19 12:45 11/29/19 12:46 DC 11/29/19 12:47 4 MG Sodium Chloride 1,000 ml @ 1,000 mls/hr Q1H 11/29/19 12:21 11/29/19 13:20 DC 11/29/19 12:48 1,000 MLS/HR Allergies Allergies Allergies Coded Allergies Type Severity Reaction Last Updated Verified Penicillins Allergy Intermediate Hives 10/17/19 Yes Physical Exam Physical Exam Constitutional: Well developed, mild distress, non-toxic appearance. [] HENT: Normocephalic, atraumatic, bilateral external ears normal, oropharynx dry, no oral exudates, nose normal. [] Eyes: PERRLA, EOMI, conjunctiva normal, no discharge. [] Neck: Normal range of motion, no tenderness, supple, no stridor. [] Cardiovascular: Tachycardia, no murmur [] Lungs & Thorax: No respiratory distress, bilateral rhonchi. Abdomen: Bowel sounds normal, soft, no tenderness, no masses, no pulsatile masses. [] Skin: Warm, dry, no erythema, no rash. [] Back: No tenderness, no CVA tenderness. [] Extremities: No tenderness, no cyanosis, no clubbing, ROM intact, no edema. [] Neurologic: Alert and oriented X 3, normal motor function, normal sensory function, no focal deficits noted. [] Psychologic: Affect anxious, judgement normal, mood normal. [] Current Patient Data Vital Signs Vital Signs Date Time Temp Pulse Resp B/P (MAP) Pulse Ox O2 Delivery O2 Flow Rate FiO2 11/29/19 12:48 116 18 134/73 (93) 98 Room Air 11/29/19 12:05 98.2 98.2 Lab Values Laboratory Tests Test 11/29/19 11:50 11/29/19 12:24 11/29/19 12:30 Urine Collection Type Unknown Urine Color Yellow Urine Clarity Clear Urine pH 5.5 Urine Specific [place] 1.015 Urine Protein Negative mg/dL (NEG-TRACE) Urine Glucose (UA) Negative mg/dL (NEG) Urine Ketones (Stick) 40 mg/dL (NEG) Urine Blood Moderate (NEG) Urine Nitrite Negative (NEG) Urine Bilirubin Small (NEG) Urine Urobilinogen Dipstick 0.2 mg/dL (0.2 mg/dL) Urine Leukocyte Esterase Negative (NEG) Urine RBC 1-2 /HPF (0-2) Urine WBC 0 /HPF (0-4) Urine Squamous Epithelial Cells Mod /LPF Urine Bacteria Few /HPF (0-FEW) Urine Hyaline Casts Moderate /HPF Urine Mucus Mod /LPF White Blood Count 9.4 x10^3/uL (4.0-11.0) Red Blood Count 4.36 x10^6/uL (3.50-5.40) Hemoglobin 15.3 g/dL (12.0-15.5) Hematocrit 43.1 % (36.0-47.0) Mean Corpuscular Volume 99 fL (79-100) Mean Corpuscular Hemoglobin 35 pg (25-35) Mean Corpuscular Hemoglobin Concent 36 g/dL (31-37) Red Cell Distribution Width 13.5 % (11.5-14.5) Platelet Count 264 x10^3/uL (140-400) Neutrophils (%) (Auto) 81 % (31-73) H Lymphocytes (%) (Auto) 12 % (24-48) L Monocytes (%) (Auto) 7 % (0-9) Eosinophils (%) (Auto) 0 % (0-3) Basophils (%) (Auto) 1 % (0-3) Neutrophils # (Auto) 7.6 x10^3/uL (1.8-7.7) Lymphocytes # (Auto) 1.1 x10^3/uL (1.0-4.8) Monocytes # (Auto) 0.7 x10^3/uL (0.0-1.1) Eosinophils # (Auto) 0.0 x10^3/uL (0.0-0.7) Basophils # (Auto) 0.1 x10^3/uL (0.0-0.2) Sodium Level 138 mmol/L (136-145) Potassium Level 4.0 mmol/L (3.5-5.1) Chloride Level 98 mmol/L (98-107) Carbon Dioxide Level 28 mmol/L (21-32) Anion Gap 12 (6-14) Blood Urea Nitrogen 15 mg/dL (7-20) Creatinine 0.8 mg/dL (0.6-1.0) Estimated GFR (Cockcroft-Gault) 73.7 BUN/Creatinine Ratio 19 (6-20) Glucose Level 142 mg/dL (70-99) H Lactic Acid Level 1.5 mmol/L (0.4-2.0) Calcium Level 9.9 mg/dL (8.5-10.1) Total Bilirubin 0.4 mg/dL (0.2-1.0) Aspartate Amino Transferase (AST) 66 U/L (15-37) H Alanine Aminotransferase (ALT) 98 U/L (14-59) H Alkaline Phosphatase 155 U/L (46-116) H Total Protein 8.4 g/dL (6.4-8.2) H Albumin 4.0 g/dL (3.4-5.0) Albumin/Globulin Ratio 0.9 (1.0-1.7) L Influenza Type A Antigen Negative (NEGATIVE) Influenza Type B Antigen Negative (NEGATIVE) Laboratory Tests 11/29/19 12:24 Laboratory Tests 11/29/19 12:24 EKG EKG [] Radiology/Procedures Radiology/Procedures [facility] [id number] [facility] [place], [place] [id number] IMAGING REPORT Signed PATIENT: ANNY FORD ACCOUNT: [id number] : 1960 LOCATION: ER AGE: 59 SEX: F EXAM STATUS: REG ER ORD. PHYSICIAN: JEWELS VOGT MD REASON: cough and fever PROCEDURE: CHEST PA & LATERAL PA and lateral chest x-ray HISTORY: Cough and fever. COMPARISON: Chest x-ray October 17, 2019. FINDINGS: Heart size is normal. Mediastinal silhouette is normal. Left hilar calcified granuloma stable. No pneumothorax, pulmonary opacities or pleural effusions. Bones are unremarkable. IMPRESSION: No acute process. Electronically signed by: Jeanie Hall MD (11/29/2019 1:00 PM) [id number] DICTATED and SIGNED BY: JEANIE HALL MD DATE: 11/29/19 1300 Course & Med Decision Making Course & Med Decision Making Pertinent Labs and Imaging studies reviewed. (See chart for details) Evolution of patient in ER showed 59-year-old female patient with complaining of cough and congestion and nausea and vomiting and fever since yesterday. Patient was afebrile in ER. Patient did not have ptosis, elevation of lactic acid, positive for a test of chest x-ray. Patient treated with IV fluid and Solu- Medrol and Tessalon and Zofran with improvement of her condition. Plan discharge patient home with diagnose of bronchitis. I've spoken with the patient and/or caregivers. I've explained the patient's condition, diagnosis and treatment plan based on information available to me at this time. I've answered the patient's and/or caregivers questions and addressed any concerns. The patient and/or caregivers have a good understanding the patient's diagnosis, condition and treatment plan as can be expected at this point. Vital signs have been stabilized. The patient's condition is stable for discharge from the emergency department. The patient will pursue further outpatient evaluation with her primary care provider or other designated consulting physician as outlined in the discharge instructions. Patient and/or caregivers are agreeable to this plan of care and follow-up instructions have been explained in detail. The patient and/or caregivers have received these instructions in written format and expressed understanding of these discharge instructions. The patient and her caregivers are aware that if any significant change in condition or worsening of symptoms should prompt him to immediately return to this of the closest emergency department. If an emergent department is not readily available I would encourage him to call 911. Kimberlee Disclaimer Dragon Disclaimer This electronic medical record was generated, in whole or in part, using a voice recognition dictation system. Departure Departure Impression: Primary Impression: Acute bronchitis Additional Impressions: Nausea and vomiting Elevated liver function tests Tobacco abuse Tobacco abuse counseling Disposition: HOME, SELF-CARE (at 1408) Condition: IMPROVED Referrals: NO PCP (PCP) Patient Instructions: Acute Bronchitis, Nausea and Vomiting, Smoking Cessation, Tips For Success Additional Instructions: Drink plenty of liquids Follow-up with your primary care physician in 3-5 days Return to ER if not getting better Continue home inhaler Thank you for visiting [facility]. We appreciate you trusting us with your care. If any additional problems come up don't hesitate to return to visit us. Please follow up with your primary care provider so they can plan additional care if needed and know about the problem that you had. If symptoms worsen come back to the Emergency Department. Any concerning symptoms that start such as chest pain, shortness of air, weakness or numbness on one side of the body, running high fevers or any other concerning symptoms return to the ER. Scripts Ondansetron Hcl (ZOFRAN) 4 Mg Tablet 1 TAB PO PRN Q6-8HRS for nausea, #12 TAB Prov: JEWELS VOGT MD 11/29/19 Azithromycin (ZITHROMAX) 250 Mg Tablet 250 MG PO as directed for ANTI-BIOTIC, #6 TAB 0 Refills Take 2 PO x 1 days Then take 1 PO q 24 hour for the next 4 days Prov: JEWELS VOGT MD 11/29/19 Benzonatate (TESSALON PERLE) 100 Mg Capsule 1 CAP PO TID for cough, #21 CAP Prov: JEWELS VOGT MD 11/29/19 Methylprednisolone (MEDROL) 4 Mg Tab.ds.pk 1 PKG PO UD for inflammation, #1 PKG Prov: JEWELS VOGT MD 11/29/19 Problem Qualifiers Primary Impression: Acute bronchitis Bronchitis organism: unspecified organism Qualified Codes: J20.9 - Acute bronchitis, unspecified Additional Impressions: Nausea and vomiting Vomiting type: unspecified Vomiting Intractability: non-intractable Qual ified Codes: R11.2 - Nausea with vomiting, unspecified JEWELS VOGT MD Nov 29, 2019 13:52
[2019-11-29] MEDS ORDERED: AZIT250T PO (14:12)
[2019-11-29] MEDS ORDERED: METH4TAB2 PO (14:12)
[2019-11-29] MEDS ORDERED: BENZ100C PO (14:12)
[2019-11-29] MEDS ORDERED: ONDA4TAB7 PO (14:14)
== END 2019-11-29 14:20 | disposition home or self-care (01) ==
LOC: ER 11:31
DX: J20.9 Acute bronchitis, unspecified (principal); R11.2 Nausea with vomiting, unspecified; R79.89 Other specified abnormal findings of blood chemistry; R05 Cough; R50.9 Fever, unspecified; F41.9 Anxiety disorder, unspecified; J44.9 Chronic obstructive pulmonary disease, unspecified; M19.90 Unspecified osteoarthritis, unspecified site; F32.9 Major depressive disorder, single episode, unspecified; I10 Essential (primary) hypertension; G43.909 Migraine, unspecified, not intractable, without status migrainosus; G89.29 Other chronic pain; Z90.49 Acquired absence of other specified parts of digestive tract; Z90.710 Acquired absence of both cervix and uterus; Z90.89 Acquired absence of other organs; Z98.890 Other specified postprocedural states; Z87.891 Personal history of nicotine dependence; Z88.0 Allergy status to penicillin
CPT/HCPCS: 36415; 71046; 80053; 81001; 83605; 85025; 87040; 87804; 94640; 96361; 96374; 96375; 99284; J2405; J2765; J2930; J7030

== ENCOUNTER 2019-12-22 21:49 | Emergency (ER) | payer BC, MEDICARE ==
[~2019-12-22] VITALS: Ht 162.6 cm; Wt 50.0 kg
[~2019-12-22 21:49] MED LIST changes: +AZIT250T PO; +BENZ100C PO
[2019-12-22 22:10] VITALS: BP 150/93
[2019-12-22] MEDS ORDERED: DICL50TA4 PO (22:26)
--- NOTE | 2019-12-22 22:26 | PHYS DOC ---
Past Medical History Past Medical History: Anxiety, Arthritis, COPD, Depression, Hypertension, Hepatitis, Migraines, Seizure, UTI, Other Additional Past Medical Histor: Chronic pain,hep C(treated),drug seeking behavior Past Surgical History: Cholecystectomy, Hysterectomy, Knee Replacement, Tonsillectomy, Other Additional Past Surgical Histo: BX KNEE REPLACEMENT, NECK SX, COMMON BILE DUCT CUT, L ARM SX Smoking Status: Current Every Day Smoker Alcohol Use: None Drug Use: None Adult General Chief Complaint Chief Complaint: [facility] HPI Patient is a 59 year old female who presents with complaint of chronic left knee pain. Patient indicates that she had a full replacement in the past and states that she needs to have a revision done on her replacement. She states that the majority of the pain is on the lateral aspect of the knee. She denies any recent injury. Patient states that she does not have a primary care doctor and is here just for the pain.[] Review of Systems Review of Systems Constitutional: Denies fever or chills [] Respiratory: Denies cough or shortness of breath [] Cardiovascular: No additional information not addressed in HPI [] Musculoskeletal: Complains of chronic left knee pain [] Integument: Denies rash or skin lesions [] Allergies Allergies Allergies Coded Allergies Type Severity Reaction Last Updated Verified Penicillins Allergy Intermediate Hives 10/17/19 Yes Physical Exam Physical Exam Constitutional: Well developed, well nourished, no acute distress, non-toxic appearance. [] Cardiovascular:Heart rate regular rhythm, no murmur [] Lungs & Thorax: Bilateral breath sounds clear to auscultation [] Extremities: Examination of left knee demonstrates tenderness to palpation just lateral to the patella. There is no soft tissue swelling, joint effusion or other visible abnormalities.. [] Neurologic: Alert and oriented X 3, no focal deficits noted. [] EKG EKG [] Radiology/Procedures Radiology/Procedures [] Course & Med Decision Making Course & Med Decision Making Pertinent Labs and Imaging studies reviewed. (See chart for details) [] Dragon Disclaimer Dragon Disclaimer This electronic medical record was generated, in whole or in part, using a voice recognition dictation system. Departure Departure Impression: Primary Impression: Chronic pain of left knee Disposition: 01 HOME, SELF-CARE Condition: STABLE Referrals: NO PCP (PCP) Patient Instructions: Chronic Pain, Knee Pain Scripts Diclofenac Sodium (DICLOFENAC SODIUM) 50 Mg Tablet. 1 TAB PO BID PRN for PAIN, #20 TAB Prov: JUDY PAYNE Jr. DO 12/22/19 JUDY PAYNE Jr. DO Dec 22, 2019 22:26
== END 2019-12-22 22:38 | disposition home or self-care (01) ==
LOC: ER 21:49
DX: G89.29 Other chronic pain (principal); M25.562 Pain in left knee; I10 Essential (primary) hypertension; F41.9 Anxiety disorder, unspecified; M19.90 Unspecified osteoarthritis, unspecified site; J44.9 Chronic obstructive pulmonary disease, unspecified; F32.9 Major depressive disorder, single episode, unspecified; G43.909 Migraine, unspecified, not intractable, without status migrainosus; F17.200 Nicotine dependence, unspecified, uncomplicated; K73.9 Chronic hepatitis, unspecified; Z90.49 Acquired absence of other specified parts of digestive tract; Z90.710 Acquired absence of both cervix and uterus; Z98.890 Other specified postprocedural states
CPT/HCPCS: 99284

== ENCOUNTER 2019-12-27 19:26 | Emergency (ER) | payer BC, MEDICARE ==
[~2019-12-27] VITALS: Ht 162.6 cm; Wt 47.7 kg
[2019-12-27 20:57] LABS: BILIRUBIN,URINE NEGATIVE (NEG); CLARITY,URINE CLEAR; COLOR,URINE YELLOW; NITRITE,URINE NEGATIVE (NEG); PROTEIN,URINE NEGATIVE (NEG-TRACE); UROBILINOGEN,URINE 0.2 mg/dL (0.2 mg/dL)
--- NOTE | 2019-12-27 21:03 | PHYS DOC ---
Past Medical History Past Medical History: Anxiety, Arthritis, COPD, Depression, Hypertension, Hepatitis, Migraines, Seizure, UTI, Other Additional Past Medical Histor: Chronic pain,hep C(treated),drug seeking behavior (NILDA LARSEN) Past Surgical History: Cholecystectomy, Hysterectomy, Knee Replacement, Tonsillectomy, Other Additional Past Surgical Histo: BX KNEE REPLACEMENT, NECK SX, COMMON BILE DUCT CUT, L ARM SX (NILDA LARSEN) Smoking Status: Current Every Day Smoker Alcohol Use: None Drug Use: None (NILDA LARSEN) Adult General Chief Complaint Chief Complaint: ABDOMINAL PAIN HPI HPI Patient is a 59 year old F who comes in with pain in her R groin and states she "thinks she has a hernia". Pt had a hernia on the left side that she had repaired in the past and states this pain on the R side started 3 days ago. She is nauseated without vomiting and states she hasn't had a BM in several days. She didn't want to come to the ER tonight due to the CoVid scare but states the pain became too severe. (NILDA ALRSEN) Review of Systems Review of Systems Constitutional: Denies fever or chills HENT: Denies nasal congestion or sore throat Respiratory: Denies cough or shortness of breath Cardiovascular: Denies chest pain GI: Reports R low groin pain, nausea and constipation. : Denies dysuria or hematuria. Musculoskeletal: Denies back pain or joint pain Integument: Denies rash or skin lesions Neurologic: Denies headache, focal weakness or sensory changes All other systems were reviewed and found to be within normal limits, except as documented in this note. (NILDA LARSEN) Current Medications Current Medications Current Medications Medications (Trade) Dose Ordered Sig/Terrance Start Time Stop Time Status Last Admin Dose Admin Fentanyl Citrate (Fentanyl 2ml Vial) 75 mcg 1X ONCE 12/27/19 23:30 12/27/19 23:31 DC 12/27/19 23:21 75 MCG Info (CONTRAST GIVEN -- Rx MONITORING) 1 each PRN DAILY PRN 12/27/19 22:15 12/27/19 23:45 DC Iohexol (Omnipaque 300 Mg/ml) 75 ml 1X ONCE 12/27/19 22:30 12/27/19 22:31 DC 12/27/19 22:52 75 ML Morphine Sulfate (Morphine Sulfate) 4 mg 1X ONCE 12/27/19 21:30 12/27/19 21:31 DC 12/27/19 21:31 4 MG Ondansetron HCl (Zofran) 4 mg 1X ONCE 12/27/19 21:30 12/27/19 21:31 DC 12/27/19 21:29 4 MG Sodium Chloride 1,000 ml @ 1,000 mls/hr 1X ONCE 12/27/19 21:30 12/27/19 22:29 DC 12/27/19 21:28 1,000 MLS/HR (BRIANA MIRANDA DO) Allergies Allergies Allergies Coded Allergies Type Severity Reaction Last Updated Verified Penicillins Allergy Intermediate Hives 10/17/19 Yes (BRIANA MIRANDA DO) Physical Exam Physical Exam Constitutional: Well developed, well nourished, no acute distress, non-toxic appearance. Appears uncomfortable. HENT: Normocephalic, atraumatic, bilateral external ears normal, oropharynx moist, no oral exudates, nose normal. Neck: Normal range of motion, no tenderness, supple, no stridor. Cardiovascular:Heart rate regular rhythm, no murmur Lungs & Thorax: Bilateral breath sounds clear to auscultation Abdomen: Bowel sounds normal, soft, no pulsatile masses. R inguinal fullness that is tender to touch. No discoloration noted. Skin: Warm, dry, no erythema, no rash. Back: No tenderness, no CVA tenderness. Extremities: No tenderness, no cyanosis, no clubbing, ROM intact, no edema. Neurologic: Alert and oriented X 3, normal motor function, normal sensory f unction, no focal deficits noted. Psychologic: Affect normal, judgement normal, mood normal. (NILDA LARSEN) Physical Exam Constitutional: Well developed, well nourished, no acute distress, non-toxic appearance HENT: Normocephalic, atraumatic, oropharynx moist Eyes: Conjunctiva normal, no discharge Skin: Warm, dry, no erythema, no rash Abdomen: Soft, R lower quadrant tenderness on palpation Neurologic: Alert and oriented X 3, speech normal Psychologic: Affect normal, judgment normal (BRIANA MIRANDA DO) Current Patient Data Vital Signs Vital Signs Date Time Temp Pulse Resp B/P (MAP) Pulse Ox O2 Delivery O2 Flow Rate FiO2 12/27/19 23:24 91 16 158/98 (118) 96 Room Air 12/27/19 20:43 97.7 97.7 (BRIANA MIRANDA DO) Lab Values Laboratory Tests Test 12/27/19 20:40 12/27/19 21:15 12/27/19 22:03 Urine Collection Type Unknown Urine Color Yellow Urine Clarity Clear Urine pH 6.0 (<5.0-8.0) Urine Specific [place] >=1.030 (1.000-1.030) Urine Protein Negative mg/dL (NEG-TRACE) Urine Glucose (UA) Negative mg/dL (NEG) Urine Ketones (Stick) Trace mg/dL (NEG) Urine Blood Negative (NEG) Urine Nitrite Negative (NEG) Urine Bilirubin Negative (NEG) Urine Urobilinogen Dipstick 0.2 mg/dL (0.2 mg/dL) Urine Leukocyte Esterase Negative (NEG) Urine RBC Occ /HPF (0-2) Urine WBC Occ /HPF (0-4) Urine Squamous Epithelial Cells Few /LPF Urine Bacteria 0 /HPF (0-FEW) Urine Mucus Marked /LPF White Blood Count 5.9 x10^3/uL (4.0-11.0) Red Blood Count 4.28 x10^6/uL (3.50-5.40) Hemoglobin 14.4 g/dL (12.0-15.5) Hematocrit 42.7 % (36.0-47.0) Mean Corpuscular Volume 100 fL (79-100) Mean Corpuscular Hemoglobin 34 pg (25-35) Mean Corpuscular Hemoglobin Concent 34 g/dL (31-37) Red Cell Distribution Width 13.4 % (11.5-14.5) Platelet Count 279 x10^3/uL (140-400) Neutrophils (%) (Auto) 31 % (31-73) Lymphocytes (%) (Auto) 54 % (24-48) H Monocytes (%) (Auto) 8 % (0-9) Eosinophils (%) (Auto) 7 % (0-3) H Basophils (%) (Auto) 1 % (0-3) Neutrophils # (Auto) 1.8 x10^3/uL (1.8-7.7) Lymphocytes # (Auto) 3.2 x10^3/uL (1.0-4.8) Monocytes # (Auto) 0.4 x10^3/uL (0.0-1.1) Eosinophils # (Auto) 0.4 x10^3/uL (0.0-0.7) Basophils # (Auto) 0.1 x10^3/uL (0.0-0.2) Sodium Level 138 mmol/L (136-145) Potassium Level 3.5 mmol/L (3.5-5.1) Chloride Level 103 mmol/L (98-107) Carbon Dioxide Level 28 mmol/L (21-32) Anion Gap 7 (6-14) Blood Urea Nitrogen 17 mg/dL (7-20) Creatinine 0.7 mg/dL (0.6-1.0) Estimated GFR (Cockcroft-Gault) 85.9 BUN/Creatinine Ratio 24 (6-20) H Glucose Level 103 mg/dL (70-99) H Calcium Level 9.0 mg/dL (8.5-10.1) Total Bilirubin 0.3 mg/dL (0.2-1.0) Aspartate Amino Transferase (AST) 30 U/L (15-37) Alanine Aminotransferase (ALT) 26 U/L (14-59) Alkaline Phosphatase 83 U/L (46-116) Total Protein 7.2 g/dL (6.4-8.2) Albumin 3.6 g/dL (3.4-5.0) Albumin/Globulin Ratio 1.0 (1.0-1.7) Laboratory Tests 12/27/19 21:15 Laboratory Tests 12/27/19 22:03 (BRIANA MIRANDA DO) Lab Values Laboratory Tests Test 12/27/19 20:40 12/27/19 21:15 12/27/19 22:03 Urine Collection Type Unknown Urine Color Yellow Urine Clarity Clear Urine pH 6.0 (<5.0-8.0) Urine Specific [place] >=1.030 (1.000-1.030) Urine Protein Negative mg/dL (NEG-TRACE) Urine Glucose (UA) Negative mg/dL (NEG) Urine Ketones (Stick) Trace mg/dL (NEG) Urine Blood Negative (NEG) Urine Nitrite Negative (NEG) Urine Bilirubin Negative (NEG) Urine Urobilinogen Dipstick 0.2 mg/dL (0.2 mg/dL) Urine Leukocyte Esterase Negative (NEG) Urine RBC Occ /HPF (0-2) Urine WBC Occ /HPF (0-4) Urine Squamous Epithelial Cells Few /LPF Urine Bacteria 0 /HPF (0-FEW) Urine Mucus Marked /LPF White Blood Count 5.9 x10^3/uL (4.0-11.0) Red Blood Count 4.28 x10^6/uL (3.50-5.40) Hemoglobin 14.4 g/dL (12.0-15.5) Hematocrit 42.7 % (36.0-47.0) Mean Corpuscular Volume 100 fL (79-100) Mean Corpuscular Hemoglobin 34 pg (25-35) Mean Corpuscular Hemoglobin Concent 34 g/dL (31-37) Red Cell Distribution Width 13.4 % (11.5-14.5) Platelet Count 279 x10^3/uL (140-400) Neutrophils (%) (Auto) 31 % (31-73) Lymphocytes (%) (Auto) 54 % (24-48) H Monocytes (%) (Auto) 8 % (0-9) Eosinophils (%) (Auto) 7 % (0-3) H Basophils (%) (Auto) 1 % (0-3) Neutrophils # (Auto) 1.8 x10^3/uL (1.8-7.7) Lymphocytes # (Auto) 3.2 x10^3/uL (1.0-4.8) Monocytes # (Auto) 0.4 x10^3/uL (0.0-1.1) Eosinophils # (Auto) 0.4 x10^3/uL (0.0-0.7) Basophils # (Auto) 0.1 x10^3/uL (0.0-0.2) Sodium Level 138 mmol/L (136-145) Potassium Level 3.5 mmol/L (3.5-5.1) Chloride Level 103 mmol/L (98-107) Carbon Dioxide Level 28 mmol/L (21-32) Anion Gap 7 (6-14) Blood Urea Nitrogen 17 mg/dL (7-20) Creatinine 0.7 mg/dL (0.6-1.0) Estimated GFR (Cockcroft-Gault) 85.9 BUN/Creatinine Ratio 24 (6-20) H Glucose Level 103 mg/dL (70-99) H Calcium Level 9.0 mg/dL (8.5-10.1) Total Bilirubin 0.3 mg/dL (0.2-1.0) Aspartate Amino Transferase (AST) 30 U/L (15-37) Alanine Aminotransferase (ALT) 26 U/L (14-59) Alkaline Phosphatase 83 U/L (46-116) Total Protein 7.2 g/dL (6.4-8.2) Albumin 3.6 g/dL (3.4-5.0) Albumin/Globulin Ratio 1.0 (1.0-1.7) Laboratory Tests 12/27/19 21:15 Laboratory Tests 12/27/19 22:03 (NILDA LARSEN) EKG EKG [] (NILDA LARSEN) Radiology/Procedures Radiology/Procedures [] (NILDA LARSEN) Radiology/Procedures PROCEDURE: CT ABD PELV W/ IV CONTRST ONLY INDICATION: Right groin pain COMPARISON: February 2013 TECHNIQUE: Axial CT images obtained through the abdomen and pelvis with contrast. One or more of the following individualized dose reduction techniques were utilized for this examination: 1. Automated exposure control; 2. Adjustment of the mA and/or kV according to patient size; 3. Use of iterative reconstruction technique. FINDINGS: There is either some prominent vessels or regions of nodularity adjacent to the distal esophagus. Moderate atherosclerotic disease. Postcholecystectomy changes with prominent bile ducts. Focal low density adjacent to falciform ligament. Nonspecific but can be from fatty infiltration. No peripancreatic fluid collection. Splenic calcified granuloma. Urinary bladder somewhat distended at time of exam. Mild prominence bilateral extrarenal pelvis. Appendix is not well seen. Small fat-containing right inguinal. No dilated loops of bowel to suggest obstruction. Degenerative changes of spine with multilevel central canal and neural foraminal stenosis. Multiple Schmorl's nodes. IMPRESSION: * Small fat-containing right inguinal hernia without evidence of bowel obstruction. * Dilatation of the biliary tree postcholecystectomy which is a commonly seen finding postoperatively. * Calcific atherosclerosis. * Urinary bladder somewhat distended at time of exam with mild prominence of bilateral extrarenal pelvis. Could be from the patient not urinating recently however would correlate with symptoms to ensure there is not a pathologic cause such as partial bladder outlet obstruction. * Degenerative changes of the bilateral hip with suspected right hip joint effusion. Electronically signed by: Darrel Agee MD (12/27/2019 11:14 PM) [id number] (BRIANA MIRANDA DO) Course & Med Decision Making Course & Med Decision Making Labs and CT pending, care transferred to Dr. Miranda at 0. (NILDA LARSEN) Course & Med Decision Making 2199- Sign out received from Brigitte CHONG for patient with history of RLQ pain and concern for possible inguinal hernia. Pain previously addressed. Labs reviewed. CT abd/pelvis pending at time of sign out. Patient seen and evaluated by myself. CT without acute process. Fat containing right inguinal hernia noted. Rx for pain and nausea meds given with referral to general surgery. [facility] report obtained. Last controlled pain meds were given in Oct 2019 of [place]. Patient reported [place] does not control pain well. Patient stable for discharge with outpatient follow-up with PCP/General surgery. Discussed findings and plan with patient, who acknowledges understanding and agreement. (BRIANA MIRANDA DO) Dragon Disclaimer Dragon Disclaimer This electronic medical record was generated, in whole or in part, using a voice recognition dictation system. (NILDA LARSEN) Departure Departure Impression: Primary Impression: Abdominal pain Additional Impression: Inguinal hernia Disposition: HOME, SELF-CARE Condition: STABLE Referrals: NO PCP (PCP) NOAM HAMMOND MD Patient Instructions: Abdominal Pain (Nonspecific), Hernia, [id number] Scripts Ondansetron (ONDANSETRON ODT) 4 Mg Tab.rapdis 1 TAB PO PRN Q6-8HRS PRN for NAUSEA, #16 TAB Prov: BRIANA MIRANDA DO 12/27/19 Oxycodone/Apap 5-325 (PERCOCET 5-325 MG TABLET ) 1 Each Tablet 0.5-1 TAB PO PRN Q6HRS PRN for PAIN, #10 TAB 0 Refills Prov: BRIANA MIRANDA DO 12/27/19 Attending Signature Attending Signature I have personally interviewed and examined the patient. All charts, labs, and imaging studies were reviewed. I agree with the PA/WAREHOU[employer]PER[employer]OCIATE's findings, exam, and plan. (BRIANA MIRANDA DO) Attending Signature I have participated in the care of this patient and I have reviewed and agree with all pertinent clinical information above including history, exam, and recommendations. (NILDA LARSEN) Problem Qualifiers Primary Impression: Abdominal pain Abdominal location: generalized Qualified Codes: R10.84 - Generalized abdominal pain Additional Impression: Inguinal hernia Obstruction and gangrene presence: without obstruction or gangrene Latera lity: unilateral Recurrence: not specified as recurrent Qualified Codes: K40.90 - Unilateral inguinal hernia, without obstruction or gangrene, not specified as recurrent NILDA LARSEN Dec 27, 2019 21:03 BRIANA MIRANDA DO Dec 27, 2019 23:30
[2019-12-27 21:07] LABS: BACTERIA,URINE 0 /HPF (0-FEW); RBC,URINE OCC /HPF (0-2); SQUAMOUS EPITHELIAL CELL,UR FEW /LPF; WBC,URINE OCC /HPF (0-4)
[2019-12-27] MEDS ORDERED: IV NORMAL SALINE 1000ML BAG 1,000 ML IV ONE (21:30)
[2019-12-27] MEDS ORDERED: ONDANSETRON PF 4 MG/2 ML VIAL. IVP ONE (21:30)
[2019-12-27] MEDS ORDERED: MORPHINE SULFATE 4 MG/ML VIAL. IV ONE (21:30)
[2019-12-27 21:36] LABS: BASO # 0.1 x10^3/uL (0.0-0.2); BASO % 1 % (0-3); EOS # 0.4 x10^3/uL (0.0-0.7); EOS % 7 % (0-3); HEMATOCRIT 42.7 % (36.0-47.0); HEMOGLOBIN 14.4 g/dL (12.0-15.5); LYMPH # 3.2 x10^3/uL (1.0-4.8); LYMPH % 54 % (24-48); MEAN CORPUSCULAR HEMOGLOBIN 34 pg (25-35); MEAN CORPUSCULAR HGB CONC 34 g/dL (31-37); MEAN CORPUSCULAR VOLUME 100 fL (79-100); MONO # 0.4 x10^3/uL (0.0-1.1); MONO % 8 % (0-9); NEUT # 1.8 x10^3/uL (1.8-7.7); NEUT % 31 % (31-73); PLATELET COUNT 279 x10^3/uL (140-400); RED BLOOD COUNT 4.28 x10^6/uL (3.50-5.40); RED CELL DISTRIBUTION WIDTH 13.4 % (11.5-14.5); WHITE BLOOD COUNT 5.9 x10^3/uL (4.0-11.0)
[2019-12-27] MEDS ORDERED: CONTRAST GIVEN. MC PRN (22:15)
[2019-12-27 22:19] LABS: CREATININE 0.7 mg/dL (0.6-1.0); GFR 85.9; POTASSIUM 3.5 mmol/L (3.5-5.1)
[2019-12-27 22:25] LABS: ALBUMIN 3.6 g/dL (3.4-5.0); TOTAL BILIRUBIN 0.3 mg/dL (0.2-1.0); TOTAL PROTEIN 7.2 g/dL (6.4-8.2)
[2019-12-27] MEDS ORDERED: IOHEXOL 300 MG/ML 100ML VIAL. IV ONE (22:30)
--- NOTE | 2019-12-27 23:16 | RAD ---
INDICATION: Right groin pain COMPARISON: February 2013 TECHNIQUE: Axial CT images obtained through the abdomen and pelvis with contrast. One or more of the following individualized dose reduction techniques were utilized for this examination: 1. Automated exposure control; 2. Adjustment of the mA and/or kV according to patient size; 3. Use of iterative reconstruction technique. FINDINGS: There is either some prominent vessels or regions of nodularity adjacent to the distal esophagus. Moderate atherosclerotic disease. Postcholecystectomy changes with prominent bile ducts. Focal low density adjacent to falciform ligament. Nonspecific but can be from fatty infiltration. No peripancreatic fluid collection. Splenic calcified granuloma. Urinary bladder somewhat distended at time of exam. Mild prominence bilateral extrarenal pelvis. Appendix is not well seen. Small fat-containing right inguinal. No dilated loops of bowel to suggest obstruction. Degenerative changes of spine with multilevel central canal and neural foraminal stenosis. Multiple Schmorl's nodes. IMPRESSION: * Small fat-containing right inguinal hernia without evidence of bowel obstruction. * Dilatation of the biliary tree postcholecystectomy which is a commonly seen finding postoperatively. * Calcific atherosclerosis. * Urinary bladder somewhat distended at time of exam with mild prominence of bilateral extrarenal pelvis. Could be from the patient not urinating recently however would correlate with symptoms to ensure there is not a pathologic cause such as partial bladder outlet obstruction. * Degenerative changes of the bilateral hip with suspected right hip joint effusion. Electronically signed by: Darrel Agee MD (12/27/2019 11:14 PM) [id number]
[2019-12-27 23:24] VITALS: BP 158/98
[2019-12-27] MEDS ORDERED: ONDA4TAB12 PO (23:30)
[2019-12-27] MEDS ORDERED: OXYC1TAB15 PO (23:30)
[2019-12-27] MEDS ORDERED: fentaNYL PF VIAL 100 MCG/2 ML VIAL IV ONE (23:30)
== END 2019-12-27 23:42 | disposition home or self-care (01) ==
LOC: ER 19:26
DX: K40.90 Unilateral inguinal hernia, without obstruction or gangrene, not specified as recurrent (principal); K59.00 Constipation, unspecified; R10.31 Right lower quadrant pain; F41.9 Anxiety disorder, unspecified; M19.90 Unspecified osteoarthritis, unspecified site; J44.9 Chronic obstructive pulmonary disease, unspecified; I10 Essential (primary) hypertension; F32.9 Major depressive disorder, single episode, unspecified; G43.909 Migraine, unspecified, not intractable, without status migrainosus; G89.29 Other chronic pain; F17.200 Nicotine dependence, unspecified, uncomplicated; Z90.89 Acquired absence of other organs; Z90.49 Acquired absence of other specified parts of digestive tract; Z90.710 Acquired absence of both cervix and uterus; Z98.890 Other specified postprocedural states; Z88.0 Allergy status to penicillin
CPT/HCPCS: 36415; 74177; 80053; 81001; 85025; 96374; 96375; 99285; J2270; J2405; J3010; J7030; Q9967

== ENCOUNTER 2020-01-15 00:15 | Emergency (ER) | payer BC, MEDICARE ==
[~2020-01-15] VITALS: Ht 162.6 cm; Wt 47.7 kg
[~2020-01-15 00:15] MED LIST changes: +ONDA4TAB12 PO
--- NOTE | 2020-01-15 01:45 | RAD ---
EXAM: CT Head without IV contrast CLINICAL HISTORY: COMPARISON: None. TECHNIQUE: Routine CT of the head without contrast. Soft tissues and bone windows were reviewed. PQRS compliance statement - One or more of the following individualized dose reduction techniques were utilized for this study: 1. Automated exposure control 2. Adjustment of the mA and/or kV according to patient size 3. Use of iterative reconstruction technique FINDINGS: There is no evidence of hemorrhage, mass or extra-axial fluid collection. Yeager-white differentiation is maintained with no evidence of edema. There is no mass effect or shift of the intracranial structures. The ventricles, basilar cisterns and cortical sulci are normal in size and configuration for the patients stated age. The cerebellum and brainstem are unremarkable. The calvarium demonstrates no evidence of fracture or focal lesion. There is normal aeration of the visualized paranasal sinuses and mastoid air cells. The visualized portions of the orbits are normal. Marked soft tissue swelling overlying the left orbit. IMPRESSION: No evidence for acute intracranial process. Soft tissue swelling about the left orbit, please see CT facial bone report below for full details. EXAM: CT facial bones without contrast CLINICAL HISTORY: Head trauma, facial injury COMPARISON: None available. TECHNIQUE: Helical CT of the face/paranasal sinuses was acquired and axial, coronal and sagittal reformatted images were generated. ---PQRS compliance statement - One or more of the following individualized dose reduction techniques were utilized for this study: 1. Automated exposure control 2. Adjustment of the mA and/or kV according to patient size 3. Use of iterative reconstruction technique--- FINDINGS: No acute facial bone fracture. Changes of prior maxillary sinus surgery. Diffuse opacification of the maxillary sinuses, likely sinusitis. No acute facial bone fracture is seen. Marked soft tissue swelling seen about the left orbit. Focal high density within the soft tissue swelling likely small hematoma. Lamina papyracea are intact. The mastoids are unremarkable. The globes, extraocular muscles, optic nerves and retrobulbar fat are normal. Visualized upper aerodigestive tract is normal. Mandible and bilateral temporomandibular joints are normal. Severe C5-6 disc height loss. IMPRESSION: 1. No evidence for acute facial bone fracture. 2. Thickening and opacification of the maxillary sinuses, likely sinusitis. 3. Marked soft tissue with small hematoma overlying the left orbit. Electronically signed by: Sav Howe MD (01/15/2020 1:43 AM) [facility]
[2020-01-15] MEDS ORDERED: HYDR-3135 PO (01:51)
[2020-01-15] MEDS ORDERED: HYDROcodone/APAP 5/325MG 1 TAB TABLET ONE (01:57)
[2020-01-15] MEDS ORDERED: HYDROcodone/APAP 5/325MG 1 TAB TABLET PO ONE (02:00)
[2020-01-15 02:12] VITALS: BP 144/86
--- NOTE | 2020-01-15 05:35 | PHYS DOC ---
Past Medical History Past Medical History: Anxiety, Arthritis, COPD, Depression, Hypertension, Hepatitis, Migraines, Seizure, UTI, Other Additional Past Medical Histor: Chronic pain,hep C(treated),drug seeking behavior Past Surgical History: Cholecystectomy, Hysterectomy, Knee Replacement, Tonsillectomy, Other Additional Past Surgical Histo: BX KNEE REPLACEMENT, NECK SX, COMMON BILE DUCT CUT, L ARM SX Smoking Status: Current Every Day Smoker Alcohol Use: None Drug Use: None General Adult EDM: Chief Complaint: SYNCOPE HPI: HPI: Patient is a 59 year old female who presents with fall from standing, head injury, with contusion over left lateral orbital rim. Injury occurred earlier today. Patient is felt dizzy and lightheaded throughout the evening. No nausea vomiting or neck pain. Patient is not on anticoagulation therapy. Denies domestic abuse.[] Review of Systems: Review of Systems: ROS as per HPI Heart Score: Risk Factors: Risk Factors: DM, Current or recent (<one month) smoker, HTN, HLP, family history of CAD, obesity. Risk Scores: Score 0 - 3: 2.5% MACE over next 6 weeks - Discharge Home Score 4 - 6: 20.3% MACE over next 6 weeks - Admit for Clinical Observation Score 7 - 10: 72.7% MACE over next 6 weeks - Early Invasive Strategies Current Medications: Current Medications Medications (Trade) Dose Ordered Sig/Terrance Start Time Stop Time Status Last Admin Dose Admin Acetaminophen/ Hydrocodone Bitart (Lortab 5/325) 1 tab STK-MED ONCE 01/15/20 01:57 01/15/20 01:57 DC Allergies: Allergies: Allergies Coded Allergies Type Severity Reaction Last Updated Verified Penicillins Allergy Intermediate Hives 10/17/19 Yes Physical Exam: PE: Constitutional: Well developed, well nourished, no acute distress, non-toxic appearance. [] HENT: Normocephalic, left lateral upper orbital contusion, bilateral external ears normal, oropharynx moist, no oral exudates, nose normal. [] Eyes: PERRLA, EOMI, conjunctiva normal, no discharge. [] Neck: Normal range of motion, no tenderness. [] Cardiovascular:Heart rate regular rhythm, no murmur [] Lungs & Thorax: Bilateral breath sounds clear to auscultation [] Abdomen: Bowel sounds normal, soft, no tenderness,. [] Skin: Warm, dry, no erythema. [] Back: No tenderness [] Extremities: No tenderness, no cyanosis, no clubbing, ROM intact, no edema. [] Neurologic: Alert and oriented X 3, normal motor function, normal sensory function, no focal deficits noted. [] Psychologic: Affect normal, judgement normal, mood normal. [] Current Patient Data: Vital Signs: Vital Signs Date Time Temp Pulse Resp B/P (MAP) Pulse Ox O2 Delivery O2 Flow Rate FiO2 01/15/20 02:12 94 20 144/86 (105) 98 Room Air 01/15/20 00:25 97.7 97.7 EKG: EKG: [] Radiology/Procedures: Radiology/Procedures: [CT head/maxilofacial bones: no fx, or ICH] Course & Med Decision Making: Course & Med Decision Making Pertinent Labs and Imaging studies reviewed. (See chart for details) [Concussion syndrome with orbital contusion] Dragon Disclaimer: Dragon Disclaimer: This electronic medical record was generated, in whole or in part, using a voice recognition dictation system. Departure Departure Impression: Primary Impression: Concussion Additional Impression: Contusion, orbital rim Disposition: 01 HOME, SELF-CARE Condition: GOOD Patient Instructions: Facial or Scalp Contusion, [id number], Concussion and Brain Injury Additional Instructions: Please go home and rest. Take ibuprofen for pain and hydrocodone as needed for additional relief. Driving or performing any potentially dangerous activities while in the medic were taking pain medication. Follow-up with your PCP in 3-5 days for reevaluation. Return to the ED if new or worsening symptoms. Scripts Hydrocodone/Apap 10-325 (NORCO 10-325 TABLET) 1 Each Tablet 1 TAB PO Q8HRS PRN for PAIN MDD 6, #10 TAB 0 Refills Prov: SOPHIE FORD DO 01/15/20 SOPHIE FORD DO Jan 15, 2020 05:35
== END 2020-01-15 02:33 | disposition home or self-care (01) ==
LOC: ER 00:15
DX: S05.12XA Contusion of eyeball and orbital tissues, left eye, initial encounter (principal); F07.81 Postconcussional syndrome; G43.909 Migraine, unspecified, not intractable, without status migrainosus; J44.9 Chronic obstructive pulmonary disease, unspecified; I10 Essential (primary) hypertension; G89.29 Other chronic pain; Z76.5 Malingerer [conscious simulation]; F17.200 Nicotine dependence, unspecified, uncomplicated; Z88.0 Allergy status to penicillin; W18.39XA Other fall on same level, initial encounter; Y93.89 Activity, other specified; Y92.89 Other specified places as the place of occurrence of the external cause; Y99.8 Other external cause status
CPT/HCPCS: 70450; 70486; 99285-25

== ENCOUNTER 2020-02-05 19:48 | Emergency (ER) | payer BC, MEDICARE ==
[~2020-02-05] VITALS: Ht 162.6 cm; Wt 50.0 kg
[~2020-02-05 19:48] MED LIST changes: +HYDR-3135 PO
[2020-02-05] MEDS ORDERED: IV NORMAL SALINE 1000ML BAG 1,000 ML IV SCH (19:57)
[2020-02-05] MEDS ORDERED: clonazePAM 0.5 MG TABLET PO STA (20:13)
[2020-02-05 20:20] LABS: BILIRUBIN,URINE NEGATIVE (NEG); CLARITY,URINE CLEAR; COLOR,URINE YELLOW; NITRITE,URINE NEGATIVE (NEG); PH,URINE 6.5 (<5.0-8.0); PROTEIN,URINE NEGATIVE (NEG-TRACE); UROBILINOGEN,URINE 0.2 mg/dL (0.2 mg/dL)
[2020-02-05 20:26] LABS: RBC,URINE 0 /HPF (0-2); WBC,URINE RARE /HPF (0-4)
[2020-02-05 20:27] LABS: AMPHETAMINE/METHAMPHETAMINE NEG (NEG); BARBITURATES NEG (NEG); BENZODIAZEPINES NEG (NEG); CANNABINOIDS NEG (NEG); COCAINE NEG (NEG); METHADONE NEG (NEG); OPIATES POS (NEG); PHENCYCLIDINE NEG (NEG)
--- NOTE | 2020-02-05 20:27 | RAD ---
CT HEAD WO CONTRAST History: Dizziness Comparison: January 15, 2020 Technique: Noncontrast CT imaging was performed of the head. Exposure: One or more of the following individualized dose reduction techniques were utilized for this examination: 1. Automated exposure control 2. Adjustment of the mA and/or kV according to patient size 3. Use of iterative reconstruction technique. Findings: No acute extra-axial or parenchymal hemorrhage is identified. There is no significant intra-axial mass effect, midline shift, or extra-axial fluid collection. The rodriguez-white differentiation of the major vascular territories is preserved. The ventricles, sulci, and cisterns are within normal limits in size and configuration. The mastoid air cells and the visualized paranasal sinuses are aerated. No acute calvarial abnormality is identified. Impression: 1. No acute intracranial abnormality is identified. Electronically signed by: Dm Baker MD (02/05/2020 8:24 PM) [facility]
[2020-02-05 20:30] LABS: BASO % 0 % (0-3); EOS # 0.5 x10^3/uL (0.0-0.7); EOS % 4 % (0-3); HEMATOCRIT 44.5 % (36.0-47.0); HEMOGLOBIN 15.1 g/dL (12.0-15.5); LYMPH # 5.4 x10^3/uL (1.0-4.8); LYMPH % 40 % (24-48); MEAN CORPUSCULAR HEMOGLOBIN 34 pg (25-35); MEAN CORPUSCULAR HGB CONC 34 g/dL (31-37); MEAN CORPUSCULAR VOLUME 100 fL (79-100); MONO # 0.6 x10^3/uL (0.0-1.1); MONO % 5 % (0-9); NEUT # 6.9 x10^3/uL (1.8-7.7); NEUT % 51 % (31-73); PLATELET COUNT 477 x10^3/uL (140-400); RED BLOOD COUNT 4.45 x10^6/uL (3.50-5.40); RED CELL DISTRIBUTION WIDTH 13.8 % (11.5-14.5); WHITE BLOOD COUNT 13.4 x10^3/uL (4.0-11.0)
[2020-02-05] MEDS ORDERED: cloNIDine HCL 0.1 MG TABLET PO ONE (20:30)
[2020-02-05 20:31] LABS: CALCIUM 9.2 mg/dL (8.5-10.1); CREATININE 0.8 mg/dL (0.6-1.0); GFR 73.7; POTASSIUM 3.9 mmol/L (3.5-5.1)
--- NOTE | 2020-02-05 20:36 | RAD ---
AP portable chest radiograph 02/05/2020 Clinical History: History of chest pain. An AP erect portable digital radiograph of the chest was obtained. Comparison study is dated 11/29/2019. The cardiac silhouette is normal in size. The thoracic aorta is mildly tortuous. No acute pulmonary infiltrate is seen. No pleural effusion or pneumothorax is noted. Degenerative changes are seen involving the thoracic spine and both shoulders. IMPRESSION: No acute abnormality is seen. Electronically signed by: Edin Ngo MD (02/05/2020 8:34 PM) [id number]
[2020-02-05 20:37] LABS: ALBUMIN 4.1 g/dL (3.4-5.0); ALBUMIN/GLOBULIN RATIO 1.1 (1.0-1.7); MAGNESIUM 1.9 mg/dL (1.8-2.4); TOTAL BILIRUBIN 0.3 mg/dL (0.2-1.0)
[2020-02-05 20:41] LABS: BACTERIA,URINE 0 /HPF (0-FEW)
[2020-02-05] MEDS ORDERED: CLON-77 PO (21:18)
--- NOTE | 2020-02-05 21:18 | PHYS DOC ---
Past Medical History Past Medical History: Anxiety, COPD, Depression Additional Past Medical Histor: Chronic pain,hep C(treated),drug seeking be havior Past Surgical History: Cholecystectomy, Hysterectomy, Knee Replacement, Tonsillectomy, Other Additional Past Surgical Histo: BX KNEE REPLACEMENT, NECK SX, COMMON BILE DUCT CUT, L ARM SX Smoking Status: Current Every Day Smoker Alcohol Use: None Drug Use: None General Adult EDM: Chief Complaint: DIZZY/LIGHT HEADED HPI: HPI: Patient is a 59 year old female who presents with complaint of feeling a little bit off and lightheaded today. Patient states that she is concerned that she may have taken too much of her hydrocodone, stating that she took 3 tablets throughout the day. She denies any chest pain or shortness of breath. She does indicate she has a history of chronic pain that she takes the hydrocodone for. She denies any headache. She denies syncope. Patient does indicate that she ran out of her clonazepam 2 days ago and has not had any further doses since that time. [] Review of Systems: Review of Systems: Constitutional: Denies fever or chills. [] Eyes: Denies change in visual acuity. [] Respiratory: Denies cough or shortness of breath. [] Cardiovascular: Denies chest pain or edema. [] GI: Denies abdominal pain, nausea, vomiting or diarrhea. [] Neurologic: Denies headache, focal weakness or sensory changes. Complains of dizziness/lightheadedness [] A full 10 point review of systems has been reviewed and is otherwise negative. Heart Score: Risk Factors: Risk Factors: DM, Current or recent (<one month) smoker, HTN, HLP, family history of CAD, obesity. Risk Scores: Score 0 - 3: 2.5% MACE over next 6 weeks - Discharge Home Score 4 - 6: 20.3% MACE over next 6 weeks - Admit for Clinical Observation Score 7 - 10: 72.7% MACE over next 6 weeks - Early Invasive Strategies Current Medications: Current Medications Medications (Trade) Dose Ordered Sig/Terrance Start Time Stop Time Status Last Admin Dose Admin Clonazepam (KlonoPIN) 0.5 mg 1X STAT 02/05/20 20:13 02/05/20 20:15 DC 02/05/20 20:13 0.5 MG Clonidine HCl (Catapres) 0.2 mg 1X ONCE 02/05/20 20:30 02/05/20 20:14 DC Sodium Chloride 1,000 ml @ 1,000 mls/hr Q1H 02/05/20 19:57 02/05/20 20:56 DC 02/05/20 20:41 1,000 MLS/HR Allergies: Allergies: Allergies Coded Allergies Type Severity Reaction Last Updated Verified Penicillins Allergy Intermediate Hives 10/17/19 Yes Physical Exam: PE: Constitutional: Well developed, well nourished, no acute distress, non-toxic appearance. [] HENT: Normocephalic, atraumatic, bilateral external ears normal, oropharynx moist, no oral exudates, nose normal. [] Eyes: PERRLA, EOMI, conjunctiva normal, no discharge. [] Neck: Normal range of motion, no tenderness, supple, no stridor. [] Cardiovascular: Regular rate and rhythm [] Lungs & Thorax: Bilateral breath sounds clear to auscultation [] Abdomen: Bowel sounds normal, soft, no tenderness. [] Skin: Warm, dry, no erythema, no rash. [] Extremities: No tenderness, no cyanosis, no clubbing, ROM intact, no edema. [] Neurologic: Alert and oriented X 3, normal motor function, normal sensory function, no focal deficits noted. [] Current Patient Data: Labs: Laboratory Tests Test 02/05/20 20:05 02/05/20 20:07 Urine Collection Type Unknown Urine Color Yellow Urine Clarity Clear Urine pH 6.5 (<5.0-8.0) Urine Specific [place] 1.010 (1.000-1.030) Urine Protein Negative mg/dL (NEG-TRACE) Urine Glucose (UA) Negative mg/dL (NEG) Urine Ketones (Stick) Negative mg/dL (NEG) Urine Blood Negative (NEG) Urine Nitrite Negative (NEG) Urine Bilirubin Negative (NEG) Urine Urobilinogen Dipstick 0.2 mg/dL (0.2 mg/dL) Urine Leukocyte Esterase Negative (NEG) Urine RBC 0 /HPF (0-2) Urine WBC Rare /HPF (0-4) Urine Squamous Epithelial Cells None /LPF Urine Bacteria 0 /HPF (0-FEW) Urine Opiates Screen Pos (NEG) Urine Methadone Screen Neg (NEG) Urine Barbiturates Neg (NEG) Urine Phencyclidine Screen Neg (NEG) Urine Amphetamine/Methamphetamine Neg (NEG) Urine Benzodiazepines Screen Neg (NEG) Urine Cocaine Screen Neg (NEG) Urine Cannabinoids Screen Neg (NEG) Urine Ethyl Alcohol Neg (NEG) White Blood Count 13.4 x10^3/uL (4.0-11.0) H Red Blood Count 4.45 x10^6/uL (3.50-5.40) Hemoglobin 15.1 g/dL (12.0-15.5) Hematocrit 44.5 % (36.0-47.0) Mean Corpuscular Volume 100 fL (79-100) Mean Corpuscular Hemoglobin 34 pg (25-35) Mean Corpuscular Hemoglobin Concent 34 g/dL (31-37) Red Cell Distribution Width 13.8 % (11.5-14.5) Platelet Count 477 x10^3/uL (140-400) H Neutrophils (%) (Auto) 51 % (31-73) Lymphocytes (%) (Auto) 40 % (24-48) Monocytes (%) (Auto) 5 % (0-9) Eosinophils (%) (Auto) 4 % (0-3) H Basophils (%) (Auto) 0 % (0-3) Neutrophils # (Auto) 6.9 x10^3/uL (1.8-7.7) Lymphocytes # (Auto) 5.4 x10^3/uL (1.0-4.8) H Monocytes # (Auto) 0.6 x10^3/uL (0.0-1.1) Eosinophils # (Auto) 0.5 x10^3/uL (0.0-0.7) Basophils # (Auto) 0.0 x10^3/uL (0.0-0.2) Sodium Level 139 mmol/L (136-145) Potassium Level 3.9 mmol/L (3.5-5.1) Chloride Level 101 mmol/L (98-107) Carbon Dioxide Level 30 mmol/L (21-32) Anion Gap 8 (6-14) Blood Urea Nitrogen 20 mg/dL (7-20) Creatinine 0.8 mg/dL (0.6-1.0) Estimated GFR (Cockcroft-Gault) 73.7 BUN/Creatinine Ratio 25 (6-20) H Glucose Level 103 mg/dL (70-99) H Calcium Level 9.2 mg/dL (8.5-10.1) Magnesium Level 1.9 mg/dL (1.8-2.4) Total Bilirubin 0.3 mg/dL (0.2-1.0) Aspartate Amino Transferase (AST) 15 U/L (15-37) Alanine Aminotransferase (ALT) 14 U/L (14-59) Alkaline Phosphatase 86 U/L (46-116) Total Protein 8.0 g/dL (6.4-8.2) Albumin 4.1 g/dL (3.4-5.0) Albumin/Globulin Ratio 1.1 (1.0-1.7) Ethyl Alcohol Level < 10 mg/dL (0-10) Laboratory Tests 02/05/20 20:07 Laboratory Tests 02/05/20 20:07 Vital Signs: Vital Signs Date Time Temp Pulse Resp B/P (MAP) Pulse Ox O2 Delivery O2 Flow Rate FiO2 02/05/20 20:00 98.4 84 17 134/98 (110) 99 Room Air 98.4 EKG: EKG: [] Radiology/Procedures: Radiology/Procedures: [] Impression: PROCEDURE: CT HEAD WO CONTRAST CT HEAD WO CONTRAST History: Dizziness Comparison: January 15, 2020 Technique: Noncontrast CT imaging was performed of the head. Exposure: One or more of the following individualized dose reduction techniques were utilized for this examination: 1. Automated exposure control 2. Adjustment of the mA and/or kV according to patient size 3. Use of iterative reconstruction technique. Findings: No acute extra-axial or parenchymal hemorrhage is identified. There is no significant intra-axial mass effect, midline shift, or extra-axial fluid collection. The rodriguez-white differentiation of the major vascular territories is preserved. The ventricles, sulci, and cisterns are within normal limits in size and configuration. The mastoid air cells and the visualized paranasal sinuses are aerated. No acute calvarial abnormality is identified. Impression: 1. No acute intracranial abnormality is identified. Electronically signed by: Dm Baker MD (02/05/2020 8:24 PM) [facility] PROCEDURE: PORTABLE CHEST 1V AP portable chest radiograph 02/05/2020 Clinical History: History of chest pain. An AP erect portable digital radiograph of the chest was obtained. Comparison study is dated 11/29/2019. The cardiac silhouette is normal in size. The thoracic aorta is mildly tortuous. No acute pulmonary infiltrate is seen. No pleural effusion or pneumothorax is noted. Degenerative changes are seen involving the thoracic spine and both shoulders. IMPRESSION: No acute abnormality is seen. Electronically signed by: Edin Ngo MD (02/05/2020 8:34 PM) [id number] Course & Med Decision Making: Course & Med Decision Making Pertinent Labs and Imaging studies reviewed. (See chart for details) [] Dragon Disclaimer: Dragon Disclaimer: This electronic medical record was generated, in whole or in part, using a voice recognition dictation system. Departure Departure Impression: Primary Impression: Benzodiazepine withdrawal Qualified Codes: F13.230 - Sedative, hypnotic or anxiolytic dependence with withdrawal, uncomplicated Disposition: 01 HOME, SELF-CARE Condition: STABLE Referrals: NO PCP (PCP) Patient Instructions: Benzodiazepine Withdrawal Scripts Clonazepam (CLONAZEPAM ) 0.5 Mg Tablet 0.5 MG PO TID PRN for ANXIETY, #9 TAB Prov: JUDY PAYNE Jr. DO 02/05/20 JUDY PAYNE Jr. DO February 05, 2020 21:18
[2020-02-05 21:22] VITALS: BP 138/83
--- NOTE | 2020-02-08 08:36 | EKG ---
[facility] [address] [place] [address] Test Date: 2020-02-05 Test Time: 20:27:18 Pat Name: ANNY FORD Department: Room: Gender: F [employer]: : 1960 Requested By: JUDY PAYNE Order Number: [id number] Reading MD: Isaac Magallon Measurements Intervals [place] Rate: 68 P: 73 AR: 170 QRS: 65 QRSD: 86 T: 68 QT: 416 QTc: 443 Interpretive Statements SINUS RHYTHM INCOMPLETE RIGHT BUNDLE BRANCH BLOCK Electronically Signed On 02-08-2020 10:58:09 CDT by Isaac Magallon
== END 2020-02-05 21:40 | disposition home or self-care (01) ==
LOC: ER 19:48
DX: F13.230 Sedative, hypnotic or anxiolytic dependence with withdrawal, uncomplicated (principal); R42 Dizziness and giddiness; J44.9 Chronic obstructive pulmonary disease, unspecified; G89.29 Other chronic pain; F41.9 Anxiety disorder, unspecified; F32.9 Major depressive disorder, single episode, unspecified; F17.200 Nicotine dependence, unspecified, uncomplicated; Z76.5 Malingerer [conscious simulation]; Z88.0 Allergy status to penicillin
CPT/HCPCS: 36415; 70450; 71045; 80053; 80307; 81001; 83735; 85025; 93005; 96360; 99285; G0480; J7030

== ENCOUNTER 2020-02-14 21:42 | Emergency (ER) | payer BC, MEDICARE ==
[~2020-02-14] VITALS: Ht 162.6 cm; Wt 48.0 kg
[~2020-02-14 21:42] MED LIST changes: +CLON-77 PO
[2020-02-14 22:35] VITALS: BP 141/94
--- NOTE | 2020-02-14 23:32 | PHYS DOC ---
Past Medical History Past Medical History: Anxiety Additional Past Medical Histor: Chronic pain,hep C(treated),drug seeking behavior Past Surgical History: Cholecystectomy, Hysterectomy, Knee Replacement, Tonsillectomy, Other Additional Past Surgical Histo: BILATERAL KNEE REPLACEMENT Smoking Status: Current Every Day Smoker Alcohol Use: None Drug Use: None General Adult EDM: Chief Complaint: KNEE SWELLING HPI: HPI: Patient is a 59 year old female presents with report of chronic left knee pain. Reports has orthopedic appointment in 2 weeks. Reports history of prior arthroplasty and requires a revision surgery. Reports her last prescription for pain medication was 2 weeks ago. Denies trauma. Denies fever/chills. Review of Systems: Review of Systems: Constitutional: Denies fever or chills Eyes: Denies redness or eye pain HENT: Denies nasal congestion or sore throat Respiratory: Denies cough or shortness of breath Cardiovascular: Denies chest pain or palpitations GI: Denies abdominal pain, nausea, or vomiting : Denies dysuria or hematuria Musculoskeletal: Denies back pain; reports left knee pain Integument: Denies rash or skin lesions Neurologic: Denies headache, focal weakness or sensory changes Complete systems were reviewed and found to be within normal limits, except as documented in this note. Allergies: Allergies: Allergies Coded Allergies Type Severity Reaction Last Updated Verified Penicillins Allergy Intermediate Hives 10/17/19 Yes Physical Exam: PE: Constitutional: Well developed, well nourished, anxious, non-toxic appearance HENT: Normocephalic, atraumatic, oropharynx moist Eyes: Conjunctiva normal, no discharge Neck: Normal range of motion, no tenderness, supple Cardiovascular: Right DP and PT +2 Lungs & Thorax: No respiratory distress, equal chest rise and fall Skin: Warm, dry, no erythema, no rash Extremities: No tenderness, ROM intact, no edema Neurologic: Alert and oriented X 3, no focal deficits noted Psychologic: Affect anxious, judgment normal Current Patient Data: Vital Signs: Vital Signs Date Time Temp Pulse Resp B/P (MAP) Pulse Ox O2 Delivery O2 Flow Rate FiO2 02/14/20 22:35 97.5 94 14 141/94 (110) 95 Room Air 97.5 EKG: EKG: [] Radiology/Procedures: Radiology/Procedures: [] Course & Med Decision Making: Course & Med Decision Making Patient presents with report of chronic left knee pain. Patient reports orthopedic appointment in 2 weeks. Patient does report she had previously received a prescription for narcotic pain medication 2 weeks ago. Denies recent trauma. KTRA report obtained and found patient recently received 120 tabs of Hydrocodone/APAP 7.5/325mg on 02/02/20. Given amount and timing advised patient I would be unable to provide further pain medications. Patient's discharge paperwork printed and RN attempted to provided discharge papers. Patient reports "well this was a waste of my time" and stormed out of department without signing papers. Dragon Disclaimer: Dragtrista Disclaimer: This electronic medical record was generated, in whole or in part, using a voice recognition dictation system. Departure Departure Impression: Primary Impression: Chronic knee pain Qualified Codes: M25.562 - Pain in left knee; G89.29 - Other chronic pain Disposition: HOME, SELF-CARE Condition: STABLE Referrals: NO PCP (PCP) CHINTAN HUFFMAN MD Patient Instructions: Chronic Pain, Chronic Pain Management Additional Instructions: Unfortunately we are unable to provide you with more pain medication. You just recently received 120 tabs of Hydrocodone/APAP 7.5/325mg on 02/02/20. Please f ollow with your doctor or pain specialist if your pain is not well controlled. BRIANA MIRANDA DO February 14, 2020 23:32
== END 2020-02-14 23:52 | disposition home or self-care (01) ==
LOC: ER 21:42
DX: G89.29 Other chronic pain (principal); M25.562 Pain in left knee; F41.9 Anxiety disorder, unspecified; F17.200 Nicotine dependence, unspecified, uncomplicated; Z90.710 Acquired absence of both cervix and uterus; Z90.49 Acquired absence of other specified parts of digestive tract; Z98.890 Other specified postprocedural states; Z90.89 Acquired absence of other organs; Z88.0 Allergy status to penicillin; Z86.19 Personal history of other infectious and parasitic diseases
CPT/HCPCS: 99282

== ENCOUNTER 2020-03-28 07:50 | Inpatient (IN) | payer BC, MEDICARE ==
[~2020-03-28] VITALS: Ht 157.5 cm; Wt 46.0 kg
[2020-03-28] VITALS (11 sets, daily range): BP systolic 82–176; BP diastolic 53–105
[~2020-03-28 07:50] MED LIST changes: -LISI1TAB19; +LISI1TAB37; -PARO20TA3; +PARO20TA3 PO
[2020-03-28] MEDS ORDERED: LIDO:MAALOX 1:1 20 ML SINGLE DOSE. SWSW ONE (08:15)
[2020-03-28] MEDS ORDERED: IV NORMAL SALINE 1000ML BAG 1,000 ML IV ONE (08:15)
[2020-03-28] MEDS ORDERED: FAMOTIDINE 20 MG/2 ML VIAL IVP ONE (08:15)
[2020-03-28] MEDS ORDERED: ONDANSETRON PF 4 MG/2 ML VIAL. IVP ONE (08:15)
[2020-03-28 08:36] LABS: BASO # 0.1 x10^3/uL (0.0-0.2); BASO % 1 % (0-3); EOS # 0.1 x10^3/uL (0.0-0.7); EOS % 1 % (0-3); HEMATOCRIT 44.8 % (36.0-47.0); HEMOGLOBIN 15.5 g/dL (12.0-15.5); LYMPH # 2.4 x10^3/uL (1.0-4.8); LYMPH % 27 % (24-48); MEAN CORPUSCULAR HEMOGLOBIN 33 pg (25-35); MEAN CORPUSCULAR HGB CONC 35 g/dL (31-37); MEAN CORPUSCULAR VOLUME 96 fL (79-100); MONO # 0.4 x10^3/uL (0.0-1.1); MONO % 4 % (0-9); NEUT # 5.8 x10^3/uL (1.8-7.7); NEUT % 67 % (31-73); PLATELET COUNT 348 x10^3/uL (140-400); RED BLOOD COUNT 4.69 x10^6/uL (3.50-5.40); RED CELL DISTRIBUTION WIDTH 12.8 % (11.5-14.5); WHITE BLOOD COUNT 8.7 x10^3/uL (4.0-11.0)
[2020-03-28 08:38] LABS: BILIRUBIN,URINE NEGATIVE (NEG); CLARITY,URINE CLEAR; COLOR,URINE YELLOW; NITRITE,URINE NEGATIVE (NEG); PROTEIN,URINE NEGATIVE (NEG-TRACE); UROBILINOGEN,URINE 0.2 mg/dL (0.2 mg/dL)
--- NOTE | 2020-03-28 08:39 | RAD ---
Chest radiograph 03/28/2020 8:12 AM INDICATION: Chest pain COMPARISON: 02/05/2020 TECHNIQUE: Frontal and lateral views of the chest are provided. FINDINGS: The cardiomediastinal silhouette is within normal limits. There are no pleural effusions. There is no pulmonary vascular congestion. There is no pneumothorax. The lungs are clear. No significant osseous abnormality is identified. IMPRESSION: No acute cardiopulmonary process. Electronically signed by: Annetta Krishnamurthy MD (03/28/2020 8:36 AM) [id number]
[2020-03-28 08:46] LABS: ALBUMIN 3.9 g/dL (3.4-5.0); CALCIUM 9.2 mg/dL (8.5-10.1); CREATININE 0.8 mg/dL (0.6-1.0); GFR 73.7; TOTAL BILIRUBIN 0.2 mg/dL (0.2-1.0); TOTAL PROTEIN 7.8 g/dL (6.4-8.2)
[2020-03-28 08:49] LABS: POTASSIUM 2.8 mmol/L (3.5-5.1)
[2020-03-28 08:51] LABS: BACTERIA,URINE FEW /HPF (0-FEW); HYALINE CASTS, URINE FEW /HPF; RBC,URINE 0 /HPF (0-2); SQUAMOUS EPITHELIAL CELL,UR OCC /LPF; WBC,URINE OCC /HPF (0-4)
--- NOTE | 2020-03-28 08:56 | PHYS DOC ---
Past Medical History Past Medical History: Anxiety Additional Past Medical Histor: Chronic pain,hep C(treated),drug seeking behavior Past Surgical History: Cholecystectomy, Hysterectomy, Knee Replacement, Tonsillectomy, Other Additional Past Surgical Histo: BILATERAL KNEE REPLACEMENT Smoking Status: Current Every Day Smoker Alcohol Use: None Drug Use: None General Adult EDM: Chief Complaint: NAUSEA/VOMITING/DIARRHA HPI: HPI: Patient is a 59 year old female presenting to the ED with a chief complaint of epigastric abdominal pain. Patient states that the pain is been present for the last 3 days. Patient also complains of dizziness. Patient does state that she has a GI history including hepatitis C and a stent in her bile duct. Patient does state that the pain in her epigastric region is not radiating anywhere patient does complain of nausea and vomiting. Review of Systems: Review of Systems: Constitutional: Denies fever or chills. [] Eyes: Denies change in visual acuity. [] HENT: Denies nasal congestion or sore throat. [] Respiratory: Denies cough or shortness of breath. [] Cardiovascular: Denies chest pain or edema. [] GI: Complains of epigastric abdominal enma. Complains of nausea and vomiting [] : Denies dysuria. [] Neurologic: Denies headache, focal weakness or sensory changes. [] Heart Score: HEART Score for Chest Pain: HEART Score for Chest Pain Response (Comments) Value History Slighlty/Non-Suspicious [address] Depression 2 Age >45 - < 65 1 Risk Factors 1 or 2 Risk Factors 1 Troponin >1-<3x Normal Limit 1 Total 5 Risk Factors: Risk Factors: DM, Current or recent (<one month) smoker, HTN, HLP, family history of CAD, obesity. Risk Scores: Score 0 - 3: 2.5% MACE over next 6 weeks - Discharge Home Score 4 - 6: 20.3% MACE over next 6 weeks - Admit for Clinical Observation Score 7 - 10: 72.7% MACE over next 6 weeks - Early Invasive Strategies Current Medications: Current Medications Medications (Trade) Dose Ordered Sig/Terrance Start Time Stop Time Status Last Admin Dose Admin Famotidine (Pepcid Vial) 20 mg 1X ONCE 03/28/20 08:15 03/28/20 08:28 DC Multi-Ingredient Mouthwash/Gargle (Gi Cocktail) 20 ml 1X ONCE 03/28/20 08:15 03/28/20 08:28 DC Ondansetron HCl (Zofran) 4 mg 1X ONCE 03/28/20 08:15 03/28/20 08:28 DC Sodium Chloride 1,000 ml @ 1,000 mls/hr 1X ONCE 03/28/20 08:15 03/28/20 09:14 Allergies: Allergies: Allergies Coded Allergies Type Severity Reaction Last Updated Verified Penicillins Allergy Intermediate Hives 10/17/19 Yes Physical Exam: PE: Constitutional: Well developed, well nourished, no acute distress, non-toxic appearance. [] HENT: Normocephalic, atraumatic Eyes: EOMI Neck: Normal range of motion, Supple Cardiovascular:Heart rate regular rhythm Lungs & Thorax: Bilateral breath sounds clear to auscultation [] Abdomen: Bowel sounds normal, soft, no tenderness Extremities: No tenderness, ROM intact Neurologic: Alert and oriented X 3 Current Patient Data: Labs: Laboratory Tests Test 03/28/20 08:15 White Blood Count 8.7 x10^3/uL (4.0-11.0) Red Blood Count 4.69 x10^6/uL (3.50-5.40) Hemoglobin 15.5 g/dL (12.0-15.5) Hematocrit 44.8 % (36.0-47.0) Mean Corpuscular Volume 96 fL (79-100) Mean Corpuscular Hemoglobin 33 pg (25-35) Mean Corpuscular Hemoglobin Concent 35 g/dL (31-37) Red Cell Distribution Width 12.8 % (11.5-14.5) Platelet Count 348 x10^3/uL (140-400) Neutrophils (%) (Auto) 67 % (31-73) Lymphocytes (%) (Auto) 27 % (24-48) Monocytes (%) (Auto) 4 % (0-9) Eosinophils (%) (Auto) 1 % (0-3) Basophils (%) (Auto) 1 % (0-3) Neutrophils # (Auto) 5.8 x10^3/uL (1.8-7.7) Lymphocytes # (Auto) 2.4 x10^3/uL (1.0-4.8) Monocytes # (Auto) 0.4 x10^3/uL (0.0-1.1) Eosinophils # (Auto) 0.1 x10^3/uL (0.0-0.7) Basophils # (Auto) 0.1 x10^3/uL (0.0-0.2) Sodium Level 141 mmol/L (136-145) Potassium Level 2.8 mmol/L (3.5-5.1) *L Chloride Level 100 mmol/L (98-107) Carbon Dioxide Level 29 mmol/L (21-32) Anion Gap 12 (6-14) Blood Urea Nitrogen 6 mg/dL (7-20) L Creatinine 0.8 mg/dL (0.6-1.0) Estimated GFR (Cockcroft-Gault) 73.7 BUN/Creatinine Ratio 8 (6-20) Glucose Level 134 mg/dL (70-99) H Calcium Level 9.2 mg/dL (8.5-10.1) Total Bilirubin 0.2 mg/dL (0.2-1.0) Aspartate Amino Transferase (AST) 24 U/L (15-37) Alanine Aminotransferase (ALT) 29 U/L (14-59) Alkaline Phosphatase 99 U/L (46-116) Troponin I Quantitative 0.278 ng/mL (0.000-0.055) Total Protein 7.8 g/dL (6.4-8.2) Albumin 3.9 g/dL (3.4-5.0) Albumin/Globulin Ratio 1.0 (1.0-1.7) Lipase 43 U/L (73-393) L Laboratory Tests 03/28/20 08:15 Laboratory Tests 03/28/20 08:15 EKG: EKG: EKG interpretation: 8: 22 AM on 03/28/2020 HR 101 Sinus tachycardia Regular intervals Normal axis Diffuse T wave inversions in V3 V4 V5 V6 EKG is changed from previous on 02/05/2020 Radiology/Procedures: Radiology/Procedures: [] Impression: CXR IMPRESSION: No acute cardiopulmonary process. Course & Med Decision Making: Course & Med Decision Making Pertinent Labs and Imaging studies reviewed. (See chart for details) Ordered labs, chest x-ray, EKG, troponin, IV Zofran 4 mg. EKG shows T wave inversions in V3 V4 V5 V6 Troponin is elevated at 0.278. Ordered aspirin for patient. We will page scraper meat on-call. We will also discuss case with hospitalist service for admission. Discussed results and plan of care with patient. At 9 AM I have discussed patient presentation, lab results and plan of care with Dr. Hernandez who is said that he will come in to the ER to evaluate patient. I also discussed case with Dr. Urena who accepts admission. Patient started on heparin Dragon Disclaimer: Dragon Disclaimer: This electronic medical record was generated, in whole or in part, using a voice recognition dictation system. Departure Departure Impression: Primary Impression: NSTEMI (non-ST elevated myocardial infarction) Disposition: ADMITTED INPATIENT Condition: IMPROVED Referrals: NO PCP (PCP) Justicifation of Admission Dx: Justifications for Admission: Justification of Admission Dx: Yes [place]: Acute NSTEMI LEESA RINALDI DO Mar 28, 2020 08:56
[2020-03-28] MEDS ORDERED: ASPIRIN CHEWABLE 81 MG TABLET. PO ONE (09:00)
--- NOTE | 2020-03-28 09:29 | PDOC1 ---
History and Physical Date of Admission Date of Admission DATE: 03/28/20 TIME: :28 Identification/Chief Complaint Chief Complaint Chest pain Source Source: Patient History of Present Illness History of Present Illness Ms Velazquez is a 59yo F w/ PMHx Anxiety, chronic pain,hep C(treated),drug seeking behavior, smoker who presents to ED c/o epigastric abdominal pain. Patient states that the pain is been present for the last 3 days. Has associated nausea, vomiting, and dizziness. No radiation. 8/10, constant. CXR clear. Labs in ED show WBC 8.7, Hb 15.5, Platelets 348, Na 141, Na 2.8, BUN 6, Cr 0.8, glucose 134 and troponin 0.278 with EKG findings HR 101 with diffuse T wave inversions in V3 V4 V5 V6 Cardiology consulted, started on heparin GTT and to manager cardiac cath urgently for NSTEMI. Past Medical History Cardiovascular: No pertinent hx Pulmonary: No pertinent hx GI: No pertinent hx Heme/Onc: No pertinent hx Hepatobiliary: No pertinent hx Psych: Addictions, Other Musculoskeletal: low back pain Renal/: No pertinent hx Endocrine: No pertinent hx Past Surgical History Past Surgical History: No pertinent history Family History Family History: Family History Unknown Social History Smoke: 1 pack per day ALCOHOL: none Drugs: None Current Medications Current Medications Current Medications Sodium Chloride 1,000 ml @ 1,000 mls/hr 1X ONCE IV Last administered on 03/28/20at 09:19; Start 03/28/20 at 08:15; Stop 03/28/20 at 09:14; Status DC Ondansetron HCl (Zofran) 4 mg 1X ONCE IVP Last administered on 03/28/20at 09:16; Start 03/28/20 at 08:15; Stop 03/28/20 at 08:28; Status DC Famotidine (Pepcid Vial) 20 mg 1X ONCE IVP Last administered on 03/28/20at 09:16; Start 03/28/20 at 08:15; Stop 03/28/20 at 08:28; Status DC Multi-Ingredient Mouthwash/Gargle (Gi Cocktail) 20 ml 1X ONCE SWSW Last administered on 03/28/20at 09:17; Start 03/28/20 at 08:15; Stop 03/28/20 at 08:28; Status DC Aspirin (Aspirin Chewable) 324 mg 1X ONCE PO Last administered on 03/28/20at 09:17; Start 03/28/20 at 09:00; Stop 03/28/20 at 09:01; Status DC Active Scripts Active Clonazepam (Clonazepam) 0.5 Mg Tablet 0.5 Mg PO TID PRN [place] 10-325 Tablet (Acetaminophen/Hydrocodone Bitart) 1 Each Tablet 1 Tab PO Q8HRS PRN MDD 6 Ondansetron Odt (Ondansetron) 4 Mg Tab.rapdis 1 Tab PO PRN Q6-8HRS PRN Percocet 5-325 Mg Tablet (Oxycodone/Acetaminophen) 1 Each Tablet 0.5-1 Tab PO PRN Q6HRS PRN Diclofenac Sodium 50 Mg Tablet.dr 1 Tab PO BID PRN Zofran (Ondansetron Hcl) 4 Mg Tablet 1 Tab PO PRN Q6-8HRS Zithromax (Azithromycin) 250 Mg Tablet 250 Mg PO DIRECTED Take 2 PO x 1 days Then take 1 PO q 24 hour for the next 4 days Tessalon Perle (Benzonatate) 100 Mg Capsule 1 Cap PO TID Medrol (Methylprednisolone) 4 Mg Tab.ds.pk 1 Pkg PO UD Medrol (Methylprednisolone) 4 Mg Tab.ds.pk 1 Pkg PO UD Diclofenac Sodium 50 Mg Tablet.dr 1 Tab PO BID PRN Hydrocodone-Apap 7.5-325 (Hydrocodone Bit/Acetaminophen) 1 Tab Tablet 1 Tab PO PRN Q6HRS PRN Medrol (Methylprednisolone) 4 Mg Tab.ds.pk 1 Pkg PO UD Azithromycin Tablet (Azithromycin) 250 Mg Tablet 250 Mg PO DAILY Zofran Odt (Ondansetron) 4 Mg Tab.rapdis 1 Tab SL Q8HRS Diflucan (Fluconazole) 150 Mg Tablet 1 Tab PO ONCE Cipro (Ciprofloxacin Hcl) 500 Mg Tablet 1 Tab PO BID Pyridium (Phenazopyridine Hcl) 100 Mg Tablet 100 Mg PO TID Bactrim Ds Tablet (Sulfamethoxazole/Trimethoprim) 1 Each Tablet 1 Tab PO BID Cipro (Ciprofloxacin Hcl) 500 Mg Tablet 1 Tab PO BID Acetaminophen-Diphenhyd 500-25 (Acetaminophen/Diphenhydramine) 1 Each Tablet 1 Each PO Q6-8HRS PRN Zofran (Ondansetron Hcl) 4 Mg Tablet 1 Tab PO Q6HRS PRN [place] 5-325 Tablet (Acetaminophen/Hydrocodone Bitart) 1 Each Tablet 1 Tab PO PRN Q6HRS PRN Ultram (Tramadol Hcl) 50 Mg Tablet 1 Tab PO Q6HRS Zofran Odt (Ondansetron) 4 Mg Tab.rapdis 1 Tab SL Q6HRS PRN [place] 5-325 Tablet (Acetaminophen/Hydrocodone Bitart) 1 Each Tablet 1 Tab PO PRN Q6HRS PRN Proair Hfa Inhaler (Albuterol Sulfate) 8.5 Gm Hfa.aer.ad 1 Puff INH PRN Q6HRS PRN Percocet 5-325 Mg Tablet (Oxycodone/Acetaminophen) 1 Each Tablet 1 Tab PO PRN Q6HRS PRN Fioricet 50-300-40 Mg Capsule (Butalb/Acetaminophen/Caffeine) 1 Each Capsule 1 Each PO PRN Q4HRS PRN Xanax (Alprazolam) 0.5 Mg Tablet 0.5 Mg PO PRN Q6HRS PRN Zofran Odt (Ondansetron) 4 Mg Tab.rapdis 4 Mg PO BID PRN Reported Cipro (Ciprofloxacin Hcl) 500 Mg Tablet 500 Mg PO BID PRN 7 Days Lisinopril-Hctz 20-12.5 Mg Tab (Lisinopril/Hydrochlorothiazide) 1 Each Tablet Restasis (Cyclosporine) 1 Each Droperette Paroxetine Hcl 20 Mg Tablet Oxycodone Hcl 20 Mg Tablet Clonazepam 1 Mg Tablet Bystolic (Nebivolol) 10 Mg Tablet 1 Tab PO DAILY Temazepam 30 Mg Capsule 30 Mg PO HS Allergies Allergies: Coded Allergies: Penicillins (Verified Allergy, Intermediate, Hives, 10/17/19) ROS General: YES: Fatigue, Malaise; No: Chills, Night Sweats, Appetite, Other PSYCHOLOGICAL ROS: YES: Anxiety; No: Behavioral Disorder, Concentration difficultie, Decreased libido, Depression, Disorientation, Hallucinations, Hostility, Irritablity, Memory difficulties, Mood Swings, Obsessive thoughts, Physical abuse, Sexual abuse, Sleep disturbances, Suicidal ideation, Other Eyes: No Blurry vision, No Decreased vision, No Double vision, No Dry eyes, No Excessive tearing, No Eye Pain, No Itchy Eyes, No Loss of vision, No Photophobia, No Scotomata, No Uses contacts, No Uses glasses, No Other HEENT: No: Heacaches, Visual Changes, Hearing change, Nasal congestion, Nasal discharge, Oral lesions, Sinus pain, Sore Throat, Epistaxis, Sneezing, Snoring, Tinnitus, Vertigo, Vocal changes, Other ALLERGY AND IMMUNOLOGY: No: Hives, Insect Bite Sensitivity, Itchy/Watery Eyes, Nasal Congestion, Post Nasal Drip, Seasonal Allergies, Other Hematological and Lymphatic: No: Bleeding Problems, Blood Clots, Blood Transfusions, Brusing, Night Sweats, Pallor, Swollen Lymph Nodes, Other ENDOCRINE: No: Breast Changes, Galactorrhea, Hair Pattern Changes, Hot Flashes, Malaise/lethargy, Mood Swings, Palpitations, Polydipsia/polyuria, Skin Changes, Temperature Intolerance, Unexpected Weight Changes, Other Breast: No New/Changing Breast Lumps, No Nipple changes, No Nipple discharge, No Other Respiratory: No: Cough, Hemoptysis, Orthopnea, Pleuritic Pain, Shortness of breath, SOB with excertion, Sputum Changes, Stridor, Tachypnea, Wheezing, Other Cardiovascular: yes Chest Pain; No Palpitations, No Orthopnea, No Paroxysmal Noc. Dyspnea, No Edema, No Lt Headedness, No Other Gastrointestinal: Yes Nausea, Yes Abdominal Pain; No Vomiting, No Diarrhea, No Constipation, No Melena, No Hematochezia, No Other Genitourinary: No Dysuria, No Frequency, No Incontinence, No Hematuria, No Retention, No Discharge, No Urgency, No Pain, No Flank Pain, No Other, No , No , No , No , No , No , No Musculoskeletal: No Gait Disturbance, No Joint Pain, No Joint Stiffness, No Joint Swelling, No Muscle Pain, No Muscular Weakness, No Pain In:, No Swelling In:, No Other Neurological: No Behavorial Changes, No Bowel/Bladder ControlChng, No Confusion, No Dizziness, No Gait Disturbance, No Headaches, No Impaired Coord/balance, No Memory Loss, No Numbness/Tingling, No Seizures, No Speech Problems, No Tremors, No Visual Changes, No Weakness, No Other Skin: No Dry Skin, No Eczema, No Hair Changes, No Lumps, No Mole Changes, No Mottling, No Nail Changes, No Pruritus, No Rash, No Skin Lesion Changes, No Other, No Acne Physical Exam General: Alert, Oriented X3, Cooperative, moderate distress HEENT: Atraumatic, PERRLA, EOMI, Mucous membr. moist/pink Lungs: Clear to auscultation, Normal air movement Heart: S1S2, RRR, no thrills, no rubs, no gallops Abdomen: Normal bowel sounds, Soft, No hepatosplenomegaly, No masses, Other (epigastric pain) Rectal Exam: not examined Extremities: No clubbing, No cyanosis, No edema, Normal pulses, No tenderness/swelling Skin: No rashes, No breakdown, No significant lesion Neuro: Normal gait, Normal speech, Strength at 5/5 X4 ext, Normal tone, Sensation intact, Cranial nerves 3-12 NL, Reflexes 2+ Psych/Mental Status: Mental status NL, Mood NL Labs Labs Laboratory Tests Test 03/28/20 08:10 03/28/20 08:15 Urine Collection Type Void Urine Color Yellow Urine Clarity Clear Urine pH 7.0 (<5.0-8.0) Urine Specific Penrose 1.010 (1.000-1.030) Urine Protein Negative mg/dL (NEG-TRACE) Urine Glucose (UA) Negative mg/dL (NEG) Urine Ketones (Stick) Negative mg/dL (NEG) Urine Blood Negative (NEG) Urine Nitrite Negative (NEG) Urine Bilirubin Negative (NEG) Urine Urobilinogen Dipstick 0.2 mg/dL (0.2 mg/dL) Urine Leukocyte Esterase Negative (NEG) Urine RBC 0 /HPF (0-2) Urine WBC Occ /HPF (0-4) Urine Squamous Epithelial Cells Occ /LPF Urine Bacteria Few /HPF (0-FEW) Urine Hyaline Casts Few /HPF Urine Mucus Slight /LPF White Blood Count 8.7 x10^3/uL (4.0-11.0) Red Blood Count 4.69 x10^6/uL (3.50-5.40) Hemoglobin 15.5 g/dL (12.0-15.5) Hematocrit 44.8 % (36.0-47.0) Mean Corpuscular Volume 96 fL (79-100) Mean Corpuscular Hemoglobin 33 pg (25-35) Mean Corpuscular Hemoglobin Concent 35 g/dL (31-37) Red Cell Distribution Width 12.8 % (11.5-14.5) Platelet Count 348 x10^3/uL (140-400) Neutrophils (%) (Auto) 67 % (31-73) Lymphocytes (%) (Auto) 27 % (24-48) Monocytes (%) (Auto) 4 % (0-9) Eosinophils (%) (Auto) 1 % (0-3) Basophils (%) (Auto) 1 % (0-3) Neutrophils # (Auto) 5.8 x10^3/uL (1.8-7.7) Lymphocytes # (Auto) 2.4 x10^3/uL (1.0-4.8) Monocytes # (Auto) 0.4 x10^3/uL (0.0-1.1) Eosinophils # (Auto) 0.1 x10^3/uL (0.0-0.7) Basophils # (Auto) 0.1 x10^3/uL (0.0-0.2) Sodium Level 141 mmol/L (136-145) Potassium Level 2.8 mmol/L (3.5-5.1) Chloride Level 100 mmol/L (98-107) Carbon Dioxide Level 29 mmol/L (21-32) Anion Gap 12 (6-14) Blood Urea Nitrogen 6 mg/dL (7-20) Creatinine 0.8 mg/dL (0.6-1.0) Estimated GFR (Cockcroft-Gault) 73.7 BUN/Creatinine Ratio 8 (6-20) Glucose Level 134 mg/dL (70-99) Calcium Level 9.2 mg/dL (8.5-10.1) Total Bilirubin 0.2 mg/dL (0.2-1.0) Aspartate Amino Transf (AST/SGOT) 24 U/L (15-37) Alanine Aminotransferase (ALT/SGPT) 29 U/L (14-59) Alkaline Phosphatase 99 U/L (46-116) Troponin I Quantitative 0.278 ng/mL (0.000-0.055) Total Protein 7.8 g/dL (6.4-8.2) Albumin 3.9 g/dL (3.4-5.0) Albumin/Globulin Ratio 1.0 (1.0-1.7) Lipase 43 U/L (73-393) Laboratory Tests Test 03/28/20 08:10 03/28/20 08:15 Urine Collection Type Void Urine Color Yellow Urine Clarity Clear Urine pH 7.0 (<5.0-8.0) Urine Specific Penrose 1.010 (1.000-1.030) Urine Protein Negative mg/dL (NEG-TRACE) Urine Glucose (UA) Negative mg/dL (NEG) Urine Ketones (Stick) Negative mg/dL (NEG) Urine Blood Negative (NEG) Urine Nitrite Negative (NEG) Urine Bilirubin Negative (NEG) Urine Urobilinogen Dipstick 0.2 mg/dL (0.2 mg/dL) Urine Leukocyte Esterase Negative (NEG) Urine RBC 0 /HPF (0-2) Urine WBC Occ /HPF (0-4) Urine Squamous Epithelial Cells Occ /LPF Urine Bacteria Few /HPF (0-FEW) Urine Hyaline Casts Few /HPF Urine Mucus Slight /LPF White Blood Count 8.7 x10^3/uL (4.0-11.0) Red Blood Count 4.69 x10^6/uL (3.50-5.40) Hemoglobin 15.5 g/dL (12.0-15.5) Hematocrit 44.8 % (36.0-47.0) Mean Corpuscular Volume 96 fL (79-100) Mean Corpuscular Hemoglobin 33 pg (25-35) Mean Corpuscular Hemoglobin Concent 35 g/dL (31-37) Red Cell Distribution Width 12.8 % (11.5-14.5) Platelet Count 348 x10^3/uL (140-400) Neutrophils (%) (Auto) 67 % (31-73) Lymphocytes (%) (Auto) 27 % (24-48) Monocytes (%) (Auto) 4 % (0-9) Eosinophils (%) (Auto) 1 % (0-3) Basophils (%) (Auto) 1 % (0-3) Neutrophils # (Auto) 5.8 x10^3/uL (1.8-7.7) Lymphocytes # (Auto) 2.4 x10^3/uL (1.0-4.8) Monocytes # (Auto) 0.4 x10^3/uL (0.0-1.1) Eosinophils # (Auto) 0.1 x10^3/uL (0.0-0.7) Basophils # (Auto) 0.1 x10^3/uL (0.0-0.2) Sodium Level 141 mmol/L (136-145) Potassium Level 2.8 mmol/L (3.5-5.1) Chloride Level 100 mmol/L (98-107) Carbon Dioxide Level 29 mmol/L (21-32) Anion Gap 12 (6-14) Blood Urea Nitrogen 6 mg/dL (7-20) Creatinine 0.8 mg/dL (0.6-1.0) Estimated GFR (Cockcroft-Gault) 73.7 BUN/Creatinine Ratio 8 (6-20) Glucose Level 134 mg/dL (70-99) Calcium Level 9.2 mg/dL (8.5-10.1) Total Bilirubin 0.2 mg/dL (0.2-1.0) Aspartate Amino Transf (AST/SGOT) 24 U/L (15-37) Alanine Aminotransferase (ALT/SGPT) 29 U/L (14-59) Alkaline Phosphatase 99 U/L (46-116) Troponin I Quantitative 0.278 ng/mL (0.000-0.055) Total Protein 7.8 g/dL (6.4-8.2) Albumin 3.9 g/dL (3.4-5.0) Albumin/Globulin Ratio 1.0 (1.0-1.7) Lipase 43 U/L (73-393) Images Images CXR: The cardiomediastinal silhouette is within normal limits. There are no pleural effusions. There is no pulmonary vascular congestion. There is no pneumothorax. The lungs are clear. No significant osseous abnormality is identified. IMPRESSION: No acute cardiopulmonary process. VTE Prophylaxis Ordered VTE Prophylaxis Devices: Yes VTE Pharmacological Prophylaxi: Yes Assessment/Plan Assessment/Plan A/P: NSTEMI - heparini GTT, consult cardiology. ASA, NTG Abdominal pain -likely coronary equivalent vs electrolyte mediated, will try to minimize opioids given her history of substance use disorder Hypokalemia - will replace IV and po, check mag. Telemetry Anxiety - will keep on meds Chronic pain - requesting hydrocodone 10mg for knee pain. Hep C(treated) - will monitor LFTs Drug seeking behavior - counseled on cutting dose down as quickly as possible and opioid scripts not to last longer than 5 days Smoker - offered nicotine patch FEN - Cardiac diet PPX - heparin FULL CODE Dispo - inpatient for above Justicifation of Admission Dx: Justifications for Admission: Justification of Admission Dx: Yes ROSY ARENAS MD Mar 28, 2020 09:29
[2020-03-28] MEDS ORDERED: HEPARIN 25,000UTS/250ML PREMIX 250 ML IV PRN (09:30)
[2020-03-28] MEDS ORDERED: HEPARIN for IV BOLUS 10,000 UNIT/10 ML VIAL. IV PRN (09:30)
[2020-03-28] MEDS ORDERED: NITROGLYCERIN SUBLINGUAL 0.4 MG BOTTLE OF 25. SL ONE (10:06)
[2020-03-28] MEDS ORDERED: HEPARIN for IV BOLUS 10,000 UNIT/10 ML VIAL. IV ONE (10:15)
--- NOTE | 2020-03-28 10:40 | NUR ---
The patient, ANNY FORD, 59 y/o, F admitted by ROSY ARENAS MD, was given written information regarding hospital policies, unit procedures and contact persons. Valuables were checked and left at bedside with patient. Patient appeared teary eyed and stated she was concerned about getting heart cath but wanted to proceed. This RN educated patient on heart cath procedure. Patient verbalized understanding and signed consents. Pgd and spoke to cardiology to advise of patient decision.
[2020-03-28] MEDS ORDERED: IOHEXOL 300 MG/ML 100ML VIAL. ONE (10:53)
[2020-03-28] MEDS ORDERED: LIDOCAINE 1% PF 2 ML VIAL. ONE (10:53)
--- NOTE | 2020-03-28 10:53 | CONS ---
DATE OF CONSULTATION: 03/28/2020 REASON FOR CONSULTATION: Elevated troponin. CONSULTING PHYSICIAN: Dr. Snyder in the ER. HISTORY OF PRESENT ILLNESS: The patient is a pleasant 59-year-old woman who came into the hospital in the setting of 3 days of epigastric discomfort with some dizziness. She reports that she had some exertional dyspnea and occasional chest discomfort as well. She currently is quite anxious about her situation. Initial evaluation in the ER revealed stable vital signs with mild tachycardia and an elevated troponin and abnormal EKG suggestive of underlying cardiovascular ischemia as a source of her discomfort. A trial dose of GI cocktail did not improve her symptoms. In speaking with the patient currently, she reports some mild chest pressure and her blood pressure is currently 140/80 with a heart rate of 100. She has previously been seen in the hospital with a history of benzodiazepine withdrawal as well as recent history of dizziness and a CT scan of the head at that time did not reveal any pathology. PAST MEDICAL HISTORY: 1. Hepatitis C, in remission. 2. Hypertension. 3. Prior history of alcohol abuse. 4. Benzodiazepine withdrawal issues in the past. SOCIAL HISTORY: The patient smokes 1 pack per day. She denies any current alcohol use or illicit drug use. She lives with her . ALLERGIES: PENICILLIN. CURRENT CARDIOVASCULAR MEDICATIONS: 1. Heparin drip. 2. Nitroglycerin sublingual p.r.n. 3. Aspirin 324 mg 1 time p.o. FAMILY HISTORY: Notable for coronary artery disease. REVIEW OF SYSTEMS: Negative for 10 out of 14 systems reviewed, unless otherwise mentioned above in HPI. PHYSICAL EXAMINATION: VITAL SIGNS: Afebrile, pulse 100, respirations 20, blood pressure 145/89, and saturating 97% on room air. GENERAL: She is moderately anxious and tearful. HEAD AND NECK: Unremarkable. CARDIAC: Regular rate and rhythm without murmurs, rubs, or gallops. LUNGS: Notable for decreased breath sounds bilaterally. ABDOMEN: Mildly tender to palpation, but no rebound or guarding. EXTREMITIES: No clubbing, cyanosis, or edema. 1+ radial and dorsalis pedis pulses. NEUROLOGIC: No focal deficits. MUSCULOSKELETAL: No obvious trauma. DIAGNOSTIC STUDIES: CT scan of the head in 01/2020 was unremarkable. Chest x-ray today reveals no acute cardiopulmonary process. EKG is suggestive of [id number] anterolateral ischemia with T-wave inversions. IMPRESSION: Non-ST elevation myocardial infarction. RECOMMENDATIONS: I had a thorough discussion with the patient regarding options for management of her elevated troponin and symptoms suspicious of underlying coronary ischemia. I discussed with her conservative management including heparin and aspirin therapy with close monitoring of her EKG and cardiac enzymes. We also discussed invasive approaches including expedited cardiac catheterization. The patient wishes to think about her options with her family and will notify us. For now, continue aspirin, beta-los, initiate statin, and continue heparin drip. We will follow along closely and anticipate cardiac catheterization in the next 24-48 hours unless her enzymes and symptoms improve remarkably. HATTIE CATHERINE MD DR: DEDE/kole JOB#: [id number] / [id number]
[2020-03-28] MEDS ORDERED: POTASSIUM CHLORIDE 20 MEQ TABLET.ER. PO ONE ×3 (11:00→16:00)
[2020-03-28] MEDS ORDERED: fentaNYL PF VIAL 100 MCG/2 ML VIAL ONE (11:35)
[2020-03-28] MEDS ORDERED: MIDAZOLAM HCL/PF 2 MG/2 ML VIAL. ONE (11:36)
[2020-03-28] MEDS ORDERED: NITROGLYCERIN 200 MCG/2 ML SYRINGE FOR CATH/VASC LAB. ONE (11:36)
[2020-03-28] MEDS ORDERED: HEPARIN for IV BOLUS 10,000 UNIT/10 ML VIAL. ONE (11:36)
[2020-03-28] MEDS ORDERED: VERAPAMIL 5 MG/2 ML VIAL. ONE (11:36)
[2020-03-28] MEDS: POTASSIUM CHLORIDE 10MEQ 100 ML IV SCH ×4 (11:38→15:29)
[2020-03-28] MEDS ORDERED: IOHEXOL 300 MG/ML 100ML VIAL. IART ONE (12:00)
[2020-03-28] MEDS ORDERED: LIDOCAINE 1% PF 2 ML VIAL. INJ ONE (12:00)
[2020-03-28] MEDS ORDERED: MIDAZOLAM HCL/PF 2 MG/2 ML VIAL. IV ONE (12:00)
[2020-03-28] MEDS ORDERED: fentaNYL PF VIAL 100 MCG/2 ML VIAL IV ONE (12:00)
[2020-03-28] MEDS ORDERED: HEPARIN for IV BOLUS 10,000 UNIT/10 ML VIAL. IART ONE (12:00)
[2020-03-28] MEDS ORDERED: NITROGLYCERIN 200 MCG/2 ML SYRINGE FOR CATH/VASC LAB. IART ONE (12:00)
[2020-03-28] MEDS ORDERED: VERAPAMIL 5 MG/2 ML VIAL. IART ONE (12:00)
--- NOTE | 2020-03-28 12:12 | EKG ---
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
[2020-03-28] MEDS ORDERED: NITROGLYCERIN SUBLINGUAL 0.4 MG BOTTLE OF 25. SL PRN (13:00)
[2020-03-28] MEDS ORDERED: FLUT12HF3 INH (13:18)
[2020-03-28] MEDS ORDERED: LISI1TAB23 PO (13:18)
[2020-03-28] MEDS: METOPROLOL TART IMMED RELEASE 25 MG TABLET. PO SCH ×3 (13:24→22:20)
[2020-03-28] MEDS ORDERED: clonazePAM 0.5 MG TABLET PO PRN (14:15)
[2020-03-28] MEDS: PARoxetine 20 MG TABLET PO SCH ×2 (15:00→15:29)
--- NOTE | 2020-03-28 15:41 | CARD ---
MR#: [id number] Date of Study: 03/28/2020 Ordering Physician: HATTIE CATHERINE, Referring Physician: HATTIE CATHERINE, Tech: Mireille Green APPROVED REPORT Technologist: Mireille Green Nurse: Elena Candelario RN Procedure(s) performed: fl time: 2.8 mins dose: 16 gycm2 contrast: 89 ml moderate sedation: 25 MINS LHC, Coronary angiography, Left ventriculography HISTORY : The patient is a 59 year-old female with a history of . INDICATION The indication(s) include : non-STEMI . CSHA Clinical Frailty Scale CSHA Clinical Frailty Scale: Moderately Frail Heart Failure Heart Failure: No PROCEDURE NARRATIVE INFORMED CONSENT: After explaining the risks and benefits of the procedure and alternatives, informed consent was obtained. The patient was brought electively to the cardiac catheterization lab. A timeout was performed confi rming the patient's name, date of , procedure, and site of procedure. All necessary personnel w ere wearing the appropriate protective equipment and radiation monitor devices. (See nursing notes for medications administered). ACCESS: The right wrist was sterilely prepped and draped in the usual fashion. The right wrist was infiltrat ed with 1 mL of 2% lidocaine for subcutaneous anesthesia. A 6 Persian Terumo glide sheath was inserte d into the right radial artery without difficulty. CORONARY ANGIOGRAPHY: Right and left coronary angiography was performed using a 6Fr TIG 4.0 catheter. Left ventricular en d diastolic pressure was obtained with a pigtail catheter and pullback was performed after left ventr iculography. All catheter exchanges and advancements were performed over a guidewire. CLOSURE: At case completion the right radial sheath was removed and a Terumo radial band was applied with 13 m l of air. COMPLICATIONS: The patient tolerated the procedure well and there were no immediate complications. FINDINGS: HEMODYNAMICS: LVEDP 14 mm Hg No gradient on LV to aortic pullback. AO: 128/78 LEFT VENTRICULOGRAM: EF 55% Anterobasal: Normal. Anterolateral: Mild hypokinesis Apical:Akinetic Diaphragmatic: Mild hypokinesis. Posterobasal: Normal CORONARY ANGIOGRAPHY: LM is a large caliber vessel with normal angiographic appearance. LAD is a large caliber vessel with normal angiographic appearance. Ramus is a moderate caliber vessel with normal angiographic apeparance. LCx is a moderate caliber non-dominant vessel with distal 40% stenosis. OM1 is a moderate caliber vessel with normal angiographic appearance. RCA is a large caliber dominant vessel with normal angiographic appearance. RPDA and RPL are moderate caliber vessels with normal angiographic appearance. Conclusion 1. Normal left sided filling pressures. 2. Normal LV systolic function with apical akinesis suggestive of stress induced cardiomyopathy 3. Mild non-obstructive coronary disease. Recommendations Aggressive medical therapy Signed by : Hattie Catherine, Electronically Approved : 03/28/2020 15:40:37
[2020-03-28] MEDS ORDERED: ALBUTEROL SULFATE 2.5 MG/3 ML NEBU. NEB PRN (16:00)
[2020-03-28] MEDS ORDERED: ALBUTEROL SULFATE 2.5 MG/3 ML NEBU. NEB SCH (16:00)
[2020-03-28] MEDS ORDERED: HYDR-2161 PO (16:58)
[2020-03-28] MEDS: HYDROcodone/APAP 7.5/325MG 1 TAB TABLET PO PRN (17:10)
[2020-03-28] MEDS ORDERED: BUDESONIDE 0.5 MG/2 ML NEBU. NEB SCH (20:00)
[2020-03-28] MEDS ORDERED: BUDESONIDE 0.5 MG/2 ML NEBU. NEB PRN (20:00)
[2020-03-28] MEDS ORDERED: TEMAZEPAM 15 MG CAPSULE PO SCH (21:00)
[2020-03-29 02:55] VITALS: BP 103/64
[2020-03-29 04:52] LABS: HEMATOCRIT 39.5 % (36.0-47.0); HEMOGLOBIN 13.3 g/dL (12.0-15.5); RED BLOOD COUNT 4.08 x10^6/uL (3.50-5.40); RED CELL DISTRIBUTION WIDTH 13.1 % (11.5-14.5); WHITE BLOOD COUNT 9.2 x10^3/uL (4.0-11.0)
[2020-03-29 05:00] LABS: CALCIUM 8.5 mg/dL (8.5-10.1); CREATININE 0.8 mg/dL (0.6-1.0); GFR 73.7; POTASSIUM 4.5 mmol/L (3.5-5.1)
[2020-03-29] MEDS: METOPROLOL TART IMMED RELEASE 25 MG TABLET. PO SCH (06:01)
[2020-03-29] MEDS: HYDROcodone/APAP 7.5/325MG 1 TAB TABLET PO PRN (06:01)
[2020-03-29 07:00] VITALS: BP 118/65
[2020-03-29] MEDS: PARoxetine 20 MG TABLET PO SCH (07:56)
[2020-03-29] MEDS ORDERED: FLUTICASONE INH SCH (09:00)
[2020-03-29] MEDS ORDERED: SALMETEROL INH SCH (09:00)
[2020-03-29] MEDS ORDERED: ANTI-COAG MONITOR BY PHARMACY. MC PRN (11:15)
[2020-03-29] MEDS ORDERED: METO25TA4 PO (11:43)
--- NOTE | 2020-03-29 12:02 | PDOC ---
CARDIO Progress Notes Date and Time Date of Service 03/29/2020 Time of Evaluation 1130 Subjective Subjective: No Chest Pain, No shortness of breath, No Palpitations Vitals Vitals Vital Signs Date Time Temp Pulse Resp B/P (MAP) Pulse Ox O2 Delivery O2 Flow Rate FiO2 03/29/20 08:00 Room Air 03/29/20 07:00 71 16 118/65 (82) 96 03/29/20 02:55 98.6 98.6 03/28/20 14:48 2.0 Weight Weight [ ] Input and Output Intake and Output Intake and Output 03/29/20 07:00 Intake Total 1660 ml Balance 1660 ml Intake Oral 660 ml IV Total 1000 ml # Voids 4 Laboratory Labs Laboratory Tests Test 03/28/20 19:30 03/29/20 04:20 Magnesium Level 1.5 mg/dL (1.8-2.4) 1.8 mg/dL (1.8-2.4) White Blood Count 9.2 x10^3/uL (4.0-11.0) Red Blood Count 4.08 x10^6/uL (3.50-5.40) Hemoglobin 13.3 g/dL (12.0-15.5) Hematocrit 39.5 % (36.0-47.0) Mean Corpuscular Volume 97 fL (79-100) Mean Corpuscular Hemoglobin 33 pg (25-35) Mean Corpuscular Hemoglobin Concent 34 g/dL (31-37) Red Cell Distribution Width 13.1 % (11.5-14.5) Platelet Count 260 x10^3/uL (140-400) Sodium Level 142 mmol/L (136-145) Potassium Level 4.5 mmol/L (3.5-5.1) Chloride Level 107 mmol/L (98-107) Carbon Dioxide Level 30 mmol/L (21-32) Anion Gap 5 (6-14) Blood Urea Nitrogen 16 mg/dL (7-20) Creatinine 0.8 mg/dL (0.6-1.0) Estimated GFR (Cockcroft-Gault) 73.7 Glucose Level 90 mg/dL (70-99) Calcium Level 8.5 mg/dL (8.5-10.1) Physical Exam Chest: Symmetric LUNGS: Other (LSCTA per RN) Heart: RRR (SR) Abdomen: Other (soft) Extremities: No Edema, No Calf Tenderness Neurology: alert, oriented, follow commands Other Exams discussed with retail loss prevention investigator Assessment 1. NSTEMI: LHC revelaed distal lesion to LCx. No PCI. Currently no CP. trop elevation possible from microvascular disease and uncontrolled HTN 2. HLP: on home statin 3. HTN: labile initially but now controlled 4. Tobaccoism 5. Possible stress induced CM: EF 55% with mild apical akinesis 6. anxiety 7. Hypokalemia/hypomagnesemia: resolved Recommendations 1. 81 mg ECASA. resume home statin. Covid pending 2. Metoprolol/lisinopril/HCTZ HBPM 3. Follow up in office in 2-3 months 4. Smoking cessation Justicifation of Admission Dx: Justifications for Admission: Justification of Admission Dx: Yes OR: Acute NSTEMI CORINNE DUFFY APRN Mar 29, 2020 12:02
[2020-03-29] MEDS ORDERED: ASPI-630 PO (12:04)
[2020-03-29 12:17] LABS: CHOLESTEROL/HDL RATIO 3.3
--- NOTE | 2020-03-29 12:30 | NUR ---
Discharge Note: ANNY FORD [address] [place] [address] Discharge instructions and discharge home medications reviewed with Patient and a copy given. All questions have been answered and understanding verbalized. The following instructions and handouts were given: smoking cessation info, post cath site instructions, prescription for metoprolol, discharge instructions. Discontinued lines and drains: Peripheral IV intact. Patient discharged to Home or Self Care with Spouse via Ambulated at 1230.
--- NOTE | 2020-03-29 12:33 | DS ---
DATE OF DISCHARGE: 03/29/2020 ADMISSION DIAGNOSIS: Chest pain. DISCHARGE DIAGNOSIS: Atypical chest pain (her cardiac cath was clean). HOSPITAL COURSE: The patient is a pleasant middle-aged female who presented with chest pain and had a slight change in her EKG. There was some concern she could have had an acute myocardial infarction. She was taken to the bed laborer, it was clean. Today, I saw and examined her, she is at her baseline. Heart tones are normal. Lungs are clear. She wants to go home. We plan to discharge. I am going to give her a prescription for metoprolol, atorvastatin and aspirin. DISPOSITION: Home. ACTIVITY: As tolerated. DIET: Low sodium. MEDICATIONS: Please see the MRAD. TOTAL TIME: 32 minutes. SCOTT CARRERA DO DR: POOJA/kole JOB#: [id number] / [id number]
--- NOTE | 2020-03-29 16:36 | NUR ---
SW following. Reviewed chart and spoke with RN. RN stated no SW needs at this time. Pt to discharge home with spouse today on room air and oral medications. Pt COVID negative. No further SW needs at this time.
== END 2020-03-29 12:30 | disposition home or self-care (01) | DRG 287 ==
LOC: ER 07:50 → 2 SOUTH 09:25 → 6 SOUTH 14:09
PROVIDERS: ADMIT Internal Medicine; ATTEND Internal Medicine
PROC: 4A023N7 Measurement of Cardiac Sampling and Pressure, Left Heart, Percutaneous Approach (ICD-10-PCS; principal; 2020-03-28)
PROC: B2111ZZ Fluoroscopy of Multiple Coronary Arteries using Low Osmolar Contrast (ICD-10-PCS; 2020-03-28)
PROC: B2151ZZ Fluoroscopy of Left Heart using Low Osmolar Contrast (ICD-10-PCS; 2020-03-28)
DX: I25.10 Atherosclerotic heart disease of native coronary artery without angina pectoris (principal); R07.89 Other chest pain; B19.20 Unspecified viral hepatitis C without hepatic coma; E78.5 Hyperlipidemia, unspecified; E83.42 Hypomagnesemia; E87.6 Hypokalemia; Z96.653 Presence of artificial knee joint, bilateral; M25.569 Pain in unspecified knee; F17.210 Nicotine dependence, cigarettes, uncomplicated; Z20.828 Contact with and (suspected) exposure to other viral communicable diseases; F41.9 Anxiety disorder, unspecified; G89.29 Other chronic pain; I10 Essential (primary) hypertension; Z79.899 Other long term (current) drug therapy; Z90.710 Acquired absence of both cervix and uterus; Z90.89 Acquired absence of other organs; Z82.49 Family history of ischemic heart disease and other diseases of the circulatory system; Z76.5 Malingerer [conscious simulation]
CPT/HCPCS: 36415; 71046; 80048; 80053; 80061; 81001; 83690; 83735; 84484; 85025; 85027; 93005; 93458; 96361; 96374; 96375; 99152; 99153; C1769; C1892; J1644; J2250; J2405; J3010; J3480; J3490; J7030; Q9967; 99285-25; G0378; U0003-CS

== ENCOUNTER 2020-04-14 02:41 | Emergency (ER) | payer BC, MEDICARE ==
[~2020-04-14] VITALS: Ht 162.6 cm; Wt 50.0 kg
[~2020-04-14 02:41] MED LIST changes: +ASPI-630 PO; +FLUT12HF3 INH; +HYDR-2161 PO; +METO25TA4 PO
[2020-04-14 03:09] VITALS: BP 126/84
[2020-04-14] MEDS: IV NORMAL SALINE 1000ML BAG 1,000 ML IV ONE ×2 (04:30→05:02)
[2020-04-14] MEDS: KETOROLAC 15 MG/ML VIAL. IVP ONE ×2 (04:30→05:02)
[2020-04-14 04:32] LABS: BASO # 0.1 x10^3/uL (0.0-0.2); BASO % 1 % (0-3); EOS # 0.4 x10^3/uL (0.0-0.7); EOS % 5 % (0-3); LYMPH % 46 % (24-48); MEAN CORPUSCULAR HEMOGLOBIN 33 pg (25-35); MEAN CORPUSCULAR HGB CONC 34 g/dL (31-37); MEAN CORPUSCULAR VOLUME 98 fL (79-100); MONO # 0.5 x10^3/uL (0.0-1.1); MONO % 5 % (0-9); NEUT # 3.7 x10^3/uL (1.8-7.7); NEUT % 43 % (31-73); PLATELET COUNT 241 x10^3/uL (140-400); RED CELL DISTRIBUTION WIDTH 14.4 % (11.5-14.5); WHITE BLOOD COUNT 8.7 x10^3/uL (4.0-11.0)
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
[2020-04-14 04:40] LABS: CALCIUM 8.8 mg/dL (8.5-10.1); CREATININE 0.8 mg/dL (0.6-1.0); GFR 73.7; POTASSIUM 3.6 mmol/L (3.5-5.1)
[2020-04-14 04:46] LABS: ALBUMIN 3.6 g/dL (3.4-5.0); ALBUMIN/GLOBULIN RATIO 0.9 (1.0-1.7); TOTAL BILIRUBIN 0.2 mg/dL (0.2-1.0); TOTAL PROTEIN 7.6 g/dL (6.4-8.2)
[2020-04-14 05:02] LABS: BILIRUBIN,URINE NEGATIVE (NEG); CLARITY,URINE CLEAR; COLOR,URINE YELLOW; NITRITE,URINE NEGATIVE (NEG); PROTEIN,URINE NEGATIVE (NEG-TRACE)
--- NOTE | 2020-04-14 05:02 | RAD ---
Three-view bilateral knee radiographs 04/14/2020 CLINICAL HISTORY: Injury to both knees. AP, lateral and oblique digital radiographs of both knees were obtained. Comparison study is dated 02/01/2020. The patient is post left TKA and right patellofemoral joint replacement, unchanged. No fracture or dislocation of either knee is seen. Moderate degenerative changes are seen involving the medial compartment of the right knee. IMPRESSION: No fracture or dislocation of either knee is seen. Electronically signed by: Edin Ngo MD (04/14/2020 4:59 AM) [id number]
[2020-04-14 05:08] LABS: BACTERIA,URINE FEW /HPF (0-FEW); RBC,URINE 0 /HPF (0-2); SQUAMOUS EPITHELIAL CELL,UR MANY /LPF
[2020-04-14 05:09] LABS: AMORPHOUS SEDIMENT,UR PRESENT /HPF
== END 2020-04-14 05:14 | disposition left against medical advice (07) ==
LOC: ER 02:41
DX: S19.9XXA Unspecified injury of neck, initial encounter (principal); R10.30 Lower abdominal pain, unspecified; M25.561 Pain in right knee; M25.562 Pain in left knee; R42 Dizziness and giddiness; J44.9 Chronic obstructive pulmonary disease, unspecified; I25.2 Old myocardial infarction; G89.29 Other chronic pain; F17.200 Nicotine dependence, unspecified, uncomplicated; Z76.5 Malingerer [conscious simulation]; Z88.0 Allergy status to penicillin; Y04.0XXA Assault by unarmed brawl or fight, initial encounter; Y93.89 Activity, other specified; Y92.89 Other specified places as the place of occurrence of the external cause; Y99.8 Other external cause status
CPT/HCPCS: 36415; 73562; 80053; 81001; 85025; 99284; J1885; J7030

== ENCOUNTER 2020-05-07 02:47 | Emergency (ER) | payer BC, MEDICARE ==
[~2020-05-07] VITALS: Ht 162.6 cm; Wt 47.7 kg
[2020-05-07] MEDS ORDERED: TEMA15CA PO (03:40)
[2020-05-07] MEDS ORDERED: CLON-77 PO (03:40)
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
[2020-05-07] MEDS ORDERED: HYDROmorphone 2 MG/ML VIAL SQ ONE (03:45)
[2020-05-07 03:53] VITALS: BP 133/87
== END 2020-05-07 03:57 | disposition home or self-care (01) ==
LOC: ER 02:47
DX: R10.31 Right lower quadrant pain (principal); M25.562 Pain in left knee; F41.9 Anxiety disorder, unspecified; J44.9 Chronic obstructive pulmonary disease, unspecified; I25.2 Old myocardial infarction; F17.200 Nicotine dependence, unspecified, uncomplicated; Z90.89 Acquired absence of other organs; Z90.710 Acquired absence of both cervix and uterus; Z98.890 Other specified postprocedural states; Z88.0 Allergy status to penicillin
CPT/HCPCS: 96372; 99283; J1170

== ENCOUNTER 2020-10-03 01:11 | Emergency (ER) | payer BC, MEDICARE ==
[~2020-10-03] VITALS: Ht 162.6 cm; Wt 47.7 kg
[~2020-10-03 01:11] MED LIST changes: -HYDR-2161 PO; +HYDR-3072 PO; +TEMA15CA PO
[2020-10-03 01:33] LABS: BILIRUBIN,URINE NEGATIVE (NEG); CLARITY,URINE CLEAR; COLOR,URINE YELLOW; NITRITE,URINE NEGATIVE (NEG); PROTEIN,URINE NEGATIVE (NEG-TRACE)
[2020-10-03 01:42] LABS: BACTERIA,URINE FEW /HPF (0-FEW); RBC,URINE OCC /HPF (0-2)
[2020-10-03 01:57] VITALS: BP 173/92
[2020-10-03] MEDS ORDERED: TRAM-48 PO (02:04)
--- NOTE | 2020-10-03 02:04 | PHYS DOC ---
Past Medical History Past Medical History: Anxiety, COPD, [place] Additional Past Medical Histor: Chronic pain,hep C(treated),drug seeking behavior Past Surgical History: Cholecystectomy, Hysterectomy, Knee Replacement, Tonsillectomy, Other Additional Past Surgical Histo: BILATERAL KNEE REPLACEMENT Smoking Status: Current Every Day Smoker Alcohol Use: None Drug Use: None General Adult EDM: Chief Complaint: ABDOMINAL PAIN HPI: HPI: Patient is a 59 year old female past medical history of COPD presents with a chief complaint of hernia. Patient states she was diagnosed with a hernia approximately 8 months ago. She states she followed up with a general surgeon but was advised that they were unable to perform the surgery due to Covid. Patient has no associated nausea or vomiting. Patient states pain is been getting progressively worse over the last 2 days. Review of Systems: Review of Systems: Constitutional: Denies fever or chills. [] Eyes: Denies change in visual acuity. [] HENT: Denies nasal congestion or sore throat. [] Respiratory: Denies cough or shortness of breath. [] Cardiovascular: Denies chest pain or edema. [] GI: Denies nausea, vomiting, bloody stools or diarrhea. [Positive abdominal pain,] : Denies dysuria. [] Musculoskeletal: Denies back pain or joint pain. [] Integument: Denies rash. [] Neurologic: Denies headache, focal weakness or sensory changes. [] Endocrine: Denies polyuria or polydipsia. [] Lymphatic: Denies swollen glands. [] Psychiatric: Denies depression or anxiety. [] Heart Score: Risk Factors: Risk Factors: DM, Current or recent (<one month) smoker, HTN, HLP, family history of CAD, obesity. Risk Scores: Score 0 - 3: 2.5% MACE over next 6 weeks - Discharge Home Score 4 - 6: 20.3% MACE over next 6 weeks - Admit for Clinical Observation Score 7 - 10: 72.7% MACE over next 6 weeks - Early Invasive Strategies Allergies: Allergies: Allergies Coded Allergies Type Severity Reaction Last Updated Verified Penicillins Allergy Intermediate Hives 10/17/19 Yes Physical Exam: PE: Constitutional: Well developed, well nourished, no acute distress, non-toxic appearance. [] HENT: Normocephalic, atraumatic, bilateral external ears normal, oropharynx moist, no oral exudates, nose normal. [] Eyes: PERRLA, EOMI, conjunctiva normal, no discharge. [] Neck: Normal range of motion, no tenderness, supple, no stridor. [] Cardiovascular:Heart rate regular rhythm, no murmur [] Lungs & Thorax: Bilateral breath sounds clear to auscultation [] Abdomen: Bowel sounds normal, soft, no tenderness, no masses, no pulsatile masses. [Tenderness palpation right groin area is not incarcerated no palpable masses] Skin: Warm, dry, no erythema, no rash. [] Back: No tenderness, no CVA tenderness. [] Extremities: No tenderness, no cyanosis, no clubbing, ROM intact, no edema. [] Neurologic: Alert and oriented X 3, normal motor function, normal sensory function, no focal deficits noted. [] Psychologic: Affect normal, judgement normal, mood normal. [] Current Patient Data: Labs: Laboratory Tests Test 10/03/20 01:25 Urine Collection Type Unknown Urine Color Yellow Urine Clarity Clear Urine pH 6.0 (<5.0-8.0) Urine Specific [place] 1.025 (1.000-1.030) Urine Protein Negative mg/dL (NEG-TRACE) Urine Glucose (UA) Negative mg/dL (NEG) Urine Ketones (Stick) Negative mg/dL (NEG) Urine Blood Negative (NEG) Urine Nitrite Negative (NEG) Urine Bilirubin Negative (NEG) Urine Urobilinogen Dipstick 1.0 mg/dL (0.2 mg/dL) Urine Leukocyte Esterase Small (NEG) Urine RBC Occ /HPF (0-2) Urine WBC 1-4 /HPF (0-4) Urine Squamous Epithelial Cells Many /LPF Urine Bacteria Few /HPF (0-FEW) Urine Mucus Marked /LPF EKG: EKG: [] Radiology/Procedures: Radiology/Procedures: [] Course & Med Decision Making: Course & Med Decision Making Pertinent Labs and Imaging studies reviewed. (See chart for details) [] Patient was treated with Ultram discharged home on Ultram. Patient advised nursing that ultram affects her heart and can not take. Changed to norco po x 1 .No Rx for home. Will need to follow up outpatient. Kimberlee Disclaimer: Kimberlee Disclaimer: This electronic medical record was generated, in whole or in part, using a voice recognition dictation system. Departure Departure Impression: Primary Impression: Abdominal pain Additional Impression: Hernia Disposition: 01 DC HOME SELF CARE/HOMELESS Condition: STABLE Referrals: UNKNOWN PCP NAME (PCP) Patient Instructions: Hernia GERHARD SZYMANSKI DO Oct 03, 2020 02:04
[2020-10-03] MEDS ORDERED: traMADol 50 MG TABLET PO ONE (02:30)
[2020-10-03] MEDS ORDERED: HYDROcodone/APAP 5/325MG 1 TAB TABLET PO ONE (03:00)
== END 2020-10-03 02:33 | disposition home or self-care (01) ==
LOC: ER 01:11
DX: K45.8 Other specified abdominal hernia without obstruction or gangrene (principal); R10.84 Generalized abdominal pain; F41.9 Anxiety disorder, unspecified; J44.9 Chronic obstructive pulmonary disease, unspecified; I25.2 Old myocardial infarction; G89.29 Other chronic pain; F17.200 Nicotine dependence, unspecified, uncomplicated; Z90.49 Acquired absence of other specified parts of digestive tract; Z90.710 Acquired absence of both cervix and uterus; Z98.890 Other specified postprocedural states; Z88.0 Allergy status to penicillin
CPT/HCPCS: 81001; 87086; 99283

== ENCOUNTER 2020-11-14 15:20 | Emergency (ER) | payer BC, MEDICARE ==
--- NOTE | 2020-11-14 16:54 | RAD ---
Pelvis and Two View right hip: Clinical History: Right hand pain status post fall. Technique: AP view the pelvis AP and frog leg views of the right hip were obtained. Comparison: None. Findings: There is obscuration of bony detail of sacrum due to overlying bowel gas. There is marked degenerativ e changes the right hip with eburnation and marginal spurring. There is no interruption of cortex to suggest a fracture. The femoral acetabular relationship is normal. Impression: Marked degenerative changes of the right hip consistent with osteoarthrosis. No acute findings. Electronically signed by: Reggie Mathias III, MD (11/14/2020 4:51 PM) [id number]
--- NOTE | 2020-11-14 17:31 | PHYS DOC ---
Past Medical History Past Medical History: Anxiety, COPD, [place] Additional Past Medical Histor: Chronic pain,hep C(treated),drug seeking behavior (ANIL RICHARDSON APRN) Past Surgical History: Cholecystectomy, Hysterectomy, Knee Replacement, Tonsillectomy, Other Additional Past Surgical Histo: BILATERAL KNEE REPLACEMENT (ANIL RICHARDSON APRN) Smoking Status: Current Every Day Smoker Alcohol Use: None Drug Use: None (ANIL RICHARDSON APRN) General Adult EDM: Chief Complaint: HIP PAIN HPI: HPI: Patient is a 59 year old female who presents to the ED today complaining of moderate pain to the right hip that began yesterday after she fell. Patient denies any loss of consciousness. Describes the pain as sharp and constant. Requesting fentanyl for her pain. (ANIL RICHARDSON APRN) Review of Systems: Review of Systems: Constitutional: Denies fever or chills. [] Musculoskeletal: Reports right hip pain Integument: Denies rash. [] Neurologic: Denies headache, focal weakness or sensory changes. [] Psychiatric: Denies depression or anxiety. [] (ANIL RICHARDSON APRN) Heart Score: Risk Factors: Risk Factors: DM, Current or recent (<one month) smoker, HTN, HLP, family history of CAD, obesity. Risk Scores: Score 0 - 3: 2.5% MACE over next 6 weeks - Discharge Home Score 4 - 6: 20.3% MACE over next 6 weeks - Admit for Clinical Observation Score 7 - 10: 72.7% MACE over next 6 weeks - Early Invasive Strategies (ANIL RICHARDSON APRN) Allergies: Allergies: Allergies Coded Allergies Type Severity Reaction Last Updated Verified Penicillins Allergy Intermediate Hives 10/17/19 Yes (ANIL RICHARDSON APRN) Physical Exam: PE: Constitutional: Well developed, well nourished, no acute distress, non-toxic appearance. [] Skin: Warm, dry, no erythema, no rash. [] Back: No tenderness, no CVA tenderness. [] Extremities: Right hip with no obvious deformity. No tenderness, no cyanosis, no clubbing, ROM intact, no edema. [] Neurologic: Alert and oriented X 3, normal motor function, normal sensory function, no focal deficits noted. [] Psychologic: Affect normal, judgement normal, mood normal. [] (ANIL RICHARDSON APRN) EKG: EKG: [] (ANIL RICHARDSON APRN) Radiology/Procedures: Radiology/Procedures: [] (ANIL RICHARDSON APRN) Course & Med Decision Making: Course & Med Decision Making Pertinent Labs and Imaging studies reviewed. (See chart for details) This is a 59-year-old female patient well-known to this ED for chronic pain related complaints presenting today complaining of right hip pain, symptoms began yesterday after she fell. Right hip x-rays also noted for DJD otherwise no acute findings. Patient asked for fentanyl. Informed her she does not have any reason to be given fentanyl in the ED. She has no broken bone. Recommended Toradol. She eloped (ANIL RICHARDSON APRN) Dragon Disclaimer: Dragon Disclaimer: This electronic medical record was generated, in whole or in part, using a voice recognition dictation system. (ANIL RICHARDSON APRN) Departure Departure Impression: Primary Impression: Fall from standing Qualified Codes: W19.XXXA - Unspecified fall, initial encounter Additional Impression: Right hip pain Disposition: 07 AMA/ELOPED/LWBS Condition: STABLE Referrals: NO PCP (PCP) Attending Signature Attending Signature I have reviewed the PA/FREELANCE PATTERNMAKER's note and plan of care. I was available for consultation as needed during the patient's visit in the emergency department. I agree with the clinical impression, plan, and disposition. (BRIANA MIRANDA DO) ANIL RICHARDSON APRN Nov 14, 2020 17:31 BRIANA MIRANDA DO Nov 17, 2020 10:42
== END 2020-11-14 17:32 | disposition left against medical advice (07) ==
LOC: ER 15:20
DX: M25.551 Pain in right hip (principal); G89.11 Acute pain due to trauma; G89.29 Other chronic pain; J44.9 Chronic obstructive pulmonary disease, unspecified; I25.2 Old myocardial infarction; Z76.5 Malingerer [conscious simulation]; F17.200 Nicotine dependence, unspecified, uncomplicated; Z90.49 Acquired absence of other specified parts of digestive tract; Z90.710 Acquired absence of both cervix and uterus; Z88.0 Allergy status to penicillin; W18.39XA Other fall on same level, initial encounter; Y93.89 Activity, other specified; Y92.89 Other specified places as the place of occurrence of the external cause; Y99.8 Other external cause status
CPT/HCPCS: 73502; 99283

== ENCOUNTER 2020-12-16 04:04 | Emergency (ER) | payer BC, MEDICARE ==
[~2020-12-16] VITALS: Ht 162.6 cm; Wt 49.0 kg
[2020-12-16 04:15] VITALS: BP 185/97
[2020-12-16] MEDS ORDERED: HYDR-2761 PO (04:42)
--- NOTE | 2020-12-16 04:42 | PHYS DOC ---
Past Medical History Past Medical History: Anxiety, COPD, [place] Additional Past Medical Histor: Chronic pain,hep C(treated),drug seeking behavior Past Surgical History: Cholecystectomy, Hysterectomy, Knee Replacement, Tonsillectomy, Other Additional Past Surgical Histo: BILATERAL KNEE REPLACEMENT Smoking Status: Current Every Day Smoker Alcohol Use: None Drug Use: None General Adult EDM: Chief Complaint: FLANK PAIN HPI: HPI: Patient is a 60 year old male presents with a chief complaint of hernia. Patient has pain in her right groin. Patient states current pain is been ongoing on and off for the last 10 months. Patient states over the last 3 weeks pain is progressively increased. Patient states she is taken Tylenol for pain with minimal relief. Patient denies any associated nausea or vomiting. Review of Systems: Review of Systems: Review of systems: Constitutional symptoms- No fever, no chills. Eyes- No Discharge, No Visual Loss Respiratory symptoms- No shortness of breath, No wheezing, No Dyspnea on Exertion Cardiovascular Systems; No chest pain, No Palpitations, No syncope Gastrointestinal symptoms: NO abdominal pain, no nausea, no vomiting or diarrhea. Genitourinary symptoms: No dysuria. Musculoskeletal symptoms: No back pain No extremity pain. NEUROLOGICAL Symptoms: No headache, no generalized weakness; No focal Weakness Heart Score: C/O Chest Pain: No Risk Factors: Risk Factors: DM, Current or recent (<one month) smoker, HTN, HLP, family history of CAD, obesity. Risk Scores: Score 0 - 3: 2.5% MACE over next 6 weeks - Discharge Home Score 4 - 6: 20.3% MACE over next 6 weeks - Admit for Clinical Observation Score 7 - 10: 72.7% MACE over next 6 weeks - Early Invasive Strategies Allergies: Allergies: Allergies Coded Allergies Type Severity Reaction Last Updated Verified Penicillins Allergy Intermediate Hives 10/17/19 Yes Physical Exam: PE: General: alert, no acute distress. Skin: warm, dry and intact. Head:: Normocephalic, atraumatic. Neck: Trachea midline. Eyes: EOMI, Normal conjunctiva, No drainage CARDIOVASCULAR: Regular rate and rhythm RESPIRATORY: No respiratory distress Back: Full range of motion. MUSCULOSKELETAL: Full range of motion of bilateral upper and lower extremities. GASTROINTESTINAL: Abdomen soft without rebound or guarding. NEUROLOGICAL: Alert and noted to person, place and time. No neurological deficits observed Psychiatric: Cooperative. Normal judgment Groin I do not appreciate any right femoral hernia or masses EKG: EKG: [] Radiology/Procedures: Radiology/Procedures: [] Course & Med Decision Making: Course & Med Decision Making Pertinent Labs and Imaging studies reviewed. (See chart for details) [] Patient with known history of hernia. Patient was previously advised to follow-up with general surgery but has not done so. Patient has a history of hernia on the left and states current pain is similar. Patient will be treated with the [place]. Patient is requesting a prescription of 5 hydrocodone's. Patient will be referred to general surgery. Dragon Disclaimer: Dragon Disclaimer: This electronic medical record was generated, in whole or in part, using a voice recognition dictation system. Departure Departure Impression: Primary Impression: Concern about hernia without diagnosis Disposition: 01 DC HOME SELF CARE/HOMELESS Condition: STABLE Referrals: NO PCP (PCP) Patient Instructions: Hernia Scripts Hydrocodone Bit/Acetaminophen (HYDROCODONE-APAP 5-325 ) 1 Tab Tablet 1 TAB PO PRN Q6HRS PRN for PAIN, #5 TAB 0 Refills Prov: GERHARD SZYMANSKI I DO 12/16/20 GERHARD SZYMANSKI I DO Dec 16, 2020 04:42
[2020-12-16] MEDS ORDERED: HYDROcodone/APAP 5/325MG 1 TAB TABLET PO ONE ×2 (04:45→05:00)
== END 2020-12-16 05:09 | disposition home or self-care (01) ==
LOC: ER 04:04
DX: R10.31 Right lower quadrant pain (principal); J44.9 Chronic obstructive pulmonary disease, unspecified; F41.9 Anxiety disorder, unspecified; I25.2 Old myocardial infarction; G89.29 Other chronic pain; F17.200 Nicotine dependence, unspecified, uncomplicated; Z90.49 Acquired absence of other specified parts of digestive tract; Z90.710 Acquired absence of both cervix and uterus; Z88.0 Allergy status to penicillin; Z90.89 Acquired absence of other organs; Z98.890 Other specified postprocedural states
CPT/HCPCS: 99283

== ENCOUNTER → 2021-01-30 | Outpatient (CLI) | payer BC, MEDICARE ==
[~2021-01-30] MED LIST changes: +HYDR-2761 PO
== END ==
LOC: LAB 12:44
PROVIDERS: ATTEND Surgery
DX: Z01.812 Encounter for preprocedural laboratory examination (principal); K40.90 Unilateral inguinal hernia, without obstruction or gangrene, not specified as recurrent; Z88.0 Allergy status to penicillin; Z88.5 Allergy status to narcotic agent; Z20.822 Contact with and (suspected) exposure to COVID-19
CPT/HCPCS: U0003; U0005

== ENCOUNTER 2021-02-02 09:24 | Day surgery (SDC) | payer BC, MEDICARE ==
[~2021-02-02] VITALS: Ht 162.6 cm; Wt 47.5 kg
[~2021-02-02 09:24] MED LIST changes: +ACETAMINOPHEN 500 MG TABLET PO PRN; +IV RINGERS,LACTATED 1000ML 1,000 ML IV SCH; +MORPHINE SULFATE 2 MG/ML VIAL. IVP PRN; +PROCHLORPERAZINE 10 MG/2 ML VIAL. IVP PRN; +fentaNYL PF VIAL 100 MCG/2 ML VIAL IVP PRN
--- NOTE | 2021-02-02 10:44 | PDOC1 ---
History and Physical Date of Admission Date of Admission DATE: 02/02/21 TIME: 10:41 Identification/Chief Complaint Chief Complaint Right lower quadrant abdominal pain Source Source: Chart review, Patient History of Present Illness History of Present Illness 60-year-old female with complaints of a painful bulge in the right groin CT scan was performed for evaluation shows a small inguinal hernia with incarcerated fat Past Medical History Cardiovascular: No pertinent hx, HTN Pulmonary: No pertinent hx GI: No pertinent hx Heme/Onc: No pertinent hx Hepatobiliary: No pertinent hx Psych: Addictions, Depression, Other Musculoskeletal: low back pain Renal/: No pertinent hx Endocrine: No pertinent hx Past Surgical History Past Surgical History: Cholecystectomy, Total knee replacement, Hysterectomy Family History Family History: No Significant, Family History Unknown Social History Smoke: 1 pack per day ALCOHOL: none Drugs: None Current Medications Current Medications Current Medications Fentanyl Citrate (Fentanyl 2ml Vial) 25 mcg PRN Q5MIN PRN IVP MILD PAIN 1-3; Start 02/02/21 at 06:00; Stop 02/03/21 at 05:59 Fentanyl Citrate (Fentanyl 2ml Vial) 50 mcg PRN Q5MIN PRN IVP MODERATE PAIN 4- 6; Start 02/02/21 at 06:00; Stop 02/03/21 at 05:59 Morphine Sulfate (Morphine Sulfate) 1 mg PRN Q10MIN PRN IVP SEVERE PAIN 7-10; Start 02/02/21 at 06:00; Stop 02/03/21 at 05:59 Ringer's Solution 1,000 ml @ 30 mls/hr Q24H IV Last administered on 02/02/21at 10:10; Start 02/02/21 at 06:00; Stop 02/02/21 at 17:59 Hydromorphone HCl (Dilaudid) 0.5 mg PRN Q10MIN PRN IVP SEVERE PAIN 7-10, 2nd CHOICE; Start 02/02/21 at 06:00; Stop 02/03/21 at 05:59 Prochlorperazine Edisylate (Compazine) 5 mg PACU PRN PRN IVP NAUSEA, MRX1; Start 02/02/21 at 06:00; Stop 02/03/21 at 05:59 Levofloxacin/ Dextrose 100 ml @ 100 mls/hr 1X PREOP PRN IV PRIOR TO PROCEDURE; Start 02/02/21 at 06:00; Stop 02/02/21 at 18:00 Acetaminophen (Tylenol) 1,000 mg OC PROC PRN PO PRE-OP Last administered on 02/02/21at 10:10; Start 02/02/21 at 06:00; Stop 02/02/21 at 18:00 Active Scripts Active Hydrocodone-Apap 5-325 (Hydrocodone Bit/Acetaminophen) 1 Tab Tablet 1 Tab PO PRN Q6HRS PRN Clonazepam (Clonazepam) 0.5 Mg Tablet 0.5 Mg PO TID PRN Reported Metoprolol Tartrate 25 Mg Tablet 1 Tab PO BID Hydrocodone-Apap 10-300 (Hydrocodone Bit/Acetaminophen) 1 Each Tablet 1 Tab PO PRN TID PRN MDD 4 Tablet(s) 30 Days Advair Hfa 230-21 Mcg Inhaler (Fluticasone/Salmeterol) 12 Gm Hfa.aer.ad 1 Inh INH DAILY Paroxetine Hcl 20 Mg Tablet 20 Mg PO DAILY Temazepam 30 Mg Capsule 30 Mg PO HS Allergies Allergies: Coded Allergies: Penicillins (Verified Allergy, Intermediate, Hives, 02/02/21) oxycodone (Verified Adverse Reaction, Severe, Unknown, 02/02/21) pt went into coma" tramadol (Verified Adverse Reaction, Severe, Anxiety, 02/02/21) ROS Genitourinary: YES Pain Physical Exam General: Alert, Oriented X3, Cooperative, No acute distress HEENT: Atraumatic, EOMI Lungs: Clear to auscultation, Normal air movement Heart: RRR, no murmurs Abdomen: Normal bowel sounds, Soft, No tenderness Male Genitals Exam: inguinal tenderness Rectal Exam: deferred Extremities: No edema Skin: No significant lesion Neuro: Normal speech Psych/Mental Status: Mental status NL Vitals Vitals Vital Signs Date Time Temp Pulse Resp B/P (MAP) Pulse Ox O2 Delivery O2 Flow Rate FiO2 02/02/21 10:07 97.7 64 20 118/59 96 Room Air 97.7 VTE Prophylaxis Ordered VTE Prophylaxis Devices: Yes VTE Pharmacological Prophylaxi: Contraindicated Assessment/Plan Assessment/Plan Right inguinal hernia plan robotic assisted laparoscopic repair with mesh Justifications for Admission Other Justification SALVADOR RICHARDS MD February 02, 2021 10:44
[2021-02-02] MEDS ORDERED: DEXAMETHASONE SOD PHOS 4 MG/ML VIAL ONE ×2 (10:57)
[2021-02-02] MEDS ORDERED: ROCURONIUM 50 MG/5 ML VIAL. ONE (10:57)
[2021-02-02] MEDS ORDERED: PROPOFOL 10 MG/ML (20ML) VIAL. IV ONE (10:57)
[2021-02-02] MEDS ORDERED: ONDANSETRON PF 4 MG/2 ML VIAL. ONE (10:57)
[2021-02-02] MEDS ORDERED: LIDOCAINE 2% PF 5 ML VIAL. ONE (10:57)
[2021-02-02] MEDS ORDERED: MIDAZOLAM HCL/PF 2 MG/2 ML VIAL. ONE (10:57)
[2021-02-02] MEDS ORDERED: fentaNYL PF VIAL 250 MCG/5 ML VIAL ONE (10:57)
[2021-02-02] MEDS ORDERED: KETOROLAC 30 MG/ML VIAL. ONE (10:58)
[2021-02-02] MEDS ORDERED: BUPIVACAINE-EPI 0.25% 30 ML VIAL KIT. ONE (11:15)
[2021-02-02] MEDS ORDERED: MINERAL OIL for SURGERY 10 ML VIAL. MC ONE (11:30)
[2021-02-02] MEDS ORDERED: GLYCOPYRROLATE 1 MG/5 ML VIAL. ONE (12:03)
[2021-02-02] MEDS ORDERED: NEOSTIGMINE METHYLSULFATE 5 MG/5 ML SYRINGE. ONE (12:03)
--- NOTE | 2021-02-02 12:08 | PDOC4 ---
Operative Note Operative Note Date: February 02, 2021 at 1205 Preoperative diagnosis: Right inguinal hernia Postoperative diagnosis: Same Procedure: Robotic assisted laparoscopic right inguinal hernia repair with mesh Surgeon: Ty Specimen: None Dictation: Patient is a 60-year-old female with complaints of a painful bulge in her right groin ultrasound showed a small right inguinal hernia with incarcerated fat. Procedure of robotic assisted laparoscopic right inguinal hernia repair with mesh was explained to the patient detail risk benefits were also discussed including bleeding infection injury to intra-abdominal contents possible necessitating further open operations alternatives to this procedure also discussed with patient who seemed to understand and gave both verbal and written consent to have the procedure performed. Patient was taken to the opera tin room placed in the supine position general anesthesia was initiated once patient was sleeping intubated her abdomen was prepped and draped usual sterile fashion using ChloraPrep. She was placed in low lithotomy positioning area just above the umbilicus was injected with quarter percent Marcaine with epinephrine incision was made with a blade scalpel and a varies needle was placed within the abdomen creating pneumoperitoneum once this was complete 8 mm da Carmelo port was placed and the da Carmelo camera was placed within the abdomen which was inspected no other abnormalities were noted. A 8 mm da Carmelo port was placed in the right midabdomen and an 8 mm da Carmelo port in the left midabdomen all under direct visualization the da Carmelo robot was brought and docked all port sites surgeon went to the robotic console using a grasper and Endo Pauly scissors the peritoneum on the right side was incised and a window propagated inferiorly reducing the hernia sac and contents. A Bard 3D max mesh for the right side medium sized was placed over the hernia defect and the peritoneum was then closed with a running 2 OV lock absorbable suture. Suture needle removed the repair was complete the da Carmelo robot was undocked from all port sites port sites were all removed pneumoperitoneum reduced all port sites were closed with 4-0 subcuticular Monocryl Mastisol Steri-Strips and island dressings were applied. Patient was awakened and extubated in the operating room taken to recovery in stable condition all sponge instrument needle counts listed as correct estimated blood loss 5 mL SALVADOR RICHARDS MD February 02, 2021 12:08
--- NOTE | 2021-02-02 12:10 | DISCH ---
DISCHARGE INSTRUCTIONS Condition on Discharge Condition on Discharge: Stable Activity After Discharge Activity Instructions for Disc: Avoid exertion Other activity instructions: No lifting more than 20 pounds for 2 weeks Lifting Instructions after Dis: No heavy lifting Diet after Discharge Diet after Discharge: Cardiac Liquid Texture: Thin Liquid Wound Incision Care Other wound/incision instructi: [place] shower in 24 hours Contacting the after DC Call your doctor for: If your condition worsens Follow-Up Follow up with: Dr. Richards in 2 weeks Treatment/Equipment after DC Adaptive Equipment Issued: None SALVADOR RICHARDS MD February 02, 2021 12:10
[2021-02-02] MEDS ORDERED: SEVOFLURANE 61 TO 120 MINUTES. IH ONE (12:24)
[2021-02-02] MEDS ORDERED: fentaNYL PF VIAL 100 MCG/2 ML VIAL ONE (12:35)
[2021-02-02] MEDS: fentaNYL PF VIAL 100 MCG/2 ML VIAL IVP PRN ×2 (12:38→12:51)
[2021-02-02] MEDS ORDERED: MORPHINE SULFATE 2 MG/ML VIAL. ONE (13:42)
[2021-02-02] MEDS ORDERED: HYDROmorphone 2 MG/ML VIAL ONE (13:53)
[2021-02-02] MEDS: HYDROmorphone 2 MG/ML VIAL IVP PRN ×2 (14:00→14:12)
[2021-02-02 14:09] VITALS: BP 125/76
[2021-02-02] MEDS ORDERED: HYDROcodone/APAP 5/325MG 1 TAB TABLET PO ONE (14:15)
== END 2021-02-02 14:45 | disposition home or self-care (01) ==
LOC: SURG 09:24
PROVIDERS: ATTEND Surgery
DX: K40.30 Unilateral inguinal hernia, with obstruction, without gangrene, not specified as recurrent (principal); I25.10 Atherosclerotic heart disease of native coronary artery without angina pectoris; J44.9 Chronic obstructive pulmonary disease, unspecified; I10 Essential (primary) hypertension; M19.90 Unspecified osteoarthritis, unspecified site; F41.9 Anxiety disorder, unspecified; F32.9 Major depressive disorder, single episode, unspecified; F17.210 Nicotine dependence, cigarettes, uncomplicated; Z90.710 Acquired absence of both cervix and uterus; Z90.49 Acquired absence of other specified parts of digestive tract; Z98.890 Other specified postprocedural states; Z79.899 Other long term (current) drug therapy; Z87.440 Personal history of urinary (tract) infections; Z88.0 Allergy status to penicillin; Z88.8 Allergy status to other drugs, medicaments and biological substances
CPT/HCPCS: 49650; A4364; A4930; A6219; C1781; J1100; J1170; J1885; J1956; J2250; J2270; J2405; J2704; J2710; J3010; J3490; S2900; A4223; A4657

== ENCOUNTER 2021-02-06 00:03 | Emergency (ER) | payer BC, MEDICARE ==
[~2021-02-06] VITALS: Ht 162.6 cm; Wt 48.0 kg
[~2021-02-06 00:03] MED LIST changes: -ACETAMINOPHEN 500 MG TABLET PO PRN; -IV RINGERS,LACTATED 1000ML 1,000 ML IV SCH; -MORPHINE SULFATE 2 MG/ML VIAL. IVP PRN; -PROCHLORPERAZINE 10 MG/2 ML VIAL. IVP PRN; -fentaNYL PF VIAL 100 MCG/2 ML VIAL IVP PRN
--- NOTE | 2021-02-06 00:53 | PHYS DOC ---
Past Medical History Past Medical History: Anxiety, COPD, [place] Additional Past Medical Histor: Chronic pain,hep C(treated),drug seeking behavior, HERNIA REPAIR Past Surgical History: Cholecystectomy, Hysterectomy, Knee Replacement, Tonsillectomy, Other Additional Past Surgical Histo: BILATERAL KNEE REPLACEMENT, HERNIA REPAIR Smoking Status: Current Every Day Smoker Alcohol Use: None Drug Use: None Social History Narrative: HISTORY OF USEAGE General Adult EDM: Chief Complaint: ABDOMINAL PAIN HPI: HPI: Patient is a 60 year old [f__sex] who presents with [] Review of Systems: Review of Systems: Constitutional: Denies fever or chills. [] Eyes: Denies change in visual acuity. [] HENT: Denies nasal congestion or sore throat. [] Respiratory: Denies cough or shortness of breath. [] Cardiovascular: Denies chest pain or edema. [] GI: Denies abdominal pain, nausea, vomiting, bloody stools or diarrhea. [] : Denies dysuria. [] Musculoskeletal: Denies back pain or joint pain. [] Integument: Denies rash. [] Neurologic: Denies headache, focal weakness or sensory changes. [] Endocrine: Denies polyuria or polydipsia. [] Lymphatic: Denies swollen glands. [] Psychiatric: Denies depression or anxiety. [] Heart Score: Risk Factors: Risk Factors: DM, Current or recent (<one month) smoker, HTN, HLP, family history of CAD, obesity. Risk Scores: Score 0 - 3: 2.5% MACE over next 6 weeks - Discharge Home Score 4 - 6: 20.3% MACE over next 6 weeks - Admit for Clinical Observation Score 7 - 10: 72.7% MACE over next 6 weeks - Early Invasive Strategies Current Medications: Current Medications Medications (Trade) Dose Ordered Sig/Terrance Start Time Stop Time Status Last Admin Dose Admin Morphine Sulfate (Morphine Sulfate) 4 mg 1X ONCE 02/06/21 01:00 02/06/21 01:01 UNV Allergies: Allergies: Allergies Coded Allergies Type Severity Reaction Last Updated Verified Penicillins Allergy Intermediate Hives 02/06/21 Yes oxycodone Adverse Reaction Severe Unknown 02/06/21 Yes tramadol Adverse Reaction Severe Anxiety 02/06/21 Yes Physical Exam: PE: Constitutional: Well developed, well nourished, no acute distress, non-toxic appearance. [] HENT: Normocephalic, atraumatic, bilateral external ears normal, oropharynx moist, no oral exudates, nose normal. [] Eyes: PERRLA, EOMI, conjunctiva normal, no discharge. [] Neck: Normal range of motion, no tenderness, supple, no stridor. [] Cardiovascular:Heart rate regular rhythm, no murmur [] Lungs & Thorax: Bilateral breath sounds clear to auscultation [] Abdomen: Bowel sounds normal, soft, no tenderness, no masses, no pulsatile masses. [] Skin: Warm, dry, no erythema, no rash. [] Back: No tenderness, no CVA tenderness. [] Extremities: No tenderness, no cyanosis, no clubbing, ROM intact, no edema. [] Neurologic: Alert and oriented X 3, normal motor function, normal sensory function, no focal deficits noted. [] Psychologic: Affect normal, judgement normal, mood normal. [] Current Patient Data: Vital Signs: Vital Signs Date Time Temp Pulse Resp B/P (MAP) Pulse Ox O2 Delivery O2 Flow Rate FiO2 02/06/21 00:13 98.7 94 20 161/98 (119) 98 Room Air 98.7 EKG: EKG: [] Radiology/Procedures: Radiology/Procedures: [] Course & Med Decision Making: Course & Med Decision Making Pertinent Labs and Imaging studies reviewed. (See chart for details) [] Dragon Disclaimer: Dragon Disclaimer: This electronic medical record was generated, in whole or in part, using a voice recognition dictation system. Departure Departure Impression: Primary Impression: Postoperative abdominal pain Disposition: HOME / SELF CARE / HOMELESS Condition: STABLE Referrals: NO PCP (PCP) SALVADOR RICHARDS MD Patient Instructions: Pain Relief Preoperatively and Postoperatively Additional Instructions: Please follow with your doctor for further evaluation of your postoperative pain. BRIANA MIRANDA DO February 06, 2021 00:53
[2021-02-06 01:00] VITALS: BP 169/95
[2021-02-06] MEDS ORDERED: MORPHINE SULFATE 4 MG/ML VIAL. IM ONE (01:15)
== END 2021-02-06 01:05 | disposition home or self-care (01) ==
LOC: ER 00:03
DX: G89.18 Other acute postprocedural pain (principal); G89.29 Other chronic pain; J44.9 Chronic obstructive pulmonary disease, unspecified; I25.2 Old myocardial infarction; Z76.5 Malingerer [conscious simulation]; F17.200 Nicotine dependence, unspecified, uncomplicated; Z88.0 Allergy status to penicillin; Z88.5 Allergy status to narcotic agent; Z88.6 Allergy status to analgesic agent
CPT/HCPCS: 96372; 99283; J2270

== ENCOUNTER → 2021-04-21 | Outpatient (CLI) | payer BC ==
--- NOTE | 2021-04-21 15:43 | CARD ---
MR#: [id number] Date of Study: 04/21/2021 Ordering Physician: HATTIE CATHERINE, Referring Physician: HATTIE CATHERINE, Tech: Marylin Stauffer, [facility] APPROVED REPORT EXAM: Two-dimensional and M-mode echocardiogram with Doppler and color Doppler. Other Information Quality : AverageHR: 69bpm INDICATION Cardiomyopathy RISK FACTORS Hypertension Smoking 2D DIMENSIONS RVDd2.4 (2.9-3.5cm)IVSd0.8 (0.7-1.1cm) Aortic Root(2D)2.7 (2.0-3.7cm)LVDd4.1 (3.9-5.9cm) LVOT Diameter1.9 (1.8-2.4cm)PWd0.9 (0.7-1.1cm) LVDs2.9 (2.5-4.0cm) Aortic Valve AoV Peak Dixon.190.7cm/sAoV VTI41.2cm AO Peak GR.14.5mmHgLVOT Peak Dixon.96.8cm/s LVOT VTI 23.57cmAO Mean GR.7mmHg STACEY (VMAX)1.66sh5LEE (VTI)1.60cm2 Mitral Valve MV E Tsnnpdvy43.3cm/sMV DECEL AOST916ge MV A Xzoukjxt05.5cm/sMV HRX89kr E/A Ratio1.3MVA (PHT)4.28cm2 Pulmonary Valve PV Peak Mzkyuuax87.1cm/sPV Peak Grad.4mmHg Tricuspid Valve TR P. Sixywtgs317xe/sRAP ZVPZUHUY4ptEw TR Peak Gr.33meIaGAEW39nsXs LEFT VENTRICLE The left ventricle is normal size. There is normal left ventricular wall thickness. The left ventricu lar systolic function is normal and the ejection fraction is within normal range. The Ejection Fracti on is 50-55%. There is normal LV segmental wall motion. RIGHT VENTRICLE The right ventricle is normal size. There is normal right ventricular wall thickness. The right ventr icular systolic function is normal. ATRIA The left atrium size is normal. The right atrium size is normal. The interatrial septum is intact wit h no evidence for an atrial septal defect or patent foramen ovale as noted on 2-D or Doppler imaging. AORTIC VALVE The aortic valve is moderately thickened. Doppler and Color Flow revealed no significant aortic regur gitation. Calculated aortic valve area is 1.54 cm2 with maximum pressure gradient of 17 mmHg and mean pressure gradient of 9 mmHg. There is no significant aortic valvular stenosis. MITRAL VALVE The mitral valve is normal in structure and function. There is no evidence of mitral valve prolapse. There is no mitral valve stenosis. Doppler and Color Flow revealed trace mitral regurgitation. TRICUSPID VALVE The tricuspid valve is normal in structure and function. Doppler and Color Flow revealed trace tricus pid regurgitation with an estimated PAP of 28 mmHg. There is no tricuspid valve stenosis. PULMONIC VALVE The pulmonic valve is not well visualized. Doppler and Color Flow revealed no pulmonic valvular regur gitation. GREAT VESSELS The aortic root is normal in size. The IVC is normal in size and collapses >50% with inspiration. PERICARDIAL EFFUSION There is no evidence of significant pericardial effusion. Critical Notification Critical Value: No <Conclusion> The left ventricle is normal size. The left ventricular systolic function is normal and the ejection fraction is within normal range. The Ejection Fraction is 50-55%. Doppler and Color Flow revealed no significant aortic regurgitation. Calculated aortic valve area is 1.54 cm2 with maximum pressure gradient of 17 mmHg and mean pressure gradient of 9 mmHg. There is no significant aortic valvular stenosis. Doppler and Color Flow revealed trace mitral regurgitation. Doppler and Color Flow revealed trace tricuspid regurgitation with an estimated PAP of 28 mmHg. Signed by : Isaac Magallon MD Electronically Approved : 04/21/2021 15:43:46
== END ==
LOC: ECHO 12:53
PROVIDERS: ATTEND Internal Medicine Cardiovascular Disease
DX: I42.9 Cardiomyopathy, unspecified (principal)
CPT/HCPCS: 93306

== ENCOUNTER 2021-06-01 21:28 | Emergency (ER) | payer BC | END 2021-06-01 22:55 | disposition left against medical advice (07) | LOC: ER 21:28 | DX: G89.29 Other chronic pain (principal); M25.559 Pain in unspecified hip; Z53.21 Procedure and treatment not carried out due to patient leaving prior to being seen by health care provider ==

== ENCOUNTER 2021-06-02 04:48 | Emergency (ER) | payer BC ==
[~2021-06-02] VITALS: Ht 162.6 cm; Wt 50.0 kg
[2021-06-02 05:19] VITALS: BP 143/94
== END 2021-06-02 05:49 | disposition left against medical advice (07) ==
LOC: ER 04:48
DX: M25.551 Pain in right hip (principal); G89.29 Other chronic pain; Z53.21 Procedure and treatment not carried out due to patient leaving prior to being seen by health care provider

== ENCOUNTER 2021-08-01 09:18 | Emergency (ER) | payer BC ==
[~2021-08-01] VITALS: Ht 162.6 cm; Wt 56.0 kg
[~2021-08-01 09:18] MED LIST changes: -LISI1TAB20; -LISI1TAB23 PO; +LISI1TAB35 PO; +LISI1TAB39
[2021-08-01 09:26] VITALS: BP 190/102
--- NOTE | 2021-08-01 09:41 | PHYS DOC ---
Past Medical History Past Medical History: Anxiety, COPD, [place] Additional Past Medical Histor: Chronic pain,hep C(treated),drug seeking behavior, [place] Additional Past Surgical Histo: BILATERAL KNEE REPLACEMENT, HERNIA REPAIR Smoking Status: Current Every Day Smoker Alcohol Use: None Drug Use: None General Adult EDM: Chief Complaint: HIP PAIN HPI: HPI: Patient is a 60-year-old female that presents today with right hip pain. Patient is well-known to this emergency department for presenting with her right hip pain. She states today that the pain is a 10 out of 10 and is requesting opioid shot for pain. Patient denies fever and chills, or trauma. Patient states that this morning around 4 AM she took 600 mg Motrin and that did not help with her pain. 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 Patient states she has an appointment with [facility] on September 07 for evaluation of her hip. Review of Systems: Review of Systems: Constitutional: Denies fever or chills. [] Eyes: Denies change in visual acuity. [] HENT: Denies nasal congestion or sore throat. [] Respiratory: Denies cough or shortness of breath. [] Cardiovascular: Denies chest pain or edema. [] GI: Denies abdominal pain, nausea, vomiting, bloody stools or diarrhea. [] : Denies dysuria. [] Musculoskeletal: Right hip pain Integument: Denies rash. [] Neurologic: Denies headache, focal weakness or sensory changes. [] Endocrine: Denies polyuria or polydipsia. [] Lymphatic: Denies swollen glands. [] Psychiatric: Denies depression or anxiety. [] Heart Score: C/O Chest Pain: N/A Risk Factors: Risk Factors: DM, Current or recent (<one month) smoker, HTN, HLP, family history of CAD, obesity. Risk Scores: Score 0 - 3: 2.5% MACE over next 6 weeks - Discharge Home Score 4 - 6: 20.3% MACE over next 6 weeks - Admit for Clinical Observation Score 7 - 10: 72.7% MACE over next 6 weeks - Early Invasive Strategies Allergies: Allergies: Allergies Coded Allergies Type Severity Reaction Last Updated Verified Penicillins Allergy Intermediate Hives 08/01/21 Yes oxycodone Adverse Reaction Severe Unknown 08/01/21 Yes tramadol Adverse Reaction Severe Anxiety 08/01/21 Yes Physical Exam: PE: Constitutional: Well developed, well nourished, no acute distress, non-toxic appearance. [] HENT: Normocephalic, atraumatic, bilateral external ears normal, oropharynx moist, no oral exudates, nose normal. [] Eyes: PERRLA, EOMI, conjunctiva normal, no discharge. [] Neck: Normal range of motion, no tenderness, supple, no stridor. [] Cardiovascular:Heart rate regular rhythm, no murmur [] Lungs & Thorax: Bilateral breath sounds clear to auscultation [] Abdomen: Bowel sounds normal, soft, no tenderness, no masses, no pulsatile masses. [] Skin: Warm, dry, no erythema, no rash. [] Back: No tenderness, no CVA tenderness. [] Extremities: No right hip pain with palpation, range of motion within normal limits, pedal pulses present 2+ Neurologic: Alert and oriented X 3, normal motor function, normal sensory function, no focal deficits noted. [] Psychologic: Affect normal, judgement normal, mood normal. [] Current Patient Data: Vital Signs: Vital Signs Date Time Temp Pulse Resp B/P (MAP) Pulse Ox O2 Delivery O2 Flow Rate FiO2 08/01/21 09:26 98.4 73 15 190/102 (131) 98 Room Air 98.4 EKG: EKG: [] Radiology/Procedures: Radiology/Procedures: [] Course & Med Decision Making: Course & Med Decision Making Spoke to patient at length about options due to the chronic nature of this pain. Patient was offered right hip x-ray, IM injection of Toradol, prescription for lidocaine patches and ibuprofen. Patient is requesting an IM injection of opioid medication she states that that is the only thing that will help. She states she hates seeing nurse practitioners and she requesting to see the attend ing physician. [address] Calderón regarding patient's condition. She will go and speak with the patient. 10:00 Dr. Calderón spoke with patient patient agreed with 1 [place] and an intramuscular injection of Toradol and to go home and to have all other medications to be provided by her primary care physician. Patient agreed with plan per Dr. Calderón. Spoke to Mayra RUSH instructed her that must must be at the bedside for the [place] to be given. Kimberlee Disclaimer: Kimberlee Disclaimer: This electronic medical record was generated, in whole or in part, using a voice recognition dictation system. Departure Departure Impression: Primary Impression: Right hip pain Disposition: HOME / SELF CARE / HOMELESS Condition: STABLE Referrals: UNKNOWN PCP NAME (PCP) Patient Instructions: Hip Pain Additional Instructions: Follow-up with primary care physician at the [facility] and/or orthopedic doctor for further medication for pain Btoo-tab-mdudpyc ibuprofen as labeled directed Keep appointment September 07 with [facility] CHRISTIAN BAUTISTA EXHIBIT DESIGNER Aug 01, 2021 09:41
[2021-08-01] MEDS ORDERED: KETOROLAC 60 MG/2 ML VIAL. IM ONE (10:15)
[2021-08-01] MEDS ORDERED: HYDROcodone/APAP 5/325MG 1 TAB TABLET PO ONE (10:15)
== END 2021-08-01 10:35 | disposition home or self-care (01) ==
LOC: ER 09:18
DX: M25.551 Pain in right hip (principal); G89.29 Other chronic pain; J44.9 Chronic obstructive pulmonary disease, unspecified; I25.2 Old myocardial infarction; G25.81 Restless legs syndrome; F17.200 Nicotine dependence, unspecified, uncomplicated; Z76.5 Malingerer [conscious simulation]; Z98.890 Other specified postprocedural states; Z88.0 Allergy status to penicillin; Z88.5 Allergy status to narcotic agent; Z88.6 Allergy status to analgesic agent
CPT/HCPCS: 96372; 99283; J1885

== ENCOUNTER 2021-08-16 17:47 | Emergency (ER) | payer BC ==
[~2021-08-16] VITALS: Ht 162.6 cm; Wt 49.7 kg
[2021-08-16 17:53] VITALS: BP 175/97
[2021-08-16] MEDS ORDERED: ASPIRIN CHEWABLE 81 MG TABLET. PO ONE (18:30)
[2021-08-16] MEDS ORDERED: NITROGLYCERIN SUBLINGUAL 0.4 MG BOTTLE OF 25. SL PRN (18:30)
[2021-08-16 18:42] LABS: BASO # 0.1 x10^3/uL (0.0-0.2); BASO % 1 % (0-3); EOS # 0.2 x10^3/uL (0.0-0.7); EOS % 3 % (0-3); HEMATOCRIT 43.7 % (36.0-47.0); HEMOGLOBIN 15.4 g/dL (12.0-15.5); LYMPH # 2.4 x10^3/uL (1.0-4.8); LYMPH % 28 % (24-48); MEAN CORPUSCULAR HEMOGLOBIN 35 pg (25-35); MEAN CORPUSCULAR HGB CONC 35 g/dL (31-37); MEAN CORPUSCULAR VOLUME 98 fL (79-100); MONO # 0.4 x10^3/uL (0.0-1.1); MONO % 5 % (0-9); NEUT # 5.5 x10^3/uL (1.8-7.7); NEUT % 64 % (31-73); PLATELET COUNT 292 x10^3/uL (140-400); RED BLOOD COUNT 4.48 x10^6/uL (3.50-5.40); RED CELL DISTRIBUTION WIDTH 12.3 % (11.5-14.5); WHITE BLOOD COUNT 8.7 x10^3/uL (4.0-11.0)
--- NOTE | 2021-08-16 18:42 | EKG ---
[facility] [address] [place] [address] Test Date: 2021-08-16 Test Time: 17:58:49 Pat Name: ANNY FORD Department: Room: Gender: F Comb Capper: : [id number] Requested By: MADELIN MARTINEZ Order Number: [id number] Reading MD: Mauricio Bradford Measurements Intervals [place] Rate: 91 P: 14 IA: 138 QRS: 49 QRSD: 90 T: 50 QT: 360 QTc: 450 Interpretive Statements SINUS RHYTHM LEFT ATRIAL ABNORMALITY ABNORMAL ECG Electronically Signed On 08-20-2021 9:27:00 LARD MAKER by Mauricio Bradford
--- NOTE | 2021-08-16 18:45 | ED.ADGEN ---
Past Medical History Past Medical History: Anxiety, COPD, [place] Additional Past Medical Histor: Chronic pain,hep C(treated),drug seeking behavior, RLS Past Surgical History: Tubal ligation Additional Past Surgical Histo: BILATERAL KNEE REPLACEMENT, HERNIA REPAIR Smoking Status: Current Every Day Smoker Alcohol Use: None Drug Use: None General Adult EDM: Chief Complaint: CHEST PAIN HPI: HPI: Patient is a 60 year old female who presents with sharp anterior left-sided chest pain. Patient states she also feels like her heart is beating and describes it as "flopping" in her chest. Patient states the pain is a 8-9 out of 10, it has not changed with position, palpation or taking a deep breath. Patient states she has had similar pain in the past and states she was diagnosed with a heart attack, had a heart cath but no stents were placed. Patient had echo about 6 months ago, but does not know the results. Patient states she has a history of hypertension and dyslipidemia. Patient states that pain started when she woke up about 4:30 AM (about 13 to 14 hours prior to arrival). Patient endorses tobacco use but denies alcohol or drugs. Patient has had her Covid vaccines. She states that she has nausea and vomiting earlier, has had occasional sweats throughout the day, and a feeling of general malaise. Denies any cough, shortness of breath, diarrhea or fevers. Review of Systems: Review of Systems: All other systems within normal limits except for as noted in the HPI Current Medications: Current Medications Medications (Trade) Dose Ordered Sig/[facility] Start Time Stop Time Status Last Admin Dose Admin Aspirin (Aspirin Chewable) 324 mg 1X ONCE 08/16/21 18:30 08/16/21 18:31 DC Nitroglycerin (Nitrostat) 0.4 mg PRN Q5MIN PRN 08/16/21 18:30 Allergies: Allergies: Allergies Coded Allergies Type Severity Reaction Last Updated Verified Penicillins Allergy Intermediate Hives 08/01/21 Yes oxycodone Adverse Reaction Severe Unknown 08/01/21 Yes tramadol Adverse Reaction Severe Anxiety 08/01/21 Yes Physical Exam: PE: Constitutional: Well developed, well nourished, no acute distress, non-toxic appearance. [] HENT: Normocephalic, atraumatic, bilateral external ears normal, nose normal. [] Eyes: PERRLA, conjunctiva normal, no discharge. [] Neck: No rigidity, supple, no stridor. [] Cardiovascular: Regular rate and rhythm, brisk cap refill [] Lungs & Thorax: Non labored symmetric respirations, no tachypnea or respiratory distress. Lungs clear to auscultation bilateral [] Abdomen: Soft, nondistended. Skin: Warm, dry, no erythema, no rash. [] Back: Unremarkable Extremities: No deformities, range of motion grossly intact, no lower extremity edema [] Neurologic: Alert and oriented X 3, no focal deficits noted. [] Psychologic: Affect normal, judgement normal, mood normal. [] Current Patient Data: Labs: Laboratory Tests Test 08/16/21 18:30 White Blood Count 8.7 x10^3/uL (4.0-11.0) Red Blood Count 4.48 x10^6/uL (3.50-5.40) Hemoglobin 15.4 g/dL (12.0-15.5) Hematocrit 43.7 % (36.0-47.0) Mean Corpuscular Volume 98 fL (79-100) Mean Corpuscular Hemoglobin 35 pg (25-35) Mean Corpuscular Hemoglobin Concent 35 g/dL (31-37) Red Cell Distribution Width 12.3 % (11.5-14.5) Platelet Count 292 x10^3/uL (140-400) Neutrophils (%) (Auto) 64 % (31-73) Lymphocytes (%) (Auto) 28 % (24-48) Monocytes (%) (Auto) 5 % (0-9) Eosinophils (%) (Auto) 3 % (0-3) Basophils (%) (Auto) 1 % (0-3) Neutrophils # (Auto) 5.5 x10^3/uL (1.8-7.7) Lymphocytes # (Auto) 2.4 x10^3/uL (1.0-4.8) Monocytes # (Auto) 0.4 x10^3/uL (0.0-1.1) Eosinophils # (Auto) 0.2 x10^3/uL (0.0-0.7) Basophils # (Auto) 0.1 x10^3/uL (0.0-0.2) Prothrombin Time 13.3 SEC (11.7-14.0) Prothrombin Time INR 1.0 (0.8-1.1) D-Dimer (Hazel) 0.37 ug/mlFEU (0.00-0.50) Sodium Level 139 mmol/L (136-145) Potassium Level 3.4 mmol/L (3.5-5.1) L Chloride Level 103 mmol/L (98-107) Carbon Dioxide Level 28 mmol/L (21-32) Anion Gap 8 (6-14) Blood Urea Nitrogen 10 mg/dL (7-20) Creatinine 0.6 mg/dL (0.6-1.0) Estimated GFR (Cockcroft-Gault) 102.3 BUN/Creatinine Ratio 17 (6-20) Glucose Level 139 mg/dL (70-99) H Calcium Level 9.1 mg/dL (8.5-10.1) Magnesium Level 2.1 mg/dL (1.8-2.4) Total Bilirubin 0.4 mg/dL (0.2-1.0) Aspartate Amino Transferase (AST) 18 U/L (15-37) Alanine Aminotransferase (ALT) 26 U/L (14-59) Alkaline Phosphatase 91 U/L (46-116) Troponin I High Sensitivity 5 ng/L (4-50) FJ-Upl-X-Type Natriuretic Peptide 187 pg/mL (0-124) H Total Protein 7.8 g/dL (6.4-8.2) Albumin 4.1 g/dL (3.4-5.0) Albumin/Globulin Ratio 1.1 (1.0-1.7) Laboratory Tests 08/16/21 18:30 Laboratory Tests 08/16/21 18:30 Vital Signs: Vital Signs Date Time Temp Pulse Resp B/P (MAP) Pulse Ox O2 Delivery O2 Flow Rate FiO2 08/16/21 17:53 98.3 102 18 175/97 (123) 97 Room Air 98.3 EKG: EKG: Sinus rhythm, heart rate 9 beats minute, normal axis, no ST elevation or depression [] Heart Score: C/O Chest Pain: Yes HEART Score for Chest Pain: HEART Score for Chest Pain Response (Comments) Value History Moderately Suspicious 1 ECG Nonspecific Repolarizatio 1 Age >45 - < 65 1 Risk Factors >3 Risk Factors or Hx CAD 2 Troponin < Normal Limit 0 Total 5 Risk Factors: Risk Factors: DM, Current or recent (<one month) smoker, HTN, HLP, family history of CAD, obesity. Risk Scores: Score 0 - 3: 2.5% MACE over next 6 weeks - Discharge Home Score 4 - 6: 20.3% MACE over next 6 weeks - Admit for Clinical Observation Score 7 - 10: 72.7% MACE over next 6 weeks - Early Invasive Strategies Radiology/Procedures: Radiology/Procedures: [] Course & Med Decision Making: Course & Med Decision Making Patient complaining of pain radiating up her neck into her jaw. CT angiogram to evaluate section for pneumonia or other dangerous etiology. Notified by nurse the patient has got herself dressed and wants to leave. Discussed with patient we have not completed work-up to rule out dangerous etiology. Patient states her anxiety is too high and she wants to leave. Patient states she will come back if pain gets worse. Offered treatment for her anxiety to facilitate the remainder of the work-up. Patient declined and signed AMA paperwork. Discussed the risks of leaving prior to full evaluation, patient acknowledged risks. Explained to and encouraged patient that she is welcome to return at any time. Kimberlee Disclaimer: Kimberlee Disclaimer: This electronic medical record was generated, in whole or in part, using a voice recognition dictation system. Departure Departure Impression: Primary Impression: Chest pain Disposition: LEFT AGAINST MEDICAL ADVICE Referrals: UNKNOWN PCP NAME (PCP) MADELIN MARTINEZ MD Aug 16, 2021 18:45
[2021-08-16 18:50] LABS: CALCIUM 9.1 mg/dL (8.5-10.1); CREATININE 0.6 mg/dL (0.6-1.0); GFR 102.3; POTASSIUM 3.4 mmol/L (3.5-5.1); PROTHROMBIN TIME PATIENT 13.3 SEC (11.7-14.0)
[2021-08-16 18:53] LABS: D-DIMER 0.37 ug/mlFEU (0.00-0.50)
[2021-08-16 18:55] LABS: ALBUMIN 4.1 g/dL (3.4-5.0); ALBUMIN/GLOBULIN RATIO 1.1 (1.0-1.7); MAGNESIUM 2.1 mg/dL (1.8-2.4); TOTAL BILIRUBIN 0.4 mg/dL (0.2-1.0); TOTAL PROTEIN 7.8 g/dL (6.4-8.2)
[2021-08-16] MEDS ORDERED: CONTRAST GIVEN. MC PRN (19:30)
[2021-08-16] MEDS ORDERED: IOHEXOL 350 MG/ML 100 ML VIAL. IV ONE (19:30)
== END 2021-08-16 19:20 | disposition left against medical advice (07) ==
LOC: ER 17:47
DX: R07.89 Other chest pain (principal); J44.9 Chronic obstructive pulmonary disease, unspecified; I25.2 Old myocardial infarction; Z76.5 Malingerer [conscious simulation]; G89.29 Other chronic pain; F17.200 Nicotine dependence, unspecified, uncomplicated; G25.81 Restless legs syndrome; Z88.0 Allergy status to penicillin; Z88.5 Allergy status to narcotic agent; Z88.6 Allergy status to analgesic agent
CPT/HCPCS: 36415; 80053; 83735; 83880; 84484; 85025; 85379; 85610; 93005; 99284

== ENCOUNTER 2021-09-08 14:58 | Emergency (ER) | payer BC ==
[2021-09-09] MEDS ORDERED: AZIT250T6 PO (14:55)
== END 2021-09-08 15:37 | disposition left against medical advice (07) ==
LOC: ER 14:58
DX: R51.9 Headache, unspecified (principal); R42 Dizziness and giddiness; Z53.21 Procedure and treatment not carried out due to patient leaving prior to being seen by health care provider

== ENCOUNTER 2021-09-09 10:16 | Emergency (ER) | payer BC ==
[~2021-09-09] VITALS: Ht 162.6 cm; Wt 47.7 kg
--- NOTE | 2021-09-09 10:57 | PHYS DOC ---
Past Medical History Past Medical History: Anxiety, COPD, [place] Additional Past Medical Histor: Chronic pain,hep C(treated),drug seeking behavior, RLS Past Surgical History: Tubal ligation, Other Additional Past Surgical Histo: BILATERAL KNEE REPLACEMENT, HERNIA REPAIR Smoking Status: Current Every Day Smoker Additional Information: < 0.5 PPD Alcohol Use: None Drug Use: None General Adult EDM: Chief Complaint: COUGH HPI: HPI: Patient is a 60-year-old female who presents to the emergency department concerning waking up this morning with left-sided chest pain that she rates a 10 out of 10. Patient also reports dizziness, nausea, reports vomiting x1 when she arrived to the emergency department today, denies seeing blood in her vomitus. Patient reports chronic cough and chronic bronchitis, reports a 40+ year cigarette smoker, denies alcohol consumption or illicit drug use. Patient reports history of COPD. Reports an allergy to penicillin, reports home medications of Paxil, Klonopin, Vistaril, metoprolol, and a cholesterol medication. Patient reports similar episodes in the past and was told nothing was wrong with her. Patient denies shortness of breath. Denies radiation of her chest pain. Denies syncopal episodes or near syncopal episodes. Denies visual disturbances. Patient reports she has not taken any pain medications for her chest pain nor tried nonpharmacological pain relief methods, patient denies recent fever or chills. Patient reports receiving the COVID-19 vaccine and flu vaccine this year. Denies other people living in her home with illnesses or similar symptoms. Review of Systems: Review of Systems: 14 body systems of review of systems have been reviewed. See HPI for pertinent positives and negative responses, otherwise all other systems are negative, nonpertinent or noncontributory. Constitutional: Negative except as outlined in HPI above. Skin: Negative except as outlined in HPI above. Eyes: Negative except as outlined in HPI above. HENT: Negative except as outlined in HPI above. Respiratory: Negative except as outlined in HPI above. Cardiovascular: Negative except as outlined in HPI above. GI: Negative except as outlined in HPI above. : Negative except as outlined in HPI above. Musculoskeletal: Negative except as outlined in HPI above. Integument: Negative except as outlined in HPI above. Neurologic: Negative except as outlined in HPI above. Endocrine: Negative except as outlined in HPI above. Lymphatic: Negative except as outlined in HPI above. Psychiatric: Negative except as outlined in HPI above. Heart Score: C/O Chest Pain: Yes HEART Score for Chest Pain: HEART Score for Chest Pain Response (Comments) Value History Slighlty/Non-Suspicious 0 ECG Normal 0 Age >45 - < 65 1 Risk Factors 1 or 2 Risk Factors 1 Troponin < Normal Limit 0 Total 2 Risk Factors: Risk Factors: DM, Current or recent (<one month) smoker, HTN, HLP, family history of CAD, obesity. Risk Scores: Score 0 - 3: 2.5% MACE over next 6 weeks - Discharge Home Score 4 - 6: 20.3% MACE over next 6 weeks - Admit for Clinical Observation Score 7 - 10: 72.7% MACE over next 6 weeks - Early Invasive Strategies Current Medications: Current Medications Medications (Trade) Dose Ordered Sig/[facility] Start Time Stop Time Status Last Admin Dose Admin Hydralazine HCl (Apresoline Inj) 10 mg 1X ONCE 09/09/21 11:00 09/09/21 11:01 Ondansetron HCl (Zofran) 4 mg 1X ONCE 09/09/21 11:00 09/09/21 11:01 Sodium Chloride 1,000 ml @ 1,000 mls/hr 1X ONCE 09/09/21 11:00 09/09/21 11:59 Allergies: Allergies: Allergies Coded Allergies Type Severity Reaction Last Updated Verified Penicillins Allergy Intermediate Hives 08/01/21 Yes oxycodone Adverse Reaction Severe Unknown 08/01/21 Yes tramadol Adverse Reaction Severe Anxiety 08/01/21 Yes Physical Exam: PE: Constitutional: Well developed, well nourished, no acute distress, non-toxic appearance. 60-year-old female in no apparent distress. Patient's complaint of pain exceeds patient's physical presentation or appearance. HENT: Normocephalic, atraumatic. Oropharynx moist, pink, no deep tissue infectious process appreciated. Eyes: Conjunctiva normal, no discharge. Neck: Normal range of motion, no stridor. No nuchal rigidity, no meningismus signs. Cardiovascular: No cyanosis appreciated, distal cap refill less than 2 seconds. RRR to auscultation. Lungs & Thorax: Patient is in no respiratory distress, no audible adventitious lung sounds appreciated. Normal work of breathing, no adventitious lung sounds appreciated per auscultation all lung tadeo. No increased pain to palpation of anterior thorax. Abdomen: Nontender, no abnormalities noted. Skin: Warm, dry, no erythema, no rash. Back: No tenderness, no deformities. Extremities: No tenderness, no cyanosis, no clubbing, ROM intact, no edema. Neurologic: Alert and oriented X 3, normal motor function, normal sensory function, no focal deficits noted. Psychologic: Affect normal, judgement normal, mood normal. Current Patient Data: Vital Signs: Vital Signs Date Time Temp Pulse Resp B/P (MAP) Pulse Ox O2 Delivery O2 Flow Rate FiO2 09/09/21 10:26 96.4 69 20 207/108 (141) 99 Room Air 96.4 EKG: EKG: EKG performed at 1032 by ED nursing staff shows normal sinus rhythm without other ectopy, heart rate 64 bpm, NC interval 0.168, QTc interval 0.438, no acute STEMI, no ACS, no acute ischemia appreciated, EKG interpreted by ED attending physician Dr. Machado. Repeat EKG performed at 1101 by ED nursing staff, no significant changes from previous EKG performed at 1032, continues to show sinus rhythm without other ectopy, heart rate 58 bpm, NC interval 0.166, QTc interval 0.418, no acute STEMI, no ACS, no acute ischemia appreciated, EKG interpreted by ED attending physician Dr. Machado. Radiology/Procedures: Radiology/Procedures: REASON: Dizziness PROCEDURE: CT HEAD WO CONTRAST Exam performed: CT scan of the head without contrast. Date of Service: 09/09/2021. Comparison: None available. Clinical History: Dizziness. Technique: Helical acquisitions are obtained from the foramen magnum to the vertex without intravenous administration of contrast. Findings: The ventricles are midline without evidence of dilatation. Normal rodriguez-white differentiation is maintained. There is no extra axial fluid collection, intraparenchymal hemorrhage or mass lesion. The visualized portions of the orbits, paranasal sinuses and the mastoid air cells appear clear. The calvarium is intact. Impression: 1. No acute intracranial process detected. REASON: Chest pain PROCEDURE: CHEST AP ONLY Exam performed: One view chest. Indication: Reason: Chest pain / Spl. Instructions: / History: Date of Service: 09/09/2021 10:50 AM Comparison: 2 views chest from 03/28/2020 and priors. Single AP upright portable view chest findings: Cardiomediastinal silhouette is within limits of normal. No acute infiltrates, effusion or pneumothorax is detected. The bony structures are normal. Impression: No acute cardiopulmonary process is detected. Electronically signed by: Fide Cline MD (09/09/2021 11:13 AM) [facility] Course & Med Decision Making: Course & Med Decision Making Pertinent Labs and Imaging studies reviewed. (See chart for details) 60-year-old female, vital signs reviewed, presents to the emergency department concerning waking up with left-sided chest pain. Patient does have a coarse cough however lung sounds are clear to auscultate all lung tadeo otherwise physical examination is unremarkable. However with patient's verbal complaints will order serial EKG, serial high-sensitivity troponin I, cardiac isoenzymes, BNP pro, portable chest x-ray, CT head without contrast. 1 L normal saline, 4 mg Zofran for nausea, will consider pain medication pending CT head result. Chest x-ray and CT head unremarkable. Will give IV Toradol for complaint of 10/10 pain. Patient's labs unremarkable. Upon reevaluation of the patient, patient reports Toradol did not help. Patient is now tearful and asking for something stronger than a nonsteroidal pain medication. Upon extensive chart review, patient has had history of opiate abuse, overdose, withdrawal symptoms. Discussed with patient will give IV fentanyl for acute pain, will wait for serial troponin result. Patient is amenable to ED planning. 3-hour serial troponin remains unchanged, patient does report resolution of symptoms, denies chest pain at this time. Discussed with patient we will treat for bronchitis, discussed with patient smoking cessation, will prescribe Z-Ted. Strict follow-up with primary care to discuss ongoing aches and pains and for reevaluation of hypertension. Patient gave verbal understanding of is amenable to ED discharge planning. Discussed with the patient all findings and diagnostic testing as well as the need to follow-up with their primary care provider for further evaluation and treatment or return to the ED if any new or worsening symptoms. Strict return precautions were also discussed at length, the patient voiced understanding and agreement with the discharge planning. The patient was nontoxic in appearance, in no apparent distress, and hemodynamically stable at the time of disposition. Dragon Disclaimer: Dragon Disclaimer: This electronic medical record was generated, in whole or in part, using a voice recognition dictation system. Departure Departure Impression: Primary Impression: Chest pain of unknown etiology Additional Impressions: Bronchitis Cigarette smoker motivated to quit Spell of dizziness Disposition: 01 HOME / SELF CARE / HOMELESS Condition: GOOD Referrals: UNKNOWN PCP NAME (PCP) Patient Instructions: Bronchitis, Smoking Cessation Additional Instructions: You were seen today in the emergency department for chest pain and dizziness. Your chest x-ray and CT of your head did not show any concerning findings. Your lab work was unremarkable and did not show any concerning findings. Your chest pain resolved with fentanyl pain medication IV, you were also given 4 mg of Zofran for nausea 1 L of normal saline fluids, and 30 mg of Toradol intravenously. As we discussed, I am prescribing you Zithromax to treat bronchitis related to your history of cigarette smoking. Please follow-up with your primary care physician soon for reevaluation of your chest pains and to discuss your concerns about taking your high blood pressure medications. Return to the emergency department for worsening symptoms or other concerns. Thank you for visiting our Emergency Department. It was a pleasure taking care of you today in the emergency department and we appreciate you trusting us with your care. If any additional problems come up don't hesitate to return to visit us. Please follow up with your primary care provider so they can plan additional care if needed and know about the problem that you had. If symptoms worsen come back to the Emergency Department. Any concerning symptoms that start such as chest pain, shortness of air, weakness or numbness on one side of the body, running high fevers or any other concerning symptoms return to the ER. EMERGENCY DEPARTMENT GENERAL DISCHARGE INSTRUCTIONS Thank you for coming to [facility] Emergency Department (ED) today and trusting us with you care. We trust that you had a positive experience in our Emergency Department. If you wish to speak to the department management, you may call the Director at [phone]. YOUR FOLLOW UP INSTRUCTIONS ARE FOLLOWS: 1. Do you have a private Doctor? If you do not have a private doctor, please ask for a resource list of physicians or clinics that may be able to assist you with follow up care. 2. The Emergency Physicain has interpreted your x-rays. The X-Ray specialist will also review them. If there is a change in the findings, you will be notified in 48 hours when at all possible. 3. A lab test or culture has been done, your results will be reviewed and you will be notified if you need a change in treatment. ADDITIONAL INSTRUCTIONS AND INFORMATION: 1. Your care today has been supervised by a physician who is specially trained in emergency care. Many problems require more than one evaluation for a complete diagnosis and treatment. We recommend that you schedule your follow up appointment as recommended to ensure complete treatment of you illness or injury. If you are unable to obtain follow up care and continue to have a problem, or if your condition worsens, we recommend that you return to the ED. 2. We are not able to safely determine your condition over the phone nor are we able to give sound medical advice over the phone. For these safety reasons, if you call for medical advice we will ask you to come to the ED for further evaluation. 3. If you have any questions regarding these discharge instructions please call the ED at [phone]. SAFETY INFORMATION: In the interest of safety, wellness, and injury prevention; we encourage you to wear your sealbelt, if you smoke; quite smoking, and we encourage family to use a protective helmet for bicycling and other sporting events that present an increased risk for head injury. IF YOUR SYMPTOMS WORSEN OR NEW SYMPTOMS DEVELOP, OR YOU HAVE CONCERNS ABOUT YOUR CONDITION; OR IF YOUR CONDITION WORSENS WHILE YOU ARE WAITING FOR YOUR FOLLOW UP APPOINTMENT; EITHER CONTACT YOUR PRIMARY CARE DOCTOR, THE PHYSICIAN WHOSE NAME AND NUMBER YOU WERE GIVEN, OR RETURN TO THE ED IMMEDIATELY. Scripts Azithromycin (AZITHROMYCIN TABLET) 250 Mg Tablet 1 PKG PO UD for 5 Days, #6 TAB 0 Refills 2 the first day followed by 1 for days 2-5 Prov: BRIANA MORROW APRN 09/09/21 BRIANA MORROW APRN Sep 09, 2021 10:57
[2021-09-09] MEDS ORDERED: ONDANSETRON PF 4 MG/2 ML VIAL. IVP ONE (11:00)
[2021-09-09] MEDS ORDERED: IV NORMAL SALINE 1000ML BAG 1,000 ML IV ONE (11:00)
[2021-09-09] MEDS ORDERED: hydrALAZINE 20 MG/ML VIAL. IVP ONE (11:00)
--- NOTE | 2021-09-09 11:06 | RAD ---
Exam performed: CT scan of the head without contrast. Date of Service: 09/09/2021. Comparison: None available. Clinical History: Dizziness. Technique: Helical acquisitions are obtained from the foramen magnum to the vertex without intravenou s administration of contrast. Findings: The ventricles are midline without evidence of dilatation. Normal rodriguez-white differentiation is maint ained. There is no extra axial fluid collection, intraparenchymal hemorrhage or mass lesion. The vi sualized portions of the orbits, paranasal sinuses and the mastoid air cells appear clear. The [place] rium is intact. Impression: 1. No acute intracranial process detected. PQRS Compliance Statement: One or more of the following individualized dose reduction techniques were utilized for this examinat ion: 1. Automated exposure control 2. Adjustment of the mA and/or kV according to patient size 3. Use of iterative reconstruction technique Electronically signed by: Fide Cline MD (09/09/2021 11:03 AM) [facility]
--- NOTE | 2021-09-09 11:16 | RAD ---
Exam performed: One view chest. Indication: Reason: Chest pain / Spl. Instructions: / History: Date of Service: 09/09/2021 10:50 AM Comparison: 2 views chest from 03/28/2020 and priors. Single AP upright portable view chest findings: Cardiomediastinal silhouette is within limits of normal. No acute infiltrates, effusion or pneumotho rax is detected. The bony structures are normal. Impression: No acute cardiopulmonary process is detected. Electronically signed by: Fide Cline MD (09/09/2021 11:13 AM) [facility]
[2021-09-09 11:20] LABS: BASO # 0.1 x10^3/uL (0.0-0.2); BASO % 1 % (0-3); EOS # 0.3 x10^3/uL (0.0-0.7); EOS % 3 % (0-3); HEMATOCRIT 44.1 % (36.0-47.0); HEMOGLOBIN 14.6 g/dL (12.0-15.5); LYMPH # 1.9 x10^3/uL (1.0-4.8); LYMPH % 15 % (24-48); MEAN CORPUSCULAR HEMOGLOBIN 33 pg (25-35); MEAN CORPUSCULAR HGB CONC 33 g/dL (31-37); MEAN CORPUSCULAR VOLUME 99 fL (79-100); MONO # 0.4 x10^3/uL (0.0-1.1); MONO % 3 % (0-9); NEUT # 9.5 x10^3/uL (1.8-7.7); NEUT % 78 % (31-73); PLATELET COUNT 310 x10^3/uL (140-400); RED BLOOD COUNT 4.45 x10^6/uL (3.50-5.40); RED CELL DISTRIBUTION WIDTH 12.7 % (11.5-14.5); WHITE BLOOD COUNT 12.3 x10^3/uL (4.0-11.0)
[2021-09-09] MEDS ORDERED: MECLIZINE HCL 12.5 MG TABLET. PO ONE (11:45)
[2021-09-09] MEDS ORDERED: KETOROLAC 30 MG/ML VIAL. IVP ONE (11:45)
[2021-09-09 11:51] LABS: CREATININE 0.8 mg/dL (0.6-1.0); GFR 73.4; POTASSIUM 4.4 mmol/L (3.5-5.1)
[2021-09-09 11:57] LABS: ALBUMIN 3.7 g/dL (3.4-5.0); ALBUMIN/GLOBULIN RATIO 0.9 (1.0-1.7); MAGNESIUM 2.2 mg/dL (1.8-2.4); TOTAL BILIRUBIN 0.3 mg/dL (0.2-1.0); TOTAL PROTEIN 7.7 g/dL (6.4-8.2)
[2021-09-09] MEDS ORDERED: fentaNYL PF VIAL 100 MCG/2 ML VIAL IVP ONE (12:30)
[2021-09-09] MEDS ORDERED: AZIT250T6 PO (14:55)
[2021-09-09 14:57] VITALS: BP 163/78
--- NOTE | 2021-09-10 06:54 | EKG ---
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
--- NOTE | 2021-09-10 06:55 | EKG ---
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
== END 2021-09-09 15:03 | disposition home or self-care (01) ==
LOC: ER 10:16
DX: J44.9 Chronic obstructive pulmonary disease, unspecified (principal); R07.89 Other chest pain; R42 Dizziness and giddiness; F17.210 Nicotine dependence, cigarettes, uncomplicated; Z76.5 Malingerer [conscious simulation]; G25.81 Restless legs syndrome; G89.29 Other chronic pain; Z98.51 Tubal ligation status; Z98.890 Other specified postprocedural states; Z88.0 Allergy status to penicillin; Z88.5 Allergy status to narcotic agent; Z88.6 Allergy status to analgesic agent
CPT/HCPCS: 36415; 70450; 71045; 80053; 82553; 83605; 83735; 83880; 84484; 85025; 87040; 93005; 96361; 96374; 96375; 99285; J1885; J2405; J3010; J7030; J8597

== ENCOUNTER 2021-09-10 15:03 | Emergency (ER) | payer BC ==
[~2021-09-10] VITALS: Ht 162.6 cm; Wt 47.0 kg
[2021-09-10] MEDS ORDERED: METOCLOPRAMIDE HCL 10 MG/2 ML VIAL. IVP ONE (16:30)
[2021-09-10] MEDS ORDERED: LABETALOL 20 MG/4 ML DISP.SYRIN. IVP ONE (16:30)
[2021-09-10] MEDS ORDERED: IV NORMAL SALINE 1000ML BAG 1,000 ML IV ONE (16:30)
[2021-09-10] MEDS ORDERED: KETOROLAC 30 MG/ML VIAL. IVP ONE (16:30)
[2021-09-10] MEDS ORDERED: diphenhydrAMINE 50 MG/ML VIAL IVP ONE (16:30)
[2021-09-10 17:14] LABS: BASO # 0.1 x10^3/uL (0.0-0.2); BASO % 1 % (0-3); EOS # 0.4 x10^3/uL (0.0-0.7); EOS % 5 % (0-3); HEMATOCRIT 41.4 % (36.0-47.0); HEMOGLOBIN 14.1 g/dL (12.0-15.5); LYMPH # 2.7 x10^3/uL (1.0-4.8); LYMPH % 31 % (24-48); MEAN CORPUSCULAR HEMOGLOBIN 33 pg (25-35); MEAN CORPUSCULAR HGB CONC 34 g/dL (31-37); MEAN CORPUSCULAR VOLUME 98 fL (79-100); MONO # 0.4 x10^3/uL (0.0-1.1); MONO % 4 % (0-9); NEUT # 5.1 x10^3/uL (1.8-7.7); NEUT % 59 % (31-73); PLATELET COUNT 293 x10^3/uL (140-400); RED BLOOD COUNT 4.24 x10^6/uL (3.50-5.40); RED CELL DISTRIBUTION WIDTH 12.9 % (11.5-14.5); WHITE BLOOD COUNT 8.8 x10^3/uL (4.0-11.0)
[2021-09-10 17:43] LABS: CREATININE 0.7 mg/dL (0.6-1.0); GFR 85.6; POTASSIUM 3.5 mmol/L (3.5-5.1)
[2021-09-10 17:50] LABS: ALBUMIN 3.8 g/dL (3.4-5.0); TOTAL BILIRUBIN 0.3 mg/dL (0.2-1.0); TOTAL PROTEIN 7.6 g/dL (6.4-8.2)
[2021-09-10 18:10] VITALS: BP 164/80
--- NOTE | 2021-09-10 19:22 | EKG ---
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
--- NOTE | 2021-09-10 20:20 | PHYS DOC ---
Past Medical History Past Medical History: Anxiety, COPD, [place] Additional Past Medical Histor: Chronic pain,hep C(treated),drug seeking behavior, RLS Past Surgical History: Tubal ligation, Other Additional Past Surgical Histo: BILATERAL KNEE REPLACEMENT, HERNIA REPAIR Smoking Status: Current Every Day Smoker Additional Information: PT STATES SHE IS TRYING TO QUIT. Alcohol Use: None Drug Use: None General Adult EDM: Chief Complaint: HYPERTENSION HPI: HPI: Patient is a 60-year-old female who presents to the emergency department c oncerned that she has ongoing high blood pressure, headaches, dizzy spells, chest pains. Patient reports she was seen here yesterday and had CT scan of her head, was treated for high blood pressure, had a chest x-ray and EKG and lab work that did not show concerning findings and was told to follow-up with her primary care physician for ongoing high blood pressure problems. Patient reports she has not done this and wants a reevaluation today in the emergency department. Patient denies any new symptoms. Patient reports she received fentanyl yesterday for chest pain, reports she would like to have more fentanyl while she is here in the emergency department. Review of Systems: Review of Systems: 14 body systems of review of systems have been reviewed. See HPI for pertinent positives and negative responses, otherwise all other systems are negative, nonpertinent or noncontributory. Constitutional: Negative except as outlined in HPI above. Skin: Negative except as outlined in HPI above. Eyes: Negative except as outlined in HPI above. HENT: Negative except as outlined in HPI above. Respiratory: Negative except as outlined in HPI above. Cardiovascular: Negative except as outlined in HPI above. GI: Negative except as outlined in HPI above. : Negative except as outlined in HPI above. Musculoskeletal: Negative except as outlined in HPI above. Integument: Negative except as outlined in HPI above. Neurologic: Negative except as outlined in HPI above. Endocrine: Negative except as outlined in HPI above. Lymphatic: Negative except as outlined in HPI above. Psychiatric: Negative except as outlined in HPI above. Heart Score: C/O Chest Pain: Yes HEART Score for Chest Pain: HEART Score for Chest Pain Response (Comments) Value History Slighlty/Non-Suspicious 0 ECG Normal 0 Age >45 - < 65 1 Risk Factors 1 or 2 Risk Factors 1 Troponin < Normal Limit 0 Total 2 Risk Factors: Risk Factors: DM, Current or recent (<one month) smoker, HTN, HLP, family history of CAD, obesity. Risk Scores: Score 0 - 3: 2.5% MACE over next 6 weeks - Discharge Home Score 4 - 6: 20.3% MACE over next 6 weeks - Admit for Clinical Observation Score 7 - 10: 72.7% MACE over next 6 weeks - Early Invasive Strategies Current Medications: Current Medications Medications (Trade) Dose Ordered Sig/Terrance Start Time Stop Time Status Last Admin Dose Admin Diphenhydramine HCl (Benadryl) 25 mg 1X ONCE 09/10/21 16:30 09/10/21 16:33 DC 09/10/21 17:01 25 MG Ketorolac Tromethamine (Toradol 30mg Vial) 30 mg 1X ONCE 09/10/21 16:30 09/10/21 16:33 DC 09/10/21 17:13 30 MG Labetalol HCl (Normodyne Iv Push) 20 mg 1X ONCE 09/10/21 16:30 09/10/21 16:33 DC 09/10/21 17:16 20 MG Metoclopramide HCl (Reglan Vial) 10 mg 1X ONCE 09/10/21 16:30 09/10/21 16:33 DC 09/10/21 17:14 10 MG Sodium Chloride 1,000 ml @ 1,000 mls/hr 1X ONCE 09/10/21 16:30 09/10/21 17:29 DC 09/10/21 17:18 1,000 MLS/HR Allergies: Allergies: Allergies Coded Allergies Type Severity Reaction Last Updated Verified Penicillins Allergy Intermediate Hives 08/01/21 Yes oxycodone Adverse Reaction Severe Unknown 08/01/21 Yes tramadol Adverse Reaction Severe Anxiety 08/01/21 Yes Physical Exam: PE: Constitutional: Well developed, well nourished, no acute distress, non-toxic appearance. 60-year-old female in no apparent distress. Patient's complaint level of pain exceeds patient's physical presentation and examination. HENT: Normocephalic, atraumatic. Eyes: Conjunctiva normal, no discharge. Neck: Normal range of motion, no stridor. Cardiovascular: No cyanosis appreciated, distal cap refill less than 2 seconds. Heart sounds S1-S2 to auscultation, RRR. Lungs & Thorax: Patient is in no respiratory distress, no audible adventitious lung sounds appreciated. Normal work of breathing, clear lung sounds all lung tadeo auscultation. Abdomen: Nontender, no abnormalities noted. Skin: Warm, dry, no erythema, no rash. Back: No tenderness, no deformities. Extremities: No tenderness, no cyanosis, no clubbing, ROM intact, no edema. Neurologic: Alert and oriented X 3, normal motor function, normal sensory function, no focal deficits noted. Psychologic: Affect normal, judgement normal, mood normal. Current Patient Data: Labs: Laboratory Tests Test 09/10/21 16:55 09/10/21 17:30 White Blood Count 8.8 x10^3/uL (4.0-11.0) Red Blood Count 4.24 x10^6/uL (3.50-5.40) Hemoglobin 14.1 g/dL (12.0-15.5) Hematocrit 41.4 % (36.0-47.0) Mean Corpuscular Volume 98 fL (79-100) Mean Corpuscular Hemoglobin 33 pg (25-35) Mean Corpuscular Hemoglobin Concent 34 g/dL (31-37) Red Cell Distribution Width 12.9 % (11.5-14.5) Platelet Count 293 x10^3/uL (140-400) Neutrophils (%) (Auto) 59 % (31-73) Lymphocytes (%) (Auto) 31 % (24-48) Monocytes (%) (Auto) 4 % (0-9) Eosinophils (%) (Auto) 5 % (0-3) H Basophils (%) (Auto) 1 % (0-3) Neutrophils # (Auto) 5.1 x10^3/uL (1.8-7.7) Lymphocytes # (Auto) 2.7 x10^3/uL (1.0-4.8) Monocytes # (Auto) 0.4 x10^3/uL (0.0-1.1) Eosinophils # (Auto) 0.4 x10^3/uL (0.0-0.7) Basophils # (Auto) 0.1 x10^3/uL (0.0-0.2) Sodium Level 139 mmol/L (136-145) Potassium Level 3.5 mmol/L (3.5-5.1) Chloride Level 104 mmol/L (98-107) Carbon Dioxide Level 28 mmol/L (21-32) Anion Gap 7 (6-14) Blood Urea Nitrogen 16 mg/dL (7-20) Creatinine 0.7 mg/dL (0.6-1.0) Estimated GFR (Cockcroft-Gault) 85.6 BUN/Creatinine Ratio 23 (6-20) H Glucose Level 84 mg/dL (70-99) Calcium Level 9.0 mg/dL (8.5-10.1) Total Bilirubin 0.3 mg/dL (0.2-1.0) Aspartate Amino Transferase (AST) 17 U/L (15-37) Alanine Aminotransferase (ALT) 20 U/L (14-59) Alkaline Phosphatase 91 U/L (46-116) Troponin I High Sensitivity 7 ng/L (4-50) KJ-Ojq-U-Type Natriuretic Peptide 359 pg/mL (0-124) H Total Protein 7.6 g/dL (6.4-8.2) Albumin 3.8 g/dL (3.4-5.0) Albumin/Globulin Ratio 1.0 (1.0-1.7) Laboratory Tests 09/10/21 16:55 Laboratory Tests 09/10/21 17:30 Vital Signs: Vital Signs Date Time Temp Pulse Resp B/P (MAP) Pulse Ox O2 Delivery O2 Flow Rate FiO2 09/10/21 18:10 78 10 164/80 (108) 96 Room Air 09/10/21 15:53 98.4 98.4 EKG: EKG: EKG performed at 1607 by ED nursing staff shows a normal sinus rhythm with left atrial deviation, no other ectopy appreciated, heart rate 60 bpm, WI interval 0.152, QTc interval 0.418, no acute STEMI, no ACS, no acute ischemia appreciated, EKG interpreted by ED attending physician Dr. Nichole. Radiology/Procedures: Radiology/Procedures: [] Course & Med Decision Making: Course & Med Decision Making Pertinent Labs and Imaging studies reviewed. (See chart for details) 60-year-old female, vital signs reviewed, resents emerged department concerning high blood pressure problems at home along with headache and chest pains. Patient was seen here yesterday for same problems, and extensive work-up was performed and found negative for cardiac or pulmonary process, no definite signs of endorgan damage related to high blood pressure. Will order chest x-ray, CBC, CMP, D-dimer, NT proBNP, troponin I high-sensitivity, urinalysis assay, urine drug screen, will give 20 mg labetalol for presentation of hypertension , patient is amenable to ED planning. Patient is asking for fentanyl or hydrocodone or oxycodone or morphine or Dilaudid for pain. Patient reports she cannot take tramadol. Discussed with patient oxycodone on allergy list, patient reports it makes her stomach upset but she will take it if she can get it. Discussed with patient will hold off on pain medication pending lab results and investigation of hypertensive urgency in the light of endorgan damage. Patient refuses chest x-ray, has refused lab draw for D-dimer. Patient reports she feels better and is leaving now. Discussed with patient ED work-up is not complete, labs that have returned at this time are suggestive of high blood pr essure with endorgan damage however not definitive related to incomplete results. Patient reports she is leaving anyways, she would needs pain medication stronger than Tylenol or Motrin, discussed with patient high blood pressure problems with endorgan damage, may lead to or permanent disabil ity, patient demanded IV be removed so she can leave immediately. The patient has decided to leave our facility against medical advice. I have assessed patient's ability to make informed decision and feel the patient has the capacity to comprehend information regarding the current medical condition and appreciates the impact of the disease or condition and the consequences of various options for treatment, including foregoing treatment. The patient possesses the ability to evaluate all treatment options, comparing the risks and benefits of each option, communicate his or her choice in a consistent manner over time, and is able to make rational choices. I explained to the patient further testing, treatment, and evaluation I would like to perform in the emergency department visit as well as any possible alternatives that can be accomplished in a timely manner. I have outlined the possible risks of foregoing any or all of these interventions and the patient understands and acknowledges that the decision to leave may result in undesirable consequences such as , permanent disability, and/or loss of current lifestyle. Even though leaving AMA is not ideal, I have instructed the patient to follow any discharge instructions given, take any medications prescribed, and resume care as soon as possible with another provider. This conversation was witnessed by another member of the emergency department staff and we clearly communicated the patient is welcome to return anytime to continue care at our facility. Dragon Disclaimer: Kimberlee Disclaimer: This electronic medical record was generated, in whole or in part, using a voice recognition dictation system. Departure Departure Impression: Primary Impression: Left against medical advice Disposition: 07 LEFT AGAINST MEDICAL ADVICE Condition: STABLE BRIANA MORROW APRN Sep 10, 2021 20:20
== END 2021-09-10 18:51 | disposition left against medical advice (07) ==
LOC: ER 15:03
DX: R51.9 Headache, unspecified (principal); R42 Dizziness and giddiness; R07.9 Chest pain, unspecified; I10 Essential (primary) hypertension; F41.9 Anxiety disorder, unspecified; J44.9 Chronic obstructive pulmonary disease, unspecified; I25.2 Old myocardial infarction; G89.29 Other chronic pain; F17.200 Nicotine dependence, unspecified, uncomplicated; Z96.653 Presence of artificial knee joint, bilateral; Z88.0 Allergy status to penicillin; Z88.5 Allergy status to narcotic agent; Z88.6 Allergy status to analgesic agent
CPT/HCPCS: 36415; 80053; 83880; 84484; 85025; 93005; 96361; 96374; 96375; 99285; J1200; J1885; J2765; J3490; J7030

== ENCOUNTER 2022-01-23 07:56 | Emergency (ER) | payer BC ==
[~2022-01-23] VITALS: Ht 162.6 cm; Wt 49.6 kg
--- NOTE | 2022-01-23 08:27 | ED.ADGEN ---
Past Medical History Past Medical History: Anxiety, COPD, [place] Additional Past Medical Histor: Chronic pain,hep C(treated),drug seeking behavior, RLS Past Surgical History: Tubal ligation, Other Additional Past Surgical Histo: BILATERAL KNEE REPLACEMENT, HERNIA REPAIR Smoking Status: Current Every Day Smoker Alcohol Use: None Drug Use: None General Adult EDM: Chief Complaint: NEURO SYMPTOMS/DEFICITS HPI: HPI: Patient is a 61-year-old female who arrives ambulatory to the emergency department complaining of the acute onset of left lower extremity weakness yesterday. Patient reports at approximately 1800 hours she experienced difficulty using her left lower extremity. Patient states she simply cannot walk. Patient also states she has had some minimal sensory loss of the left upper extremity. Despite this she is not had any facial involvement. She further states that she is not had any slurring of her speech and she has a director private with her who has not noticed any outward focal motor or sensory loss. She further denies any history of illness or injury. She is awake, alert and nontoxic-appearing Review of Systems: Review of Systems: Constitutional: Denies fever or chills. [] Eyes: Denies change in visual acuity. [] HENT: Denies nasal congestion or sore throat. [] Respiratory: Denies cough or shortness of breath. [] Cardiovascular: Denies chest pain or edema. [] GI: Denies abdominal pain, nausea, vomiting, bloody stools or diarrhea. [] : Denies dysuria. [] Musculoskeletal: Denies back pain or joint pain. [] Integument: Denies rash. [] Neurologic: Left lower extremity numbness. Denies headache. [] Endocrine: Denies polyuria or polydipsia. [] Lymphatic: Denies swollen glands. [] Psychiatric: Denies depression or anxiety. [] Allergies: Allergies: Allergies Coded Allergies Type Severity Reaction Last Updated Verified Penicillins Allergy Intermediate Hives 01/23/22 Yes oxycodone Adverse Reaction Severe Unknown 01/23/22 Yes tramadol Adverse Reaction Severe Anxiety 01/23/22 Yes Physical Exam: PE: Constitutional: Well developed, well nourished, no acute distress, non-toxic appearance. [] HENT: Normocephalic, atraumatic, bilateral external ears normal, oropharynx moist, no oral exudates, nose normal. [] Eyes: PERRLA, EOMI, conjunctiva normal, no discharge. [] Neck: Normal range of motion, no tenderness, supple, no stridor. [] Cardiovascular:Heart rate regular rhythm, no murmur [] Lungs & Thorax: Bilateral breath sounds clear to auscultation [] Abdomen: Bowel sounds normal, soft, no tenderness, no masses, no pulsatile masses. [] Skin: Warm, dry, no erythema, no rash. [] Back: No tenderness, no CVA tenderness. [] Extremities: No tenderness, no cyanosis, no clubbing, ROM intact, no edema. [] Neurologic: Patient has slight sensory loss of her left upper extremity. Patient is otherwise alert and oriented X 3, normal motor function, no focal deficits noted. [] Psychologic: Affect normal, judgement normal, mood normal. [] Current Patient Data: Labs: Laboratory Tests Test 01/23/22 08:01 Glucose (Fingerstick) 149 mg/dL (70-99) H Vital Signs: Vital Signs Date Time Temp Pulse Resp B/P (MAP) Pulse Ox O2 Delivery O2 Flow Rate FiO2 01/23/22 08:55 66 136/95 (109) 98 Room Air 01/23/22 08:10 18 01/23/22 08:00 98.2 98.2 EKG: EKG: EKG was obtained at 8:42 AM and revealed a normal sinus rhythm with a ventricular rate of 63 bpm. There are no acute ST/T wave changes to denote ischemia. No STEMI. [] Heart Score: C/O Chest Pain: No Risk Factors: Risk Factors: DM, Current or recent (<one month) smoker, HTN, HLP, family history of CAD, obesity. Risk Scores: Score 0 - 3: 2.5% MACE over next 6 weeks - Discharge Home Score 4 - 6: 20.3% MACE over next 6 weeks - Admit for Clinical Observation Score 7 - 10: 72.7% MACE over next 6 weeks - Early Invasive Strategies Radiology/Procedures: Radiology/Procedures: [][facility] [address] [place], [place] [id number] IMAGING REPORT Signed PATIENT: ANNY FORD ACCOUNT: [id number] : 1960 LOCATION: ER AGE: 61 SEX: F EXAM STATUS: PRE ER ORD. PHYSICIAN: CHAR MCMAHON DO REASON: Left-sided weakness, confusion PROCEDURE: CT CODE STROKE HEAD WO CT STROKE HEAD W/O History: Reason: Left-sided weakness, confusion Comparison: None. Technique: Noncontrast CT imaging was performed of the head. Exposure: One or more of the following individualized dose reduction techniques were utilized for this examination: 1. Automated exposure control 2. Adjustment of the mA and/or kV according to patient size 3. Use of iterative reconstruction technique. Findings: No intracranial hemorrhage. No mass effect. No hydrocephalus. Mild foci of decreased attenuation within the hemispheric white matter, most often due to chronic microvascular ischemia. Imaged orbits are unremarkable. Postoperative changes paranasal sinuses. Mild scattered mucosal thickening. Mastoid air cells are clear. No acute calvarial fracture. Impression: 1. No acute intracranial abnormality. FOR INTERNAL CODING PURPOSES Critical result: Findings discussed with CHAR MCMAHON DO at 01/23/2022 8:21 AM. RESULT CODE: (C) Electronically signed by: Domenic Gao DO (01/23/2022 8:33 AM) [id number] DICTATED and SIGNED BY: DOMENIC GAO DO DATE: 01/23/22817 Course & Med Decision Making: Course & Med Decision Making Pertinent Labs and Imaging studies reviewed. (See chart for details) [ The patient remains awake, alert and in no acute distress. CT imaging did not reveal any acute abnormality and lab work is within normal limits. Because the patient was within the window for clot retrieval, a code stroke was activated. Again CT was negative and after speak with Dr. Randolph no further action in the emergency department as needed. He did recommend however the patient be admitted for further evaluation. The patient understands this and has agreed to this. The patient has been admitted to Dr. Lau and Dr. Randolph will continue to follow the patient. She is nontoxic-appearing resting comfortably now. She is stable for transport to the floor. Dragon Disclaimer: Dragon Disclaimer: This electronic medical record was generated, in whole or in part, using a voice recognition dictation system. Departure Departure Impression: Primary Impression: TIA (transient ischemic attack) Additional Impression: Confusion Disposition: ADMITTED INPATIENT Admitting Physician: IRINA Condition: STABLE Referrals: UNKNOWN PCP NAME (PCP) Problem Qualifiers CHAR MCMAHON DO Jan 23, 2022 08:27
--- NOTE | 2022-01-23 08:35 | RAD ---
CT STROKE HEAD W/O History: Reason: Left-sided weakness, confusion Comparison: None. Technique: Noncontrast CT imaging was performed of the head. Exposure: One or more of the following individualized dose reduction techniques were utilized for thi s examination: 1. Automated exposure control 2. Adjustment of the mA and/or kV according to patient size 3. Use of iterative reconstruction technique. Findings: No intracranial hemorrhage. No mass effect. No hydrocephalus. Mild foci of decreased attenuation within the hemispheric white matter, most often due to chronic jean rovascular ischemia. Imaged orbits are unremarkable. Postoperative changes paranasal sinuses. Mild scattered mucosal thick ening. Mastoid air cells are clear. No acute calvarial fracture. Impression: 1. No acute intracranial abnormality. FOR INTERNAL CODING PURPOSES Critical result: Findings discussed with CHAR MCMAHON DO at 01/23/2022 8:21 AM. RESULT CODE: (C) Electronically signed by: Domenic Gao DO (01/23/2022 8:33 AM) [id number]
[2022-01-23] MEDS ORDERED: ONDANSETRON PF 4 MG/2 ML VIAL. IVP PRN (09:15)
[2022-01-23 10:01] LABS: BASO # 0.1 x10^3/uL (0.0-0.2); BASO % 1 % (0-3); EOS # 0.3 x10^3/uL (0.0-0.7); EOS % 3 % (0-3); HEMATOCRIT 44.5 % (36.0-47.0); HEMOGLOBIN 15.1 g/dL (12.0-15.5); LYMPH # 2.9 x10^3/uL (1.0-4.8); LYMPH % 25 % (24-48); MEAN CORPUSCULAR HEMOGLOBIN 33 pg (25-35); MEAN CORPUSCULAR HGB CONC 34 g/dL (31-37); MEAN CORPUSCULAR VOLUME 97 fL (79-100); MONO # 0.5 x10^3/uL (0.0-1.1); MONO % 4 % (0-9); NEUT % 68 % (31-73); PLATELET COUNT 344 x10^3/uL (140-400); RED CELL DISTRIBUTION WIDTH 12.4 % (11.5-14.5); WHITE BLOOD COUNT 11.7 x10^3/uL (4.0-11.0)
[2022-01-23 10:09] LABS: CALCIUM 9.4 mg/dL (8.5-10.1); CREATININE 0.5 mg/dL (0.6-1.0); GFR 125.9; POTASSIUM 3.5 mmol/L (3.5-5.1)
[2022-01-23 10:12] LABS: PROTHROMBIN TIME PATIENT 13.4 SEC (11.7-14.0)
[2022-01-23 10:25] VITALS: BP 113/63
--- NOTE | 2022-01-23 10:31 | HP ---
DATE OF SERVICE: 01/23/2022 ADMIT DATE: 01/23/2022 CHIEF COMPLAINT: Left-sided lower extremity weakness. HISTORY OF PRESENT ILLNESS: The patient is a pleasant 61-year-old female who smokes. She quit drinking 12 years ago. She presents with left lower extremity weakness, were concerned she could be having stroke symptoms. We did a CAT scan, so far is not showing any acute disease. Her symptoms are improving. I discussed the case with ER physician. We are going to admit the patient and consult Neurology. PAST MEDICAL HISTORY: Previous alcohol usage, but she states she quit 12 years ago. She continues to smoke. She is . She is a retired from [employer]. MEDICATIONS: Reviewed, please refer to the MRAD. REVIEW OF SYSTEMS: GENERAL: No history of weight change, weakness or fevers. SKIN: No bruising, hair changes or rashes. EYES: No blurred, double or loss of vision. NOSE AND THROAT: No history of nosebleeds, hoarseness or sore throat. HEART: No history of palpitations, chest pain or shortness of breath on exertion. LUNGS: Denies cough, hemoptysis, wheezing or shortness of breath. GASTROINTESTINAL: Denies changes in appetite, nausea, vomiting, diarrhea or constipation. GENITOURINARY: No history of frequency, urgency, hesitancy or nocturia. NEUROLOGIC: Denies history of numbness, tingling, tremor or weakness. PSYCHIATRIC: No history of panic, anxiety or depression. ENDOCRINE: No history of heat or cold intolerance, polyuria or polydipsia. EXTREMITIES: Denies muscle weakness, joint pain, pain on walking or stiffness. PHYSICAL EXAMINATION: VITALS: Within normal limits and are stable. GENERAL: No apparent distress. Alert and oriented. HEENT: Normal cephalic atraumatic, external auditory canals are patent EYES: Extraocular muscles are intact, pupils are equally round and reactive to light and accommodation MUSCULOSKELETAL: Well developed, well nourished, good range of motion ENDOCRINE: No thyromegaly was palpated LYMPHATICS: No cervical chain or axillary nodes were noted HEMATOPOIETIC: No bruising NECK: Supple, no JVD, no thyromegaly was noted. LUNGS: Clear to auscultation in all lung tadeo without rhonchi or wheezing. HEART: RRR, S1, S2 present. Peripheral pulses intact, no obvious murmurs were noted. ABDOMEN: Soft, nontender. Positive bowel sounds no organomegaly, normal bowel sounds. EXTREMITIES: Without any cyanosis, clubbing, or edema. Pedal pulses intact, Homans sign is negative. NEUROLOGIC: Normal speech, normal tone. A and O x 3, moves all extremities, no obvious focal deficits. PSYCHIATRIC: Normal affect, normal mood. Stable. SKIN: No ulcerations or rashes, good skin turgor, no jaundice. VASCULAR: Good capillary refill, neurovascular bundle appears to be intact. DIAGNOSTIC DATA: CT of the head is negative. LABORATORY DATA: White count is 11.7. ASSESSMENT AND PLAN: Stroke symptoms. The patient will be admitted. We will consult Dr. Quintana. Home meds. Deep venous thrombosis prophylaxis. Full code. Suspect, she may need an MRI, but we will await Dr. Quintana's input. P.r.mona Cheng. Cardiac monitoring. Trend labs. Encourage p.o. intake. Physical therapy and occupational therapy. POOJA/JENNIFER DR: Scott TID: [id number]
[2022-01-23 11:14] LABS: BACTERIA,URINE 0 /HPF (0-FEW); RBC,URINE 0 /HPF (0-2); WBC,URINE OCC /HPF (0-4)
[2022-01-23] MEDS ORDERED: ASPIRIN ENTERIC COATED 81 MG TABLET.DR. PO SCH (12:00)
--- NOTE | 2022-01-23 15:14 | EKG ---
[facility] [address] [place] [address] Test Date: 2022-01-23 Test Time: 08:42:30 Pat Name: ANNY FORD Department: Room: ED HOLD 1 Gender: F Suspender Maker: : 1960 Requested By: CHAR MCMAHON Order Number: [id number] Reading MD: Isaac Magallon Measurements Intervals Gentry Rate: 63 P: 90 HI: 174 QRS: 64 QRSD: 84 T: 59 QT: 398 QTc: 410 Interpretive Statements SINUS RHYTHM LEFT ATRIAL ABNORMALITY Electronically Signed On 01-24-2022 16:43:11 CDT by Isaac Magallon
--- NOTE | 2022-01-24 08:39 | PDOC3 ---
Discharge Summary Visit Information Date of Admission: Jan 23, 2022 Date of Discharge: Jan 24, 2022 Final Diagnosis Problems Medical Problems: (1) Confusion Status: Acute (2) TIA (transient ischemic attack) Status: Acute Brief Hospital Course Allergies Allergies Coded Allergies Type Severity Reaction Last Updated Verified Penicillins Allergy Intermediate Hives 01/23/22 Yes oxycodone Adverse Reaction Severe COMA 01/24/22 Yes tramadol Adverse Reaction Severe Anxiety 01/23/22 Yes Vital Signs Vital Signs Date Time Temp Pulse Resp B/P (MAP) Pulse Ox O2 Delivery O2 Flow Rate FiO2 01/23/22 10:25 74 20 113/63 (80) 96 Room Air 01/23/22 08:00 98.2 98.2 Lab Results Laboratory Tests Test 01/23/22 08:01 01/23/22 09:40 01/23/22 09:45 Glucose (Fingerstick) 149 mg/dL (70-99) Urine Collection Type Void Urine Color (Auto) Light yellow Urine Turbidity Clear Urine pH (Auto) 7.5 (<5.0-8.0) Urine Specific [place] 1.011 (1.000-1.030) Urine Protein (Auto) Negative mg/dL (Negative) Urine Glucose (Auto)(UA) Negative mg/dL (Negative) Urine Ketones (Auto) Negative mg/dL (Negative) Urine Blood (Auto) Negative (Negative) Urine Nitrite Negative (Negative) Urine Bilirubin (Auto) Negative (Negative) Urine Urobilinogen (Auto) Normal mg/dL (Normal) Urine Leukocyte Esterase (Auto) Negative (Negative) Urine RBC 0 /HPF (0-2) Urine WBC Occ /HPF (0-4) Urine Squamous Epithelial Cells Mod /LPF Urine Bacteria 0 /HPF (0-FEW) White Blood Count 11.7 x10^3/uL (4.0-11.0) Red Blood Count 4.60 x10^6/uL (3.50-5.40) Hemoglobin 15.1 g/dL (12.0-15.5) Hematocrit 44.5 % (36.0-47.0) Mean Corpuscular Volume 97 fL (79-100) Mean Corpuscular Hemoglobin 33 pg (25-35) Mean Corpuscular Hemoglobin Concent 34 g/dL (31-37) Red Cell Distribution Width 12.4 % (11.5-14.5) Platelet Count 344 x10^3/uL (140-400) Neutrophils (%) (Auto) 68 % (31-73) Lymphocytes (%) (Auto) 25 % (24-48) Monocytes (%) (Auto) 4 % (0-9) Eosinophils (%) (Auto) 3 % (0-3) Basophils (%) (Auto) 1 % (0-3) Neutrophils # (Auto) 8.0 x10^3/uL (1.8-7.7) Lymphocytes # (Auto) 2.9 x10^3/uL (1.0-4.8) Monocytes # (Auto) 0.5 x10^3/uL (0.0-1.1) Eosinophils # (Auto) 0.3 x10^3/uL (0.0-0.7) Basophils # (Auto) 0.1 x10^3/uL (0.0-0.2) Prothrombin Time 13.4 SEC (11.7-14.0) Prothromb Time International Ratio 1.1 (0.8-1.1) Activated Partial Thromboplast Time 27 SEC (24-38) Sodium Level 140 mmol/L (136-145) Potassium Level 3.5 mmol/L (3.5-5.1) Chloride Level 102 mmol/L (98-107) Carbon Dioxide Level 27 mmol/L (21-32) Anion Gap 11 (6-14) Blood Urea Nitrogen 11 mg/dL (7-20) Creatinine 0.5 mg/dL (0.6-1.0) Estimated GFR (Cockcroft-Gault) 125.9 Glucose Level 118 mg/dL (70-99) Calcium Level 9.4 mg/dL (8.5-10.1) Troponin I High Sensitivity 6 ng/L (4-50) Laboratory Tests Test 01/23/22 09:40 01/23/22 09:45 Urine Collection Type Void Urine Color (Auto) Light yellow Urine Turbidity Clear Urine pH (Auto) 7.5 (<5.0-8.0) Urine Specific [place] 1.011 (1.000-1.030) Urine Protein (Auto) Negative mg/dL (Negative) Urine Glucose (Auto)(UA) Negative mg/dL (Negative) Urine Ketones (Auto) Negative mg/dL (Negative) Urine Blood (Auto) Negative (Negative) Urine Nitrite Negative (Negative) Urine Bilirubin (Auto) Negative (Negative) Urine Urobilinogen (Auto) Normal mg/dL (Normal) Urine Leukocyte Esterase (Auto) Negative (Negative) Urine RBC 0 /HPF (0-2) Urine WBC Occ /HPF (0-4) Urine Squamous Epithelial Cells Mod /LPF Urine Bacteria 0 /HPF (0-FEW) White Blood Count 11.7 x10^3/uL (4.0-11.0) Red Blood Count 4.60 x10^6/uL (3.50-5.40) Hemoglobin 15.1 g/dL (12.0-15.5) Hematocrit 44.5 % (36.0-47.0) Mean Corpuscular Volume 97 fL (79-100) Mean Corpuscular Hemoglobin 33 pg (25-35) Mean Corpuscular Hemoglobin Concent 34 g/dL (31-37) Red Cell Distribution Width 12.4 % (11.5-14.5) Platelet Count 344 x10^3/uL (140-400) Neutrophils (%) (Auto) 68 % (31-73) Lymphocytes (%) (Auto) 25 % (24-48) Monocytes (%) (Auto) 4 % (0-9) Eosinophils (%) (Auto) 3 % (0-3) Basophils (%) (Auto) 1 % (0-3) Neutrophils # (Auto) 8.0 x10^3/uL (1.8-7.7) Lymphocytes # (Auto) 2.9 x10^3/uL (1.0-4.8) Monocytes # (Auto) 0.5 x10^3/uL (0.0-1.1) Eosinophils # (Auto) 0.3 x10^3/uL (0.0-0.7) Basophils # (Auto) 0.1 x10^3/uL (0.0-0.2) Prothrombin Time 13.4 SEC (11.7-14.0) Prothromb Time International Ratio 1.1 (0.8-1.1) Activated Partial Thromboplast Time 27 SEC (24-38) Sodium Level 140 mmol/L (136-145) Potassium Level 3.5 mmol/L (3.5-5.1) Chloride Level 102 mmol/L (98-107) Carbon Dioxide Level 27 mmol/L (21-32) Anion Gap 11 (6-14) Blood Urea Nitrogen 11 mg/dL (7-20) Creatinine 0.5 mg/dL (0.6-1.0) Estimated GFR (Cockcroft-Gault) 125.9 Glucose Level 118 mg/dL (70-99) Calcium Level 9.4 mg/dL (8.5-10.1) Troponin I High Sensitivity 6 ng/L (4-50) Brief Hospital Course Ms. Velazquez is a 61 old female who presented with lower extremity weakness, concern for CVA. Consultation was placed to neurology. Unfortunately prior to any further work-up patient reportedly left AMA. Discharge Information Condition at Discharge: Improved Disposition/Orders: Other (Left AMA) Scheduled Azithromycin (Azithromycin Tablet) 250 Mg Tablet, 1 PKG PO UD for 5 Days, #6 Ref 0 2 the first day followed by 1 for days 2-5 Prescribed by: BRIANA MORROW APRN on 09/09/21 1455 Fluticasone/Salmeterol (Advair Hfa 230-21 Mcg Inhaler) 12 Gm Hfa.aer.ad, 1 INH INH DAILY for , (Reported) Entered as Reported by: Asael Martin on 03/28/20 1318 Last Action: Reviewed on 01/23/22913 by TARAN CHENEY RN Metoprolol Tartrate (Metoprolol Tartrate) 25 Mg Tablet, 1 TAB PO BID for htn, #180 Ref 1 (Reported) Entered as Reported by: LIZ ODELL on 03/29/20 1143 Paroxetine Hcl (Paroxetine Hcl) 20 Mg Tablet, 20 MG PO DAILY for , #90 (Reported) Entered as Reported by: BLAIR MENDOZA RN on 09/03/16 0158 Temazepam (Temazepam) 30 Mg Capsule, 30 MG PO HS, (Reported) Entered as Reported by: DUNG MANSFIELD on 11/14/131954 Last Action: Reviewed on 01/23/22913 by TARAN CHENEY RN Scheduled PRN Clonazepam (Clonazepam ) 0.5 Mg Tablet, 0.5 MG PO TID PRN for ANXIETY, #9 Prescribed by: JUDY PAYNE D.O. on 02/05/202117 Last Action: Reviewed on 01/23/22913 by TARAN CHENEY RN Hydrocodone Bit/Acetaminophen (Hydrocodone-Apap 10-300) 1 Each Tablet, 1 TAB PO PRN TID PRN for PAIN MDD 4 Tablet(s) for 30 Days, #120 Ref 0 (Reported) Entered as Reported by: LEE ANN STEPHEN on 03/28/20 1658 Last Action: Reviewed on 01/23/22913 by TARAN CHENEY RN Hydrocodone Bit/Acetaminophen (Hydrocodone-Apap 5-325 ) 1 Tab Tablet, 1 TAB PO PRN Q6HRS PRN for PAIN, #5 Ref 0 Prescribed by: GERHARD SZYMANSKI D.O. on 12/16/20 0442 Last Action: Reviewed on 01/23/22913 by TARAN CHENEY RN Justicifation of Admission Dx: Justifications for Admission: Justification of Admission Dx: N/A NH: Acute NSTEMI KIMBERLY MÁRQUEZ MD Jan 24, 2022 08:39
== END 2022-01-23 11:00 | disposition left against medical advice (07) ==
LOC: ER 07:56 → UNDOADMOB 09:00 → ED HOLD 09:00
DX: G45.9 Transient cerebral ischemic attack, unspecified (principal); R56.9 Unspecified convulsions; J44.9 Chronic obstructive pulmonary disease, unspecified; I25.2 Old myocardial infarction; G89.29 Other chronic pain; G25.81 Restless legs syndrome; Z98.51 Tubal ligation status; F17.200 Nicotine dependence, unspecified, uncomplicated; Z88.0 Allergy status to penicillin; Z88.5 Allergy status to narcotic agent; Z88.6 Allergy status to analgesic agent
CPT/HCPCS: 36415; 70450; 80048; 81001; 82962; 84484; 85025; 85610; 85730; 93005; 99285-25

== ENCOUNTER 2022-01-23 11:15 | Emergency (ER) | payer BC ==
[2022-01-23 10:25] VITALS: BP 113/63
== END 2022-01-23 11:30 | disposition left against medical advice (07) ==
LOC: ER 11:15
DX: Z76.0 Encounter for issue of repeat prescription (principal); Z53.21 Procedure and treatment not carried out due to patient leaving prior to being seen by health care provider